=== PATIENT | male | born 1935 | race Caucasian/White ===

== ENCOUNTER 2019-12-05 10:45 | Inpatient (IN) ==
[2019-12-05] MEDS ORDERED: NovoLIN-R INSULIN PER UNIT CHARGE SC STA ×2 (11:20→11:38)
[2019-12-05] MEDS ORDERED: SODIUM CHLORIDE 0.9% 1000ML 1,000 ML IV SCH (11:30)
[2019-12-05 11:34] LABS: Basophils # (auto) 0.01 K/uL (0-0.2); Basophils % (auto) 0.1 %; Eosinophils # (auto) 0.07 K/uL (0-0.5); Hematocrit (blood only) 37.8 % (42-52); Hemoglobin 12.1 g/dL (14.0-18.0); Immature Granulocytes # (auto) 0.01 K/uL (0.00-0.02); Immature Granulocytes % (auto) 0.1 %; Lymphocytes % (auto) 15.8 %; Mean Corpuscular Hemoglobin 29.7 pg (25-34); Mean Corpuscular Volume 92.9 fL (80-100); Mean Platelet Volume 11.1 fL (7.4-10.4); Monocytes % (auto) 7.2 %; Neutrophils # (auto) 5.26 K/uL (1.4-6.5); Neutrophils % (auto) 75.8 %; Platelet Count 115 K/uL (130-400); RDW Coefficient of Variation 13.3 % (11.5-14.5); RDW Standard Deviation 45.4 fL (36.4-46.3); Red Blood Count 4.07 M/uL (4.7-6.1); White Blood Count 6.95 K/uL (4.8-10.8)
--- NOTE | 2019-12-05 11:36 | CT Scan Report ---
CT head/brain wo con CLINICAL HISTORY: 84 years-old Male with fall, AMS. Acute head injury status post fall with altered mental status TECHNIQUE: Multiple axial CT images of the head were obtained without contrast. A dose lowering tech nique was utilized adhering to the principles of ALARA. CT DOSE: 537.48 mGy.cm COMPARISON: Head CT 02/06/2007 FINDINGS: No acute intracranial hemorrhage, midline shift, intracranial mass, hydrocephalus, territorial ischem ia or abnormal extra-axial collection. Age-related involutional changes. Encephalomalacia of the bila teral inferior frontal lobes has progressed from comparison. Patchy white matter hypodensities sugges t chronic microvascular ischemic disease. Cerebral vascular calcifications are noted. Additionally, t here is encephalomalacia of the inferior temporal lobes which is also progressed from comparison. Add itionally, there is encephalomalacia of the right cerebellar hemisphere. Senescent calcifications of the lentiform nuclei. The calvarium is intact. Prior bilateral lens replacement. The paranasal sinuses, mastoid air cells, and middle ear cavities are clear. IMPRESSION: 1. No acute intracranial abnormality or calvarial fracture. 2. Age-related involutional changes with chronic microvascular ischemic disease. 3. Encephalomalacia of the bilateral frontal and inferior temporal lobes and lateral right cerebellar hemisphere. ACT 112: Negative or not required by law. The above report was generated using voice recognition software. It may contain grammatical, syntax o r spelling errors. Electronically signed by: Crescencio Ulloa M.D. 12/05/2019 11:34 AM
[2019-12-05 11:42] LABS: Albumin Level 3.5 gm/dl (3.4-5.0); BUN Creatinine Ratio 15.8 (10-20); Calcium 8.5 mg/dl (8.5-10.1); Creatinine Clr Calc Pharmacy 34.7 ml/min; Est GFR (African American) 36.1; Est GFR (Non-African American) 31.1; Potassium 4.3 mmol/L (3.5-5.1)
[2019-12-05 12:00] LABS: Bilirubin,Total 0.8 mg/dl (0.2-1); Globulin 3.4 gm/dl (2.5-4.0); Magnesium 2.2 mg/dl (1.8-2.4); Thyroid Stimulating Hormone 4.55 uIu/ml (0.300-4.500); Total Protein 6.9 gm/dl (6.4-8.2); Troponin I 0.663 ng/ml (0-0.045)
--- NOTE | 2019-12-05 12:10 | XRay Report ---
XR chest 1V portable HISTORY: 84 years-old Male SOB, syncope acute shortness of breath with syncope COMPARISON: Chest radiograph 02/06/2007 TECHNIQUE: Portable AP view of the chest FINDINGS: Cardiomegaly. Unchanged mild blunting of the costophrenic angles. Interstitial coarsening has progres sed from prior. No pneumothorax or lobar airspace consolidation. Subcentimeter sclerotic focus of the anterior right third rib is nonspecific. Degenerative changes of the shoulders and spine. IMPRESSION: 1. Cardiomegaly with pulmonary vascular congestion. 2. No airspace consolidation to suggest pneumonia. ACT 112: Negative or not required by law. The above report was generated using voice recognition software. It may contain grammatical, syntax o r spelling errors. Electronically signed by: Crescencio Ulloa M.D. 12/05/2019 12:08 PM
[2019-12-05 12:29] LABS: T4 Free Thyroxine 0.91 ng/dl (0.8-1.6)
[2019-12-05] MEDS ORDERED: ASPIRIN CHEW 324 MG PO STA (12:31)
--- NOTE | 2019-12-05 13:11 | History & Physical Report ---
Date of Service December 05, 2019 Assessment & Plan (1) Syncope: (2) Elevated troponin: (3) Aortic stenosis: -Admit to telemetry -Patient presenting from home after he was found unconscious outside on the ground by his neighbors while shoveling snow. Seems like patient had an additional syncopal episode a couple of weeks ago after being found on the floor by his . -History of severe aortic stenosis, suspect symptoms are secondary to this however will rule out seizure and stroke with EEG and MRI. Monitor on telemetry to rule out arrhythmia. -Carotid Dopplers -Resting echo -Elevated troponin likely secondary to demand ischemia from fall, EKG shows unchanged right bundle branch block; continue cycle cardiac enzymes -Cardiology consult, input appreciated (4) Type 2 diabetes mellitus: -Hgb A1c 7.7 09/2019 -Elevated glucose noted on ED labs, possibly secondary to stress response -Hold oral agents and utilize NovoLog per protocol while hospitalized (5) Hypertension: -BP elevated, possibly situational -Patient reports taking his home dose of lisinopril and atenolol this morning -Continue home medications, making adjustments as needed (6) Hyperlipidemia: -Continue statin (7) DVT prophylaxis: SQ heparin History of Present Illness Chief Complaint: syncope, fall Primary Care Provider: Chad Rowland DO 84 year old male who presents to the ED for evaluation of syncope and fall. Patient was out shoveling his driveway when his neighbors found him unconscious on the ground. Patient reports the last thing he remembers is walking up the driveway. He does not recall feeling lightheaded or dizzy prior to falling. reports that she found the patient on the floor of their home a couple of weeks ago. Patient again does not remember falling. No loss of bowel or bladder function, there does not seem to be a postictal phase. He reports he has been feeling short of breath over the past couple of weeks. Episodes have been intermittent and occur at rest at times. Denies lower extremity edema. No chest pain. Denies abdominal pain, nausea, vomiting, diarrhea. No other recent illnesses, fevers, chills. Denies any urinary symptoms. In the ED, labs show elevated troponin 0.663, EKG with unchanged right bundle branch block. Glucose 295. Head CT negative for acute findings. Hemodynamically stable. Patient was given full dose aspirin, IVF, SC insulin. Allergies Allergy/AdvReac Type Severity Reaction Status Date / Time No Known Allergies Allergy Unknown Verified 12/05/19 11:20 Home Medications Home Medications Medication Instructions Recorded Confirmed Type atenolol 25 mg PO QDL 03/03/19 12/05/19 History atorvastatin 10 mg PO PM 03/03/19 12/05/19 History glimepiride 1 mg PO BID 03/03/19 12/05/19 History lisinopril 10 mg PO QAM 03/03/19 12/05/19 History Past Med/Surg History Medical History Aortic stenosis Hyperlipidemia Hypertension Type 2 diabetes mellitus Surgical History History of carotid endarterectomy right History of cataract surgery LEFT. . 2mg versed no issues. History of colonoscopy History of total left knee replacement Family History Father Heart disorder Social History Preferred Language: Latvian Communication Ability: Effective Manhole Stripper Required: No Beliefs That Will Affect Care: None Current Living Situation: Spouse Other Information That Helps Us Care for You: Yes Feels Safe at Home: Yes Safety Concerns: Feels Safe At This Time Smoking Status: Former smoker Tobacco Type: cigarettes ; Do You Dip or Chew Tobacco: No ; Second Hand Exposure: No ; Tobacco Cessation Education Requested by Patient: No Hx Alcohol Use: No Hx Substance Use: No Review of Systems Review of Systems: ROS per HPI, all other systems reviewed and negative Physical Exam Physical Exam: Please refer to Dr. Alejandro's addendum for physical exam. Results & Data Vital Signs (Past 12 Hours) Vital Signs Temp Pulse Pulse Resp BP BP Pulse Ox 12/05/19 11:54 70 20 193/77 H 94 12/05/19 11:24 94 12/05/19 10:54 36.5 C 67 20 201/73 H 94 Laboratory Results Short CBC 12/05/19 Range/Units 11:00 WBC 6.95 (4.8-10.8) K/uL Hgb 12.1 L (14.0-18.0) g/dL Hct 37.8 L (42-52) % Plt Count 115 L (130-400) K/uL BMP 12/05/19 11:00 Sodium 139 Potassium 4.3 Chloride 108 H Carbon Dioxide 26 BUN 31 H Creatinine 1.95 H Glucose 295 H Calcium 8.5 Cardiac Enzymes 12/05/19 Range/Units 11:00 Troponin I 0.663 H* (0-0.045) ng/ml Liver Function 12/05/19 Range/Units 11:00 Total Bilirubin 0.8 (0.2-1) mg/dl AST 22 (15-37) U/L ALT 23 (12-78) U/L Alkaline Phosphatase 85 (45-117) U/L Albumin 3.5 (3.4-5.0) gm/dl Diagnostic Findings CXR IMPRESSION: 1. Cardiomegaly with pulmonary vascular congestion. 2. No airspace consolidation to suggest pneumonia. HEAD CT IMPRESSION: 1. No acute intracranial abnormality or calvarial fracture. 2. Age-related involutional changes with chronic microvascular ischemic disease. 3. Encephalomalacia of the bilateral frontal and inferior temporal lobes and lateral right cerebellar hemisphere. Code Status & VTE Plan Code Status Patient is a full code as Dr. Alejandro's discussion with him. VTE Prophylaxis Plan VTE Prophylaxis will be ordered: Yes Supervising Physician Co-Signing Physician Notes Attending Addendum: care coordinated with ZORAIDA Anne please refer to her notes for full details, I agree with her notes patient seen and examined, records reviewed by myself as well on exam, patient seen resting in bed, comfortable, not in distress denies active symptoms- no chest pain, palpitations, dyspnea, dizziness, focal weakness or numbness no other symptoms VS noted and reviewed oriented x 3, not in distress, speaks in sentences with no effort nor accessory muscle use normal rate, regular rhythm, (+) gr 4 holosystolic murmur clear breath sounds bilaterally non distended, soft, nontender no bipedal edema, erythema, warmth no neuro deficits WBC 6.95 Hg 12.1 Crea 1.95 ASSESSMENT AND PLAN SYNCOPAL EPISODES, LIKELY SECONDARY TO SYMPTOMATIC SEVERE AORTIC STENOSIS R/O ARRHYTHMIA update echo, continue usual Atenolol and Lisinopril euvolemic today, monitor closely will consult Cardiology SVC CT head negative, will order Brain MRI, Carotid Doppler and EEG HYPERTENSION likely from Stress systolic BP up to 180s-200s patient reports adherence to medication regimen ordered 1 dose of Amlodipine 2.5mg monitor closely other diagnoses and plan of care as per ZORAIDA Anne's notes Franco Alejandro MD
--- NOTE | 2019-12-05 13:55 | Emergency Department Note ---
Entered by Divina Anderson acting as a scribe for History of Present Illness General Chief complaint: Fall Stated complaint: fall/confused, eval Source: patient and EMS History of Present Illness Onset (ago): hour(s) (this morning) Location: head (general) Pain Consistency: + other (episode ) Quality: + other (syncope) Associated symptoms: + shortness of breath and + other (loss of consciousness) The patient is a 84 year old male who presents to the Emergency Room with complaints of a syncopal episode that occurred this morning. EMS reports the patient was trying to shovel snow and was found unconscious in his driveway by a neighbor. EMS reports the patient was awake and confused when EMS arrived. They note the patient fell yesterday and acted funny for 30 minutes following the fall. The patient states he does not remember falling. He notes he lives at home with his . The patient denies any pain currently. He reports feeling short of breath with exertion over the past few days. Home Medications Home Medications Medication Instructions Recorded Confirmed Type atenolol 25 mg PO QDL 03/03/19 12/05/19 History atorvastatin 10 mg PO PM 03/03/19 12/05/19 History glimepiride 1 mg PO BID 03/03/19 12/05/19 History lisinopril 10 mg PO QAM 03/03/19 12/05/19 History Allergies Allergy/AdvReac Type Severity Reaction Status Date / Time No Known Allergies Allergy Unknown Verified 12/05/19 11:20 Past Med/Surg History Medical History Aortic stenosis Hyperlipidemia Hypertension Type 2 diabetes mellitus Surgical History History of carotid endarterectomy right History of cataract surgery LEFT. . 2mg versed no issues. History of colonoscopy History of total left knee replacement Family History Father Heart disorder Social History Preferred Language: Gabonese Communication Ability: Effective Concrete Stone Finisher Required: No Beliefs That Will Affect Care: None Current Living Situation: Spouse Other Information That Helps Us Care for You: Yes Feels Safe at Home: Yes Safety Concerns: Feels Safe At This Time Smoking Status: Former smoker Tobacco Type: cigarettes ; Do You Dip or Chew Tobacco: No ; Second Hand Exposure: No ; Tobacco Cessation Education Requested by Patient: No Hx Alcohol Use: No Hx Substance Use: No Review of Systems See HPI for pertinent positives & negatives. and A total of 10 systems reviewed and were otherwise negative Physical Exam Vital Signs Vital Signs - 24 hr 12/05/19 10:54 12/05/19 11:24 12/05/19 11:54 Temperature 36.5 C Temperature Source Oral Pulse Rate 67 Pulse Rate [Apical] 70 Pulse Rhythm [Apical] Regular Pulse Strength [Apical] Normal Respiratory Rate 20 20 Respiratory Effort / Characteristics Non-Labored Spontaneous Respiratory Depth Normal Respiratory Pattern Regular Blood Pressure 201/73 H Blood Pressure [Left Arm] 193/77 H Blood Pressure Mean 115 Blood Pressure Mean [Left Arm] 115 Blood Pressure Position [Left Arm] Lying Pulse Oximetry 94 94 94 Oxygen Delivery Method Room Air Room Air Room Air Sepsis Recent Fever Within 48 Hours No Sepsis New/Unexplained Change in Mental Status No Sepsis Action Taken by Nursing No Action Required Vital signs reviewed. General: Well-appearing older male, in no significant distress. HEENT: No scleral icterus, PERRLA, neck supple. Atraumatic. Nontender over cervical spine. Cardiovascular: Regular rate and rhythm, high pitched systolic ejection murmur. Pulmonary: Clear to auscultation bilaterally, normal work of breathing. Abdomen: Soft, nontender, nondistended, positive bowel sounds. Musculoskeletal: Atraumatic, no peripheral edema. FROM of bilateral hips and knees without discomfort. Neurologic: Patient awake alert and oriented x 3 but is unable to name the president, full strength in all 4 extremities. Cranial nerves 2 through 12 grossly intact. Skin: Warm, dry, no rash Course Course 1115: Past medical records reviewed. The patient was evaluated in room C09. A complete history and physical exam was performed. 1233: Upon reevaluation, the patient was resting comfortably. I discussed findings and results with the patient. He verbalized agreement of the treatment plan. Discussed the patient's case [facility] the patient. The patient will be evaluated for further management. Administered Medications Discontinued Medications Amlodipine Besylate (Norvasc) 2.5 mg PO NOW ONE Stop: 12/05/19 15:16 Last Admin: 12/05/19 15:15 Dose: 2.5 mg Documented by: [id number] Aspirin (Aspirin) 324 mg PO NOW STA Stop: 12/05/19 12:32 Last Admin: 12/05/19 12:41 Dose: 324 mg Documented by: [id number] Sodium Chloride (Nss 1000ml) 1,000 mls @ 100 mls/hr IV .Q10H NIDIA Stop: 01/04/20 11:29 Last Infusion: 12/05/19 14:32 Dose: 0 mls/hr Documented by: [id number] Admin: 12/05/19 11:36 Dose: 100 mls/hr Documented by: [id number] Insulin Human Regular (Novolin R U-100 Per Unit) 6 units SC NOW STA Stop: 12/05/19 11:21 Last Admin: 12/05/19 11:48 Dose: Not Given Documented by: [id number] Insulin Human Regular (Novolin R U-100 Per Unit) 4 units SC NOW STA Stop: 12/05/19 11:39 Last Admin: 12/05/19 11:44 Dose: 4 units Documented by: [id number] Cosigned by: [id number] Medical Decision Making Differential Diagnosis Differential diagnosis:Etiologies such as intracranial hemorrhage, vasovagal event, infection, hypoglycemia, electrolyte abnormalities, cardiac sources, intracerebral event, toxicologic, neurologic, as well as others were entertained. Medical Records Attestation: I reviewed the patient's medical records. Home Medications Current Medication List: was personally reviewed by me Laboratory Data Attestation: I reviewed the patient's lab results. Result diagrams: 12/05/19 11:00 12/05/19 11:00 Lab Results 12/05/19 12/05/19 12/05/19 Range/Units 11:00 11:00 11:00 WBC 6.95 (4.8-10.8) K/uL RBC 4.07 L (4.7-6.1) M/uL Hgb 12.1 L (14.0-18.0) g/dL Hct 37.8 L (42-52) % MCV 92.9 (80-100) fL MCH 29.7 (25-34) pg MCHC 32.0 (32-36) g/dL RDW Std Deviation 45.4 (36.4-46.3) fL RDW Coeff of Chilo 13.3 (11.5-14.5) % Plt Count 115 L (130-400) K/uL MPV 11.1 H (7.4-10.4) fL Immature Gran % (Auto) 0.1 % Neut % (Auto) 75.8 % Lymph % (Auto) 15.8 % Smyth % (Auto) 7.2 % Eos % (Auto) 1.0 % Baso % (Auto) 0.1 % Immature Gran # (Auto) 0.01 (0.00-0.02) K/uL Neut # (Auto) 5.26 (1.4-6.5) K/uL Lymph # (Auto) 1.10 L (1.2-3.4) K/uL Smyth # (Auto) 0.50 (0.11-0.59) K/uL Eos # (Auto) 0.07 (0-0.5) K/uL Baso # (Auto) 0.01 (0-0.2) K/uL Sodium 139 (136-145) mmol/L Potassium 4.3 (3.5-5.1) mmol/L Chloride 108 H (98-107) mmol/L Carbon Dioxide 26 (21-32) mmol/L Anion Gap 5.0 (3-11) BUN 31 H (7-18) mg/dl Creatinine 1.95 H (0.6-1.4) mg/dl Est Cr Clr Drug Dosing 34.7 ml/min Est GFR ( Amer) 36.1 Est GFR (Non-Af Amer) 31.1 BUN/Creatinine Ratio 15.8 (10-20) Glucose 295 H (70-99) mg/dl POC Glucose (70-99) mg/dl Calcium 8.5 (8.5-10.1) mg/dl Magnesium 2.2 (1.8-2.4) mg/dl Total Bilirubin 0.8 (0.2-1) mg/dl AST 22 (15-37) U/L ALT 23 (12-78) U/L Alkaline Phosphatase 85 (45-117) U/L Total Creatine Kinase 196 (39-308) U/L Troponin I 0.663 H* (0-0.045) ng/ml Total Protein 6.9 (6.4-8.2) gm/dl Albumin 3.5 (3.4-5.0) gm/dl Globulin 3.4 (2.5-4.0) gm/dl Albumin/Globulin Ratio 1.0 (0.9-2) TSH 4.550 H (0.300-4.500) uIu/ml Free T4 0.91 (0.8-1.6) ng/dl 12/05/19 Range/Units 11:33 WBC (4.8-10.8) K/uL RBC (4.7-6.1) M/uL Hgb (14.0-18.0) g/dL Hct (42-52) % MCV (80-100) fL MCH (25-34) pg MCHC (32-36) g/dL RDW Std Deviation (36.4-46.3) fL RDW Coeff of Chilo (11.5-14.5) % Plt Count (130-400) K/uL MPV (7.4-10.4) fL Immature Gran % (Auto) % Neut % (Auto) % Lymph % (Auto) % Smyth % (Auto) % Eos % (Auto) % Baso % (Auto) % Immature Gran # (Auto) (0.00-0.02) K/uL Neut # (Auto) (1.4-6.5) K/uL Lymph # (Auto) (1.2-3.4) K/uL Smyth # (Auto) (0.11-0.59) K/uL Eos # (Auto) (0-0.5) K/uL Baso # (Auto) (0-0.2) K/uL Sodium (136-145) mmol/L Potassium (3.5-5.1) mmol/L Chloride (98-107) mmol/L Carbon Dioxide (21-32) mmol/L Anion Gap (3-11) BUN (7-18) mg/dl Creatinine (0.6-1.4) mg/dl Est Cr Clr Drug Dosing ml/min Est GFR ( Amer) Est GFR (Non-Af Amer) BUN/Creatinine Ratio (10-20) Glucose (70-99) mg/dl POC Glucose 275 H (70-99) mg/dl Calcium (8.5-10.1) mg/dl Magnesium (1.8-2.4) mg/dl Total Bilirubin (0.2-1) mg/dl AST (15-37) U/L ALT (12-78) U/L Alkaline Phosphatase (45-117) U/L Total Creatine Kinase (39-308) U/L Troponin I (0-0.045) ng/ml Total Protein (6.4-8.2) gm/dl Albumin (3.4-5.0) gm/dl Globulin (2.5-4.0) gm/dl Albumin/Globulin Ratio (0.9-2) TSH (0.300-4.500) uIu/ml Free T4 (0.8-1.6) ng/dl Imaging Data Radiologist's Impression: Radiology results as stated below per my review and the radiologist's interpretation: CT head/brain wo con CLINICAL HISTORY: 84 years-old Male with fall, AMS. Acute head injury status post fall with altered mental status TECHNIQUE: Multiple axial CT images of the head were obtained without contrast. A dose lowering technique was utilized adhering to the principles of ALARA. CT DOSE: 537.48 mGy.cm COMPARISON: Head CT 02/06/2007 FINDINGS: No acute intracranial hemorrhage, midline shift, intracranial mass, hydrocephalus, territorial ischemia or abnormal extra-axial collection. Age- related involutional changes. Encephalomalacia of the bilateral inferior frontal lobes has progressed from comparison. Patchy white matter hypodensities suggest chronic microvascular ischemic disease. Cerebral vascular calcifications are noted. Additionally, there is encephalomalacia of the inferior temporal lobes which is also progressed from comparison. Additionally, there is encephalomalacia of the right cerebellar hemisphere. Senescent calcifications of the lentiform nuclei. The calvarium is intact. Prior bilateral lens replacement. The paranasal sinuses, mastoid air cells, and middle ear cavities are clear. IMPRESSION: 1. No acute intracranial abnormality or calvarial fracture. 2. Age-related involutional changes with chronic microvascular ischemic disease. 3. Encephalomalacia of the bilateral frontal and inferior temporal lobes and lateral right cerebellar hemisphere. ACT 112: Negative or not required by law. The above report was generated using voice recognition software. It may contain grammatical, syntax or spelling errors. Electronically signed by: Crescencio Ulloa M.D. 12/05/2019 11:34 AM XR chest 1V portable HISTORY: 84 years-old Male SOB, syncope acute shortness of breath with syncope COMPARISON: Chest radiograph 02/06/2007 TECHNIQUE: Portable AP view of the chest FINDINGS: Cardiomegaly. Unchanged mild blunting of the costophrenic angles. Interstitial coarsening has progressed from prior. No pneumothorax or lobar airspace consolidation. Subcentimeter sclerotic focus of the anterior right third rib is nonspecific. Degenerative changes of the shoulders and spine. IMPRESSION: 1. Cardiomegaly with pulmonary vascular congestion. 2. No airspace consolidation to suggest pneumonia. ACT 112: Negative or not required by law. The above report was generated using voice recognition software. It may contain grammatical, syntax or spelling errors. Electronically signed by: Crescencio Ulloa M.D. 12/05/2019 12:08 PM ECG Data Attestation: I personally reviewed and interpreted this ECG as follows: Indication: + syncope Rate (beats per minute): 67 Rhythm: + normal sinus ECG Intervals/blocks: + Right Bundle branch block and + Normal QT-c (469) ECG ST segments: + Normal ST segments ECG Findings: no PACs and no PVCs Additional Comments: An order was placed for cardiac monitoring and the patient is found to be in a sinus rhythm at 67 bpm. Blood Pressure Blood Pressure Findings: Elevated blood pressure Blood Pressure Disposition: further management by hospitalist MDM Narrative This patient was evaluated and appeared to be in no significant distress. IV access was obtained and laboratory work was drawn. The patient was placed on the residential monitor and found to be in a sinus rhythm with a right bundle branch block at [address] imaging of the head was performed and reveals no evidence of acute intracranial pathology. Chest x-ray was performed and reveals cardiomegaly with pulmonary vascular congestion however there is no evidence of pneumonia. Patient's laboratory work reveals a slightly elevated troponin at 0.663. I am concerned with the possibility of cardiac arrhythmia with the falls/syncopal episodes over the last 2 days. Patient was informed of the findings and feels well at this time. Case was discussed with the hospitalist service for further evaluation and management. Patient and expressed their understanding and agree. Impression & Plan Elevated troponin, Syncope Discharge Plan Visit Data *Final* Discharge Date/Time: 12/05/19 13:42 Chief Complaint: Fall Stated Complaint: fall/confused, eval ED Provider: Nadira Alexandra Discharge Problem: Elevated troponin, Syncope Patient Disposition: Being Evaluated by Hospitalist Discharge Instructions Interventions: ED Discharge Assessment Last Done: 12/05/19 13:42 Discharge Problem: Syncope Qualifiers: Syncope type: unspecified Qualified Code(s): R55 - Syncope and collapse The scribe's documentation has been prepared under my direction and personally reviewed by me in its entirety. I confirm that the note above accurately reflects all work, treatment, procedures, and medical decision making performed by me.
[2019-12-05] MEDS ORDERED: CARBOHYDRATES FOR HYPOGLYCEMIA PO PRN (14:10)
[2019-12-05] MEDS ORDERED: ACETAMINOPHEN 325 MG TAB PO PRN (14:10)
[2019-12-05] MEDS ORDERED: DEXTROSE 50% 50 ML SYRINGE IV PRN (14:10)
[2019-12-05] MEDS ORDERED: GLUCOSE 10 TABS/TUBE PO PRN (14:10)
[2019-12-05] MEDS ORDERED: NITROGLYCERIN SL 0.4 MG/TAB TAB SL PRN (14:10)
[2019-12-05] MEDS ORDERED: GLUCAGON FOR INJ 1 MG VIAL SQ PRN (14:10)
[2019-12-05] MEDS ORDERED: GLUCOSE 40% GEL 15 GM TUBE PO PRN (14:10)
[2019-12-05] MEDS ORDERED: AMLODIPINE BESYLATE 5 MG TAB PO ONE ×2 (15:15→17:01)
--- NOTE | 2019-12-05 16:29 | Magnetic Resonance Report ---
MR brain wo con HISTORY: 84 years-old Male syncope acute syncope with strokelike symptoms COMPARISON: CT head of same day, cervical spine CT 01/18/2007 TECHNIQUE: Multiplanar multisequence MRI of the brain was obtained without the use of IV contrast. FINDINGS: Electric Motor Winder localizer images demonstrate no gross extracranial abnormality. There is no restricted diffusio n to suggest acute or subacute infarction. Midline structures including the corpus callosum, brainste m, and optic chiasm appear unremarkable on the sagittal T1 series. 2 mm pineal gland cyst. There is d ecreased T1 marrow signal of the C3 and C4 vertebral bodies with severe disc space narrowing. No sign ificant T2 signal abnormality identified on the coronal T2 FLAIR series. No acute intracranial hemorrhage, midline shift, abnormal extra-axial collection, hydrocephalus or in tracranial mass. Age-related involutional changes with mild ex vacuo ventriculomegaly. Encephalomalac ia and gliosis of the bilateral inferior frontal and temporal lobes. Moderate T2/FLAIR hyperintense f oci about the white matter suggest chronic microvascular ischemic disease. Major flow voids appear pa tent. Trace mastoid effusions. Mild mucosal thickening of the nasal turbinates and ethmoid air cells. Rightward bowing and spurring of the nasal septum. Prior bilateral lens replacement. The skull, soft tissues and orbits are unremarkable. IMPRESSION: 1. Age-related involutional changes and chronic microvascular ischemic disease without acute intracra nial abnormality. 2. 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 ACT 112: Negative or not required by law. The above report was generated using voice recognition software. It may contain grammatical, syntax o r spelling errors. Electronically signed by: Crescencio Ulloa M.D. 12/05/2019 4:28 PM
--- NOTE | 2019-12-05 17:04 | Ultrasound Report ---
US carotid doppler BI CLINICAL HISTORY: 84 years-old Male with syncope. Acute syncope COMPARISON: None TECHNIQUE: Multiple real time sonographic images of the carotid bifurcations were obtained assessing roldan scale, color Doppler and spectral wave form appearance FINDINGS: RIGHT CAROTID: The peak systolic velocity measured within the right ICA is79 cm/sec. The end diasto lic velocity measured 11 cm/sec. The ICA to CCA ratio measured 1.4 which correlates with a stenosis of 0-50%. Extensive mixed plaque of the distal common carotid artery, carotid bulb and proximal right ICA. LEFT CAROTID: The peak systolic velocity measured within the left ICA is85 cm/sec. The end diastoli c velocity measured 14 cm/sec. The ICA to CCA ratio measured 1.1 which correlates with a stenosis of 0-50%. Extensive mixed plaque of the distal common carotid artery, carotid bulb and proximal left ICA . There is normal antegrade vertebral flow bilaterally. Blood pressure on the right measures 212/72 and on the left measures 195/82. IMPRESSION: 1. Extensive mixed plaque of the bilateral carotid arteries without hemodynamically significant sten osis. 2. Normal antegrade vertebral flow bilaterally. ACT 112: Negative or not required by law. The above report was generated using voice recognition software. It may contain grammatical, syntax o r spelling errors. Electronically signed by: Crescencio Ulloa M.D. 12/05/2019 5:03 PM
[2019-12-05] MEDS: HEPARIN SOD 5,000 UNIT/0.5 ML VIAL SQ SCH ×2 (17:27→21:53)
[2019-12-05] MEDS: INSULIN ASPART 100 UNITS/ML 3 ML PEN SC SCH ×2 (17:28→21:53)
[2019-12-05] MEDS ORDERED: ATORVASTATIN 10 MG TAB PO SCH (21:00)
[2019-12-05 23:42] LABS: Appearance Urine Turbid (Clear); Bacteria Urine Automated 4+ (Negative); Bilirubin Urine Negative (Negative); Blood Urine 2+ (Negative); Cast Urine Automated 0 /lpf (0-5); Color Urine Yellow; Epithelial Cell Urine Auto 0-5 /lpf (0-5); Glucose Urine UA Negative (Negative); Ketones Urine Negative (Negative); Leukocyte Esterase Urine 2+ (Negative); Nitrite Urine Negative (Negative); Specific Gravity Urine 1.017 (1.000-1.030); Urobilinogen Urine Negative (Negative); WBC Urine Automated >30 /hpf (0-5); pH Urine 8.5 (4.5-7.5)
[2019-12-05 23:56] LABS: Protein Urine 2+ (Negative)
[2019-12-06 00:03] LABS: Sulfosalicylic Acid Urine Positive (Negative)
[2019-12-06] MEDS ORDERED: ATENOLOL 25 MG TABLET PO SCH ×2 (06:30→11:30)
[2019-12-06] MEDS: HEPARIN SOD 5,000 UNIT/0.5 ML VIAL SQ SCH (06:32)
[2019-12-06 06:43] LABS: Hematocrit (blood only) 33.7 % (42-52); Hemoglobin 10.9 g/dL (14.0-18.0); Mean Corpuscular Hemoglobin 29.5 pg (25-34); Mean Corpuscular Hgb Conc 32.3 g/dL (32-36); Mean Corpuscular Volume 91.3 fL (80-100); Mean Platelet Volume 10.8 fL (7.4-10.4); Platelet Count 120 K/uL (130-400); RDW Coefficient of Variation 13.3 % (11.5-14.5); Red Blood Count 3.69 M/uL (4.7-6.1); White Blood Count 7.11 K/uL (4.8-10.8)
[2019-12-06 07:15] LABS: BUN Creatinine Ratio 16.5 (10-20); Calcium 8.3 mg/dl (8.5-10.1); Creatinine Clr Calc Pharmacy 38.8 ml/min; Est GFR (African American) 45.5; Est GFR (Non-African American) 39.2; Potassium 3.8 mmol/L (3.5-5.1)
[2019-12-06 07:21] LABS: Troponin I 0.611 ng/ml (0-0.045)
[2019-12-06] MEDS: INSULIN ASPART 100 UNITS/ML 3 ML PEN SC SCH ×2 (07:43→11:58)
[2019-12-06] MEDS ORDERED: lisinopriL 10 MG TAB PO SCH (09:00)
[2019-12-06] MEDS ORDERED: cefTRIAXone SODIUM 2,000 MG in DEXTROSE 5% 50 ML IV SCH (09:00)
[2019-12-06] MEDS ORDERED: ASPIRIN 81 MG ECTAB PO SCH (09:00)
--- NOTE | 2019-12-06 11:25 | Cardiology Consultation ---
Date of Consultation December 06, 2019 Assessment & Plan (1) Syncope: Very suspicious for valvular induced syncope in the setting of severe calcific aortic stenosis. Symptoms may have been precipitated by underlying under medical issues but patient noting no complaints. Urinary tract infection not excluded. Mild hypothyroidism observed Patient currently without complaint this morning and evaluation only notable for flat but elevated troponin. No arrhythmias on telemetry, no evidence of stroke or significant carotid disease Discussed above findings in detail with patient. In the past he has been reluctant to consider any intervention for valvular disease due to multiple social issues. Valve mediated syncope however represents a significant prognostic concern which have just discussed. He once again consider further. Optimally would transfer to tertiary care facility for initiation of evaluation, cardiac cath consideration of valve replacement. Patient not willing to commit at this time but will discuss with Would continue on current medications as prescribed treat underlying infectious process and possible hypothyroidism (2) Aortic stenosis: As above (3) Elevated troponin: No acute acute changes or wall motion abnormalities no underlying ischemic heart disease not excluded. Stress testing not warranted (4) Hypertension: Persistently elevated since admission we will discontinue atenolol begin Toprol-XL 12.5 mg/day, will continue amlodipine at 2.5 mg/day and lisinopril 10 mg/day History of Present Illness Reason for Consultation: Syncope Requesting Physician: Dr. Lee Attending Physician: Chris Lee MD History of Present Illness Patient is an 84-year-old male history of known calcific aortic valve disease, hypertension, type 2 diabetes mellitus, hyperlipidemia on therapy. Patient presents this admission notes was shoveling snow at a light level in his driveway yesterday then collapsed he has no recollection of the event no preceding complaints. No past history of syncope. Denies chest pains tachypalpitations orthopnea or worsening peripheral edema. Appetite and weight have been generally stable. He attempts to remain active about his home light work mowing grass etc. Does care for aging as well. Denies any fevers chills unexplained infections. Notes no melena medication dysuria hematuria. Appetite and weight of generally been stable. No sleep disruption. Denies prior history of myocardial infarction or congestive heart failure. Allergies Allergy/AdvReac Type Severity Reaction Status Date / Time No Known Allergies Allergy Unknown Verified 12/05/19 11:20 Home Medications Home Medications Medication Instructions Recorded Confirmed Type atenolol 25 mg PO QDL 03/03/19 12/05/19 History atorvastatin 10 mg PO PM 03/03/19 12/05/19 History glimepiride 1 mg PO BID 03/03/19 12/05/19 History lisinopril 10 mg PO QAM 03/03/19 12/05/19 History Patient History Medical History Aortic stenosis Hyperlipidemia Hypertension Type 2 diabetes mellitus Surgical History History of carotid endarterectomy right History of cataract surgery LEFT. . 2mg versed no issues. History of colonoscopy History of total left knee replacement Family History Father Heart disorder Social History Preferred Language: Portuguese Communication Ability: Effective Executive Casino Host Required: No Beliefs That Will Affect Care: None Current Living Situation: Spouse Other Information That Helps Us Care for You: Yes Feels Safe at Home: Yes Safety Concerns: Feels Safe At This Time Smoking Status: Former smoker Tobacco Type: cigarettes ; Do You Dip or Chew Tobacco: No ; Second Hand Exposure: No ; Tobacco Cessation Education Requested by Patient: No Hx Alcohol Use: No Hx Substance Use: No Review of Systems Review of Systems: All systems reviewed & are unremarkable except as noted in HPI & below Physical Exam Constitutional: WD/WN, vitals as above Eyes: PERRL, conjunctivae normal, anicteric sclerae ENMT: external ear and nose normal, oropharynx normal Neck: trachea midline, no thyromegaly Respiratory: normal respiratory effort, lungs clear to auscultation Cardiovascular: Rate/Rhythm: regular rate and regular rhythm Heart Sounds: normal S1 and + murmur (Harsh grade 3/6 systolic murmur no diastolic murmur); + abnormal S2 (Nearly absent) and no gallop Palpation: normal PMI Vessels: radial pulses present; no JVD, no carotid bruit and + abnormal carotid upstroke (Delayed carotid upstroke) Extremities: no edema Gastrointestinal (Abdomen): normal bowel sounds, soft, nontender, no hepatospl enomegaly Musculoskeletal: no cyanosis or clubbing, extremities motor strength 5/5 Skin: no rashes, warm and dry Neurologic: PERRL, EOMI, accommodation nl, no face palsy, no dysarthria Psychiatric: A+Ox3, euthymic affect Results & Data Vital Signs (Past 12 Hours) Vital Signs Temp Pulse Pulse Resp BP BP Pulse Ox 12/06/19 11:10 37.3 C 53 L 18 163/71 H 98 12/06/19 07:50 64 12/06/19 07:19 36.6 C 70 18 165/58 H 95 12/06/19 02:28 36.6 C 75 19 160/64 H 94 12/06/19 00:00 59 L 12/05/19 23:30 36.8 C 65 19 159/65 H 96 Laboratory Results Laboratory Results - last 24 hr 12/05/19 12/05/19 12/05/19 11:00 11:00 11:00 WBC 6.95 RBC 4.07 L Hgb 12.1 L Hct 37.8 L MCV 92.9 MCH 29.7 MCHC 32.0 RDW Std Deviation 45.4 RDW Coeff of [place] 13.3 Plt Count 115 L MPV 11.1 H Immature Gran % (Auto) 0.1 Neut % (Auto) 75.8 Lymph % (Auto) 15.8 [place] % (Auto) 7.2 Eos % (Auto) 1.0 Baso % (Auto) 0.1 Immature Gran # (Auto) 0.01 Neut # (Auto) 5.26 Lymph # (Auto) 1.10 L [place] # (Auto) 0.50 Eos # (Auto) 0.07 Baso # (Auto) 0.01 Sodium 139 Potassium 4.3 Chloride 108 H Carbon Dioxide 26 Anion Gap 5.0 BUN 31 H Creatinine 1.95 H Est Cr Clr Drug Dosing 34.7 Est GFR ( Amer) 36.1 Est GFR (Non-Af Amer) 31.1 BUN/Creatinine Ratio 15.8 Glucose 295 H POC Glucose Calcium 8.5 Magnesium 2.2 Total Bilirubin 0.8 AST 22 ALT 23 Alkaline Phosphatase 85 Total Creatine Kinase 196 Troponin I 0.663 H* Total Protein 6.9 Albumin 3.5 Globulin 3.4 Albumin/Globulin Ratio 1.0 TSH 4.550 H Free T4 0.91 Urine Color Urine Appearance Urine pH Ur Specific [place] Urine Protein Urine Glucose (UA) Urine Ketones Urine Blood Urine Nitrite Urine Bilirubin Urine Urobilinogen Ur Leukocyte Esterase Urine WBC (Auto) Urine RBC (Auto) U Hyaline Cast (Auto) U Epithel Cells (Auto) Urine Bacteria (Auto) 12/05/19 12/05/19 12/05/19 11:33 13:29 14:36 WBC RBC Hgb Hct MCV MCH MCHC RDW Std Deviation RDW Coeff of [place] Plt Count MPV Immature Gran % (Auto) Neut % (Auto) Lymph % (Auto) [place] % (Auto) Eos % (Auto) Baso % (Auto) Immature Gran # (Auto) Neut # (Auto) Lymph # (Auto) [place] # (Auto) Eos # (Auto) Baso # (Auto) Sodium Potassium Chloride Carbon Dioxide Anion Gap BUN Creatinine Est Cr Clr Drug Dosing Est GFR ( Amer) Est GFR (Non-Af Amer) BUN/Creatinine Ratio Glucose POC Glucose 275 H 236 H 225 H Calcium Magnesium Total Bilirubin AST ALT Alkaline Phosphatase Total Creatine Kinase Troponin I Total Protein Albumin Globulin Albumin/Globulin Ratio TSH Free T4 Urine Color Urine Appearance Urine pH Ur Specific [place] Urine Protein Urine Glucose (UA) Urine Ketones Urine Blood Urine Nitrite Urine Bilirubin Urine Urobilinogen Ur Leukocyte Esterase Urine WBC (Auto) Urine RBC (Auto) U Hyaline Cast (Auto) U Epithel Cells (Auto) Urine Bacteria (Auto) 12/05/19 12/05/19 12/05/19 16:46 18:53 20:47 WBC RBC Hgb Hct MCV MCH MCHC RDW Std Deviation RDW Coeff of [place] Plt Count MPV Immature Gran % (Auto) Neut % (Auto) Lymph % (Auto) [place] % (Auto) Eos % (Auto) Baso % (Auto) Immature Gran # (Auto) Neut # (Auto) Lymph # (Auto) [place] # (Auto) Eos # (Auto) Baso # (Auto) Sodium Potassium Chloride Carbon Dioxide Anion Gap BUN Creatinine Est Cr Clr Drug Dosing Est GFR ( Amer) Est GFR (Non-Af Amer) BUN/Creatinine Ratio Glucose POC Glucose 175 H 97 Calcium Magnesium Total Bilirubin AST ALT Alkaline Phosphatase Total Creatine Kinase Troponin I 0.726 H* Total Protein Albumin Globulin Albumin/Globulin Ratio TSH Free T4 Urine Color Urine Appearance Urine pH Ur Specific [place] Urine Protein Urine Glucose (UA) Urine Ketones Urine Blood Urine Nitrite Urine Bilirubin Urine Urobilinogen Ur Leukocyte Esterase Urine WBC (Auto) Urine RBC (Auto) U Hyaline Cast (Auto) U Epithel Cells (Auto) Urine Bacteria (Auto) 12/05/19 12/06/19 12/06/19 23:24 00:37 05:54 WBC 7.11 RBC 3.69 L Hgb 10.9 L Hct 33.7 L MCV 91.3 MCH 29.5 MCHC 32.3 RDW Std Deviation 44.0 RDW Coeff of [place] 13.3 Plt Count 120 L MPV 10.8 H Immature Gran % (Auto) Neut % (Auto) Lymph % (Auto) [place] % (Auto) Eos % (Auto) Baso % (Auto) Immature Gran # (Auto) Neut # (Auto) Lymph # (Auto) [place] # (Auto) Eos # (Auto) Baso # (Auto) Sodium Potassium Chloride Carbon Dioxide Anion Gap BUN Creatinine Est Cr Clr Drug Dosing Est GFR ( Amer) Est GFR (Non-Af Amer) BUN/Creatinine Ratio Glucose POC Glucose Calcium Magnesium Total Bilirubin AST ALT Alkaline Phosphatase Total Creatine Kinase Troponin I 0.729 H* Total Protein Albumin Globulin Albumin/Globulin Ratio TSH Free T4 Urine Color Yellow Urine Appearance Turbid A Urine pH 8.5 H Ur Specific [place] 1.017 Urine Protein 2+ H Urine Glucose (UA) Negative Urine Ketones Negative Urine Blood 2+ H Urine Nitrite Negative Urine Bilirubin Negative Urine Urobilinogen Negative Ur Leukocyte Esterase 2+ H Urine WBC (Auto) >30 H Urine RBC (Auto) 10-30 H U Hyaline Cast (Auto) 0 U Epithel Cells (Auto) 0-5 Urine Bacteria (Auto) 4+ H 12/06/19 12/06/19 12/06/19 05:54 05:54 07:37 WBC RBC Hgb Hct MCV MCH MCHC RDW Std Deviation RDW Coeff of [place] Plt Count MPV Immature Gran % (Auto) Neut % (Auto) Lymph % (Auto) [place] % (Auto) Eos % (Auto) Baso % (Auto) Immature Gran # (Auto) Neut # (Auto) Lymph # (Auto) [place] # (Auto) Eos # (Auto) Baso # (Auto) Sodium 142 Potassium 3.8 Chloride 109 H Carbon Dioxide 27 Anion Gap 6.0 BUN 27 H Creatinine 1.61 H D Est Cr Clr Drug Dosing 38.8 Est GFR ( Amer) 45.5 Est GFR (Non-Af Amer) 39.2 BUN/Creatinine Ratio 16.5 Glucose 80 POC Glucose 103 H Calcium 8.3 L Magnesium Total Bilirubin AST ALT Alkaline Phosphatase Total Creatine Kinase Troponin I 0.611 H* Cancelled Total Protein Albumin Globulin Albumin/Globulin Ratio TSH Free T4 Urine Color Urine Appearance Urine pH Ur Specific [place] Urine Protein Urine Glucose (UA) Urine Ketones Urine Blood Urine Nitrite Urine Bilirubin Urine Urobilinogen Ur Leukocyte Esterase Urine WBC (Auto) Urine RBC (Auto) U Hyaline Cast (Auto) U Epithel Cells (Auto) Urine Bacteria (Auto) 12/06/19 11:07 WBC RBC Hgb Hct MCV MCH MCHC RDW Std Deviation RDW Coeff of [place] Plt Count MPV Immature Gran % (Auto) Neut % (Auto) Lymph % (Auto) [place] % (Auto) Eos % (Auto) Baso % (Auto) Immature Gran # (Auto) Neut # (Auto) Lymph # (Auto) [place] # (Auto) Eos # (Auto) Baso # (Auto) Sodium Potassium Chloride Carbon Dioxide Anion Gap BUN Creatinine Est Cr Clr Drug Dosing Est GFR ( Amer) Est GFR (Non-Af Amer) BUN/Creatinine Ratio Glucose POC Glucose 227 H Calcium Magnesium Total Bilirubin AST ALT Alkaline Phosphatase Total Creatine Kinase Troponin I Total Protein Albumin Globulin Albumin/Globulin Ratio TSH Free T4 Urine Color Urine Appearance Urine pH Ur Specific [place] Urine Protein Urine Glucose (UA) Urine Ketones Urine Blood Urine Nitrite Urine Bilirubin Urine Urobilinogen Ur Leukocyte Esterase Urine WBC (Auto) Urine RBC (Auto) U Hyaline Cast (Auto) U Epithel Cells (Auto) Urine Bacteria (Auto) Diagnostic Findings 06-DEC-2019 07:31:49 [facility] ROUTINE RETRIEVAL Normal sinus rhythm Right bundle branch block Abnormal ECG When compared with ECG of 05-DEC-2019 10:53, (unconfirmed) Nonspecific T wave abnormality now evident in Anterior leads Echocardiogram 12/06/2019: Moderate left hypertrophy with preserved LV systolic function heavily calcified aortic valve with severe aortic stenosis, mild to moderate aortic insufficiency (1) Syncope Syncope type: unspecified Qualified Code(s): R55 - Syncope and collapse
[2019-12-06] MEDS ORDERED: AMLODIPINE BESYLATE 5 MG TAB PO SCH (11:45)
--- NOTE | 2019-12-06 12:51 | Cardiology Progress Note ---
Date of Service December 06, 2019 Subjective Discussed clinical findings findings as noted before with patient, and family members. Patient is agreeable to further evaluation duration at tertiary care center. Contacting cardiology service [facility] Dr. Darci Garcia. Service and physician agreeable to excepting and transfer will make arrangements for transfer likely later today Results & Data Vital Signs (Past 12 Hours) Vital Signs Temp Pulse Pulse Resp BP BP Pulse Ox 12/06/19 11:10 37.3 C 53 L 18 163/71 H 98 12/06/19 07:50 64 12/06/19 07:19 36.6 C 70 18 165/58 H 95 12/06/19 02:28 36.6 C 75 19 160/64 H 94
--- NOTE | 2019-12-06 14:11 | Electrocardiogram Report ---
Test Reason : Blood Pressure : / mmHG Vent. Rate : 067 BPM Atrial Rate : 067 BPM P-R Int : 148 ms QRS Dur : 146 ms QT Int : 444 ms P-R-T Axes : 072 088 033 degrees QTc Int : 469 ms Normal sinus rhythm Right bundle branch block Abnormal ECG When compared with ECG of 06-FEB-2007 16:03, Right bundle branch block is now Present Confirmed by Marty Winchester ([id number]) on 12/06/2019 2:10:48 PM Referred By: REFERRED SELF Confirmed By:Marty Winchester
--- NOTE | 2019-12-06 14:27 | Electrocardiogram Report ---
Test Reason : Blood Pressure : / mmHG Vent. Rate : 062 BPM Atrial Rate : 062 BPM P-R Int : 140 ms QRS Dur : 140 ms QT Int : 444 ms P-R-T Axes : 076 096 041 degrees QTc Int : 450 ms Normal sinus rhythm Right bundle branch block Abnormal ECG When compared with ECG of 05-DEC-2019 10:53, (unconfirmed) Nonspecific T wave abnormality now evident in Anterior leads Confirmed by Marty Winchester ([id number]) on 12/06/2019 2:27:36 PM Referred By: REFERRED SELF Confirmed By:Marty Winchester
--- NOTE | 2019-12-06 14:39 | Hospitalist Progress Note ---
Date of Service December 06, 2019 Assessment & Plan (1) Syncope: (2) Elevated troponin: (3) Aortic stenosis: Recurrent syncopal episodes Likely valvular induced syncope --ECHO: The left ventricle is normal in size. There is moderate concentric LVH. No regional wall motion abnormality noted. Ejection fraction 55 to 60%. The left atrium is moderately dilated. Diastolic dysfunction, grade 2, consistent with elevated left atrial pressure. There is severe calcific aortic valve stenosis. Mild to moderate aortic regurgitation. There is mild mitral regurgitation. --Carotid Doppler:Extensive mixed plaque of the bilateral carotid arteries without hemodynamically significant stenosis. Normal antegrade vertebral flow bilaterally. --MRI Brain:Age-related involutional changes and chronic microvascular ischemic disease without acute intracranial abnormality. 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 Patient needs further evaluation at a tertiary care facility with cardiac catheterization and consideration of aortic valve replacement Appreciate cardiology input Patient is accepted by Dr. Ariza at [facility] for further evaluation and management Patient/family agreeable for the transfer (4) Type 2 diabetes mellitus: Hgb A1c 7.7 09/2019 Hold oral agents Continue Insulin therapy while hospitalized Monitor BGs Abnormal UA Patient denies any dysuria, increased frequency, hematuria Urine culture pending Started on Rocephin empirically Day #1 (5) Hypertension: BP elevated, possibly situational Lisinopril discontinued secondary to renal insufficiency Started on amlodipine 2.5 mg daily, metoprolol 12.5 mg daily CKD III Creatinine at baseline Monitor renal function Avoid nephrotoxic agents as able Carotid artery disease Started on aspirin 81 mg daily Continue statin (6) Hyperlipidemia: Continue statin (7) DVT prophylaxis: SQ heparin CODE STATUS Full code Disposition Transfer to [facility] Subjective Patient is seen and examined at bedside Patient states feeling better today Offers no complaints Denies any chest pain, shortness of breath, dizziness, nausea, abdominal pain, dysuria, increased urinary frequency Discussed with cardiology today Patient has severe aortic stenosis that needs evaluation at tertiary care facility for possible aortic valve replacement. Patient is accepted by Dr. Ariza, [facility] Review of Systems Review of Systems: All systems reviewed & are unremarkable except as noted in HPI & below Physical Exam Physical Exam: Physical Exam: Vitals signs as noted above General Appearance:Moderately built and nourished, no apparent distress, Elderly Head: normocephalic, Atraumatic Eyes: normal inspection, EOMI Neck: supple, Trachea midline Respiratory/Chest: Normal breath sounds, CTA, No accessory muscle use Cardiovascular: S1, S2, + Systolic Murmur Abdomen/GI:Soft, Non tender, Bowel sounds present Extremities/Musculoskelatal:normal inspection, no edema Neurologic/Psych:AAOX3, grossly no focal neurological deficits Skin: normal color, warm Results & Data Vital Signs (Past 12 Hours) Vital Signs Temp Pulse Pulse Resp BP BP Pulse Ox 12/06/19 11:10 37.3 C 53 L 18 163/71 H 98 12/06/19 07:50 64 12/06/19 07:19 36.6 C 70 18 165/58 H 95 12/06/19 02:28 36.6 C 75 19 160/64 H 94 Laboratory Results Short CBC 12/06/19 Range/Units 05:54 WBC 7.11 (4.8-10.8) K/uL Hgb 10.9 L (14.0-18.0) g/dL Hct 33.7 L (42-52) % Plt Count 120 L (130-400) K/uL BMP 12/06/19 05:54 Sodium 142 Potassium 3.8 Chloride 109 H Carbon Dioxide 27 BUN 27 H Creatinine 1.61 H D Glucose 80 Calcium 8.3 L Cardiac Enzymes 12/05/19 12/06/19 12/06/19 Range/Units 18:53 00:37 05:54 Troponin I 0.726 H* 0.729 H* 0.611 H* (0-0.045) ng/ml 12/06/19 Range/Units 05:54 Troponin I Cancelled (0-0.045) ng/ml Urine 12/05/19 Range/Units 23:24 Urine Color Yellow Urine Appearance Turbid A (Clear) Urine pH 8.5 H (4.5-7.5) Ur Specific [place] 1.017 (1.000-1.030) Urine Protein 2+ H (Negative) Urine Glucose (UA) Negative (Negative)
--- NOTE | 2019-12-06 14:48 | Discharge Summary ---
Date of Service December 06, 2019 Admission HPI Per Admitting Provider 84 year old male who presents to the ED for evaluation of syncope and fall. Patient was out shoveling his driveway when his neighbors found him unconscious on the ground. Patient reports the last thing he remembers is walking up the driveway. He does not recall feeling lightheaded or dizzy prior to falling. reports that she found the patient on the floor of their home a couple of weeks ago. Patient again does not remember falling. No loss of bowel or bladder function, there does not seem to be a postictal phase. He reports he has been feeling short of breath over the past couple of weeks. Episodes have been intermittent and occur at rest at times. Denies lower extremity edema. No chest pain. Denies abdominal pain, nausea, vomiting, diarrhea. No other recent illnesses, fevers, chills. Denies any urinary symptoms. In the ED, labs show elevated troponin 0.663, EKG with unchanged right bundle branch block. Glucose 295. Head CT negative for acute findings. Hemodynamically stable. Patient was given full dose aspirin, IVF, SC insulin. Admission Exam Per Admitting Provider VS noted and reviewed oriented x 3, not in distress, speaks in sentences with no effort nor accessory muscle use normal rate, regular rhythm, (+) gr 4 holosystolic murmur clear breath sounds bilaterally non distended, soft, nontender no bipedal edema, erythema, warmth no neuro deficits Principal Diagnosis Recurrent syncope Severe aortic stenosis Possible UTI Discharge Data Allergies Allergy/AdvReac Type Severity Reaction Status Date / Time No Known Allergies Allergy Unknown Verified 12/05/19 11:20 Consultations 12/05/19 12:47 ED Decision to Admit Stat 12/05/19 14:10 Consult Cardiology Routine Consult Case Management - Discharge Planning Routine 12/06/19 13:15 Burn CD for patient Routine Procedures Performed --ECHO: The left ventricle is normal in size. There is moderate concentric LVH. No regional wall motion abnormality noted. Ejection fraction 55 to 60%. The left atrium is moderately dilated. Diastolic dysfunction, grade 2, consistent with elevated left atrial pressure. There is severe calcific aortic valve stenosis. Mild to moderate aortic regurgitation. There is mild mitral regurgitation. --Carotid Doppler:Extensive mixed plaque of the bilateral carotid arteries without hemodynamically significant stenosis. Normal antegrade vertebral flow bilaterally. --MRI Brain:Age-related involutional changes and chronic microvascular ischemic disease without acute intracranial abnormality. 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 Ordered Studies 12/05/19 11:09 CT head/brain wo con Stat 12/05/19 14:10 MR brain wo con Routine 12/05/19 14:10 US carotid doppler BI Routine Hospital Course (1) Syncope: (2) Elevated troponin: (3) Aortic stenosis: Recurrent syncopal episodes Likely valvular induced syncope --ECHO: The left ventricle is normal in size. There is moderate concentric LVH. No regional wall motion abnormality noted. Ejection fraction 55 to 60%. The left atrium is moderately dilated. Diastolic dysfunction, grade 2, consistent with elevated left atrial pressure. There is severe calcific aortic valve stenosis. Mild to moderate aortic regurgitation. There is mild mitral regurgitation. --Carotid Doppler:Extensive mixed plaque of the bilateral carotid arteries without hemodynamically significant stenosis. Normal antegrade vertebral flow bilaterally. --MRI Brain:Age-related involutional changes and chronic microvascular ischemic disease without acute intracranial abnormality. 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 Patient needs further evaluation at a tertiary care facility with cardiac catheterization and consideration of aortic valve replacement Appreciate cardiology input Patient is accepted by Dr. Ariza at [facility] for further evaluation and management Patient/family agreeable for the transfer (4) Type 2 diabetes mellitus: Hgb A1c 7.7 09/2019 Hold oral agents Continue Insulin therapy while hospitalized Monitor BGs Abnormal UA Patient denies any dysuria, increased frequency, hematuria Urine culture pending Started on Rocephin empirically Day #1 (5) Hypertension: BP elevated, possibly situational Lisinopril discontinued secondary to renal insufficiency Started on amlodipine 2.5 mg daily, metoprolol 12.5 mg daily CKD III Creatinine at baseline Monitor renal function Avoid nephrotoxic agents as able Carotid artery disease S/P Right Carotid endarterectomy Started on aspirin 81 mg daily Continue statin Prior CVA As per MRI Started on Aspirin 81mg daily Continue Statin (6) Hyperlipidemia: Continue statin (7) DVT prophylaxis: SQ heparin CODE STATUS Full code Disposition Transfer to [facility] Total Time Total Time Spent Total Time Spent (In Minutes): 45 minutes Total Time Includes: Examination of the Patient, Discharge Planning, Medication Reconciliation, Communication With Other Providers and Other Discharge Plan Discharge Items Patient Disposition: Transfer Acute Care Hospital Reason For Visit: SYNCOPE Discharge Diagnosis: Recurrent syncope Severe aortic stenosis Possible UTI Activity: Per Instructions section Exercise/Sports: Wait until after follow-up appointment Driving/Machine Use: Wait until follow-up appointment Non-emergency contact: Primary Care Provider and Rigging Engineer Call non-emergency contact if: you have any medication questions, your symptoms worsen, your pain is not controlled, your pain is worsening, your pain is unusual for you, your pain is concerning for you and you have a fever Follow-up/Referrals: Chad Rowland, DO [Primary Care Provider] - Diet: Carb Consistent or DM2 and Heart Healthy Addtl Attending Provider Instructions: Follow-up with cardiology Dr. Ariza at [facility] for further evaluation and management Follow-up with your primary care physician Dr. Chad Rowland in 1 week upon discharge from hospital Pending Studies at Discharge: No Stand-Alone Forms: My [facility] Skilled Items Patient informed of condition?: Yes DNR: No Discharge Level of Care: Other Communicable Disease: No Discharge Prognosis: Stable Lines: None Urinary Catheter: No Medications and DC Order Prescriptions: New aspirin [Ecotrin Low Strength] 81 mg Tablet,Delayed Release (Dr/Ec) 81 mg PO QAM Qty: 0 RF: 0 amlodipine [Norvasc] 5 mg Tablet 2.5 mg PO QAM Qty: 0 RF: 0 metoprolol succinate 25 mg Tablet Extended Release 24 Hr 12.5 mg PO QAM Qty: 0 RF: 0 Continued atorvastatin 10 mg Tablet 10 mg PO PM RF: 0 glimepiride 1 mg Tablet 1 mg PO BID RF: 0 Discontinued atenolol 25 mg Tablet 25 mg PO QDL RF: 0 lisinopril 10 mg Tablet 10 mg PO QAM RF: 0 Discharge Orders: Discharge Order (Routine); Ordered 12/06/19 Ordered By: Chris Lee Admission Data Admit Date/Time: 12/05/19 13:00 Attending Provider: Chris Lee Admit Provider: Franco Alejandro Primary Care Provider: Chad Rowland Other Providers: Franco Alejandro ; Nelson Wick
[2019-12-07] MEDS ORDERED: METOPROLOL SUCC 25MG EXT REL TAB PO SCH (09:00)
== END 2019-12-06 15:45 | disposition short-term general hospital (02) | DRG 307 ==
LOC: ED 10:45 → 2S 13:00 → SUATTDRO 13:00 → 2S 13:42

== ENCOUNTER 2021-01-10 14:58 | Inpatient (IN) ==
[2021-01-10] MEDS ORDERED: ONDANSETRON INJ 2 MG/ML 2 ML VIAL IV STA (15:58)
--- NOTE | 2021-01-10 16:00 | Emergency Department Note ---
Impression & Plan Closed hip fracture, Fall, CKD (chronic kidney disease) stage 4, GFR 15-29 ml/min ED Provider Note NAME: ROMARIO BONILLA AGE: 85 SEX: M : 1935 ARRIVES VIA: Walk-In INFORMANT: Patient, ED PROVIDER(S): Fabrice Ferrara MD Chief Complaint: Fall, hip pain HPI: Patient does present with fall and hip pain. The patient states he was out walking the dog had a sudden turnaround fell onto his left side. The patient struck a hard surface. Patient denies any LOC or head strike. The patient does take aspirin and Plavix. Patient also states he has had some chronic breathing issues for some time. Patient denies any loss of taste or smell or productive cough. The patient denies any lower extremity swelling. The patient had taken some dpvt-brw-dusadlr fabrication prior to arrival but no improvement in sympto ms. The patient has had a prior knee replacement performed by [facility] in the past. The patient denies other extremity chest abdomen or back pain at this time. ROS: See HPI for pertinent positives and negatives. A total of 10 systems were reviewed and otherwise negative. Past medical history: See below Surgical history: See below Social history: See below Physical Exam: GENERAL: Well appearing, well nourished, NAD, non-toxic. EYE EXAM: Normal conjunctiva. PERRL, no anisocoria and EOM's grossly intact w/o pain. NECK: Supple, no nuchal rigidity, no adenopathy, non-tender. No signs of meningismus. LUNGS: Clear to auscultation. Normal chest wall mechanics. HEART: NSR, systolic ejection murmur noted. ABDOMEN: Abdomen soft, non-tender, normo-active bowel sounds, no masses, no rebound or guarding. BACK: No CVA TTP. SKIN: No rashes and no bruising. UPPER EXTREMITIES: Upper extremities are grossly normal. LOWER EXTREMITIES: Pain over the lateral aspect of the left hip, decreased range of motion secondary to pain, no obvious laceration or leg length discrepancy. Compartments are soft and neurovascularly intact distally. DP pulses present. NEURO EXAM: A&O x3, cranial nerves II-XII grossly intact, normal speech, moves all 4 extremities on command w/o issue. Differential diagnoses: Fracture, subluxation, dislocation, contusion, ligamentous injury, neurovascular, compartment syndrome, rhabdomyolysis, as well as other pathologies. Course: Patient was seen and evaluated the bedside. Full history physical exam was performed. EK Imaging Studies: Radiology results as stated below per my review in the radiologist's interpretation: Cardiac monitoring: An order was placed for continuous cardiac monitoring. The monitor shows a rate of 67 with sinus rhythm. MDM: Patient does present with concern for fall and hip pain. The patient did have blood work completed along with an x-ray. The patient's pain was medically treated. Patient with a white count of 8 hemoglobin 11 which is chronic. The patient does have chronic kidney disease with baseline creatinine anywhere from 1.6-1.9. Stages 2. Patient did have Covid that was negative. Chest x-ray with no acute abnormality. The patient does have a subcapital left hip fracture. I did speak with the on-call hospitalist Sara Salcedo PA-C and the patient was admitted under Dr. Todd with [facility]. I also did speak with Dr. Jessica of [facility]. The patient was admitted to the medicine service. I did receive a call about the patient having some shortness of breath. The patient shortness of breath is the same shortness of breath that he presented with and has been chronic in nature. The patient does have a known history aortic stenosis. The patient's lungs sound clear and is not stridulous. Patient satting at 99-100% on room air heart rate in the 80s. Patient apparently per the does have a history of anxiety. The patient was given a small amount of Ativan 0.25 mg IV. Upon reassessment the patient was feeling improved setting and 100%. Past Med/Surg History Medical History Aortic stenosis CAD (coronary artery disease) CKD (chronic kidney disease), stage III Hyperlipidemia Hypertension RBBB Type 2 diabetes mellitus Surgical History History of cardiac cath CAD by cardiac catheterization 11/2019. Distal LMCA has a 40% stenosis which is not significant by IVUS with a mLA of 13.8 mm^2. The mid LAD had a 30% stenosis. The LCx and RCA had mild luminal irregularities History of carotid endarterectomy right History of cataract surgery LEFT. . 2mg versed no issues. 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 Beliefs That Will Affect Care: None marital status: Current Living Situation: Spouse Other Information That Helps Us Care for You: No Feels Safe at Home: Yes Safety Concerns: Feels Safe At This Time Assistive Devices: Denture - Upper, Denture - Lower and Glasses Allergies Allergies Allergy/AdvReac Type Severity Reaction Status Date / Time No Known Allergies Allergy Unknown Verified 01/10/21 18:32 Home Meds Home Medications Medication Instructions Recorded Confirmed atorvastatin 10 mg PO PM 03/03/19 01/10/21 amlodipine [Norvasc] 5 mg PO QAM 01/10/21 01/10/21 clopidogrel 75 mg PO DAILY 01/10/21 01/10/21 glipizide 5 mg PO DAILYBB 01/10/21 01/10/21 lisinopril 10 mg PO DAILY 01/10/21 01/10/21 metoprolol succinate 12.5 mg PO BID 01/10/21 01/10/21 Previous Rx's Medication Instructions Recorded aspirin [Ecotrin Low Strength] 81 mg PO QAM #0 tab 12/06/19 Results & Data (ED) Vital Signs Vital Signs - 24 hr 01/10/21 15:00 01/10/21 16:09 01/10/21 16:27 Temperature 36.5 C Temperature Source Temporal Artery Scan Pulse Rate 88 66 71 Pulse Rate [Left Finger] Pulse Rate from SpO2 Sensor 66 67 Respiratory Rate 18 Respiratory Effort / Characteristics Respiratory Depth Respiratory Pattern Blood Pressure 139/63 139/63 Blood Pressure [Right Arm] Blood Pressure Mean 88 88 Blood Pressure Mean [Right Arm] Blood Pressure Position [Right Arm] Pulse Oximetry 97 99 97 Oxygen Delivery Method Sepsis Recent Fever Within 48 Hours No Sepsis New/Unexplained Change in Mental Status No Sepsis Action Taken by Nursing No Action Required 01/10/21 16:30 01/10/21 16:40 01/10/21 16:50 Temperature Temperature Source Pulse Rate 70 64 Pulse Rate [Left Finger] Pulse Rate from SpO2 Sensor 66 65 64 Respiratory Rate 19 Respiratory Effort / Characteristics Respiratory Depth Respiratory Pattern Blood Pressure Blood Pressure [Right Arm] Blood Pressure Mean Blood Pressure Mean [Right Arm] Blood Pressure Position [Right Arm] Pulse Oximetry 99 99 99 Oxygen Delivery Method Sepsis Recent Fever Within 48 Hours Sepsis New/Unexplained Change in Mental Status Sepsis Action Taken by Nursing 01/10/21 17:00 01/10/21 17:10 01/10/21 17:20 Temperature Temperature Source Pulse Rate 70 71 70 Pulse Rate [Left Finger] Pulse Rate from SpO2 Sensor 65 67 70 Respiratory Rate 16 17 16 Respiratory Effort / Characteristics Respiratory Depth Respiratory Pattern Blood Pressure Blood Pressure [Right Arm] Blood Pressure Mean Blood Pressure Mean [Right Arm] Blood Pressure Position [Right Arm] Pulse Oximetry 99 100 100 Oxygen Delivery Method Sepsis Recent Fever Within 48 Hours Sepsis New/Unexplained Change in Mental Status Sepsis Action Taken by Nursing 01/10/21 17:30 01/10/21 17:40 01/10/21 17:50 Temperature Temperature Source Pulse Rate 66 67 64 Pulse Rate [Left Finger] Pulse Rate from SpO2 Sensor 65 66 64 Respiratory Rate 21 15 20 Respiratory Effort / Characteristics Respiratory Depth Respiratory Pattern Blood Pressure 172/86 H Blood Pressure [Right Arm] Blood Pressure Mean 114 Blood Pressure Mean [Right Arm] Blood Pressure Position [Right Arm] Pulse Oximetry 99 98 98 Oxygen Delivery Method Sepsis Recent Fever Within 48 Hours Sepsis New/Unexplained Change in Mental Status Sepsis Action Taken by Nursing 01/10/21 18:01 01/10/21 18:29 01/10/21 18:33 Temperature 36.4 C L Temperature Source Oral Pulse Rate 77 Pulse Rate [Left Finger] 78 Pulse Rate from SpO2 Sensor 78 72 Respiratory Rate 22 Respiratory Effort / Characteristics Non-Labored Spontaneous Respiratory Depth Normal Respiratory Pattern Regular Blood Pressure 138/77 170/78 H Blood Pressure [Right Arm] 170/78 H Blood Pressure Mean 97 108 Blood Pressure Mean [Right Arm] 108 Blood Pressure Position [Right Arm] Lying Pulse Oximetry 98 99 100 Oxygen Delivery Method Room Air Sepsis Recent Fever Within 48 Hours Sepsis New/Unexplained Change in Mental Status Sepsis Action Taken by Group Home Medications Current Medication List: was personally reviewed by in Laboratory Data Attestation: I reviewed the patient's lab results. Result diagrams: 01/10/21 16:30 01/10/21 16:30 Lab Results 01/10/21 01/10/21 01/10/21 Range/Units 16:30 16:30 16:30 WBC 8.34 (4.8-10.8) K/uL RBC 3.66 L (4.7-6.1) M/uL Hgb 11.1 L (14.0-18.0) g/dL Hct 33.9 L (42-52) % MCV 92.6 (80-100) fL MCH 30.3 (25-34) pg MCHC 32.7 (32-36) g/dL RDW Std Deviation 45.1 (36.4-46.3) fL RDW Coeff of Chilo 13.3 (11.5-14.5) % Plt Count 119 L (130-400) K/uL MPV 9.9 (7.4-10.4) fL Immature Gran % (Auto) 0.2 % Neut % (Auto) 81.9 % Lymph % (Auto) 8.9 % [place] % (Auto) 7.8 % Eos % (Auto) 1.0 % Baso % (Auto) 0.2 % Neut # (Auto) 6.83 H (1.4-6.5) K/uL Lymph # (Auto) 0.74 L (1.2-3.4) K/uL [place] # (Auto) 0.65 H (0.11-0.59) K/uL Eos # (Auto) 0.08 (0-0.5) K/uL Baso # (Auto) 0.02 (0-0.2) K/uL Immature Gran # (Auto) 0.02 (0.00-0.02) K/uL PT 9.9 (9.0-12.0) Seconds INR 1.0 (0.9-1.1) APTT 21.9 (21.0-31.0) Seconds PTT Ratio 0.8 Sodium 142 (136-145) mmol/L Potassium 5.1 (3.5-5.1) mmol/L Chloride 109 H (98-107) mmol/L Carbon Dioxide 27 (21-32) mmol/L Anion Gap 6.0 (3-11) BUN 38 H (7-18) mg/dl Creatinine 2.06 H (0.6-1.4) mg/dl Est Cr Clr Drug Dosing 29.8 ml/min Est GFR ( Amer) 33.5 Est GFR (Non-Af Amer) 28.9 BUN/Creatinine Ratio 18.3 (10-20) Glucose 258 H (70-99) mg/dl Calcium 8.9 (8.5-10.1) mg/dl Total Bilirubin 0.4 (0.2-1) mg/dl AST 22 (15-37) U/L ALT 30 (12-78) U/L Alkaline Phosphatase 133 H (45-117) U/L Total Protein 7.0 (6.4-8.2) gm/dl Albumin 3.5 (3.4-5.0) gm/dl Globulin 3.5 (2.5-4.0) gm/dl Albumin/Globulin Ratio 1.0 (0.9-2) COVID-19 Eval Order SARS-CoV-2, RNA, NAAT (NEGATIVE) 01/10/21 01/10/21 Range/Units 17:50 17:50 WBC (4.8-10.8) K/uL RBC (4.7-6.1) M/uL Hgb (14.0-18.0) g/dL Hct (42-52) % MCV (80-100) fL MCH (25-34) pg MCHC (32-36) g/dL RDW Std Deviation (36.4-46.3) fL RDW Coeff of Chilo (11.5-14.5) % Plt Count (130-400) K/uL MPV (7.4-10.4) fL Immature Gran % (Auto) % Neut % (Auto) % Lymph % (Auto) % [place] % (Auto) % Eos % (Auto) % Baso % (Auto) % Neut # (Auto) (1.4-6.5) K/uL Lymph # (Auto) (1.2-3.4) K/uL [place] # (Auto) (0.11-0.59) K/uL Eos # (Auto) (0-0.5) K/uL Baso # (Auto) (0-0.2) K/uL Immature Gran # (Auto) (0.00-0.02) K/uL PT (9.0-12.0) Seconds INR (0.9-1.1) APTT (21.0-31.0) Seconds PTT Ratio Sodium (136-145) mmol/L Potassium (3.5-5.1) mmol/L Chloride (98-107) mmol/L Carbon Dioxide (21-32) mmol/L Anion Gap (3-11) BUN (7-18) mg/dl Creatinine (0.6-1.4) mg/dl Est Cr Clr Drug Dosing ml/min Est GFR ( Amer) Est GFR (Non-Af Amer) BUN/Creatinine Ratio (10-20) Glucose (70-99) mg/dl Calcium (8.5-10.1) mg/dl Total Bilirubin (0.2-1) mg/dl AST (15-37) U/L ALT (12-78) U/L Alkaline Phosphatase (45-117) U/L Total Protein (6.4-8.2) gm/dl Albumin (3.4-5.0) gm/dl Globulin (2.5-4.0) gm/dl Albumin/Globulin Ratio (0.9-2) COVID-19 Eval Order Covid19 [facility] SARS-CoV-2, RNA, NAAT NEGATIVE (NEGATIVE) Administered Medications Morphine Sulfate (Morphine Sulfate 2 Mg/Ml Carp) 2 mg IV Q1H PRN PRN Reason: Moderate Pain (Rating 3,4,5,6) Stop: 01/24/21 15:57 Last Admin: 01/10/21 18:14 Dose: 2 mg Documented by: [id number] Admin: 01/10/21 17:18 Dose: 2 mg Documented by: [id number] Morphine Sulfate (Morphine Sulfate 4 Mg/Ml 1 Ml Carp\Vial) 4 mg IV Q1H PRN PRN Reason: Severe Pain (Rating 7,8,9,10) Stop: 01/24/21 15:57 Last Admin: 01/10/21 16:38 Dose: 4 mg Documented by: [id number] Discontinued Medications Hydrocodone Bitart/Acetaminophen (Hydrocodone/Acetamophen 5/325mg Tab) 1 tab PO NOW STA Stop: 01/10/21 17:38 Last Admin: 01/10/21 17:58 Dose: 1 tab Documented by: [id number] Lorazepam (Ativan) 0.25 mg in 0.5 mls @ 0.5 mls/min IV NOW STA Stop: 01/10/21 18:29 Last Admin: 01/10/21 18:38 Dose: 0.5 mls/min Documented by: [id number] Ondansetron HCl (Ondansetron Inj 2 Mg/Ml 2 Ml Vial) 4 mg IV NOW STA Stop: 01/10/21 15:59 Last Admin: 01/10/21 16:38 Dose: 4 mg Documented by: [id number] Discharge Plan Visit Data Chief Complaint: Hip Pain Stated Complaint: FELL ON LT HIP ED Provider: Fabrice Ferrara Discharge Problem: Closed hip fracture, Fall, CKD (chronic kidney disease) stage 4, GFR 15-29 ml/min Forms Stand Alone Forms: [facility] Prescriptions Prescriptions: No Action atorvastatin 10 mg Tablet 10 mg PO PM RF: 0 aspirin [Ecotrin Low Strength] 81 mg Tablet,Delayed Release (Dr/Ec) 81 mg PO QAM Qty: 0 RF: 0 amlodipine [Norvasc] 5 mg tablet 5 mg PO QAM RF: 0 glipizide 5 mg Tablet Extended Release 24hr 5 mg PO DAILYBB RF: 0 clopidogrel 75 mg Tablet 75 mg PO DAILY RF: 0 lisinopril 10 mg Tablet 10 mg PO DAILY RF: 0 metoprolol succinate 25 mg tablet extended release 24 hr 12.5 mg PO BID RF: 0 Discharge Problem: Closed hip fracture Qualifiers: Encounter type: initial encounter Laterality: left Qualified Code(s): S72.002A - Fracture of unspecified part of neck of left femur, initial encounter for closed fracture Fall Qualifiers: Encounter type: initial encounter Qualified Code(s): W19.XXXA - Unspecified fall, initial encounter
[2021-01-10 16:35] LABS: Basophils # (auto) 0.02 K/uL (0-0.2); Basophils % (auto) 0.2 %; Eosinophils # (auto) 0.08 K/uL (0-0.5); Hematocrit (blood only) 33.9 % (42-52); Hemoglobin 11.1 g/dL (14.0-18.0); Immature Granulocytes # (auto) 0.02 K/uL (0.00-0.02); Immature Granulocytes % (auto) 0.2 %; Lymphocytes # (auto) 0.74 K/uL (1.2-3.4); Lymphocytes % (auto) 8.9 %; Mean Corpuscular Hemoglobin 30.3 pg (25-34); Mean Corpuscular Hgb Conc 32.7 g/dL (32-36); Mean Corpuscular Volume 92.6 fL (80-100); Mean Platelet Volume 9.9 fL (7.4-10.4); Monocytes # (auto) 0.65 K/uL (0.11-0.59); Monocytes % (auto) 7.8 %; Neutrophils # (auto) 6.83 K/uL (1.4-6.5); Neutrophils % (auto) 81.9 %; Platelet Count 119 K/uL (130-400); RDW Coefficient of Variation 13.3 % (11.5-14.5); RDW Standard Deviation 45.1 fL (36.4-46.3); Red Blood Count 3.66 M/uL (4.7-6.1); White Blood Count 8.34 K/uL (4.8-10.8)
[2021-01-10] MEDS: MoRPHine SULFATE 4 MG/ML 1 ML CARP\\VIAL IV PRN ×2 (16:38→19:10)
--- NOTE | 2021-01-10 16:41 | XRay Report ---
XR chest 1V portable CLINICAL HISTORY: Trauma COMPARISON STUDY: 12/05/2019 FINDINGS: The heart is normal in size. There is no failure. There is no focal pulmonary consolidation . There are no pleural effusions. There is a calcified right upper lung zone granuloma. There is fan r left basilar atelectasis/scarring. No pneumothorax is visualized.[ IMPRESSION: No active disease in the chest. ACT 112: Negative or not required by law. Electronically signed by: Piero Pascual M.D. 01/10/2021 4:40 PM
--- NOTE | 2021-01-10 16:42 | XRay Report ---
XR hip LT 2V w pelvis CLINICAL HISTORY: Left hip pain status post trauma COMPARISON: None. DISCUSSION: There is a subcapital left hip fracture. There is no dislocation. There is no SI joint di astases. There is no symphysis diastases. There is deformity of the left lateral iliac bone, likely r elated to prior trauma or an osteochondroma. IMPRESSION: 1. Subcapital left hip fracture ACT 112: Negative or not required by law. Electronically signed by: Piero Pascual M.D. 01/10/2021 4:41 PM
--- NOTE | 2021-01-10 16:57 | Electrocardiogram Report ---
Test Reason : Blood Pressure : / mmHG Vent. Rate : 066 BPM Atrial Rate : 066 BPM P-R Int : 144 ms QRS Dur : 134 ms QT Int : 420 ms P-R-T Axes : 070 077 041 degrees QTc Int : 440 ms Normal sinus rhythm Right bundle branch block Abnormal ECG When compared with ECG of 06-DEC-2019 07:31, Nonspecific T wave abnormality no longer evident in Anterior leads Confirmed by Anthony Camp ([id number]) on 01/10/2021 4:57:06 PM Referred By: Confirmed By:Blue Camp
[2021-01-10 17:02] LABS: Albumin Level 3.5 gm/dl (3.4-5.0); BUN Creatinine Ratio 18.3 (10-20); Bilirubin,Total 0.4 mg/dl (0.2-1); Calcium 8.9 mg/dl (8.5-10.1); Creatinine Clr Calc Pharmacy 29.8 ml/min; Est GFR (African American) 33.5; Est GFR (Non-African American) 28.9; Globulin 3.5 gm/dl (2.5-4.0); Potassium 5.1 mmol/L (3.5-5.1)
[2021-01-10 17:07] LABS: Partial Thromboplastin Ratio 0.8; Partial Thromboplastin Time 21.9 Seconds (21.0-31.0); Prothrombin Time 9.9 Seconds (9.0-12.0)
[2021-01-10] MEDS: MoRPHine SULFATE 2 MG/ML CARP IV PRN ×3 (17:18→19:30)
[2021-01-10] MEDS ORDERED: HYDROCODONE/ACETAMOPHEN 5/325MG TAB PO STA (17:37)
--- NOTE | 2021-01-10 18:05 | History & Physical Report ---
Date of Service January 10, 2021 Assessment & Plan (1) Subcapital fracture of left hip: (2) Fall: This is a 85-year-old male with significant past medical history of CAD, aortic stenosis status post TAVR 12/2019, T2DM, HTN, HLD, CKD stage III baseline creatinine 1.8, chronic RBBB, carotid artery stenosis status post right endarterectomy who presents to ED after sustaining mechanical fall with complaint of left hip pain. Xray: Acute, closed, nondisplaced, left subcapital hip fracture Admit to MedSurg Consult orthopedics N.p.o. after midnight Gentle IVF 80 cc/h x 1 L Obtain cardiac clearance prior to procedure Continue aspirin, hold Plavix until evaluated by cardiology (last dose today, 01/10) Bowel regimen ordered Oral Steptoe, IV morphine for as needed pain control Avoid NSAIDs in setting of CKD stage III (3) CAD (coronary artery disease): (4) Aortic stenosis: (5) History of transcatheter aortic valve replacement (TAVR): Patient underwent cardiac cath 11/2019 and eventual transcatheter aortic valve replacement 12/2019 Last echocardiogram 06/08/2020 revealed EF 55 to 59%, prosthetic valve in place, mild perivalvular prosthetic regurg On ASA, Plavix, statin, metoprolol and lisinopril Continue aspirin, hold Plavix for now -until evaluated by cardiology in morning Follows [facility] and [place]. [place] [facility] [place] cardiology, obtain echocardiogram for preoperative clearance Functionally patient is sedentary at baseline but does walk daily approximately 10 minutes with dog without getting chest pain or shortness of breath (6) Type 2 diabetes mellitus: Uncontrolled, last A1c 8.4 08/10/2020 Obtain A1c in a.m. Lantus/NovoLog per protocol Hold glipizide Consult glycemic pharmacist, appreciate their assistance (7) CKD (chronic kidney disease), stage III: Baseline creatinine 1.8 BUN/creatinine 38 and 2.06 today Gentle IV hydration x1 L Repeat BMP in a.m. (8) Hypertension: bp controlled continue metoprolol, amlodipine and lisinopril with appropriate parameters (9) Anemia: Normocytic normochromic Hemoglobin and hematocrit 11.1 and 33.9, which is at baseline Likely in setting of chronic disease and renal disease (10) DVT prophylaxis: SCD/TEDS for now recommend chemical prophylaxis as soon as able - per orthopedics Dispo: med/tele; case management consulted PCP: PK FULL CODE Pt was seen see and examined in collaboration with Dr. Todd, please see addendum History of Present Illness Chief Complaint: Mechanical fall prior to arrival with L hip pain. Primary Care Provider: Chad Rowland, This is a 85-year-old male with significant past medical history of CAD, aortic stenosis status post TAVR 12/2019, T2DM, HTN, HLD, CKD stage III baseline creatinine 1.8, chronic RBBB, carotid artery stenosis status post right endarterectomy who presents to ED after sustaining mechanical fall with complaint of left hip pain. Patient was out walking the dog when he got wrapped up in the chair and fell on his left hip. He had immediate left leg pain and was unable to get up. EMS was summoned. His is at bedside. Currently he is complaining of 10/10 left leg pain and feeling short of breath. He denies any fever, chills, sweats, lightheadedness, dizziness, syncope, chest pain, shortness of breath with exertion, cough, hemoptysis, URI symptoms, nausea, vomiting, abdominal pain, change in bowel or urinary habits. His last meal was approximately 12 PM. He did take his morning medications. His manages his medications. He ambulates without assist device at home, but states he could use a cane. He denies any other previous falls and denies any presyncopal symptoms, loss of consciousness or hitting his head. states he is mostly sedentary, but he does walk his dog. He states he typically walks his dog daily for 10 minutes. He does not get any chest pain or shortness of breath with this. He denies any history of reaction to anesthesia. In ED patient remained hemodynamically stable. Hip x-ray significant for left subcapital hip fracture. Chest x-ray negative for acute disease. CBC and CMP remarkable for H&H 11.1 and 33.9, BUN 38, creatinine 2.06, glucose 258. Allergies Allergy/AdvReac Type Severity Reaction Status Date / Time No Known Allergies Allergy Unknown Verified 01/10/21 18:32 Home Medications Medication Instructions Recorded Confirmed Type atorvastatin 10 mg PO PM 03/03/19 01/10/21 History aspirin [Ecotrin Low Strength] 81 mg PO QAM #0 tab 12/06/19 01/10/21 Rx amlodipine [Norvasc] 5 mg PO QAM 01/10/21 01/10/21 History clopidogrel 75 mg PO DAILY 01/10/21 01/10/21 History glipizide 5 mg PO DAILYBB 01/10/21 01/10/21 History lisinopril 10 mg PO DAILY 01/10/21 01/10/21 History metoprolol succinate 12.5 mg PO BID 01/10/21 01/10/21 History Past Med/Surg History Medical History Aortic stenosis CAD (coronary artery disease) CKD (chronic kidney disease), stage III Hyperlipidemia Hypertension RBBB Type 2 diabetes mellitus Surgical History (Updated 01/10/21 @ 20:46 by Gustavo Ford MD) History of cardiac cath CAD by cardiac catheterization 11/2019. Distal LMCA has a 40% stenosis which is not significant by IVUS with a mLA of 13.8 mm^2. The mid LAD had a 30% stenosis. The LCx and RCA had mild luminal irregularities History of carotid endarterectomy right History of cataract surgery LEFT. . 2mg versed no issues. 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) TAVR, # 29 mm Gutierres Jacquie, 12/2019 S/p TAVR (transcatheter aortic valve replacement), bioprosthetic Family History Father Heart disorder Social History Smoking Status: Former smoker Smoking End Date: 1992; Second Hand Exposure: No; Hx Alcohol Use: No Hx Substance Use: No Preferred Language: Peruvian Communication Ability: Effective Health And Social Care Teacher Required: No Beliefs That Will Affect Care: None marital status: Current Living Situation: Spouse Other Information That Helps Us Care for You: No Feels Safe at Home: Yes Safety Concerns: Feels Safe At This Time Assistive Devices: Denture - Upper, Denture - Lower and Glasses Review of Systems Review of Systems: All systems reviewed & are unremarkable except as noted in HPI & below Physical Exam Physical Exam: Constitutional: WD/WN, elderly, male, hard of hearing, vitals as above, NAD, sitting up in bed, pleasant, conversing easily Head: Normocephalic, Atraumatic Eyes: PERRL, conjunctivae normal, anicteric sclerae ENMT: external ear and nose normal, oropharynx normal Neck: trachea midline, no thyromegaly normal visual inspection Respiratory: normal respiratory effort, lungs clear to auscultation, no wheeze, rales, rhonchi. Normal insp/exp effort, no accessory muscle use , oxygen on and present on room air Cardiovascular: RRR, 2/6 LEXI noted on precordium, no edema Vessels: no JVD or carotid bruit Chest: normal inspection of chest Abdomen: normal bowel sounds, soft, nontender, no hepatosplenomegaly Musculoskeletal: no cyanosis or clubbing, extremities motor strength 5/5 upper extremity, lower ext not tested given fx, NVI distally, b/l pedal pulse +2 and equal Skin: no rashes, warm and dry normal turgor Neurologic: PERRL, EOMI, accommodation nl, no face palsy, no dysarthria CN's II-XI intact bilaterally and moves all extremities Psychiatric: A+Ox3, euthymic affect Lymphatic: no cervical or axillary lymphadenopathy : deferred Results & Data Results & Data ([facility]) Vital Signs (Past 12 Hours) Vital Signs Temp Pulse Resp BP Pulse Ox 01/10/21 17:40 67 15 98 01/10/21 17:30 66 21 99 01/10/21 17:20 70 16 100 01/10/21 17:10 71 17 100 01/10/21 17:00 70 16 99 01/10/21 16:50 64 19 99 01/10/21 16:40 70 99 01/10/21 16:30 99 01/10/21 16:27 71 97 01/10/21 16:09 66 139/63 99 01/10/21 15:00 36.5 C 88 18 139/63 97 Diagnostic Findings Hip/pelvis xray: IMPRESSION: 1. Subcapital left hip fracture CXR: IMPRESSION: No active disease in the chest. Medications Administered Morphine Sulfate (Morphine Sulfate 2 Mg/Ml Carp) 2 mg IV Q1H PRN PRN Reason: Moderate Pain (Rating 3,4,5,6) Stop: 01/24/21 15:57 Last Admin: 01/10/21 17:18 Dose: 2 mg Documented by: [id number] Morphine Sulfate (Morphine Sulfate 4 Mg/Ml 1 Ml Carp\\Vial) 4 mg IV Q1H PRN PRN Reason: Severe Pain (Rating 7,8,9,10) Stop: 01/24/21 15:57 Last Admin: 01/10/21 16:38 Dose: 4 mg Documented by: [id number] Discontinued Medications Hydrocodone Bitart/Acetaminophen (Hydrocodone/Acetamophen 5/325mg Tab) 1 tab PO NOW STA Stop: 01/10/21 17:38 Last Admin: 01/10/21 17:58 Dose: 1 tab Documented by: [id number] Ondansetron HCl (Ondansetron Inj 2 Mg/Ml 2 Ml Vial) 4 mg IV NOW STA Stop: 01/10/21 15:59 Last Admin: 01/10/21 16:38 Dose: 4 mg Documented by: [id number] ECG Rate (beats per minute): 66 Rhythm: normal sinus Findings: + RBBB COVID-19 Results Results COVID-19 Adm Lab Results: RBC 3.66 M/uL (4.7-6.1) L 01/10/21 WBC 8.34 K/uL (4.8-10.8) 01/10/21 Hgb 11.1 g/dL (14.0-18.0) L 01/10/21 Hct 33.9 % (42-52) L 01/10/21 Plt Count 119 K/uL (130-400) L 01/10/21 Neutrophils (%) (Auto) 81.9 % 01/10/21 Lymphocytes (%) (Auto) 8.9 % 01/10/21 Monocytes # (Auto) 0.65 K/uL (0.11-0.59) H 01/10/21 Eosinophils # (Auto) 0.08 K/uL (0-0.5) 01/10/21 Immature Granulocyte % (Auto) 0.2 % 01/10/21 Neutrophils # (Auto) 6.83 K/uL (1.4-6.5) H 01/10/21 Lymphocytes # (Auto) 0.74 K/uL (1.2-3.4) L 01/10/21 Monocytes # (Auto) 0.65 K/uL (0.11-0.59) H 01/10/21 Eosinophils # (Auto) 0.08 K/uL (0-0.5) 01/10/21 Basophils # (Auto) 0.02 K/uL (0-0.2) 01/10/21 Immature Granulocyte # (Auto) 0.02 K/uL (0.00-0.02) 01/10/21 Na 142 mmol/L (136-145) 01/10/21 K 5.1 mmol/L (3.5-5.1) 01/10/21 Cl 109 mmol/L (98-107) H 01/10/21 CO2 27 mmol/L (21-32) 01/10/21 Anion Gap 6.0 (3-11) 01/10/21 BUN 38 mg/dl (7-18) H 01/10/21 Creatinine 2.06 mg/dl (0.6-1.4) H 01/10/21 BUN/Creatinine Ratio 18.3 (10-20) 01/10/21 Glucose Level 258 mg/dl (70-99) H 01/10/21 Ca 8.9 mg/dl (8.5-10.1) 01/10/21 Total Bilirubin 0.4 mg/dl (0.2-1) 01/10/21 AST/SGOT 22 U/L (15-37) 01/10/21 ALT/SGPT 30 U/L (12-78) 01/10/21 Alkaline Phosphatase 133 U/L (45-117) H 01/10/21 Total Protein 7.0 gm/dl (6.4-8.2) 01/10/21 Albumin 3.5 gm/dl (3.4-5.0) 01/10/21 Globulin 3.5 gm/dl (2.5-4.0) 01/10/21 Albumin/Globulin Ratio 1.0 (0.9-2) 01/10/21 PTT 21.9 Seconds (21.0-31.0) 01/10/21 INR 1.0 (0.9-1.1) 01/10/21 SARS-CoV-2, RNA, NAAT NEGATIVE (NEGATIVE) 01/10/21 Chest X-Ray 01/10/21 Code Status & VTE Plan Code Status Full Code VTE Prophylaxis Plan VTE Prophylaxis will be ordered: Yes Supervising Physician Co-Signing Physician Notes I have seen and examined the patient and have discussed the case with the provider above. I agree with the assessment and plan as stated with the following exceptions. The patient is an 85-year-old man with a history of of moderate nonobstructive coronary disease status post transcatheter aortic valve replacement with a prosthetic valve in December 2019 who presents with a left hip fracture after mechanical fall. On preoperative evaluation and questioning the patient reports having significant shortness of breath at rest and with activity over the last few weeks. He states "it feels like someone is covering my mouth with their hand." He is vague with respect to what makes it better or worse, and states it is there all the time. He denies any chest pain or pressure. He underwent a cardiac catheterization in November 2019 as part of a preoperative work-up for his aortic valve replacement. This revealed 40% distal left main stenosis not significant by IVUS, 30% mid LAD stenosis and normal right heart pressures. He has asymptomatic bilateral carotid artery stenosis with a history of carotid endarterectomy and is on Plavix and ASA. He does report good functional status and reports walking his dog regularly every day. He does not stop/take breaks out of concern for shortness of breath. When asked how his life is limited because of his new breathing issues, he says it is not limiting. Physical exam reveals 3/6 LEXI across precordium with S1 and 2 heard. He appears euvolemic and lungs are clear. There is no peripheral edema present. No other bruises or wounds are noted. Would prefer the patient undergo a preoperative cardiac evaluation prior to any surgery to fix his hip to ensure he is optimized and risks are known. Plavix was held on admission with aspirin continued for now in light of possible upcoming procedure. DO Perez [facility] Hospitalist
[2021-01-10] MEDS ORDERED: LORazepam 0.25 MG/0.5 ML VIAL IV STA (18:28)
[2021-01-10] MEDS ORDERED: MoRPHine SULFATE 2 MG/ML CARP IV PRN (20:11)
[2021-01-10] MEDS ORDERED: SODIUM CHLORIDE 0.9% 1000ML 1,000 ML IV SCH (20:11)
[2021-01-10] MEDS ORDERED: ONDANSETRON INJ 2 MG/ML 2 ML VIAL IV PRN (20:11)
[2021-01-10] MEDS ORDERED: GLUCOSE 10 TABS/TUBE PO PRN (20:11)
[2021-01-10] MEDS ORDERED: GLUCOSE 40% GEL 15 GM TUBE PO PRN (20:11)
[2021-01-10] MEDS ORDERED: NALOXONE HCL 0.4 MG/1 ML VIAL/CARP IV PRN (20:11)
[2021-01-10] MEDS ORDERED: GLUCAGON FOR INJ 1 MG VIAL SQ PRN (20:11)
[2021-01-10] MEDS ORDERED: DEXTROSE 50% 50 ML SYRINGE IV PRN (20:11)
[2021-01-10] MEDS ORDERED: bisacodyL 10 MG SUPP PR PRN (20:11)
[2021-01-10] MEDS ORDERED: HYDROCODONE/ACETAMOPHEN 5/325MG TAB PO PRN ×2 (20:11)
[2021-01-10] MEDS ORDERED: CARBOHYDRATES FOR HYPOGLYCEMIA PO PRN (20:11)
[2021-01-10] MEDS ORDERED: MoRPHine SULFATE 4 MG/ML 1 ML CARP\\VIAL IV PRN (20:11)
[2021-01-10] MEDS ORDERED: MAGNESIUM HYDROXIDE SUSP 30 ML UDC PO PRN (20:11)
[2021-01-10] MEDS ORDERED: PHARMACY GLYCEMIC MGMT CONSULT PRN (20:21)
[2021-01-10] MEDS: METOPROLOL SUCC 25MG EXT REL TAB PO SCH (20:53)
--- NOTE | 2021-01-10 20:56 | Anesthesiology Consultation ---
Date of Service January 10, 2021 Assessment & Plan Chart Review Chart Review: Acceptable Risk for Surgery, Pending: Refer to Additional Notes / Consult section and Patient NOT seen in Pre Admission Testing Consults Requested cardiac patient took plavix dose today(01/10/2021) ASA ASA4 Proposed Anesthesia Anesthesia Type: General History Height/Weight Height: 6 ft Weight: 91 kg Allergies Allergy/AdvReac Type Severity Reaction Status Date / Time No Known Allergies Allergy Unknown Verified 01/10/21 18:32 Medications Home Medications Medication Instructions Recorded Confirmed Last Taken atorvastatin 10 mg PO PM 03/03/19 01/10/21 03/10/19 aspirin [Ecotrin Low Strength] 81 mg PO QAM #0 tab 12/06/19 01/10/21 Unknown amlodipine [Norvasc] 5 mg PO QAM 01/10/21 01/10/21 Unknown clopidogrel 75 mg PO DAILY 01/10/21 01/10/21 Unknown glipizide 5 mg PO DAILYBB 01/10/21 01/10/21 Unknown lisinopril 10 mg PO DAILY 01/10/21 01/10/21 Unknown metoprolol succinate 12.5 mg PO BID 01/10/21 01/10/21 Unknown Past Medical History Medical History Aortic stenosis CAD (coronary artery disease) CKD (chronic kidney disease), stage III Hyperlipidemia Hypertension RBBB Type 2 diabetes mellitus Exercise / Class Metabolic Activity III < 4 Walking/Shop/Light housework Past Family History Family History Father Heart disorder Past Surgical History Surgical History (Updated 01/10/21 @ 20:46 by Gustavo Ford MD) History of cardiac cath CAD by cardiac catheterization 11/2019. Distal LMCA has a 40% stenosis which is not significant by IVUS with a mLA of 13.8 mm^2. The mid LAD had a 30% s tenosis. The LCx and RCA had mild luminal irregularities History of carotid endarterectomy right History of cataract surgery LEFT. . 2mg versed no issues. 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) TAVR, # 29 mm Gutierres Jacquie, 12/2019 S/p TAVR (transcatheter aortic valve replacement), bioprosthetic Past Anesthesia History No Hx of Anesthesia Complications and No Family Hx of Anesthesia Complications History of PONV No Hx of PONV and No Hx of Motion Sickness Social History Smoking Status: Former smoker tobacco type: cigarettes Smoking End Date: 1992 Hx Alcohol Use: No Alcohol type: beer, wine and hard liquor alcohol intake frequency: holidays/special occasions only Hx Substance Use: No substance use type: does not use Physical Exam Vital Signs Last Vital Signs Temp 37.1 C 01/10/21 20:14 Pulse 79 01/10/21 20:14 Resp 20 01/10/21 20:14 BP 175/76 H 01/10/21 20:14 Pulse Ox 97 01/10/21 20:14 Testing Laboratory Results 01/10/21 16:30 01/10/21 16:30 PT 9.9 Seconds (9.0-12.0) 01/10/21 16:30 INR 1.0 (0.9-1.1) 01/10/21 16:30 APTT 21.9 Seconds (21.0-31.0) 01/10/21 16:30 Electrocardiogram Date: 01/10/21 Findings: + NSR @ (at 68;) and + RBBB Chest X-Ray Date: 01/10/21 Findings: + NAD Echocardiogram Date: 06/08/20 EF: 55% LV Function: normal RWMA: + none Valvular Disease: + pertinent finding (Bioprosthetic AV(TAVR) in place;mild perivalvular prosthetic regurgitation) Cardiac Catheterization Date: 12/06/19 Findings: + RCA (mild LI's), + LMA (distal 40%), + LCX (mild LI's) and + pertinent finding (LAD-mid 30%) Intervention: + none Other Testing 12/05/2019- carotid U/S-extreme mixed plaque of B/L carotid arteriesw/o sig. H/D stenoses
[2021-01-10] MEDS ORDERED: INSULIN GLARGINE SOLOSTAR 100 UNITS/ML 3 ML PEN SC ONE (21:00)
[2021-01-10] MEDS ORDERED: INSULIN ASPART 100 UNITS/ML 3 ML PEN SC SCH (21:00)
[2021-01-10] MEDS: ATORVASTATIN 10 MG TAB PO SCH (21:02)
[2021-01-10] MEDS: DOCUSATE SODIUM/SENNA 50/8.6MG TAB PO SCH (21:02)
--- NOTE | 2021-01-10 21:39 | Pharmacy Report ---
Pharmacy Glycemic Short Note 2 - Date of Service January 10, 2021 - Glycemic Short BSG Results (Last 24 hours): 01/10/21 01/10/21 16:30 20:37 Glucose 258 H POC Glucose 185 H OUTPATIENT ANTIDIABETIC REGIMEN: * Glipizide 5 mg PO AM * HbA1c pending ASSESSMENT: * 85 yo M admitted secondary to a left hip fracture s/p mechanical fall. Pharmacy is consulted for inpatient glycemic management. An updated HbA1c is pending for tomorrow morning to assess outpatient control of type 2 diabetes. * Random BSG in the ED was 258 mg/dL. It was 185 mg/dL this evening. * Spoke with RN and patient will be eating a dinner tray this evening prior to bed. He is to be NPO after midnight for possible orthopedic surgery. * Will utilize a goal range of 110 - 140 mg/dL. * Will give a small basal insulin dose this evening with patient eating and to help cover any steroids that may be received in the perioperative setting. Will start Novolog based on a weight and stress of two as well. PLAN FOR INPATIENT GLYCEMIC CONTROL: * Hold outpatient oral diabetes medications * Basal insulin * Lantus 10 units SQ x 1 * Bolus insulin * NovoLog per scale ACHS or Q6hrs while NPO * Goal Range: Low 110 mg/dL - High 140 mg/dL * Correction Factor: 25 mg/dL/unit * Nutritional / Prandial insulin per carb ratio of 1 unit per 8 grams CHO consumed PLAN FOR DISCHARGE: * To be determined
[2021-01-11 01:40] LABS: Appearance Urine Cloudy (Clear); Bacteria Urine Automated 4+ (Negative); Bilirubin Urine Negative (Negative); Blood Urine Trace (Negative); Cast Urine Automated 0 /lpf (0-5); Color Urine Yellow; Epithelial Cell Urine Auto 0-5 /lpf (0-5); Glucose Urine UA Negative (Negative); Ketones Urine Negative (Negative); Leukocyte Esterase Urine 2+ (Negative); Nitrite Urine Positive (Negative); RBC Urine Automated 0-4 /hpf (0-4); Specific Gravity Urine 1.019 (1.000-1.030); Urobilinogen Urine Negative (Negative); WBC Urine Automated >30 /hpf (0-5)
[2021-01-11 01:46] LABS: Protein Urine 2+ (Negative)
[2021-01-11] MEDS ORDERED: Nursing to Pharmacy Communication SCH ×2 (05:45→20:45)
[2021-01-11] MEDS ORDERED: ceFAZolin 2000MG 2,000 MG/15 ML SYR IV SCH (06:00)
[2021-01-11] MEDS: INSULIN ASPART 100 UNITS/ML 3 ML PEN SC SCH ×4 (06:17→21:29)
[2021-01-11 06:26] LABS: Basophils # (auto) 0.02 K/uL (0-0.2); Basophils % (auto) 0.3 %; Eosinophils # (auto) 0.16 K/uL (0-0.5); Eosinophils % (auto) 2.1 %; Hemoglobin 10.6 g/dL (14.0-18.0); Immature Granulocytes # (auto) 0.01 K/uL (0.00-0.02); Immature Granulocytes % (auto) 0.1 %; Lymphocytes % (auto) 15.6 %; Mean Corpuscular Hemoglobin 30.3 pg (25-34); Mean Corpuscular Hgb Conc 33.1 g/dL (32-36); Mean Corpuscular Volume 91.4 fL (80-100); Monocytes # (auto) 0.74 K/uL (0.11-0.59); Monocytes % (auto) 9.6 %; Neutrophils # (auto) 5.57 K/uL (1.4-6.5); Neutrophils % (auto) 72.3 %; Platelet Count 104 K/uL (130-400); RDW Coefficient of Variation 13.2 % (11.5-14.5); RDW Standard Deviation 43.9 fL (36.4-46.3)
[2021-01-11 06:50] LABS: Estimated Average Glucose 212 mg/dl
[2021-01-11 06:59] LABS: BUN Creatinine Ratio 18.9 (10-20); Calcium 8.2 mg/dl (8.5-10.1); Creatinine Clr Calc Pharmacy 34.7 ml/min; Est GFR (African American) 40.3; Est GFR (Non-African American) 34.7; Magnesium 2.2 mg/dl (1.8-2.4); Potassium 4.4 mmol/L (3.5-5.1)
--- NOTE | 2021-01-11 07:54 | Orthopedic Consultation ---
Date of Consultation January 11, 2021 Assessment & Plan (1) Subcapital fracture of left hip: I have spoken to Dr. Humphreys about this patient. He has reviewed the films and would like a CT scan to further assess the fracture. With the patient's current comorbidities, ORIF of the left hip fracture with 7.3 cannulated screws would be optimal for him with this fracture. However depending on CT scan results, he could possibly need a bipolar hemiarthroplasty. Patient having an echocardiogram shortly after my visit. Cardiology service consulted and awaiting input. Possible OR today if cleared by cardiology and medicine service. Anesthesia has been consulted and has interviewed the p atient. Appreciate input. Supervising Physician Co-Signing Physician Notes Patient seen and examined in preoperative holding, agree with above assessment and plan Left lower extremity is neurovascular sensory intact grossly, skin overlying left hip clean dry and intact, compartment soft nontender I have indicated the patient for open reduction internal fixation of left hip with cannulated screws versus left hip hemiarthroplasty. The risk, benefits, complications and alternatives to the procedure were explained to the patient in detail and they include however not limited to infections, blood clots, acute blood loss, injury to surrounding nerves, bone, vessels, soft tissue, arthrofibrosis, malunion, nonunion, chronic pain, failure of fixation, failure of the listhesis, leg length discrepancy, hip dislocation, need for additional surgery, loss of limb and loss of life. Alternatives include no surgery which w ould result in worsening clinical picture and symptoms. Patient wished to proceed with surgical intervention at this time and informed consent was obtained. History of Present Illness Reason for Consultation: Left subcapital hip fracture Attending Physician: Sandra Todd DO History of Present Illness 85-year-old male with significant past medical history of CAD, aortic stenosis status post TAVR 12/2019, T2DM, HTN, HLD, CKD stage III baseline creatinine 1.8, chronic RBBB, carotid artery stenosis status post right endarterectomy who presents to ED after sustaining mechanical fall with complaint of left hip pain. Patient states that he was tying his dog out to let her run on the lead. He turned around and lost his balance and fell to the ground. He had immediate pain in his left hip and groin. He was unable to ambulate. He states that he crawled back into the house to get help. He was brought to the emergency room where he was seen by the staff. X-rays were taken and was found to have a left subcapital hip fracture. [facility] admitted the patient and we have been asked to take care of his left hip fracture. The patient denies hitting his head. Denies loss of consciousness. He denies any shortness of breath, chest pain, lightheadedness prior to or after the fall. Currently he states he feels he is a little bit short of breath. Denies chest pain. States he has some slight discomfort in his left hip but otherwise is controlled. Allergies Allergy/AdvReac Type Severity Reaction Status Date / Time No Known Allergies Allergy Unknown Verified 01/10/21 18:32 Home Medications Medication Instructions Recorded Confirmed Type atorvastatin 10 mg PO PM 03/03/19 01/10/21 History aspirin [Ecotrin Low Strength] 81 mg PO QAM #0 tab 12/06/19 01/10/21 Rx amlodipine [Norvasc] 5 mg PO QAM 01/10/21 01/10/21 History clopidogrel 75 mg PO DAILY 01/10/21 01/10/21 History glipizide 5 mg PO DAILYBB 01/10/21 01/10/21 History lisinopril 10 mg PO DAILY 01/10/21 01/10/21 History metoprolol succinate 12.5 mg PO BID 01/10/21 01/10/21 History Patient History Medical History Aortic stenosis CAD (coronary artery disease) CKD (chronic kidney disease), stage III Hyperlipidemia Hypertension RBBB Type 2 diabetes mellitus Surgical History History of cardiac cath CAD by cardiac catheterization 11/2019. Distal LMCA has a 40% stenosis which is not significant by IVUS with a mLA of 13.8 mm^2. The mid LAD had a 30% stenosis. The LCx and RCA had mild luminal irregularities History of carotid endarterectomy right History of cataract surgery LEFT. . 2mg versed no issues. 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 Oriented x3, NAD, pleasant and cooperative. On examination of his left lower extremity, leg lengths appear equal. No range of motion of the left hip is done secondary to left hip fracture. He has some mild tenderness on the lateral aspect of the hip on palpation but no excessive ecchymosis or abrasions. His left knee has a well-healed scar from previous surgery and is nontender on palpation. Range of motion is deferred secondary to left hip fracture. He has good range of motion of his left ankle and toes. Right lower extremity is unaffected and is nontender at the hip, knee, and ankle. Range of motion is within normal limits. Upper extremities are not affected by the fall. He is nontender at the shoulders, elbows, and wrists. Range of motion is within normal limits. He denies pain on palpation of the his cervical neck and denies thoracic and lumbar pain. Distal pulses are equal bilaterally of the upper and lower extremities. There is no gross motor or sensory loss seen at this time. Results & Data ([facility]) Vital Signs (Past 12 Hours) Vital Signs Temp Pulse Resp BP Pulse Ox Pulse Ox 01/11/21 02:00 36.8 C 80 18 134/67 95 01/11/21 00:11 95 01/10/21 20:14 37.1 C 79 20 175/76 H 97 Diagnostic Findings Patient: ROMARIO BONILLAAdmit Date: 01/10/21#: [id number]: [id number] [facility] ID:[id number]: Date: 1935City Zip: [place], [place] [address]Otv: 85Location: EDSex: MRoom/Bed:Att Phy:Diagnosis: FELL ON LT HIPPri Phy: Chad Rowland, DOService Date: 01/10/21Fam Phy:Interpreting Phy: Piero Pascual MDAdmit Phy: Ordering Phy: Fabrice Ferrara MD cc: ~ XR hip LT 2V w pelvis CLINICAL HISTORY: Left hip pain status post trauma COMPARISON: None. DISCUSSION: There is a subcapital left hip fracture. There is no dislocation. There is no SI joint diastases. There is no symphysis diastases. There is deformity of the left lateral iliac bone, likely related to prior trauma or an osteochondroma. IMPRESSION: 1. Subcapital left hip fracture
[2021-01-11] MEDS ORDERED: lisinopril 10 MG TAB PO SCH (09:00)
[2021-01-11] MEDS ORDERED: amLODIPine BESYLATE 5 MG TAB PO SCH (09:00)
--- NOTE | 2021-01-11 09:20 | CT Scan Report ---
LEFT HIP CT CT DOSE: HISTORY: Left hip pain. fx left hip TECHNIQUE: Multiaxial CT images of the left were performed and reformatted in the sagittal and lindsay l plane without the use of contrast. A dose lowering technique was utilized adhering to the principl es of GEMINI. COMPARISON: Left hip radiograph 01/10/2021. FINDINGS: There is again noted a slightly impacted subcapital left femoral neck fracture. This demons trates mild posterior angulation. No dislocation. The visualized pelvic bones are intact. No signific ant hip effusion. IMPRESSION: Slightly impacted subcapital left femoral neck fracture. ACT 112: Negative or not required by law. Electronically signed by: Armond Mary M.D. 01/11/2021 9:19 AM
--- NOTE | 2021-01-11 09:34 | Cardiology Consultation ---
Date of Consultation January 11, 2021 Assessment & Plan (1) S/p TAVR (transcatheter aortic valve replacement), bioprosthetic: (2) Closed hip fracture: (3) CKD (chronic kidney disease) stage 4, GFR 15-29 ml/min: (4) CAD (coronary artery disease): The geriatric sensitive risk assessment places the patient at 0.5% risk for this surgery. No additional cardiac testing will change this risk assessment and the patient is currently optimally medically managed and should proceed to surgery. His Plavix can be held. It can be restarted at a future date after he has stabilized from surgery. We will follow along with you during his hospital stay. History of Present Illness Attending Physician: Lilo Hairston MD History of Present Illness This is an 85-year-old gentleman who is not a good historian. In November of last year he underwent a cardiac catheterization that showed nonobstructive coronary artery disease and severe aortic stenosis. He underwent a successful TAVR and has done well. He was last seen in our clinic in July at which time things were going well. Unfortunately, the patient fell on the ice and fractured his left hip. He will require surgery. He has no ongoing cardiac complaints. Allergies Allergy/AdvReac Type Severity Reaction Status Date / Time No Known Allergies Allergy Unknown Verified 01/10/21 18:32 Home Medications Medication Instructions Recorded Confirmed Type atorvastatin 10 mg PO PM 03/03/19 01/10/21 History aspirin [Ecotrin Low Strength] 81 mg PO QAM #0 tab 12/06/19 01/10/21 Rx amlodipine [Norvasc] 5 mg PO QAM 01/10/21 01/10/21 History clopidogrel 75 mg PO DAILY 01/10/21 01/10/21 History glipizide 5 mg PO DAILYBB 01/10/21 01/10/21 History lisinopril 10 mg PO DAILY 01/10/21 01/10/21 History metoprolol succinate 12.5 mg PO BID 01/10/21 01/10/21 History Patient History Medical History Aortic stenosis CAD (coronary artery disease) CKD (chronic kidney disease), stage III Hyperlipidemia Hypertension RBBB Type 2 diabetes mellitus Surgical History History of cardiac cath CAD by cardiac catheterization 11/2019. Distal LMCA has a 40% stenosis which is not significant by IVUS with a mLA of 13.8 mm^2. The mid LAD had a 30% stenosis. The LCx and RCA had mild luminal irregularities History of carotid endarterectomy right History of cataract surgery LEFT. . 2mg versed no issues. 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 Beliefs That Will Affect Care: None marital status: Current Living Situation: Spouse Other Information That Helps Us Care for You: No Feels Safe at Home: Yes Safety Concerns: Feels Safe At This Time Assistive Devices: Denture - Upper, Denture - Lower, Glasses and Walker Review of Systems Review of Systems: All systems reviewed & are unremarkable except as noted in HPI & below Nothing additional to add Physical Exam Physical Exam: General: no acute distress and stated age Head: normocephalic, no masses, lesions, tenderness or abnormalities Eyes: conjunctiva are pink and non-injected, sclera clear Neck: supple, no adenopathy, no bruits, normal jugular venous pulse, no hepatojugular reflux Chest: normal shape and normal respiratory effort Lungs: clear to auscultation and percussion Cardiac Exam: - regular rate & rhythm, no murmurs gallops or rubs - normal S1, normal S2 Pulses: 2(+) throughout Abdomen: abdomen soft, non-tender, no abnormal masses and no hepatosplenomegaly Musculoskeletal: no gait disturbance, no joint inflammation, no deforming arthritis Extremities: no edema and no cyanosis Neuro: grossly normal exam Results & Data ([facility]) Vital Signs (Past 12 Hours) Vital Signs Temp Pulse Resp BP Pulse Ox Pulse Ox 01/11/21 08:18 36.9 C 63 18 101/61 94 01/11/21 02:00 36.8 C 80 18 134/67 95 01/11/21 00:11 95 Laboratory Results Laboratory Results - last 24 hr 01/10/21 01/10/21 01/10/21 16:30 16:30 16:30 WBC 8.34 RBC 3.66 L Hgb 11.1 L Hct 33.9 L MCV 92.6 MCH 30.3 MCHC 32.7 RDW Std Deviation 45.1 RDW Coeff of [place] 13.3 Plt Count 119 L MPV 9.9 Immature Gran % (Auto) 0.2 Neut % (Auto) 81.9 Lymph % (Auto) 8.9 [place] % (Auto) 7.8 Eos % (Auto) 1.0 Baso % (Auto) 0.2 Neut # (Auto) 6.83 H Lymph # (Auto) 0.74 L [place] # (Auto) 0.65 H Eos # (Auto) 0.08 Baso # (Auto) 0.02 Immature Gran # (Auto) 0.02 PT 9.9 INR 1.0 APTT 21.9 PTT Ratio 0.8 Sodium 142 Potassium 5.1 Chloride 109 H Carbon Dioxide 27 Anion Gap 6.0 BUN 38 H Creatinine 2.06 H Est Cr Clr Drug Dosing 29.8 Est GFR ( Amer) 33.5 Est GFR (Non-Af Amer) 28.9 BUN/Creatinine Ratio 18.3 Glucose 258 H POC Glucose Estimat Average Glucose Hemoglobin A1c Calcium 8.9 Magnesium Total Bilirubin 0.4 AST 22 ALT 30 Alkaline Phosphatase 133 H Total Protein 7.0 Albumin 3.5 Globulin 3.5 Albumin/Globulin Ratio 1.0 25-OH Vitamin D Total Urine Color Urine Appearance Urine pH Ur Specific [place] Urine Protein Urine Glucose (UA) Urine Ketones Urine Blood Urine Nitrite Urine Bilirubin Urine Urobilinogen Ur Leukocyte Esterase Urine WBC (Auto) Urine RBC (Auto) U Hyaline Cast (Auto) U Epithel Cells (Auto) Urine Bacteria (Auto) Nasal Screen MRSA (PCR) COVID-19 Eval Order SARS-CoV-2, RNA, NAAT Blood Type Antibody Screen 01/10/21 01/10/21 01/10/21 17:50 17:50 20:16 WBC RBC Hgb Hct MCV MCH MCHC RDW Std Deviation RDW Coeff of [place] Plt Count MPV Immature Gran % (Auto) Neut % (Auto) Lymph % (Auto) [place] % (Auto) Eos % (Auto) Baso % (Auto) Neut # (Auto) Lymph # (Auto) [place] # (Auto) Eos # (Auto) Baso # (Auto) Immature Gran # (Auto) PT INR APTT PTT Ratio Sodium Potassium Chloride Carbon Dioxide Anion Gap BUN Creatinine Est Cr Clr Drug Dosing Est GFR ( Amer) Est GFR (Non-Af Amer) BUN/Creatinine Ratio Glucose POC Glucose Estimat Average Glucose Hemoglobin A1c Calcium Magnesium Total Bilirubin AST ALT Alkaline Phosphatase Total Protein Albumin Globulin Albumin/Globulin Ratio 25-OH Vitamin D Total Urine Color Urine Appearance Urine pH Ur Specific [place] Urine Protein Urine Glucose (UA) Urine Ketones Urine Blood Urine Nitrite Urine Bilirubin Urine Urobilinogen Ur Leukocyte Esterase Urine WBC (Auto) Urine RBC (Auto) U Hyaline Cast (Auto) U Epithel Cells (Auto) Urine Bacteria (Auto) Nasal Screen MRSA (PCR) COVID-19 Eval [facility] SARS-CoV-2, RNA, NAAT NEGATIVE Blood Type O Positive Antibody Screen NEGATIVE 01/10/21 01/10/21 01/11/21 20:37 21:21 00:04 WBC RBC Hgb Hct MCV MCH MCHC RDW Std Deviation RDW Coeff of [place] Plt Count MPV Immature Gran % (Auto) Neut % (Auto) Lymph % (Auto) [place] % (Auto) Eos % (Auto) Baso % (Auto) Neut # (Auto) Lymph # (Auto) [place] # (Auto) Eos # (Auto) Baso # (Auto) Immature Gran # (Auto) PT INR APTT PTT Ratio Sodium Potassium Chloride Carbon Dioxide Anion Gap BUN Creatinine Est Cr Clr Drug Dosing Est GFR ( Amer) Est GFR (Non-Af Amer) BUN/Creatinine Ratio Glucose POC Glucose 185 H 143 H Estimat Average Glucose Hemoglobin A1c Calcium Magnesium Total Bilirubin AST ALT Alkaline Phosphatase Total Protein Albumin Globulin Albumin/Globulin Ratio 25-OH Vitamin D Total Urine Color Urine Appearance Urine pH Ur Specific [place] Urine Protein Urine Glucose (UA) Urine Ketones Urine Blood Urine Nitrite Urine Bilirubin Urine Urobilinogen Ur Leukocyte Esterase Urine WBC (Auto) Urine RBC (Auto) U Hyaline Cast (Auto) U Epithel Cells (Auto) Urine Bacteria (Auto) Nasal Screen MRSA (PCR) Negative COVID-19 Eval Order SARS-CoV-2, RNA, NAAT Blood Type Antibody Screen 01/11/21 01/11/21 01/11/21 00:50 05:50 05:50 WBC 7.70 RBC 3.50 L Hgb 10.6 L Hct 32.0 L MCV 91.4 MCH 30.3 MCHC 33.1 RDW Std Deviation 43.9 RDW Coeff of [place] 13.2 Plt Count 104 L MPV 10.0 Immature Gran % (Auto) 0.1 Neut % (Auto) 72.3 Lymph % (Auto) 15.6 [place] % (Auto) 9.6 Eos % (Auto) 2.1 Baso % (Auto) 0.3 Neut # (Auto) 5.57 Lymph # (Auto) 1.20 [place] # (Auto) 0.74 H Eos # (Auto) 0.16 Baso # (Auto) 0.02 Immature Gran # (Auto) 0.01 PT INR APTT PTT Ratio Sodium 142 Potassium 4.4 Chloride 110 H Carbon Dioxide 27 Anion Gap 5.0 BUN 33 H Creatinine 1.77 H Est Cr Clr Drug Dosing 34.7 Est GFR ( Amer) 40.3 Est GFR (Non-Af Amer) 34.7 BUN/Creatinine Ratio 18.9 Glucose 133 H POC Glucose Estimat Average Glucose Hemoglobin A1c Calcium 8.2 L Magnesium 2.2 Total Bilirubin AST ALT Alkaline Phosphatase Total Protein Albumin Globulin Albumin/Globulin Ratio 25-OH Vitamin D Total Urine Color Yellow Urine Appearance Cloudy A Urine pH 8.0 H Ur Specific [place] 1.019 Urine Protein 2+ H Urine Glucose (UA) Negative Urine Ketones Negative Urine Blood Trace H Urine Nitrite Positive A Urine Bilirubin Negative Urine Urobilinogen Negative Ur Leukocyte Esterase 2+ H Urine WBC (Auto) >30 H Urine RBC (Auto) 0-4 U Hyaline Cast (Auto) 0 U Epithel Cells (Auto) 0-5 Urine Bacteria (Auto) 4+ H Nasal Screen MRSA (PCR) COVID-19 Eval Order SARS-CoV-2, RNA, NAAT Blood Type Antibody Screen 01/11/21 01/11/21 01/11/21 05:50 05:50 06:07 WBC RBC Hgb Hct MCV MCH MCHC RDW Std Deviation RDW Coeff of [place] Plt Count MPV Immature Gran % (Auto) Neut % (Auto) Lymph % (Auto) [place] % (Auto) Eos % (Auto) Baso % (Auto) Neut # (Auto) Lymph # (Auto) [place] # (Auto) Eos # (Auto) Baso # (Auto) Immature Gran # (Auto) PT INR APTT PTT Ratio Sodium Potassium Chloride Carbon Dioxide Anion Gap BUN Creatinine Est Cr Clr Drug Dosing Est GFR ( Amer) Est GFR (Non-Af Amer) BUN/Creatinine Ratio Glucose POC Glucose 139 H Estimat Average Glucose 212 Hemoglobin A1c 9.0 H Calcium Magnesium Total Bilirubin AST ALT Alkaline Phosphatase Total Protein Albumin Globulin Albumin/Globulin Ratio 25-OH Vitamin D Total 12.9 L Urine Color Urine Appearance Urine pH Ur Specific [place] Urine Protein Urine Glucose (UA) Urine Ketones Urine Blood Urine Nitrite Urine Bilirubin Urine Urobilinogen Ur Leukocyte Esterase Urine WBC (Auto) Urine RBC (Auto) U Hyaline Cast (Auto) U Epithel Cells (Auto) Urine Bacteria (Auto) Nasal Screen MRSA (PCR) COVID-19 Eval Order SARS-CoV-2, RNA, NAAT Blood Type Antibody Screen Diagnostic Findings EKG shows a sinus rhythm with an old right bundle branch block. Medications Administered Current Inpatient Medications Hydrocodone Bitart/Acetaminophen (Hydrocodone/Acetamophen 5/325mg Tab) 1 tab PO Q4H PRN PRN Reason: MODERATE Pain (4,5,6) & Pre PT Stop: 01/24/21 20:10 Last Admin: 01/10/21 21:39 Dose: 1 tab Documented by: Hydrocodone Bitart/Acetaminophen (Hydrocodone/Acetamophen 5/325mg Tab) 2 tab PO Q4H PRN PRN Reason: SEVERE Pain (7,8,9,10) Stop: 01/24/21 20:10 Amlodipine Besylate (Amlodipine Besylate 5 Mg Tab) 5 mg PO QAM NIDIA Stop: 02/10/21 08:59 Aspirin (Aspirin 81 Mg Ectab) 81 mg PO QAM NIDIA Stop: 02/10/21 08:59 Atorvastatin Calcium (Atorvastatin 10 Mg Tab) 10 mg PO PM NIDIA Stop: 02/09/21 20:59 Last Admin: 01/10/21 21:02 Dose: 10 mg Documented by: Bisacodyl (Bisacodyl 10 Mg Supp) 10 mg DE DAILY PRN PRN Reason: Constipation Stop: 02/09/21 20:10 Dextrose (Dextrose 50% 50 Ml Syringe) 25 - 50 ml IV UD PRN; Protocol PRN Reason: Hypoglycemia Protocol Stop: 02/09/21 20:10 Glucagon (Glucagon For Inj 1 Mg Vial) 1 mg SQ UD PRN; Protocol PRN Reason: Hypoglycemia Protocol Stop: 02/09/21 20:10 Glucose (Glucose 10 Tabs/Tube) 4 - 8 tabs PO UD PRN; Protocol PRN Reason: Hypoglycemia Protocol Stop: 02/09/21 20:10 Glucose (Glucose 40% Gel 15 Gm Tube) 15 - 30 gm PO UD PRN; Protocol PRN Reason: Hypoglycemia Protocol Stop: 02/09/21 20:10 Cefazolin Sodium (Ancef 2000mg) 2,000 mg in 15 mls @ 3.75 mls/min IV PREOP NIDIA; Protocol Stop: 01/12/21 05:59 Insulin Aspart (Insulin Aspart 100 Units/Ml 3 Ml Pen) 0 units SC Q6 NIDIA Stop: 02/10/21 05:59 Last Admin: 01/11/21 06:17 Dose: Not Given Documented by: Lisinopril (Lisinopril 10 Mg Tab) 10 mg PO DAILY NIDIA Stop: 02/10/21 08:59 Magnesium Hydroxide (Magnesium Hydroxide Susp 30 Ml Udc) 30 ml PO DAILY PRN PRN Reason: Constipation Stop: 02/09/21 20:10 Metoprolol Succinate (Metoprolol Succ 25mg Ext Rel Tab) 12.5 mg PO BID [facility] Stop: 02/09/21 20:59 Last Admin: 01/10/21 20:53 Dose: 12.5 mg Documented by: Miscellaneous (Carbohydrates For Hypoglycemia ) 15 - 30 gm PO UD PRN PRN Reason: Hypoglycemia Protocol Stop: 02/09/21 20:10 Miscellaneous Information (Pharmacy Glycemic Mgmt Consult) 1 ea N/A UD PRN; Protocol PRN Reason: Consult Stop: 02/09/21 20:20 Morphine Sulfate (Morphine Sulfate 2 Mg/Ml Carp) 2 mg IV Q3H PRN PRN Reason: Pain (1,2,3,4,5) & Pre PT Stop: 01/24/21 20:10 Morphine Sulfate (Morphine Sulfate 4 Mg/Ml 1 Ml Carp\Vial) 4 mg IV Q3H PRN PRN Reason: Pain (6,7,8,9,10) Stop: 01/24/21 20:10 Last Admin: 01/11/21 08:48 Dose: 4 mg Documented by: Naloxone HCl (Naloxone Hcl 0.4 Mg/1 Ml Vial/Carp) 0.1 mg IV UD PRN PRN Reason: Opiate Overdose Stop: 02/09/21 20:10 Ondansetron HCl (Ondansetron Inj 2 Mg/Ml 2 Ml Vial) 4 mg IV Q6H PRN PRN Reason: Nausea And Vomiting Stop: 02/09/21 20:10 Senna/Docusate Sodium (Docusate Sodium/Senna 50/8.6mg Tab) 2 tab PO HS NIDIA Stop: 02/09/21 20:59 Last Admin: 01/10/21 21:02 Dose: 2 tab Documented by: (1) Closed hip fracture Encounter type: initial encounter Laterality: left Qualified Code(s): S72.002A - Fracture of unspecified part of neck of left femur, initial encounter for closed fracture
[2021-01-11] MEDS: METOPROLOL SUCC 25MG EXT REL TAB PO SCH ×2 (11:09→21:33)
[2021-01-11] MEDS: ASPIRIN 81 MG ECTAB PO SCH (11:09)
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
[2021-01-11] MEDS ORDERED: OLANZapine 10 MG/2.1 ML SDV IM PRN ×2 (12:14→23:07)
--- NOTE | 2021-01-11 13:14 | Pharmacy Report ---
Pharmacy Glycemic Short Note 2 - Date of Service January 11, 2021 - Glycemic Short BSG Results (Last 24 hours): 01/10/21 01/10/21 01/11/21 16:30 20:37 00:04 Glucose 258 H POC Glucose 185 H 143 H 01/11/21 01/11/21 01/11/21 05:50 06:07 11:55 Glucose 133 H POC Glucose 139 H 131 H OUTPATIENT ANTIDIABETIC REGIMEN: * Glipizide 5 mg PO AM * HbA1c: 9% (01/11/21) ASSESSMENT: 01/11: * NPO today - BSGs well-controlled with no insulin today (139 and 131 mg/dL) * Patient likely to undergo surgical intervention today - will leave sign-out with second-shift pharmacist to follow perioperatively 01/10: * 85 yo M admitted secondary to a left hip fracture s/p mechanical fall. Pharmacy is consulted for inpatient glycemic management. An updated HbA1c is pending for tomorrow morning to assess outpatient control of type 2 diabetes. * Random BSG in the ED was 258 mg/dL. It was 185 mg/dL this evening. * Spoke with RN and patient will be eating a dinner tray this evening prior to bed. He is to be NPO after midnight for possible orthopedic surgery. * Will utilize a goal range of 110 - 140 mg/dL. * Will give a small basal insulin dose this evening with patient eating and to help cover any steroids that may be received in the perioperative setting. Will start Novolog based on a weight and stress of two as well. PLAN FOR INPATIENT GLYCEMIC CONTROL: * Hold outpatient oral diabetes medications * Basal insulin * Reassess postoperatively * Bolus insulin * NovoLog per scale ACHS or Q6hrs while NPO * Goal Range: Low 110 mg/dL - High 140 mg/dL * Correction Factor: 25 mg/dL/unit * Nutritional / Prandial insulin per carb ratio of 1 unit per 8 grams CHO consumed PLAN FOR DISCHARGE: * To be determined
[2021-01-11] MEDS ORDERED: LIDOCAINE HCL 2% 2 ML VIAL/AMP(20MG/ML) INFIL ONE (14:47)
[2021-01-11] MEDS ORDERED: ePHEDrine sulfate 50 MG/ML SYR ONE (14:47)
[2021-01-11] MEDS ORDERED: PHENYLEPHRINE 100MCG/ML 5ML SYR ONE (14:47)
[2021-01-11] MEDS ORDERED: fentaNYL citrate 100 MCG/2 ML VIAL ONE (14:47)
[2021-01-11] MEDS ORDERED: PROPOFOL IV EMULSION 10 MG/ML 20 ML VIAL IV ONE (14:47)
[2021-01-11] MEDS ORDERED: BUPIVACAINE/EPINEPHRINE 0.5% MPF 1:200,000 30 ML VIAL ONE (15:13)
--- NOTE | 2021-01-11 15:21 | History & Physical Bridge Note ---
Date of Service January 11, 2021 History & Physical Bridge Note I have examined the patient, reviewed the History & Physical and in the interval since the performance of the History & Physical I have noted the following changes of clinical significance: no changes noted
[2021-01-11] MEDS ORDERED: ePHEDrine sulfate 50 MG/ML AMP IV PRN (16:41)
[2021-01-11] MEDS ORDERED: ONDANSETRON INJ 2 MG/ML 2 ML VIAL IV PRN (16:41)
[2021-01-11] MEDS ORDERED: ATROPINE SULFATE 0.1 MG/ML 10ML SYR IV PRN (16:41)
[2021-01-11] MEDS ORDERED: ONDANSETRON INJ 2 MG/ML 2 ML VIAL ONE (16:51)
--- NOTE | 2021-01-11 17:22 | Fluoroscopy Report ---
FL hip LT 2-3V HISTORY: 85 years-old Male LEFT CANNULATED SCREWS 2 fracture of the left femoral neck COMPARISON: Pelvis and left hip radiographs 01/10/2021, CT left hip and 07/03/2021 TECHNIQUE: 4 spot fluoroscopic images of the left hip were obtained utilizing 114.2 seconds fluorosco py time FINDINGS: Acute subcapital fracture of the left femur with mild impaction is redemonstrated. Status post placem ent of 3 cannulated screws fixating the fracture which appear intact. Satisfactory alignment. IMPRESSION: Fluoroscopic assistance as above. ACT 112: Negative or not required by law. The above report was generated using voice recognition software. It may contain grammatical, syntax o r spelling errors. Electronically signed by: Crescencio Ulloa M.D. 01/11/2021 5:20 PM
--- NOTE | 2021-01-11 17:33 | Post Operative Brief Note ---
Immediate Post Op Note v1 Date of Surgery January 11, 2021 Pre & Post Diagnosis Operation Date: 01/11/21 08:40 Pre-Op Diagnosis: LEFT HIP SUBCAPITAL FRACTURE. Post-Op Diagnosis: LEFT HIP SUBCAPITAL FRACTURE. I identified the patient and participated in the time-out.: Yes Procedure Operation Date: 01/11/21 08:40 Actual Procedures p Left Open Reduction Internal Fixation Hip Cannulated Screw(Left) - Cory Humphreys DO Surgeon Cory Humphreys DO Cottrell Blower none Estimated Blood Loss 75 Findings Consistent with Post-Op Diagnosis Fluids See anesthesia record Specimens None Drains Díaz Catheter Anesthesia Type General Complications none Disposition Disposition: Recovery Room Overlapping Procedure I was present for: the critical portions of procedure. I was immediately available: during the entire case. Back up surgeon: was not required during procedure.
--- NOTE | 2021-01-11 17:34 | Operative Report ---
Post Operative Report Pre & Post Diagnosis Operation Date: 01/11/21 08:40 Pre-Op Diagnosis: LEFT HIP SUBCAPITAL FRACTURE. Post-Op Diagnosis: LEFT HIP SUBCAPITAL FRACTURE. I identified the patient and participated in the time-out.: Yes Procedure Operation Date: 01/11/21 08:40 Actual Procedures p Left Open Reduction Internal Fixation Hip Cannulated Screw(Left) - Cory Humphreys DO Surgeon Cory Humphreys DO Programming Specialist none Estimated Blood Loss 75 Findings Consistent with Post-Op Diagnosis Fluids See anesthesia record Specimens None Anesthesia Type General Complications none Disposition Disposition: Recovery Room Description of Procedure The patient was identified, brought to the operating room, and placed in supine position on the table. After induction of general anesthesia, the patient was positioned on a fracture table. Imaging was obtained utilizing C-arm fluoroscopy of the left hip to assess hip position and version. No reduction was needed. The left hip was then sterilely prepped and draped in the usual fashion for the surgery. A timeout was performed with site amber confirmation and preoperative antibiotics given. Once again under C-arm fluoroscopy a guide pin was inserted percutaneously and positioned in the inferior neck and femoral head while assessed in both the AP and lateral planes. When satisfactory position was confirmed a small direct lateral incision of the right hip around the guide pin was made. Dissection was carried down to the femur through the IT band and the vastus lateralis was elevated off the bone. Adequate hemostasis wa s achieved with electrocautery. Next under direct visualization with C-arm fluoroscopy we then used the pin guide to place two additional pins in the anterior superior and posterior superior positions. Position was confirmed both with C-arm fluroscopy in the AP and lateral postion. Each guide pin was measured for appropriate screw length and overdrilled using the cannulated drill bit while utilizing C-arm fluoroscopy to confirm no pin migration had occurred. Three 7.3 32 thread cannulated screws measure 105, 100 and 100 mm were then placed under C-arm fluoroscopy into the femoral head with excellent fixation. The guide pins were removed at this time and final images were obtained utilizing C-arm fluoroscopy. Once this was done and the fixation was solid, the wound was irrigated with copious amounts of sterile saline solution. The incision was injected with 30cc .5% Marcaine with epi. We then closed in layers using 1 Vicryl, 2-0 Vicryl, and junaid for the skin. Sterile xeroform, 4x4, tegaderm dressing was applied. The patient was extubated in the OR , tolerated the procedure well and was taken to the PACU in stable condition. I attest to the content of the Intraoperative Record and any orders documented therein. Any exceptions are noted below.
[2021-01-11] MEDS: fentaNYL citrate 100 MCG/2 ML VIAL IV PRN ×4 (17:43→17:58)
[2021-01-11] MEDS ORDERED: HYDROmorphone INJ 1 MG/ML SYRINGE ONE ×2 (17:56→18:14)
[2021-01-11] MEDS ORDERED: HYDROmorphone INJ 2 MG/ML SYR/VIAL IV PRN (17:59)
[2021-01-11] MEDS ORDERED: LORazepam 2 MG/4 ML VIAL ONE (18:07)
[2021-01-11] MEDS ORDERED: OXYMETAZOLINE 0.05% 30 ML BTL ONE (18:12)
--- NOTE | 2021-01-11 18:39 | Anesthesiology Progress Note ---
Date of Service January 11, 2021 Anesthesia Post Procedure Vital Signs Vital Signs: Temp Pulse Pulse Pulse Resp BP BP 01/11/21 18:30 36.9 C 92 H 13 137/68 01/11/21 18:20 36.9 C 99 H 10 L 151/60 H 01/11/21 18:10 108 H 20 147/116 H 01/11/21 18:00 126 H 20 147/116 H 01/11/21 17:50 119 H 20 142/64 H 01/11/21 17:40 37.0 C 88 20 142/64 H 01/11/21 15:26 36.7 C 77 20 150/61 H 01/11/21 09:39 37.1 C 73 20 173/66 H 01/11/21 08:18 36.9 C 63 18 101/61 01/11/21 02:00 36.8 C 80 18 134/67 01/11/21 00:11 01/10/21 20:14 37.1 C 79 20 175/76 H 01/10/21 19:37 75 22 178/71 H 01/10/21 19:00 167/69 H 01/10/21 18:50 01/10/21 18:40 Pulse Ox Pulse Ox 01/11/21 18:30 92 01/11/21 18:20 95 01/11/21 18:10 981 H 01/11/21 18:00 97 01/11/21 17:50 96 01/11/21 17:40 99 01/11/21 15:26 95 01/11/21 09:39 99 01/11/21 08:18 94 01/11/21 02:00 95 01/11/21 00:11 95 01/10/21 20:14 97 01/10/21 19:37 99 01/10/21 19:00 100 01/10/21 18:50 97 01/10/21 18:40 100 Pain Intensity Left Hip: Pain Intensity: 5 Transfer of Care Handoff Completed per policy Notes Mental Status: alert / awake / arousable and participated in evaluation Patient Amnestic to Procedure: Yes Nausea / Vomiting: adequately controlled Pain: adequately controlled Airway Patency, RR, SpO2: stable & adequate BP & HR: stable & adequate Hydration State: stable & adequate Anesthetic Complications: no major complications apparent
[2021-01-11] MEDS ORDERED: LORazepam 1 MG/2 ML VIAL IV PRN (18:45)
--- NOTE | 2021-01-11 18:58 | Orthopedic Progress Note ---
Date of Service January 11, 2021 Assessment & Plan (1) Subcapital fracture of left hip: s/p ORIF left hip, cannulated screws -ancef x 24 -DVT ppx: SCDs, TEDs, will restart Plavix -NWB LLE -PT/OT when medically stable -PO XR pending -am labs Admission and Anticipated Discharge Date Admission Date: January 10, 2021 Subjective Post Operative Progress Note Patient seen in PACU, confused and agitated. Review of Systems Review of Systems: All systems reviewed & are unremarkable except as noted in HPI & below Constitutional: as per Subjective / HPI Physical Exam Physical Exam: LLE PE limited secondary to patient confusion, + 2 DP pulse, does not follow commands, actively moving foot, toes, hip and knee. Dressing CDI, moderate swelling proximal thigh, compartments soft and compressible. Constitutional: WD/WN, vitals as above Results & Data ([facility]) Vital Signs (Past 12 Hours) Vital Signs Temp Pulse Pulse Pulse Resp BP Pulse Ox 01/11/21 18:30 36.9 C 92 H 13 137/68 92 01/11/21 18:20 36.9 C 99 H 10 L 151/60 H 95 01/11/21 18:10 108 H 20 147/116 H 981 H 01/11/21 18:00 126 H 20 147/116 H 97 01/11/21 17:50 119 H 20 142/64 H 96 01/11/21 17:40 37.0 C 88 20 142/64 H 99 01/11/21 15:26 36.7 C 77 20 150/61 H 95 01/11/21 09:39 37.1 C 73 20 173/66 H 99 01/11/21 08:18 36.9 C 63 18 101/61 94
[2021-01-11] MEDS ORDERED: NALOXONE HCL 0.4 MG/1 ML VIAL/CARP IV PRN (19:49)
--- NOTE | 2021-01-11 21:02 | XRay Report ---
XR hip LT min 2V HISTORY: 85 years-old Male Post-Operative implant position left hip total joint arthroplasty COMPARISON: Pelvis and left hip radiographs 01/10/2021 TECHNIQUE: 2 views of the left hip FINDINGS: 3 cannulated screws are noted within the left femoral neck fixating the acute subcapital fracture wit h unchanged alignment. Hardware appears intact. Lateral skin junaid are noted with expected postsurg ical soft tissue swelling and deep tissue air. IMPRESSION: Status post ORIF of the acute subcapital fracture of the left femur. ACT 112: Negative or not required by law. The above report was generated using voice recognition software. It may contain grammatical, syntax o r spelling errors. Electronically signed by: Crescencio Ulloa M.D. 01/11/2021 9:00 PM
[2021-01-11] MEDS ORDERED: INSULIN GLARGINE SOLOSTAR 100 UNITS/ML 3 ML PEN SC ONE (21:30)
[2021-01-11] MEDS: ATORVASTATIN 10 MG TAB PO SCH (21:33)
[2021-01-11] MEDS: DOCUSATE SODIUM/SENNA 50/8.6MG TAB PO SCH (21:33)
[2021-01-12] MEDS: ceFAZolin 2000MG 2,000 MG/15 ML SYR IV SCH ×4 (00:01→23:36)
[2021-01-12] MEDS ORDERED: SODIUM CHLORIDE 0.9% 500 ML IV ONE (03:15)
[2021-01-12 03:42] LABS: Hematocrit (blood only) 26.4 % (42-52); Hemoglobin 8.5 g/dL (14.0-18.0); Mean Corpuscular Hgb Conc 32.2 g/dL (32-36); Mean Corpuscular Volume 93.3 fL (80-100); RDW Coefficient of Variation 13.4 % (11.5-14.5); RDW Standard Deviation 45.9 fL (36.4-46.3); Red Blood Count 2.83 M/uL (4.7-6.1); White Blood Count 10.26 K/uL (4.8-10.8)
[2021-01-12] MEDS ORDERED: HYDROmorphone INJ 0.5 MG/0.5 ML SYR IV PRN (03:44)
[2021-01-12 03:59] LABS: BUN Creatinine Ratio 16.7 (10-20); Calcium 7.6 mg/dl (8.5-10.1); Creatinine Clr Calc Pharmacy 26.1 ml/min; Est GFR (African American) 28.6; Est GFR (Non-African American) 24.7; Magnesium 2.1 mg/dl (1.8-2.4)
[2021-01-12 04:05] LABS: Platelet Count 98 K/uL (130-400)
[2021-01-12 04:14] LABS: Basophils # (auto) 0.01 K/uL (0-0.2); Basophils % (auto) 0.1 %; Eosinophils # (auto) 0.02 K/uL (0-0.5); Eosinophils % (auto) 0.2 %; Immature Granulocytes # (auto) 0.03 K/uL (0.00-0.02); Immature Granulocytes % (auto) 0.3 %; Lymphocytes # (auto) 0.57 K/uL (1.2-3.4); Lymphocytes % (auto) 5.6 %; Mean Platelet Volume 9.7 fL (7.4-10.4); Monocytes # (auto) 0.89 K/uL (0.11-0.59); Monocytes % (auto) 8.7 %; Neutrophils # (auto) 8.74 K/uL (1.4-6.5); Neutrophils % (auto) 85.1 %; Platelet Estimate Decreased (Normal)
--- NOTE | 2021-01-12 04:26 | Communication Note ---
Date of Service: January 12, 2021 Made aware by RN of SBP 80s. Patient sleeping as per RN. serum crea 2.35 from 1.77 (01/11) AP Hypotension secondary to hypovolemia ARF secondary to above IVF Baseline UA Hold amlodipine, DARLIN inhibitor for now Will relay to AM provider.
[2021-01-12] MEDS ORDERED: SODIUM CHLORIDE 0.45 % 1,000 ML IV ONE ×2 (04:30→20:30)
[2021-01-12] MEDS: traMADol HCL 50 MG TABLET PO PRN ×4 (05:24→22:30)
[2021-01-12] MEDS: METOPROLOL SUCC 25MG EXT REL TAB PO SCH ×2 (07:38→20:39)
[2021-01-12] MEDS: CLOPIDOGREL BISULFATE 75 MG TAB PO SCH (07:39)
[2021-01-12] MEDS: ASPIRIN 81 MG ECTAB PO SCH (07:39)
[2021-01-12] MEDS ORDERED: INSULIN GLARGINE SOLOSTAR 100 UNITS/ML 3 ML PEN SC SCH (09:00)
[2021-01-12] MEDS: INSULIN ASPART 100 UNITS/ML 3 ML PEN SC SCH ×4 (09:12→20:37)
[2021-01-12 09:37] LABS: Appearance Urine Turbid (Clear); Bacteria Urine Automated Negative (Negative); Bilirubin Urine Negative (Negative); Blood Urine 3+ (Negative); Color Urine Dark Yellow; Glucose Urine UA Negative (Negative); Ketones Urine Trace (Negative); Leukocyte Esterase Urine 2+ (Negative); Nitrite Urine Negative (Negative); Protein Urine 2+ (Negative); Specific Gravity Urine 1.028 (1.000-1.030); Urobilinogen Urine Negative (Negative); WBC Urine Automated >30 /hpf (0-5)
--- NOTE | 2021-01-12 10:10 | Orthopedic Progress Note ---
Date of Service January 12, 2021 Assessment & Plan (1) Subcapital fracture of left hip: s/p ORIF left hip, cannulated screws POD#1 -ancef x 24 -DVT ppx: SCDs, TEDs, will restart Plavix -NWB LLE -PT/OT when medically stable -PO XR demonstrates well aligned orthopedic implants, anatomic alignment of fracture -am labs as above, hgb 8.5 Admission and Anticipated Discharge Date Admission Date: January 10, 2021 Subjective Post Operative Progress Note Patient seen laying in bed, confused, comfortable. 1 to 1. Review of Systems Review of Systems: All systems reviewed & are unremarkable except as noted in HPI & below Physical Exam Physical Exam: LLE NVSI +EHL/FHL/TA/GS SILT grossly, +2 DP pulse, compartments soft NT, dressing cdi. Constitutional: WD/WN, vitals as above Results & Data ([facility]) Vital Signs (Past 12 Hours) Vital Signs Temp Pulse Pulse Resp BP Pulse Ox 01/12/21 07:21 37 C 87 20 95/48 L 95 01/12/21 05:18 93 01/12/21 05:16 97 01/12/21 04:35 100/53 L 01/12/21 02:56 36.7 C 92 H 18 88/54 L 94 01/11/21 23:38 36.3 C L 95 H 16 106/63 96 01/11/21 23:10 97 01/11/21 23:09 98 01/11/21 22:30 92 H 18 127/67 99 Laboratory Results 01/12/21 01/12/21 01/12/21 Range/Units 09:25 08:21 03:29 WBC (4.8-10.8) K/uL RBC (4.7-6.1) M/uL Hgb (14.0-18.0) g/dL Hct (42-52) % MCV (80-100) fL MCH (25-34) pg MCHC (32-36) g/dL RDW Std Deviation (36.4-46.3) fL RDW Coeff of Chilo (11.5-14.5) % Plt Count (130-400) K/uL MPV (7.4-10.4) fL Immature Gran % (Auto) % Neut % (Auto) % Lymph % (Auto) % Campbell % (Auto) % Eos % (Auto) % Baso % (Auto) % Neut # (Auto) (1.4-6.5) K/uL Lymph # (Auto) (1.2-3.4) K/uL Campbell # (Auto) (0.11-0.59) K/uL Eos # (Auto) (0-0.5) K/uL Baso # (Auto) (0-0.2) K/uL Immature Gran # (Auto) (0.00-0.02) K/uL Platelet Estimate (Normal) Sodium (136-145) mmol/L Potassium (3.5-5.1) mmol/L Chloride (98-107) mmol/L Carbon Dioxide (21-32) mmol/L Anion Gap (3-11) BUN (7-18) mg/dl Creatinine (0.6-1.4) mg/dl Est Cr Clr Drug Dosing ml/min Est GFR ( Amer) Est GFR (Non-Af Amer) BUN/Creatinine Ratio (10-20) Glucose (70-99) mg/dl POC Glucose 234 H (70-99) mg/dl Lactate 1.9 (0.4-2.0) mmol/L Calcium (8.5-10.1) mg/dl Magnesium (1.8-2.4) mg/dl Urine Color Dark Yellow Urine Appearance Turbid A (Clear) Urine pH 5.0 (4.5-7.5) Ur Specific [place] 1.028 (1.000-1.030) Urine Protein 2+ H (Negative) Urine Glucose (UA) Negative (Negative) Urine Ketones Trace H (Negative) Urine Blood 3+ H (Negative) Urine Nitrite Negative (Negative) Urine Bilirubin Negative (Negative) Urine Urobilinogen Negative (Negative) Ur Leukocyte Esterase 2+ H (Negative) Urine WBC (Auto) >30 H (0-5) /hpf Urine RBC (Auto) 10-30 H (0-4) /hpf U Hyaline Cast (Auto) 1-5 (0-5) /lpf U Epithel Cells (Auto) 5-10 H (0-5) /lpf Urine Bacteria (Auto) Negative (Negative) Urine Yeast Not Reportable 01/12/21 01/12/21 01/12/21 Range/Units 03:29 03:29 02:51 WBC 10.26 (4.8-10.8) K/uL RBC 2.83 L (4.7-6.1) M/uL Hgb 8.5 L (14.0-18.0) g/dL Hct 26.4 L (42-52) % MCV 93.3 (80-100) fL MCH 30.0 (25-34) pg MCHC 32.2 (32-36) g/dL RDW Std Deviation 45.9 (36.4-46.3) fL RDW Coeff of Chilo 13.4 (11.5-14.5) % Plt Count 98 L (130-400) K/uL MPV 9.7 (7.4-10.4) fL Immature Gran % (Auto) 0.3 % Neut % (Auto) 85.1 % Lymph % (Auto) 5.6 % Campbell % (Auto) 8.7 % Eos % (Auto) 0.2 % Baso % (Auto) 0.1 % Neut # (Auto) 8.74 H (1.4-6.5) K/uL Lymph # (Auto) 0.57 L (1.2-3.4) K/uL Campbell # (Auto) 0.89 H (0.11-0.59) K/uL Eos # (Auto) 0.02 (0-0.5) K/uL Baso # (Auto) 0.01 (0-0.2) K/uL Immature Gran # (Auto) 0.03 H (0.00-0.02) K/uL Platelet Estimate Decreased L (Normal) Sodium 142 (136-145) mmol/L Potassium 5.0 (3.5-5.1) mmol/L Chloride 110 H (98-107) mmol/L Carbon Dioxide 26 (21-32) mmol/L Anion Gap 6.0 (3-11) BUN 39 H (7-18) mg/dl Creatinine 2.35 H D (0.6-1.4) mg/dl Est Cr Clr Drug Dosing 26.1 ml/min Est GFR ( Amer) 28.6 Est GFR (Non-Af Amer) 24.7 BUN/Creatinine Ratio 16.7 (10-20) Glucose 201 H (70-99) mg/dl POC Glucose 209 H (70-99) mg/dl Lactate (0.4-2.0) mmol/L Calcium 7.6 L (8.5-10.1) mg/dl Magnesium 2.1 (1.8-2.4) mg/dl Urine Color Urine Appearance (Clear) Urine pH (4.5-7.5) Ur Specific [place] (1.000-1.030) Urine Protein (Negative) Urine Glucose (UA) (Negative) Urine Ketones (Negative) Urine Blood (Negative) Urine Nitrite (Negative) Urine Bilirubin (Negative) Urine Urobilinogen (Negative) Ur Leukocyte Esterase (Negative) Urine WBC (Auto) (0-5) /hpf Urine RBC (Auto) (0-4) /hpf U Hyaline Cast (Auto) (0-5) /lpf U Epithel Cells (Auto) (0-5) /lpf Urine Bacteria (Auto) (Negative) Urine Yeast 01/11/21 01/11/21 01/11/21 Range/Units 21:24 19:03 11:55 WBC (4.8-10.8) K/uL RBC (4.7-6.1) M/uL Hgb (14.0-18.0) g/dL Hct (42-52) % MCV (80-100) fL MCH (25-34) pg MCHC (32-36) g/dL RDW Std Deviation (36.4-46.3) fL RDW Coeff of Chilo (11.5-14.5) % Plt Count (130-400) K/uL MPV (7.4-10.4) fL Immature Gran % (Auto) % Neut % (Auto) % Lymph % (Auto) % Campbell % (Auto) % Eos % (Auto) % Baso % (Auto) % Neut # (Auto) (1.4-6.5) K/uL Lymph # (Auto) (1.2-3.4) K/uL Campbell # (Auto) (0.11-0.59) K/uL Eos # (Auto) (0-0.5) K/uL Baso # (Auto) (0-0.2) K/uL Immature Gran # (Auto) (0.00-0.02) K/uL Platelet Estimate (Normal) Sodium (136-145) mmol/L Potassium (3.5-5.1) mmol/L Chloride (98-107) mmol/L Carbon Dioxide (21-32) mmol/L Anion Gap (3-11) BUN (7-18) mg/dl Creatinine (0.6-1.4) mg/dl Est Cr Clr Drug Dosing ml/min Est GFR ( Amer) Est GFR (Non-Af Amer) BUN/Creatinine Ratio (10-20) Glucose (70-99) mg/dl POC Glucose 197 H 171 H 131 H (70-99) mg/dl Lactate (0.4-2.0) mmol/L Calcium (8.5-10.1) mg/dl Magnesium (1.8-2.4) mg/dl Urine Color Urine Appearance (Clear) Urine pH (4.5-7.5) Ur Specific [place] (1.000-1.030) Urine Protein (Negative) Urine Glucose (UA) (Negative) Urine Ketones (Negative) Urine Blood (Negative) Urine Nitrite (Negative) Urine Bilirubin (Negative) Urine Urobilinogen (Negative) Ur Leukocyte Esterase (Negative) Urine WBC (Auto) (0-5) /hpf Urine RBC (Auto) (0-4) /hpf U Hyaline Cast (Auto) (0-5) /lpf U Epithel Cells (Auto) (0-5) /lpf Urine Bacteria (Auto) (Negative) Urine Yeast
--- NOTE | 2021-01-12 11:55 | Cardiology Progress Note ---
Date of Service January 12, 2021 Assessment & Plan (1) S/p TAVR (transcatheter aortic valve replacement), bioprosthetic: (2) Closed hip fracture: (3) CKD (chronic kidney disease) stage 4, GFR 15-29 ml/min: (4) CAD (coronary artery disease): The patient is clinically stable post surgery. I would continue his home cardiac medications when appropriate. The patient will obviously be rehabbing and at this point we can see him on an as-needed basis. Admission and Anticipated Discharge Date Admission Date: January 10, 2021 Subjective The patient is alert but with a flat affect. Similar to previous surgery. He may have early dementia. Review of Systems Review of Systems: All systems reviewed & are unremarkable except as noted in Subjective Physical Exam Physical Exam: General: no acute distress and stated age Head: normocephalic, no masses, lesions, tenderness or abnormalities Eyes: conjunctiva are pink and non-injected, sclera clear Neck: supple, no adenopathy, no bruits, normal jugular venous pulse, no hepatojugular reflux Chest: normal shape and normal respiratory effort Lungs: clear to auscultation and percussion Cardiac Exam: - regular rate & rhythm, no murmurs gallops or rubs - normal S1, normal S2 Pulses: 2(+) throughout Abdomen: abdomen soft, non-tender, no abnormal masses and no hepatosplenomegaly Musculoskeletal: no gait disturbance, no joint inflammation, no deforming arthritis Extremities: no edema and no cyanosis Neuro: grossly normal exam Results & Data ([facility]) Vital Signs (Past 12 Hours) Vital Signs Temp Pulse Pulse Resp BP Pulse Ox 01/12/21 11:14 36.9 C 97 H 16 103/54 L 93 01/12/21 07:21 37 C 87 20 95/48 L 95 01/12/21 05:18 93 01/12/21 05:16 97 01/12/21 04:35 100/53 L 01/12/21 02:56 36.7 C 92 H 18 88/54 L 94 Laboratory Results Laboratory Results - last 24 hr 01/11/21 01/11/21 01/11/21 11:55 19:03 21:24 WBC RBC Hgb Hct MCV MCH MCHC RDW Std Deviation RDW Coeff of [place] Plt Count MPV Immature Gran % (Auto) Neut % (Auto) Lymph % (Auto) Camp % (Auto) Eos % (Auto) Baso % (Auto) Neut # (Auto) Lymph # (Auto) Camp # (Auto) Eos # (Auto) Baso # (Auto) Immature Gran # (Auto) Platelet Estimate Sodium Potassium Chloride Carbon Dioxide Anion Gap BUN Creatinine Est Cr Clr Drug Dosing Est GFR ( Amer) Est GFR (Non-Af Amer) BUN/Creatinine Ratio Glucose POC Glucose 131 H 171 H 197 H Lactate Calcium Magnesium Urine Color Urine Appearance Urine pH Ur Specific [place] Urine Protein Urine Glucose (UA) Urine Ketones Urine Blood Urine Nitrite Urine Bilirubin Urine Urobilinogen Ur Leukocyte Esterase Urine WBC (Auto) Urine RBC (Auto) U Hyaline Cast (Auto) U Epithel Cells (Auto) Urine Bacteria (Auto) Urine Yeast 01/12/21 01/12/21 01/12/21 02:51 03:29 03:29 WBC 10.26 RBC 2.83 L Hgb 8.5 L Hct 26.4 L MCV 93.3 MCH 30.0 MCHC 32.2 RDW Std Deviation 45.9 RDW Coeff of [place] 13.4 Plt Count 98 L MPV 9.7 Immature Gran % (Auto) 0.3 Neut % (Auto) 85.1 Lymph % (Auto) 5.6 Camp % (Auto) 8.7 Eos % (Auto) 0.2 Baso % (Auto) 0.1 Neut # (Auto) 8.74 H Lymph # (Auto) 0.57 L Camp # (Auto) 0.89 H Eos # (Auto) 0.02 Baso # (Auto) 0.01 Immature Gran # (Auto) 0.03 H Platelet Estimate Decreased L Sodium 142 Potassium 5.0 Chloride 110 H Carbon Dioxide 26 Anion Gap 6.0 BUN 39 H Creatinine 2.35 H D Est Cr Clr Drug Dosing 26.1 Est GFR ( Amer) 28.6 Est GFR (Non-Af Amer) 24.7 BUN/Creatinine Ratio 16.7 Glucose 201 H POC Glucose 209 H Lactate Calcium 7.6 L Magnesium 2.1 Urine Color Urine Appearance Urine pH Ur Specific [place] Urine Protein Urine Glucose (UA) Urine Ketones Urine Blood Urine Nitrite Urine Bilirubin Urine Urobilinogen Ur Leukocyte Esterase Urine WBC (Auto) Urine RBC (Auto) U Hyaline Cast (Auto) U Epithel Cells (Auto) Urine Bacteria (Auto) Urine Yeast 01/12/21 01/12/21 01/12/21 03:29 08:21 09:25 WBC RBC Hgb Hct MCV MCH MCHC RDW Std Deviation RDW Coeff of [place] Plt Count MPV Immature Gran % (Auto) Neut % (Auto) Lymph % (Auto) Camp % (Auto) Eos % (Auto) Baso % (Auto) Neut # (Auto) Lymph # (Auto) Camp # (Auto) Eos # (Auto) Baso # (Auto) Immature Gran # (Auto) Platelet Estimate Sodium Potassium Chloride Carbon Dioxide Anion Gap BUN Creatinine Est Cr Clr Drug Dosing Est GFR ( Amer) Est GFR (Non-Af Amer) BUN/Creatinine Ratio Glucose POC Glucose 234 H Lactate 1.9 Calcium Magnesium Urine Color Dark Yellow Urine Appearance Turbid A Urine pH 5.0 Ur Specific [place] 1.028 Urine Protein 2+ H Urine Glucose (UA) Negative Urine Ketones Trace H Urine Blood 3+ H Urine Nitrite Negative Urine Bilirubin Negative Urine Urobilinogen Negative Ur Leukocyte Esterase 2+ H Urine WBC (Auto) >30 H Urine RBC (Auto) 10-30 H U Hyaline Cast (Auto) 1-5 U Epithel Cells (Auto) 5-10 H Urine Bacteria (Auto) Negative Urine Yeast Not Reportable Medications Administered Current Inpatient Medications Acetaminophen (Acetaminophen 325 Mg Tab) 650 mg PO Q6H PRN PRN Reason: Fever Stop: 02/11/21 03:49 Amlodipine Besylate (Amlodipine Besylate 5 Mg Tab) [facility] [place] [place]: 02/10/21 08:59 Last Admin: 01/11/21 19:59 Dose: Not Given Documented by: Aspirin (Aspirin 81 Mg Ectab) 81 mg PO QAM [facility] Stop: 02/10/21 08:59 Last Admin: 01/12/21 07:39 Dose: 81 mg Documented by: Atorvastatin Calcium (Atorvastatin 10 Mg Tab) 10 mg PO PM [facility] Stop: 02/09/21 20:59 Last Admin: 01/11/21 21:33 Dose: Not Given Documented by: Bisacodyl (Bisacodyl 10 Mg Supp) 10 mg NV DAILY PRN PRN Reason: Constipation Stop: 02/09/21 20:10 Clopidogrel Bisulfate (Clopidogrel Bisulfate 75 Mg Tab) 75 mg PO QAM [facility] Stop: 02/11/21 08:59 Last Admin: 01/12/21 07:39 Dose: 75 mg Documented by: Dextrose (Dextrose 50% 50 Ml Syringe) 25 - 50 ml IV UD PRN; Protocol PRN Reason: Hypoglycemia Protocol Stop: 02/09/21 20:10 Glucagon (Glucagon For Inj 1 Mg Vial) 1 mg SQ UD PRN; Protocol PRN Reason: Hypoglycemia Protocol Stop: 02/09/21 20:10 Glucose (Glucose 10 Tabs/Tube) 4 - 8 tabs PO UD PRN; Protocol PRN Reason: Hypoglycemia Protocol Stop: 02/09/21 20:10 Glucose (Glucose 40% Gel 15 Gm Tube) 15 - 30 gm PO UD PRN; Protocol PRN Reason: Hypoglycemia Protocol Stop: 02/09/21 20:10 Hydromorphone HCl (Hydromorphone Inj 0.5 Mg/0.5 Ml Syr) 0.25 mg IV Q3H PRN PRN Reason: Pain Stop: 01/26/21 03:43 Cefazolin Sodium (Ancef 2000mg) 2,000 mg in 15 mls @ 3.75 mls/min IV Q8H NIDIA Stop: 01/13/21 00:00 Last Admin: 01/12/21 07:42 Dose: 3.75 mls/min Documented by: Sodium Chloride (1/2 Nss) 1,000 mls @ 80 mls/hr IV .[id number] Stop: 01/12/21 16:59 Last Admin: 01/12/21 04:47 Dose: 80 mls/hr Documented by: Insulin Aspart (Insulin Aspart 100 Units/Ml 3 Ml Pen) 0 units SC ACHS NIDIA Stop: 02/10/21 20:59 Last Admin: 01/12/21 09:12 Dose: 10 units Documented by: Lisinopril (Lisinopril 10 Mg Tab) 10 mg PO DAILY NIDIA Stop: 02/10/21 08:59 Last Admin: 01/11/21 19:59 Dose: Not Given Documented by: Magnesium Hydroxide (Magnesium Hydroxide Susp 30 Ml Udc) 30 ml PO DAILY PRN PRN Reason: Constipation Stop: 02/09/21 20:10 Metoprolol Succinate (Metoprolol Succ 25mg Ext Rel Tab) 12.5 mg PO BID NIDIA Stop: 02/09/21 20:59 Last Admin: 01/12/21 07:38 Dose: Not Given Documented by: Miscellaneous (Carbohydrates For Hypoglycemia ) 15 - 30 gm PO UD PRN PRN Reason: Hypoglycemia Protocol Stop: 02/09/21 20:10 Miscellaneous Information (Pharmacy Glycemic Mgmt Consult) 1 ea N/A UD PRN; Protocol PRN Reason: Consult Stop: 02/09/21 20:20 Naloxone HCl (Naloxone Hcl 0.4 Mg/1 Ml Vial/Carp) 0.1 mg IV UD PRN PRN Reason: Opiate Overdose Stop: 02/09/21 20:10 Naloxone HCl (Naloxone Hcl 0.4 Mg/1 Ml Vial/Carp) 0.1 mg IV UD PRN PRN Reason: Opioid Overdose Stop: 02/10/21 19:48 Olanzapine (Olanzapine 10 Mg/2.1 Ml Sdv) 2.5 mg IM Q4H PRN PRN Reason: Anxiety/Agitation Stop: 02/10/21 23:06 Last Admin: 01/12/21 03:26 Dose: 2.5 mg Documented by: Ondansetron HCl (Ondansetron Inj 2 Mg/Ml 2 Ml Vial) 4 mg IV Q6H PRN PRN Reason: Nausea And Vomiting Stop: 02/09/21 20:10 Senna/Docusate Sodium (Docusate Sodium/Senna 50/8.6mg Tab) 2 tab PO HS NIDIA Stop: 02/09/21 20:59 Last Admin: 01/11/21 21:33 Dose: Not Given Documented by: Tramadol HCl (Tramadol Hcl 50 Mg Tablet) 25 - 50 mg PO Q4H PRN PRN Reason: Pain Stop: 02/11/21 03:17 Last Admin: 01/12/21 05:24 Dose: 50 mg Documented by: (1) Closed hip fracture Encounter type: initial encounter Laterality: left Qualified Code(s): S72.002A - Fracture of unspecified part of neck of left femur, initial encounter for closed fracture
--- NOTE | 2021-01-12 13:10 | Pharmacy Report ---
Pharmacy Glycemic Short Note 2 - Date of Service January 12, 2021 - Glycemic Short BSG Results (Last 24 hours): 01/11/21 01/11/21 01/12/21 19:03 21:24 02:51 Glucose POC Glucose 171 H 197 H 209 H 01/12/21 01/12/21 01/12/21 03:29 08:21 12:24 Glucose 201 H POC Glucose 234 H 274 H OUTPATIENT ANTIDIABETIC REGIMEN: * Glipizide 5 mg PO AM * HbA1c: 9% (01/11/21) ASSESSMENT: 01/12: * Pt received total of 13 units of insulin yesterday: 10 units basal + 3 units bolus. * Fasting BSG today was 234 mg/dl, elevated compared to yesterday. An additional dose of Lantus 5 units was given this AM. * Patient underwent L hip ORIF surgery yesterday. Diet was resumed last night but per nurse, patient had minimal food for lunch today. * HS Lantus dose ordered based on a BSG scale. * Novolog parameters were slightly tightened this AM. * Serum creat seems to be worse today, therefore will cautiously tighten parameters. 01/11: * NPO today - BSGs well-controlled with no insulin today (139 and 131 mg/dL) * Patient likely to undergo surgical intervention today - will leave sign-out with second-shift pharmacist to follow perioperatively 01/10: * 85 yo M admitted secondary to a left hip fracture s/p mechanical fall. Pharmacy is consulted for inpatient glycemic management. An updated HbA1c is pending for tomorrow morning to assess outpatient control of type 2 diabetes. * Random BSG in the ED was 258 mg/dL. It was 185 mg/dL this evening. * Spoke with RN and patient will be eating a dinner tray this evening prior to bed. He is to be NPO after midnight for possible orthopedic surgery. * Will utilize a goal range of 110 - 140 mg/dL. * Will give a small basal insulin dose this evening with patient eating and to help cover any steroids that may be received in the perioperative setting. Will start Novolog based on a weight and stress of two as well. PLAN FOR INPATIENT GLYCEMIC CONTROL: * Hold outpatient oral diabetes medications * Basal insulin * Lantus 5 units QAM * Lantus 0-16 units HS based on BSG scale (see EMR for details). * Bolus insulin: loosened * NovoLog per scale ACHS or Q6hrs while NPO * Goal Range: Low 110 mg/dL - High 140 mg/dL * Correction Factor: 20 mg/dL/unit * Nutritional / Prandial insulin per carb ratio of 1 unit per 7 grams CHO consumed PLAN FOR DISCHARGE: * HbA1c = 9.0% on 01/11/21 * Goal A1c = less than 8% based on age and co-morbidities. * Recommend increasing Glipizide to 5 mg BID before breakfast and dinner to start with and close follow up by outpatient provider.
--- NOTE | 2021-01-12 16:58 | Hospitalist Progress Note ---
Date of Service January 12, 2021 Assessment & Plan (1) Subcapital fracture of left hip: (2) Fall: 85-year-old male with significant past medical history of CAD, aortic stenosis status post TAVR 12/2019, T2DM, HTN, HLD, CKD stage III baseline creatinine 1.8, chronic RBBB, carotid artery stenosis status post right endarterectomy who presents to ED after sustaining mechanical fall with complaint of left hip pain. Possible age-related osteoporotic fracture of left hip in setting of ground level fall CT head showed impacted subcapital left femoral neck fracture. Xray showed subcapital left hip fracture Ortho on board Plan for ORIF of the left hip fracture with 7.3 cannulated screws would be optimal for him with this fracture. Cardiology on board for surgical clearance Pt said that he walks 10minutes daily with his dog Geriatric sensitive risk assessment places the patient at 0.5% risk for this surgery. No additional cardiac testing needed as per cardiology Ok to proceed with the surgery as per cardiology Ok to hold Plavix and can be resumed when bleeding stabilize from surgical standpoint Continue pain control Will keep NPO for now 01/12/21 s/p ORIF left hip, cannulated screws performed on 01/11 No post op complication Case discussed with ortho that recommended non weightbearing on L hip Continue PT/OT Fall precaution Will need placement to rehab (3) CAD (coronary artery disease): (4) Aortic stenosis: (5) History of transcatheter aortic valve replacement (TAVR): Patient underwent cardiac cath 11/2019 and eventual transcatheter aortic valve replacement 12/2019 Last echocardiogram 06/08/2020 revealed EF 55 to 59%, prosthetic valve in place, mild perivalvular prosthetic regurg Home meds ASA, Plavix, statin, metoprolol and lisinopril Plavix resumes denies any chest pain (6) Type 2 diabetes mellitus: Uncontrolled DM with mpst recent Hba1c 9 on 01/11/21 Continue to hold Po glipizide On Lantus/NovoLog per protocol Hold glipizide Pharmacy on board for glycemic management Continue monitor BS (7) CKD (chronic kidney disease), stage III: Creatinine on admission 2.06, baseline creatinine 1.8 Received gentle hydration, creatinine worsening to 2.3 Will continue gentle hydration Continue to hold Lisinopril Will monitor BMP in am (8) Hypertension: BP has been fluctuated Possible related to pain and agitation continue metoprolol, amlodipine with appropriate parameters Continue to hold lisinopril (9) Anemia: Normocytic normochromic Hemoglobin 8.5 today Monitor h/h and if h/h drops below 8, will transfuse Continue monitor CBC Agitation Possible related to delirium and pain Will consider low dose of Zyprexa prn Continue 1 to 1 sitter for now Stable (10) DVT prophylaxis: SCD/TEDS since pt anticipates surgical intervention Dispo: med/tele; case management consulted PCP: PK FULL [facility] Admission and Anticipated Discharge Date Admission Date: January 10, 2021 Subjective Pt was seen and examined Lying in bed with no distress with 1 to 1 sitter Pt said that he does not have any pain Denies any chest pain, palpitation, dizziness and SOB Physical Exam Physical Exam: General- No acute distress Head- atraumatic Eyes- PERRL, EOMI, ENT- oropharynx clear Neck- supple, no JVD Lungs- clear to auscultation Heart- regular rhythm; +murmur Abdomen- normal bowel sounds, soft, nontender Extremities- no calf tenderness Neuro- alert, oriented x 3; PERRL, EOMI; no facial palsy; no dysarthria Skin- warm & dry Results & Data Results & Data ([facility]) Vital Signs (Past 12 Hours) Vital Signs Temp Pulse Pulse Resp BP Pulse Ox 01/12/21 15:51 37.5 C 88 18 116/51 L 94 01/12/21 12:00 37.4 C 92 H 20 120/59 L 97 01/12/21 11:14 36.9 C 97 H 16 103/54 L 93 01/12/21 07:21 37 C 87 20 95/48 L 95 01/12/21 05:18 93 01/12/21 05:16 97
[2021-01-12] MEDS: INSULIN GLARGINE SOLOSTAR 100 UNITS/ML 3 ML PEN SC SCH (20:35)
[2021-01-12] MEDS: ATORVASTATIN 10 MG TAB PO SCH (20:37)
[2021-01-12] MEDS: DOCUSATE SODIUM/SENNA 50/8.6MG TAB PO SCH (20:41)
[2021-01-12] MEDS: ACETAMINOPHEN 325 MG TAB PO PRN (23:36)
[2021-01-13] MEDS: traMADol HCL 50 MG TABLET PO PRN ×2 (03:30→14:48)
[2021-01-13] MEDS: ACETAMINOPHEN 325 MG TAB PO PRN ×2 (06:12→20:24)
[2021-01-13 06:29] LABS: Hematocrit (blood only) 21.4 % (42-52); Mean Corpuscular Hemoglobin 30.3 pg (25-34); Mean Corpuscular Hgb Conc 32.7 g/dL (32-36); Mean Corpuscular Volume 92.6 fL (80-100); RDW Coefficient of Variation 13.4 % (11.5-14.5); RDW Standard Deviation 45.4 fL (36.4-46.3); Red Blood Count 2.31 M/uL (4.7-6.1); White Blood Count 7.87 K/uL (4.8-10.8)
[2021-01-13 06:50] LABS: Basophils # (auto) 0.01 K/uL (0-0.2); Basophils % (auto) 0.1 %; Eosinophils # (auto) 0.16 K/uL (0-0.5); Immature Granulocytes # (auto) 0.01 K/uL (0.00-0.02); Immature Granulocytes % (auto) 0.1 %; Lymphocytes # (auto) 1.19 K/uL (1.2-3.4); Lymphocytes % (auto) 15.1 %; Mean Platelet Volume 9.7 fL (7.4-10.4); Monocytes # (auto) 0.73 K/uL (0.11-0.59); Monocytes % (auto) 9.3 %; Neutrophils # (auto) 5.77 K/uL (1.4-6.5); Neutrophils % (auto) 73.4 %; Platelet Count 78 K/uL (130-400); Platelet Estimate Decreased (Normal)
[2021-01-13 06:56] LABS: BUN Creatinine Ratio 17.6 (10-20); Calcium 7.1 mg/dl (8.5-10.1); Creatinine Clr Calc Pharmacy 25.7 ml/min; Est GFR (Non-African American) 24.2; Potassium 4.2 mmol/L (3.5-5.1)
[2021-01-13] MEDS: METOPROLOL SUCC 25MG EXT REL TAB PO SCH ×2 (08:38→20:23)
[2021-01-13] MEDS: CLOPIDOGREL BISULFATE 75 MG TAB PO SCH (08:39)
[2021-01-13] MEDS: ASPIRIN 81 MG ECTAB PO SCH (08:39)
[2021-01-13] MEDS: INSULIN ASPART 100 UNITS/ML 3 ML PEN SC SCH ×4 (08:42→20:50)
[2021-01-13] MEDS ORDERED: SODIUM CHLORIDE 0.9% 250 ML IV PRN (09:53)
--- NOTE | 2021-01-13 11:44 | Orthopedic Progress Note ---
Date of Service January 13, 2021 Assessment & Plan (1) Subcapital fracture of left hip: s/p ORIF left hip, cannulated screws POD#2 -ancef x 24,then dc -DVT ppx: SCDs, TEDs, Plavix -NWB LLE -PT/OT when medically stable -am labs as above, hgb 7.0 -transfusion ordered by hospitalist service Admission and Anticipated Discharge Date Admission Date: January 10, 2021 Subjective Postop day 2 Patient awake and sitting up in bed. Pain is controlled at rest. States he has pain moving around in the bed or trying to get out of bed to the chair. Nursing staff states that they attempted to try and get him to the chair today but his blood pressure began to drop and they put him back in the bed. Hemoglobin was noted to be down to 7.0 patient states he otherwise feels a little better than yesterday. No complaints at this time. Physical Exam Physical Exam: Dressings are clean, dry, and intact. Thigh is soft and nontender. Calves are soft nontender. Neurovascular intact. Toes are mobile. Results & Data ([facility]) Vital Signs (Past 12 Hours) Vital Signs Temp Pulse Resp BP BP Pulse Ox Pulse Ox 01/13/21 11:00 37 C 67 16 121/49 L 93 01/13/21 09:35 111/51 L 01/13/21 09:29 87/35 L 01/13/21 06:50 37.1 C 67 16 111/49 L 93 01/13/21 04:00 96 01/13/21 00:33 37.7 C H 01/13/21 00:00 98 Laboratory Results Laboratory Results WBC 7.87 K/uL (4.8-10.8) 01/13/21 05:59 RBC 2.31 M/uL (4.7-6.1) L 01/13/21 05:59 Hgb 7.0 g/dL (14.0-18.0) L 01/13/21 05:59 Hct 21.4 % (42-52) L 01/13/21 05:59 MCV 92.6 fL (80-100) 01/13/21 05:59 MCH 30.3 pg (25-34) 01/13/21 05:59 MCHC 32.7 g/dL (32-36) 01/13/21 05:59 RDW Std Deviation 45.4 fL (36.4-46.3) 01/13/21 05:59 RDW Coeff of [place] 13.4 % (11.5-14.5) 01/13/21 05:59 Plt Count 78 K/uL (130-400) L 01/13/21 05:59 MPV 9.7 fL (7.4-10.4) 01/13/21 05:59 Immature Gran % (Auto) 0.1 % 01/13/21 05:59 Neut % (Auto) 73.4 % 01/13/21 05:59 Lymph % (Auto) 15.1 % 01/13/21 05:59 [place] % (Auto) 9.3 % 01/13/21 05:59 Eos % (Auto) 2.0 % 01/13/21 05:59 Baso % (Auto) 0.1 % 01/13/21 05:59 Neut # (Auto) 5.77 K/uL (1.4-6.5) 01/13/21 05:59 Lymph # (Auto) 1.19 K/uL (1.2-3.4) L 01/13/21 05:59 Taylor # (Auto) 0.73 K/uL (0.11-0.59) H 01/13/21 05:59 Eos # (Auto) 0.16 K/uL (0-0.5) 01/13/21 05:59 Baso # (Auto) 0.01 K/uL (0-0.2) 01/13/21 05:59 Immature Gran # (Auto) 0.01 K/uL (0.00-0.02) 01/13/21 05:59 Platelet Estimate Decreased (Normal) L 01/13/21 05:59 PT 9.9 Seconds (9.0-12.0) 01/10/21 16:30 INR 1.0 (0.9-1.1) 01/10/21 16:30 APTT 21.9 Seconds (21.0-31.0) 01/10/21 16:30 PTT Ratio 0.8 01/10/21 16:30 Sodium 139 mmol/L (136-145) 01/13/21 05:59 Potassium 4.2 mmol/L (3.5-5.1) D 01/13/21 05:59 Chloride 107 mmol/L (98-107) 01/13/21 05:59 Carbon Dioxide 26 mmol/L (21-32) 01/13/21 05:59 Anion Gap 6.0 (3-11) 01/13/21 05:59 BUN 42 mg/dl (7-18) H 01/13/21 05:59 Creatinine 2.39 mg/dl (0.6-1.4) H 01/13/21 05:59 Est Cr Clr Drug Dosing 25.7 ml/min 01/13/21 05:59 Est GFR ( Amer) 28.0 01/13/21 05:59 Est GFR (Non-Af Amer) 24.2 01/13/21 05:59 BUN/Creatinine Ratio 17.6 (10-20) 01/13/21 05:59 Glucose 116 mg/dl (70-99) H 01/13/21 05:59 POC Glucose 119 mg/dl (70-99) H 01/13/21 08:16 Estimat Average Glucose 212 mg/dl 01/11/21 05:50 Hemoglobin A1c 9.0 % (4.5-5.6) H 01/11/21 05:50 Lactate 1.9 mmol/L (0.4-2.0) 01/12/21 03:29 Calcium 7.1 mg/dl (8.5-10.1) L 01/13/21 05:59 Magnesium 2.1 mg/dl (1.8-2.4) 01/12/21 03:29 Total Bilirubin 0.4 mg/dl (0.2-1) 01/10/21 16:30 AST 22 U/L (15-37) 01/10/21 16:30 ALT 30 U/L (12-78) 01/10/21 16:30 Alkaline Phosphatase 133 U/L (45-117) H 01/10/21 16:30 Total Protein 7.0 gm/dl (6.4-8.2) 01/10/21 16:30 Albumin 3.5 gm/dl (3.4-5.0) 01/10/21 16:30 Globulin 3.5 gm/dl (2.5-4.0) 01/10/21 16:30 Albumin/Globulin Ratio 1.0 (0.9-2) 01/10/21 16:30 25-OH Vitamin D Total 12.9 ng/ml (30-100) L 01/11/21 05:50 Urine Color Dark Yellow 01/12/21 09:25 Urine Appearance Turbid (Clear) A 01/12/21 09:25 Urine pH 5.0 (4.5-7.5) 01/12/21 09:25 Ur Specific [place] 1.028 (1.000-1.030) 01/12/21 09:25 Urine Protein 2+ (Negative) H 01/12/21 09:25 Urine Glucose (UA) Negative (Negative) 01/12/21 09:25 Urine Ketones Trace (Negative) H 01/12/21 09:25 Urine Blood 3+ (Negative) H 01/12/21 09:25 Urine Nitrite Negative (Negative) 01/12/21 09:25 Urine Bilirubin Negative (Negative) 01/12/21 09:25 Urine Urobilinogen Negative (Negative) 01/12/21 09:25 Ur Leukocyte Esterase 2+ (Negative) H 01/12/21 09:25 Urine WBC (Auto) >30 /hpf (0-5) H 01/12/21 09:25 Urine RBC (Auto) 10-30 /hpf (0-4) H 01/12/21 09:25 U Hyaline Cast (Auto) 1-5 /lpf (0-5) 01/12/21 09:25 U Epithel Cells (Auto) 5-10 /lpf (0-5) H 01/12/21 09:25 Urine Bacteria (Auto) Negative (Negative) 01/12/21 09:25 Urine Yeast Not Reportable 01/12/21 09:25 Nasal Screen MRSA (PCR) Negative (Negative) 01/10/21 21:21 COVID-19 Eval Order Covid19 IDNow [facility] 01/10/21 17:50 SARS-CoV-2, RNA, NAAT NEGATIVE (NEGATIVE) 01/10/21 17:50 Blood Type O Positive 01/10/21 20:16 Antibody Screen NEGATIVE 01/10/21 20:16 Crossmatch See Detail 01/10/21 20:16
--- NOTE | 2021-01-13 14:04 | Pharmacy Report ---
Pharmacy Glycemic Short Note 2 - Date of Service January 13, 2021 - Glycemic Short BSG Results (Last 24 hours): 01/12/21 01/12/21 01/13/21 17:28 20:32 05:59 Glucose 116 H POC Glucose 151 H 158 H 01/13/21 08:16 Glucose POC Glucose 119 H OUTPATIENT ANTIDIABETIC REGIMEN: * Glipizide 5 mg PO AM * HbA1c: 9% (01/11/21) ASSESSMENT: 01/13: * Pt received total of 40 units of insulin yesterday: 15 units basal + 25 units bolus. * Fasting BSG improved to 119 today. AM Lantus was not ordered today but will continue with once daily Lantus at HS based on BSG scale. * Post-prandial BSGs yesterday and today close to goal. Continued current Novolog parameters. * Serum creat slightly worse today compared to yesterday. 01/12: * Pt received total of 13 units of insulin yesterday: 10 units basal + 3 units bolus. * Fasting BSG today was 234 mg/dl, elevated compared to yesterday. An additional dose of Lantus 5 units was given this AM. * Patient underwent L hip ORIF surgery yesterday. Diet was resumed last night but per nurse, patient had minimal food for lunch today. * HS Lantus dose ordered based on a BSG scale. * Novolog parameters were slightly tightened this AM. * Serum creat seems to be worse today, therefore will cautiously tighten parameters. 01/11: * NPO today - BSGs well-controlled with no insulin today (139 and 131 mg/dL) * Patient likely to undergo surgical intervention today - will leave sign-out with second-shift pharmacist to follow perioperatively 01/10: * 85 yo M admitted secondary to a left hip fracture s/p mechanical fall. Pharmacy is consulted for inpatient glycemic management. An updated HbA1c is pending for tomorrow morning to assess outpatient control of type 2 diabetes. * Random BSG in the ED was 258 mg/dL. It was 185 mg/dL this evening. * Spoke with RN and patient will be eating a dinner tray this evening prior to bed. He is to be NPO after midnight for possible orthopedic surgery. * Will utilize a goal range of 110 - 140 mg/dL. * Will give a small basal insulin dose this evening with patient eating and to help cover any steroids that may be received in the perioperative setting. Will start Novolog based on a weight and stress of two as well. PLAN FOR INPATIENT GLYCEMIC CONTROL: * Hold outpatient oral diabetes medications * Basal insulin * Lantus 0-16 units HS based on BSG scale (see EMR for details). * Bolus insulin: continued * NovoLog per scale ACHS or Q6hrs while NPO * Goal Range: Low 110 mg/dL - High 140 mg/dL * Correction Factor: 20 mg/dL/unit * Nutritional / Prandial insulin per carb ratio of 1 unit per 7 grams CHO consumed PLAN FOR DISCHARGE: * HbA1c = 9.0% on 01/11/21 * Goal A1c = less than 8% based on age and co-morbidities. * Recommend continue Glipizide 5 mg daily before breakfast. * Patient's renal impairment prevents the use of most first-line anti-diabetic oral agents with benefits in cardiac disease and CKD. * Recommend possibly adding Lantus 10 units at HS on discharge with close follow up with outpatient provider.
--- NOTE | 2021-01-13 15:20 | Hospitalist Progress Note ---
Date of Service January 13, 2021 Assessment & Plan (1) Subcapital fracture of left hip: (2) Fall: 85-year-old male with significant past medical history of CAD, aortic stenosis status post TAVR 12/2019, T2DM, HTN, HLD, CKD stage III baseline creatinine 1.8, chronic RBBB, carotid artery stenosis status post right endarterectomy who presents to ED after sustaining mechanical fall with complaint of left hip pain. Possible age-related osteoporotic fracture of left hip in setting of ground level fall CT head showed impacted subcapital left femoral neck fracture. Xray showed subcapital left hip fracture Ortho on board Plan for ORIF of the left hip fracture with 7.3 cannulated screws would be optimal for him with this fracture. Cardiology on board for surgical clearance Pt said that he walks 10minutes daily with his dog Geriatric sensitive risk assessment places the patient at 0.5% risk for this surgery. No additional cardiac testing needed as per cardiology Ok to proceed with the surgery as per cardiology Ok to hold Plavix and can be resumed when bleeding stabilize from surgical standpoint Continue pain control Will keep NPO for now 01/09/21 s/p ORIF left hip, cannulated screws performed on 01/11 No post op complication Case discussed with ortho that recommended non weightbearing on L hip Hgb dropped to 7 today Will do type and crossed an transfuse Continue monitor H/H Continue PT/OT Fall precaution Will need placement to rehab (3) CAD (coronary artery disease): (4) Aortic stenosis: (5) History of transcatheter aortic valve replacement (TAVR): Patient underwent cardiac cath 11/2019 and eventual transcatheter aortic valve replacement 12/2019 Last echocardiogram 06/08/2020 revealed EF 55 to 59%, prosthetic valve in place, mild perivalvular prosthetic regurg Home meds ASA, Plavix, statin, metoprolol and lisinopril Plavix resumed denies any chest pain (6) Type 2 diabetes mellitus: Uncontrolled DM with mpst recent Hba1c 9 on 01/11/21 Continue to hold Po glipizide On Lantus/NovoLog per protocol Hold glipizide Pharmacy on board for glycemic management Continue monitor BS (7) CKD (chronic kidney disease), stage III: ALLY on CKD 3 Creatinine on admission 2.06, baseline creatinine 1.8 Received gentle hydration, creatinine worsening to 2.3 Received gentle hydration and will transfuse PRBC Continue to hold Lisinopril Will monitor BMP in am (8) Hypertension: BP has been fluctuated Possible related to pain and agitation continue metoprolol, amlodipine with appropriate parameters Continue to hold lisinopril (9) Acute blood loss anemia (ABLA): (10) Anemia: Mostly related to postop Hemoglobin dropped to 7 Typed and crossed and tranfused 1 unit PRBC Monitor h/h and if h/h below 8, will transfuse another 1 unit Continue monitor CBC If continues to drop, will hold plavix Agitation Possible related to delirium and pain Will consider low dose of Zyprexa prn Continue 1 to 1 sitter for now Resolved (11) DVT prophylaxis: SCD/TEDS (Postop and low hemoglobin ) Dispo: med/tele; case management consulted PCP: PK FULL CODE Admission and Anticipated Discharge Date Admission Date: January 10, 2021 Subjective Pt was seen and examined for postop hip follow up Lying in bed with no distress with 1 to 1 sitter Pt said that pain is controlled Pt did not walk with him today because his BP dropped when he was sitting at the edge of the bed His Hgb dropped to 7. he agreed for the blood transfusion and consent already signed Spoke to over the phone and provided with updates Denies any chest pain, palpitation, dizziness and SOB. Physical Exam Physical Exam: General- No acute distress Head- atraumatic Eyes- PERRL, EOMI, ENT- oropharynx clear Neck- supple, no JVD Lungs- clear to auscultation Heart- regular rhythm; +murmur Abdomen- normal bowel sounds, soft, nontender Extremities- no calf tenderness Neuro- alert, oriented x 3; PERRL, EOMI; no facial palsy; no dysarthria Skin- warm & dry Results & Data Results & Data ([facility]) Vital Signs (Past 12 Hours) Vital Signs Temp Pulse Pulse Resp BP BP BP 01/13/21 13:43 36.9 C 86 18 150/66 H 01/13/21 13:21 36.8 C 80 16 137/61 01/13/21 11:00 37 C 67 16 121/49 L 01/13/21 09:35 111/51 L 01/13/21 09:29 87/35 L 01/13/21 06:50 37.1 C 67 16 111/49 L 01/13/21 04:00 Pulse Ox Pulse Ox 01/13/21 13:43 98 01/13/21 13:21 01/13/21 11:00 93 01/13/21 09:35 01/13/21 09:29 01/13/21 06:50 93 01/13/21 04:00 96
[2021-01-13] MEDS: ATORVASTATIN 10 MG TAB PO SCH (20:24)
[2021-01-13] MEDS: INSULIN GLARGINE SOLOSTAR 100 UNITS/ML 3 ML PEN SC SCH (20:51)
[2021-01-13 20:56] LABS: Hematocrit (blood only) 26.9 % (42-52); Hemoglobin 8.9 g/dL (14.0-18.0)
[2021-01-13] MEDS: DOCUSATE SODIUM/SENNA 50/8.6MG TAB PO SCH (21:21)
[2021-01-14 06:27] LABS: Hematocrit (blood only) 24.1 % (42-52); Mean Corpuscular Hemoglobin 30.5 pg (25-34); Mean Corpuscular Hgb Conc 33.2 g/dL (32-36); RDW Coefficient of Variation 13.4 % (11.5-14.5); RDW Standard Deviation 44.9 fL (36.4-46.3); Red Blood Count 2.62 M/uL (4.7-6.1); White Blood Count 6.56 K/uL (4.8-10.8)
[2021-01-14 06:32] LABS: Mean Platelet Volume 10.3 fL (7.4-10.4); Platelet Count 91 K/uL (130-400)
[2021-01-14 06:51] LABS: Basophils # (auto) 0.02 K/uL (0-0.2); Basophils % (auto) 0.3 %; Immature Granulocytes # (auto) 0.01 K/uL (0.00-0.02); Immature Granulocytes % (auto) 0.2 %; Lymphocytes # (auto) 0.77 K/uL (1.2-3.4); Lymphocytes % (auto) 11.7 %; Monocytes # (auto) 0.57 K/uL (0.11-0.59); Monocytes % (auto) 8.7 %; Neutrophils # (auto) 4.99 K/uL (1.4-6.5); Neutrophils % (auto) 76.1 %
[2021-01-14 06:59] LABS: BUN Creatinine Ratio 21.7 (10-20); Calcium 7.9 mg/dl (8.5-10.1); Creatinine Clr Calc Pharmacy 31.5 ml/min; Est GFR (African American) 35.8; Est GFR (Non-African American) 30.9; Potassium 4.5 mmol/L (3.5-5.1)
[2021-01-14] MEDS ORDERED: SODIUM CHLORIDE 0.9% 250 ML IV PRN ×2 (08:10→08:19)
[2021-01-14] MEDS: ASPIRIN 81 MG ECTAB PO SCH (08:11)
[2021-01-14] MEDS: METOPROLOL SUCC 25MG EXT REL TAB PO SCH ×2 (08:11→20:07)
[2021-01-14] MEDS: CLOPIDOGREL BISULFATE 75 MG TAB PO SCH (08:12)
[2021-01-14] MEDS: INSULIN ASPART 100 UNITS/ML 3 ML PEN SC SCH ×4 (09:00→21:11)
--- NOTE | 2021-01-14 09:15 | Orthopedic Progress Note ---
Date of Service January 14, 2021 Assessment & Plan (1) Subcapital fracture of left hip: s/p ORIF left hip, cannulated screws POD#3 -ancef x 24,then dc -DVT ppx: SCDs, TEDs, Plavix -NWB LLE -PT/OT when medically stable -am labs as above, hgb 8.0 -transfusion ordered by hospitalist service yesterday Ortho will sign off for now. please notify if needed Admission and Anticipated Discharge Date Admission Date: January 10, 2021 Subjective Patient resting comfortably in bed. Denies any complaints today. Physical Exam Physical Exam: Toes mobile, NVI. Calves soft, non tender. Dressing in place. Results & Data ([facility]) Vital Signs (Past 12 Hours) Vital Signs Temp Pulse Resp BP Pulse Ox 01/14/21 07:24 36.9 C 70 18 141/58 H 95 01/14/21 04:07 36.6 C 75 16 157/56 H 93 01/13/21 23:03 36.7 C
--- NOTE | 2021-01-14 11:25 | Pharmacy Report ---
Pharmacy Glycemic Short Note 2 - Date of Service January 14, 2021 - Glycemic Short BSG Results (Last 24 hours): OUTPATIENT ANTIDIABETIC REGIMEN: * Glipizide 5 mg PO AM * HbA1c: 9% (01/11/21) ASSESSMENT: 01/14: * Dante received a total of 36 units of insulin yesterday * 10 units basal + 26 units bolus * BSGs were acceptable at [phone] mg/dL * Fasting BSG was unchanged at 119 mg/dL today * Continue basal scale * Postprandials have been increasing throughout the day over the last 24 hours * Tighten carb ratio today 01/13: * Pt received total of 40 units of insulin yesterday: 15 units basal + 25 units bolus. * Fasting BSG improved to 119 today. AM Lantus was not ordered today but will continue with once daily Lantus at HS based on BSG scale. * Post-prandial BSGs yesterday and today close to goal. Continued current Novolog parameters. * Serum creat slightly worse today compared to yesterday. PLAN FOR INPATIENT GLYCEMIC CONTROL: * Hold outpatient oral diabetes medications * Basal insulin - no changed * Lantus 0-16 units HS based on BSG scale * 0 units for BSG < 120 mg/dL; 10 units for BSG 120-180 mg/dL; 16 units for BSG > 180 mg/dL * Bolus insulin - tighten CR * NovoLog per scale ACHS or Q6hrs while NPO * Goal Range: Low 110 mg/dL - High 140 mg/dL * Correction Factor: 20 mg/dL/unit * Nutritional / Prandial insulin per carb ratio of 1 unit per 6 grams CHO consumed PLAN FOR DISCHARGE: * HbA1c = 9.0% on 01/11/21 * Goal A1c = less than 8% based on age and co-morbidities. * Recommend titrating Glipizide ER up to 10 mg daily before breakfast. * Patient's renal impairment prevents the use of most first-line anti-diabetic oral agents with benefits in cardiac disease and CKD. * Recommend possibly adding Lantus 10 units at HS on discharge with close follow up with outpatient provider.
[2021-01-14] MEDS: traMADol HCL 50 MG TABLET PO PRN (16:07)
--- NOTE | 2021-01-14 16:42 | Hospitalist Progress Note ---
Date of Service January 14, 2021 Assessment & Plan (1) Subcapital fracture of left hip: (2) Fall: 85-year-old male with significant past medical history of CAD, aortic stenosis status post TAVR 12/2019, T2DM, HTN, HLD, CKD stage III baseline creatinine 1.8, chronic RBBB, carotid artery stenosis status post right endarterectomy who presents to ED after sustaining mechanical fall with complaint of left hip pain. Possible age-related osteoporotic fracture of left hip in setting of ground level fall CT head showed impacted subcapital left femoral neck fracture. Xray showed subcapital left hip fracture Ortho on board Plan for ORIF of the left hip fracture with 7.3 cannulated screws would be optimal for him with this fracture. Cardiology on board for surgical clearance Pt said that he walks 10minutes daily with his dog Geriatric sensitive risk assessment places the patient at 0.5% risk for this surgery. No additional cardiac testing needed as per cardiology Ok to proceed with the surgery as per cardiology Ok to hold Plavix and can be resumed when bleeding stabilize from surgical standpoint Continue pain control Will keep NPO for now 01/14/21 s/p ORIF left hip, cannulated screws performed on 01/11 No post op complication Case discussed with ortho that recommended non weightbearing on L hip S/P 1 unit PRBC on 01/13 with Hgb 8 today Will do type and crossed an transfuse an additional 1 unit today Continue monitor H/H Continue PT/OT Fall precaution Will need placement to rehab (3) CAD (coronary artery disease): (4) Aortic stenosis: (5) History of transcatheter aortic valve replacement (TAVR): Patient underwent cardiac cath 11/2019 and eventual transcatheter aortic valve replacement 12/2019 Last echocardiogram 06/08/2020 revealed EF 55 to 59%, prosthetic valve in place, mild perivalvular prosthetic regurg Home meds ASA, Plavix, statin, plavix, metoprolol and lisinopril denies any chest pain (6) Type 2 diabetes mellitus: Uncontrolled DM with mpst recent Hba1c 9 on 01/11/21 Continue to hold Po glipizide On Lantus/NovoLog per protocol Hold glipizide Pharmacy on board for glycemic management Continue monitor BS (7) CKD (chronic kidney disease), stage III: ALLY on CKD 3 Creatinine on admission 2.06, baseline creatinine 1.8 Received gentle hydration, and blood product with creatinine 1.9 today Continue to hold Lisinopril Will monitor BMP in am (8) Hypertension: BP has been fluctuated Possible related to pain and agitation continue metoprolol, amlodipine with appropriate parameters Continue to hold lisinopril (9) Acute blood loss anemia (ABLA): (10) Anemia: Mostly related to postop Hemoglobin improved to 8 after receiving 1 unit PRBC Typed and crossed and will tranfuse and additional 1 unit PRBC today Continue Monitor h/h and if h/h below 8 If hgb continues to drop, will hold plavix Agitation Possible related to delirium and pain Will consider low dose of Zyprexa prn Continue 1 to 1 sitter for now Resolved (11) DVT prophylaxis: SCD/TEDS (Postop and low hemoglobin ) Dispo: med/tele; case management consulted PCP: PK FULL CODE Admission and Anticipated Discharge Date Admission Date: January 10, 2021 Subjective Pt was seen and examined for postop hip follow up Lying in bed with no distress with 1 to 1 sitter watching TV Denies any new complaint Physical Exam Physical Exam: General- No acute distress Head- atraumatic Eyes- PERRL, EOMI, ENT- oropharynx clear Neck- supple, no JVD Lungs- clear to auscultation Heart- regular rhythm; +murmur Abdomen- normal bowel sounds, soft, nontender Extremities- no calf tenderness Neuro- alert, oriented x 3; PERRL, EOMI; no facial palsy; no dysarthria Skin- warm & dry Results & Data Results & Data ([facility]) Vital Signs (Past 12 Hours) Vital Signs Temp Pulse Pulse Resp BP BP BP 01/14/21 16:00 36.8 C 75 18 161/66 H 01/14/21 13:15 36.5 C 68 18 169/92 H 01/14/21 13:00 36.7 C 68 16 167/66 H 01/14/21 12:59 01/14/21 12:00 37.2 C 66 16 160/62 H 01/14/21 11:30 37.2 C 67 16 157/65 H 01/14/21 11:00 37.1 C 69 18 149/74 H 01/14/21 10:31 37.1 C 67 18 151/64 H 01/14/21 07:24 36.9 C 70 18 141/58 H Pulse Ox 01/14/21 16:00 96 01/14/21 13:15 95 01/14/21 13:00 96 01/14/21 12:59 95 01/14/21 12:00 94 01/14/21 11:30 97 01/14/21 11:00 01/14/21 10:31 01/14/21 07:24 95
[2021-01-14] MEDS ORDERED: oxyCODONE HCL IR 5 MG TAB (IMMEDIATE RELEASE) PO PRN (17:18)
[2021-01-14] MEDS: DOCUSATE SODIUM/SENNA 50/8.6MG TAB PO SCH (20:07)
[2021-01-14] MEDS: ATORVASTATIN 10 MG TAB PO SCH (20:07)
[2021-01-14] MEDS ORDERED: oxyCODONE HCL IR 5 MG TAB (IMMEDIATE RELEASE) PO STA (20:50)
[2021-01-14] MEDS: INSULIN GLARGINE SOLOSTAR 100 UNITS/ML 3 ML PEN SC SCH (21:09)
[2021-01-15] MEDS: oxyCODONE HCL IR 5 MG TAB (IMMEDIATE RELEASE) PO PRN ×3 (04:34→19:03)
[2021-01-15 05:56] LABS: Hematocrit (blood only) 26.9 % (42-52); Hemoglobin 8.8 g/dL (14.0-18.0); Mean Corpuscular Hemoglobin 29.7 pg (25-34); Mean Corpuscular Hgb Conc 32.7 g/dL (32-36); Mean Corpuscular Volume 90.9 fL (80-100); Mean Platelet Volume 9.9 fL (7.4-10.4); Platelet Count 131 K/uL (130-400); RDW Coefficient of Variation 13.4 % (11.5-14.5); RDW Standard Deviation 44.6 fL (36.4-46.3); Red Blood Count 2.96 M/uL (4.7-6.1); White Blood Count 5.57 K/uL (4.8-10.8)
[2021-01-15 06:31] LABS: BUN Creatinine Ratio 21.7 (10-20); Calcium 7.9 mg/dl (8.5-10.1); Creatinine Clr Calc Pharmacy 37.7 ml/min; Est GFR (African American) 44.5; Est GFR (Non-African American) 38.4; Potassium 4.3 mmol/L (3.5-5.1)
[2021-01-15] MEDS: METOPROLOL SUCC 25MG EXT REL TAB PO SCH ×2 (09:48→20:57)
[2021-01-15] MEDS: ASPIRIN 81 MG ECTAB PO SCH (09:48)
[2021-01-15] MEDS: CLOPIDOGREL BISULFATE 75 MG TAB PO SCH (09:48)
[2021-01-15] MEDS: INSULIN ASPART 100 UNITS/ML 3 ML PEN SC SCH ×4 (09:52→21:00)
[2021-01-15] MEDS: INSULIN GLARGINE SOLOSTAR 100 UNITS/ML 3 ML PEN SC SCH ×2 (09:53→21:04)
--- NOTE | 2021-01-15 11:44 | Hospitalist Progress Note ---
Date of Service January 15, 2021 Assessment & Plan (1) Subcapital fracture of left hip: (2) Fall: 85-year-old male with significant past medical history of CAD, aortic stenosis status post TAVR 12/2019, T2DM, HTN, HLD, CKD stage III baseline creatinine 1.8, chronic RBBB, carotid artery stenosis status post right endarterectomy who presents to ED after sustaining mechanical fall with complaint of left hip pain. Possible age-related osteoporotic fracture of left hip in setting of ground level fall CT head showed impacted subcapital left femoral neck fracture. Xray showed subcapital left hip fracture Ortho on board Plan for ORIF of the left hip fracture with 7.3 cannulated screws would be optimal for him with this fracture. Cardiology on board for surgical clearance Pt said that he walks 10minutes daily with his dog Geriatric sensitive risk assessment places the patient at 0.5% risk for this surgery. No additional cardiac testing needed as per cardiology Ok to proceed with the surgery as per cardiology Ok to hold Plavix and can be resumed when bleeding stabilize from surgical standpoint Continue pain control Will keep NPO for now 01/15/21 s/p ORIF left hip, cannulated screws performed on 01/11 No post op complication Case discussed with ortho that recommended non weightbearing on L hip S/P 2 unit PRBC during the hospital course Hgb 8.8 today Continue monitor H/H Continue PT/OT Fall precaution Waiting for placement to rehab (3) CAD (coronary artery disease): (4) Aortic stenosis: (5) History of transcatheter aortic valve replacement (TAVR): Patient underwent cardiac cath 11/2019 and eventual transcatheter aortic valve replacement 12/2019 Last echocardiogram 06/08/2020 revealed EF 55 to 59%, prosthetic valve in place, mild perivalvular prosthetic regurg Home meds ASA, Plavix, statin, plavix, metoprolol and lisinopril denies any chest pain (6) Type 2 diabetes mellitus: Uncontrolled DM with mpst recent Hba1c 9 on 01/11/21 Continue to hold Po glipizide On Lantus/NovoLog per protocol Hold glipizide Pharmacy on board for glycemic management Continue monitor BS (7) CKD (chronic kidney disease), stage III: ALLY on CKD 3 Creatinine on admission 2.06, baseline creatinine 1.8 Received gentle hydration, and blood product with creatinine 1.6 today Continue to hold Lisinopril Will monitor BMP in am (8) Hypertension: BP has been fluctuated Possible related to pain and agitation continue metoprolol, amlodipine with appropriate parameters Continue to hold lisinopril (9) Acute blood loss anemia (ABLA): (10) Anemia: Mostly related to postop S/P 2 unit PRBC during the hospital course Hgb 8.8 today Continue Monitor h/h and if h/h below 8 If hgb continues to drop, will hold plavix Agitation Possible related to delirium and pain Will consider low dose of Zyprexa prn Continue 1 to 1 sitter for now Resolved (11) DVT prophylaxis: SCD/TEDS (Postop and low hemoglobin ) Dispo: med/tele; case management consulted PCP: PK FULL CODE Admission and Anticipated Discharge Date Admission Date: January 10, 2021 Subjective Pt was seen and examined for postop hip follow up Lying in bed with no distress with 1 to 1 sitter watching TV Pt said that pain is control He had a BM yesterday Denies any ches pain, palpitation, dizziness and SOB Physical Exam Physical Exam: General- No acute distress Head- atraumatic Eyes- PERRL, EOMI, ENT- oropharynx clear Neck- supple, no JVD Lungs- clear to auscultation Heart- regular rhythm; +murmur Abdomen- normal bowel sounds, soft, nontender Extremities- no calf tenderness Neuro- alert, oriented x 3; PERRL, EOMI; no facial palsy; no dysarthria Skin- warm & dry Results & Data Results & Data ([facility]) Vital Signs (Past 12 Hours) Vital Signs Temp Pulse Resp BP Pulse Ox 01/15/21 07:25 36.7 C 62 16 149/60 H 96
--- NOTE | 2021-01-15 11:47 | Pharmacy Report ---
Pharmacy Glycemic Short Note 2 - Date of Service January 15, 2021 - Glycemic Short BSG Results (Last 24 hours): OUTPATIENT ANTIDIABETIC REGIMEN: * Glipizide 5 mg PO AM * HbA1c: 9% (01/11/21) ASSESSMENT: 01/15: * Mr. Infante received a total of 62 units of insulin yesterday * Significant increase from previous day - possibly better appetite played a role * 16 units basal + 46 units bolus * BSGs were uncontrolled: [phone] mg/dL * Fasting BSG today was 197 mg/dL * Trending upwards and uncontrolled * Will significantly increase basal insulin today to provide a more 50/50 basal/bolus regimen * Postprandial hyperglycemia was significant yesterday * Indicates carb ratio was insufficient despite being tightened at breakfast * Will further tighten CF/CR today 01/14: * Dante received a total of 36 units of insulin yesterday * 10 units basal + 26 units bolus * BSGs were acceptable at [phone] mg/dL * Fasting BSG was unchanged at 119 mg/dL today * Continue basal scale * Postprandials have been increasing throughout the day over the last 24 hours * Tighten carb ratio today 01/13: * Pt received total of 40 units of insulin yesterday: 15 units basal + 25 units bolus. * Fasting BSG improved to 119 today. AM Lantus was not ordered today but will continue with once daily Lantus at HS based on BSG scale. * Post-prandial BSGs yesterday and today close to goal. Continued current Novolog parameters. * Serum creat slightly worse today compared to yesterday. PLAN FOR INPATIENT GLYCEMIC CONTROL: * Hold outpatient oral diabetes medications * Basal insulin - increased * Lantus 10-20 units BID based on BSG scale * 10 units for BSG < 120 mg/dL; 15 units for BSG 120-180 mg/dL; 20 units for BSG > 180 mg/dL * Bolus insulin - tightened CF/CR * NovoLog per scale ACHS or Q6hrs while NPO * Goal Range: Low 110 mg/dL - High 140 mg/dL * Correction Factor: 12 mg/dL/unit * Nutritional / Prandial insulin per carb ratio of 1 unit per 4 grams CHO consumed PLAN FOR DISCHARGE: * HbA1c = 9.0% on 01/11/21 * Goal A1c = less than 8% based on age and co-morbidities. * Recommend titrating Glipizide ER up to 10 mg daily before breakfast. * Patient's renal impairment prevents the use of most first-line anti-diabetic oral agents with benefits in cardiac disease and CKD. * Recommend possibly adding Lantus 10 units at HS on discharge with close follow up with outpatient provider.
[2021-01-15] MEDS: traMADol HCL 50 MG TABLET PO PRN (12:59)
[2021-01-15] MEDS: DOCUSATE SODIUM/SENNA 50/8.6MG TAB PO SCH (20:58)
[2021-01-15] MEDS: ATORVASTATIN 10 MG TAB PO SCH (20:58)
[2021-01-16] MEDS: traMADol HCL 50 MG TABLET PO PRN ×2 (07:47→12:16)
[2021-01-16] MEDS: METOPROLOL SUCC 25MG EXT REL TAB PO SCH (08:28)
[2021-01-16] MEDS: CLOPIDOGREL BISULFATE 75 MG TAB PO SCH (08:28)
[2021-01-16] MEDS: ASPIRIN 81 MG ECTAB PO SCH (08:28)
[2021-01-16] MEDS: INSULIN ASPART 100 UNITS/ML 3 ML PEN SC SCH ×2 (08:52→12:47)
[2021-01-16] MEDS: INSULIN GLARGINE SOLOSTAR 100 UNITS/ML 3 ML PEN SC SCH (08:53)
--- NOTE | 2021-01-16 10:04 | Pharmacy Report ---
Pharmacy Glycemic Short Note 2 - Date of Service January 16, 2021 - Glycemic Short BSG Results (Last 24 hours): OUTPATIENT ANTIDIABETIC REGIMEN: * Glipizide 5 mg PO AM * HbA1c: 9% (01/11/21) ASSESSMENT: 01/16: * Mr. Infante received a total of 75 units of insulin yesterday * 30 units basal + 45 units bolus * BSGs were uncontrolled: [phone] mg/dL * Fasting BSG was greatly improved today at 120 mg/dL * Continue with current basal scale * Postprandial improvement seen yesterday * Persistent hyperglycemia at lunchtime which may require a tighter carb ratio with breakfast 01/15: * Mr. Infante received a total of 62 units of insulin yesterday * Significant increase from previous day - possibly better appetite played a role * 16 units basal + 46 units bolus * BSGs were uncontrolled: [phone] mg/dL * Fasting BSG today was 197 mg/dL * Trending upwards and uncontrolled * Will significantly increase basal insulin today to provide a more 50/50 basal/bolus regimen * Postprandial hyperglycemia was significant yesterday * Indicates carb ratio was insufficient despite being tightened at breakfast * Will further tighten CF/CR today PLAN FOR INPATIENT GLYCEMIC CONTROL: * Hold outpatient oral diabetes medications * Basal insulin - no change * Lantus 10-20 units BID based on BSG scale * 10 units for BSG < 120 mg/dL; 15 units for BSG 120-180 mg/dL; 20 units for BSG > 180 mg/dL * Bolus insulin - no change * NovoLog per scale ACHS or Q6hrs while NPO * Goal Range: Low 110 mg/dL - High 140 mg/dL * Correction Factor: 12 mg/dL/unit * Nutritional / Prandial insulin per carb ratio of 1 unit per 4 grams CHO consumed PLAN FOR DISCHARGE: * HbA1c = 9.0% on 01/11/21 * Goal A1c = less than 8% based on age and co-morbidities. * Recommend titrating Glipizide ER up to 10 mg daily before breakfast. * Can titrate upward by 5 mg/week until max dose of 20 mg/day is achieved. Monitor BSGs closely during titration period. * Patient's renal impairment prevents the use of most first-line anti-diabetic oral agents with benefits in cardiac disease and CKD. * Consider adding DPP-4 inhibitor or once daily basal insulin upon discharge. Okay to leave to outpatient provider.
[2021-01-16 10:35] LABS: BUN Creatinine Ratio 20.2 (10-20); Calcium 8.9 mg/dl (8.5-10.1); Creatinine Clr Calc Pharmacy 30.9 ml/min; Est GFR (Non-African American) 30.2; Potassium 4.4 mmol/L (3.5-5.1)
[2021-01-16 10:37] LABS: Hematocrit (blood only) 30.2 % (42-52); Hemoglobin 9.8 g/dL (14.0-18.0); Mean Corpuscular Hgb Conc 32.5 g/dL (32-36); Mean Corpuscular Volume 92.4 fL (80-100); Mean Platelet Volume 9.5 fL (7.4-10.4); Platelet Count 171 K/uL (130-400); RDW Coefficient of Variation 13.5 % (11.5-14.5); RDW Standard Deviation 44.9 fL (36.4-46.3); Red Blood Count 3.27 M/uL (4.7-6.1); White Blood Count 6.41 K/uL (4.8-10.8)
--- NOTE | 2021-01-16 13:54 | Hospitalist Progress Note ---
Date of Service January 16, 2021 Assessment & Plan (1) Subcapital fracture of left hip: (2) Fall: 85-year-old male with significant past medical history of CAD, aortic stenosis status post TAVR 12/2019, T2DM, HTN, HLD, CKD stage III baseline creatinine 1.8, chronic RBBB, carotid artery stenosis status post right endarterectomy who presents to ED after sustaining mechanical fall with complaint of left hip pain. Possible age-related osteoporotic fracture of left hip in setting of ground leve l fall CT head showed impacted subcapital left femoral neck fracture. Xray showed subcapital left hip fracture Ortho on board Plan for ORIF of the left hip fracture with 7.3 cannulated screws would be optimal for him with this fracture. Cardiology on board for surgical clearance Pt said that he walks 10minutes daily with his dog Geriatric sensitive risk assessment places the patient at 0.5% risk for this surgery. No additional cardiac testing needed as per cardiology Ok to proceed with the surgery as per cardiology Ok to hold Plavix and can be resumed when bleeding stabilize from surgical standpoint Continue pain control Will keep NPO for now 01/16/21 s/p ORIF left hip, cannulated screws performed on 01/11 No post op complication Case discussed with ortho that recommended non weightbearing on L hip S/P 2 unit PRBC during the hospital course Hgb 9.8 today Continue PT/OT Fall precaution Plan to go to rehab today (3) CAD (coronary artery disease): (4) Aortic stenosis: (5) History of transcatheter aortic valve replacement (TAVR): Patient underwent cardiac cath 11/2019 and eventual transcatheter aortic valve replacement 12/2019 Last echocardiogram 06/08/2020 revealed EF 55 to 59%, prosthetic valve in place, mild perivalvular prosthetic regurg Home meds ASA, Plavix, statin, plavix, metoprolol and lisinopril denies any chest pain (6) Type 2 diabetes mellitus: Uncontrolled DM with mpst recent Hba1c 9 on 01/11/21 Continue to hold Po glipizide On Lantus/NovoLog per protocol Glipizide on hold while inpatient, will resume on discharge Pharmacy on board for glycemic management Pharmacy recommended to increase Glipizide to 10 mg daily before breakfast. Can titrate upward by 5 mg/week until max dose of 20 mg/day is achieved. Monitor BSGs closely during titration period. Consider adding DPP-4 inhibitor, will defer to outpatient provider. Continue monitor BS closely (7) CKD (chronic kidney disease), stage III: ALLY on CKD 3 Creatinine on admission 2.06, baseline creatinine 1.8-1.9 Received gentle hydration, and blood product with creatinine 1.9 today Will resume Lisinopril on discharge Check BMP within 1 week (8) Hypertension: BP has been fluctuated Possible related to pain and agitation continue metoprolol, amlodipine with appropriate parameters Will resume lisinopril on discharge (9) Acute blood loss anemia (ABLA): (10) Anemia: Mostly related to postop S/P 2 unit PRBC during the hospital course Hgb 9.8 today Continue Monitor h/h and if h/h below 8 If hgb continues to drop, will hold plavix Check CBC in 1 week Agitation Possible related to delirium and pain Will consider low dose of Zyprexa prn Continue 1 to 1 sitter for now Resolved (11) DVT prophylaxis: SCD/TEDS (Postop and low hemoglobin ) Dispo: med/tele; case management consulted PCP: PK FULL CODE Disposition Discharge to [facility] today Admission and Anticipated Discharge Date Admission Date: January 10, 2021 Subjective Pt was seen and examined for postop hip follow up Sitting in chair with no distress with 1 to 1 sitter watching TV Pt said that pain is controlled He is getting a little frustrated because he has not left the hospital yet Denies any ches pain, palpitation, dizziness and SOB Physical Exam Physical Exam: General- No acute distress Head- atraumatic Eyes- PERRL, EOMI, ENT- oropharynx clear Neck- supple, no JVD Lungs- clear to auscultation Heart- regular rhythm; +murmur Abdomen- normal bowel sounds, soft, nontender Extremities- no calf tenderness, dressing in L hip, +tenderness in L hip Neuro- alert, oriented x 3; PERRL, EOMI; no facial palsy; no dysarthria Skin- warm & dry Results & Data Results & Data ([facility]) Vital Signs (Past 12 Hours) Vital Signs Temp Pulse Resp BP Pulse Ox 01/16/21 07:09 36.7 C 69 20 160/69 H 96
--- NOTE | 2021-01-20 13:59 | Discharge Summary ---
Date of Service January 16, 2021 Admission HPI Per Admitting Provider This is a 85-year-old male with significant past medical history of CAD, aortic stenosis status post TAVR 12/2019, T2DM, HTN, HLD, CKD stage III baseline creatinine 1.8, chronic RBBB, carotid artery stenosis status post right endarterectomy who presents to ED after sustaining mechanical fall with complaint of left hip pain. Patient was out walking the dog when he got wrapped up in the chair and fell on his left hip. He had immediate left leg pain and was unable to get up. EMS was summoned. His is at bedside. Currently he is complaining of 10/10 left leg pain and feeling short of breath. He denies any fever, chills, sweats, lightheadedness, dizziness, syncope, chest pain, shortness of breath with exertion, cough, hemoptysis, URI symptoms, nausea, vomiting, abdominal pain, change in bowel or urinary habits. His last meal was approximately 12 PM. He did take his morning medications. His manages his medications. He ambulates without assist device at home, but states he could use a cane. He denies any other previous falls and denies any presyncopal symptoms, loss of consciousness or hitting his head. states he is mostly sedentary, but he does walk his dog. He states he typically walks his dog daily for 10 minutes. He does not get any chest pain or shortness of breath with this. He denies any history of reaction to anesthesia. In ED patient remained hemodynamically stable. Hip x-ray significant for left subcapital hip fracture. Chest x-ray negative for acute disease. CBC and CMP remarkable for H&H 11.1 and 33.9, BUN 38, creatinine 2.06, glucose 258. Admission Exam Per Admitting Provider VS noted and reviewed oriented x 3, not in distress, speaks in sentences with no effort nor accessory muscle use normal rate, regular rhythm, (+) gr 4 holosystolic murmur clear breath sounds bilaterally non distended, soft, nontender no bipedal edema, erythema, warmth no neuro deficits Principal Diagnosis (1) Subcapital fracture of left hip: (2) Fall (3) CAD (coronary artery disease): (4) Aortic stenosis: (5) History of transcatheter aortic valve replacement (TAVR): (6) Type 2 diabetes mellitus: (7) CKD (chronic kidney disease), stage III: (8) Hypertension: (9) Acute blood loss anemia (ABLA): (10) Anemia: Discharge Exam General- No acute distress Head- atraumatic Eyes- PERRL, EOMI, ENT- oropharynx clear Neck- supple, no JVD Lungs- clear to auscultation Heart- regular rhythm; +murmur Abdomen- normal bowel sounds, soft, nontender Extremities- no calf tenderness, dressing in L hip, +tenderness in L hip Neuro- alert, oriented x 3; PERRL, EOMI; no facial palsy; no dysarthria Skin- warm & dry Discharge Data Allergies Allergy/AdvReac Type Severity Reaction Status Date / Time No Known Allergies Allergy Unknown Verified 01/10/21 18:32 Consultations 01/10/21 17:15 ED Decision to Admit Stat 01/10/21 17:22 Consult Orthopedic Surgery Routine 01/10/21 20:11 Consult Anesthesiology Routine Consult Cardiology Routine Consult Case Management - Discharge Planning Routine Consult Case Management - Discharge Planning Routine 01/11/21 19:49 Consult Case Management - Discharge Planning Routine Procedures Performed Operation Date: 01/11/21 08:40 Actual Procedures p Left Open Reduction Internal Fixation Hip Cannulated Screw(Left) - Cory Humphreys DO Ordered Studies 01/11/21 FL hip LT 2-3V Routine 01/11/21 08:55 CT hip LT wo con Routine 01/11/21 11:27 FL fluoroscopy <1hr Routine XR hip LT min 2V HISTORY: 85 years-old Male Post-Operative implant position left hip total joint arthroplasty COMPARISON: Pelvis and left hip radiographs 01/10/2021 TECHNIQUE: 2 views of the left hip FINDINGS: 3 cannulated screws are noted within the left femoral neck fixating the acute subcapital fracture with unchanged alignment. Hardware appears intact. Lateral skin junaid are noted with expected postsurgical soft tissue swelling and deep tissue air. IMPRESSION: Status post ORIF of the acute subcapital fracture of the left femur. ACT 112: Negative or not required by law. The above report was generated using voice recognition software. It may contain grammatical, syntax or spelling errors. Electronically signed by: Crescencio Ulloa M.D. 01/11/2021 9:00 PM Dictated: 01/11/212058Transcribed: 01/11/212058 LEFT HIP CT CT DOSE: HISTORY: Left hip pain. fx left hip TECHNIQUE: Multiaxial CT images of the left were performed and reformatted in the sagittal and coronal plane without the use of contrast. A dose lowering technique was utilized adhering to the principles of ALARA. COMPARISON: Left hip radiograph 01/10/2021. FINDINGS: There is again noted a slightly impacted subcapital left femoral neck fracture. This demonstrates mild posterior angulation. No dislocation. The visualized pelvic bones are intact. No significant hip effusion. IMPRESSION: Slightly impacted subcapital left femoral neck fracture. ACT 112: Negative or not required by law. Electronically signed by: Armond Mary M.D. 01/11/2021 9:19 AM Dictated: 01/11/21916Transcribed: 01/11/21916 FL hip LT 2-3V HISTORY: 85 years-old Male LEFT CANNULATED SCREWS 2 fracture of the left femoral neck COMPARISON: Pelvis and left hip radiographs 01/10/2021, CT left hip and 07/03/2021 TECHNIQUE: 4 spot fluoroscopic images of the left hip were obtained utilizing 114.2 seconds fluoroscopy time FINDINGS: Acute subcapital fracture of the left femur with mild impaction is redemonstrated. Status post placement of 3 cannulated screws fixating the fr acture which appear intact. Satisfactory alignment. IMPRESSION: Fluoroscopic assistance as above. ACT 112: Negative or not required by law. The above report was generated using voice recognition software. It may contain grammatical, syntax or spelling errors. Electronically signed by: Crescencio Ulloa M.D. 01/11/2021 5:20 PM Dictated: 01/11/211718Transcribed: 01/11/211718 XR hip LT 2V w pelvis CLINICAL HISTORY: Left hip pain status post trauma COMPARISON: None. DISCUSSION: There is a subcapital left hip fracture. There is no dislocation. There is no SI joint diastases. There is no symphysis diastases. There is deformity of the left lateral iliac bone, likely related to prior trauma or an osteochondroma. IMPRESSION: 1. Subcapital left hip fracture ACT 112: Negative or not required by law. Electronically signed by: Piero Pascual M.D. 01/10/2021 4:41 PM Dictated: 01/10/21 1640Transcribed: 01/10/21 1640 XR chest 1V portable CLINICAL HISTORY: Trauma COMPARISON STUDY: 12/05/2019 FINDINGS: The heart is normal in size. There is no failure. There is no focal pulmonary consolidation. There are no pleural effusions. There is a calcified right upper lung zone granuloma. There is minor left basilar atelectasis/scarring. No pneumothorax is visualized.[ IMPRESSION: No active disease in the chest. ACT 112: Negative or not required by law. Electronically signed by: Piero Pascual M.D. 01/10/2021 4:40 PM Dictated: 01/10/21 1639Transcribed: 01/10/21 1639 Diabetes Follow up Diabetes Follow-up Needed for HgbA1c >9% Hospital Course (1) Subcapital fracture of left hip: (2) Fall: 85-year-old male with significant past medical history of CAD, aortic stenosis status post TAVR 12/2019, T2DM, HTN, HLD, CKD stage III baseline creatinine 1.8, chronic RBBB, carotid artery stenosis status post right endarterectomy who presents to ED after sustaining mechanical fall with complaint of left hip pain. Possible age-related osteoporotic fracture of left hip in setting of ground level fall CT head showed impacted subcapital left femoral neck fracture. Xray showed subcapital left hip fracture Ortho on board Plan for ORIF of the left hip fracture with 7.3 cannulated screws would be optimal for him with this fracture. Cardiology on board for surgical clearance Pt said that he walks 10minutes daily with his dog Geriatric sensitive risk assessment places the patient at 0.5% risk for this surgery. No additional cardiac testing needed as per cardiology Ok to proceed with the surgery as per cardiology Ok to hold Plavix and can be resumed when bleeding stabilize from surgical standpoint Continue pain control Will keep NPO for now 01/16/21 s/p ORIF left hip, cannulated screws performed on 01/11 No post op complication Case discussed with ortho that recommended non weightbearing on L hip S/P 2 unit PRBC during the hospital course Hgb 9.8 today Continue PT/OT Fall precaution Plan to go to rehab today (3) CAD (coronary artery disease): (4) Aortic stenosis: (5) History of transcatheter aortic valve replacement (TAVR): Patient underwent cardiac cath 11/2019 and eventual transcatheter aortic valve replacement 12/2019 Last echocardiogram 06/08/2020 revealed EF 55 to 59%, prosthetic valve in place, mild perivalvular prosthetic regurg Home meds ASA, Plavix, statin, plavix, metoprolol and lisinopril denies any chest pain (6) Type 2 diabetes mellitus: Uncontrolled DM with mpst recent Hba1c 9 on 01/11/21 Continue to hold Po glipizide On Lantus/NovoLog per protocol Glipizide on hold while inpatient, will resume on discharge Pharmacy on board for glycemic management Pharmacy recommended to increase Glipizide to 10 mg daily before breakfast. Can titrate upward by 5 mg/week until max dose of 20 mg/day is achieved. Monitor BSGs closely during titration period. Consider adding DPP-4 inhibitor, will defer to outpatient provider. Continue monitor BS closely (7) CKD (chronic kidney disease), stage III: ALLY on CKD 3 Creatinine on admission 2.06, baseline creatinine 1.8-1.9 Received gentle hydration, and blood product with creatinine 1.9 today Will resume Lisinopril on discharge Check BMP within 1 week (8) Hypertension: BP has been fluctuated Possible related to pain and agitation continue metoprolol, amlodipine with appropriate parameters Will resume lisinopril on discharge (9) Acute blood loss anemia (ABLA): (10) Anemia: Mostly related to postop S/P 2 unit PRBC during the hospital course Hgb 9.8 today Continue Monitor h/h and if h/h below 8 If hgb continues to drop, will hold plavix Check CBC in 1 week Agitation Possible related to delirium and pain Will consider low dose of Zyprexa prn Continue 1 to 1 sitter for now Resolved (11) DVT prophylaxis: SCD/TEDS (Postop and low hemoglobin ) Dispo: med/tele; case management consulted PCP: PK FULL CODE Disposition Discharge to [facility] today Total Time Total Time Spent Total Time Spent (In Minutes): 35 minutes Total Time Includes: Examination of the Patient, Discharge Planning, Medication Reconciliation, Communication With Other Providers and Other Discharge Plan Discharge Items Patient Disposition: Transfer Assisted Fac Reason For Visit: L HIP SUBCAPITAL FX Discharge Diagnosis: (1) Subcapital fracture of left hip: (2) Fall (3) CAD (coronary artery disease): (4) Aortic stenosis: (5) History of transcatheter aortic valve replacement (TAVR): (6) Type 2 diabetes mellitus: (7) CKD (chronic kidney disease), stage III: (8) Hypertension: (9) Acute blood loss anemia (ABLA): (10) Anemia: Activity: Resume your previous activity Weightbearing: Left non-weightbearing Weightbearing Comment: With walker or crutches Non-emergency contact: Primary Care Provider and Surgeon Call non-emergency contact if: you have any medication questions Follow-up/Referrals: Cahd Rowland DO [Primary Care Provider] - Cory Humphreys DO [Physician] - (follow up in 10-14 days) Ruben-Marlene Hernandez CRNP [Nurse Practitioner] - (follow up in 6 weeks for osteoporosis check up) Diet: Carb Consistent or DM2 Addtl Attending Provider Instructions: Follow up with your primary care provider once discharge from [facility] Follow up with orthopedic in 1 week (Please call to schedule for the appointment) Continue physical and occupational therapy Continue NON WEIGHTBEARING on your operative lower extremity for at least 6 weeks. Fall precaution Follow up a healthy diabetes diet and limited concentrated sweet intake Glipizide increased to 10mg daily (Continue monitor your blood sugar closely) Check BMP within 1 week to monitor electrolytes and renal function Check CBC within 1 week to monitor your hemoglobin Do not drive or operate any machine while taking tramadol Please hold next dose of tramadol if you become drowsy and lethargy Addtl Manager Of Financial Planning Provider Instructions: [facility] DISCHARGE INSTRUCTIONS: HIP FRACTURE SELF CARE INSTRUCTIONS: A. You are to ambulate with a walker or crutches for approximately 6 weeks. B. You will be NON WEIGHTBEARING on your operative lower extremity for at least 6 weeks. C. Wear low heeled shoes with non-slip soles D. Be sure that your floors are free of things that could trip you throw rugs, electrical cords, and small objects. Avoid wet and waxed floors, especially with crutches/walker/cane. E. Try to walk several times a day with rest periods between. F. You may shower 48 hours after surgery and get the incision area wet, but DO NOT soak or submerge incision area in water. (No baths, swimming pools, hot tubs) G. You may have a large, band-aid like dressing over your incision (Aquacel). This will remain on your incision for 7 days, and then can be removed. You CAN shower with this on. If incision is leaking through the dressing, please call the office . H. Do NOT apply soap or any ointment/lotions directly over incision. I. You may use ice as needed to operative site. SPECIAL CARE INSTRUCTIONS: VERY IMPORTANT TO READ AND REVIEW A. You may be at risk for phlebitis or blood clots. a. Wear surgical stockings (LAUREN hose) for 2 weeks after surgery to improve circulation and reduce swelling. b. Continue taking your Plavix and aspirin.. This is your blood thinner. B. There are a few signs you need to watch for after you are home. Call [facility] at [phone] if you experience any of the following: a. If you have a temperature of 101 degrees or higher. b. Sudden increase in pain in your hip not relieved by rest or pain medication. c. Any fluid or drainage from the incision; redness of the incision. d. Shortness of breath or chest pain. C. Call your physician if: a. Temperature is greater than 101 degrees (F). b. Pain is not relieved by prescribed pain medications. c. Increase drainage or redness from incision. d. Unanswered questions or concerns. D. Pain Medication: a. You will be prescribed pain medication upon discharge that should last till your first post-operative appointment. b. If you experience nausea and/or skin rash, discontinue this medication and contact our office for an alternative medication. c. Caution- narcotic pain medication can cause constipation. FOLLOW UP VISIT: Please call [facility] at [phone] to schedule a follow up appointment 10-14 days from the date of your surgery date. Pending Studies at Discharge: No Stand-Alone Forms: My [facility] [employer] Skilled Items Patient informed of condition?: Yes DNR: No Discharge Level of Care: Skilled Communicable Disease: No Discharge Prognosis: Stable Lines: None Urinary Catheter: No Medications and DC Order Prescriptions: New glipizide 10 mg tablet extended release 24hr 10 mg PO DAILY Qty: 30 RF: 0 acetaminophen 325 mg Tablet 650 mg PO Q6H PRN (Reason: mild pain (scale score 1-4)) Qty: 30 RF: 0 tramadol 50 mg Tablet 50 mg PO Q8H PRN (Reason: moderate to severe pain) Qty: 10 RF: 0 sennosides-docusate sodium [Senokot-S] 8.6-50 mg Tablet 1 tab PO HS PRN (Reason: constipation) Qty: 30 RF: 0 Continued atorvastatin 10 mg Tablet 10 mg PO PM RF: 0 aspirin [Ecotrin Low Strength] 81 mg Tablet,Delayed Release (Dr/Ec) 81 mg PO QAM Qty: 0 RF: 0 amlodipine [Norvasc] 5 mg tablet 5 mg PO QAM RF: 0 clopidogrel 75 mg Tablet 75 mg PO DAILY RF: 0 lisinopril 10 mg Tablet 10 mg PO DAILY RF: 0 metoprolol succinate 25 mg tablet extended release 24 hr 12.5 mg PO BID RF: 0 Discontinued glipizide 5 mg Tablet Extended Release 24hr 5 mg PO DAILYBB RF: 0 Discharge Orders: Discharge Order (Routine); Ordered 01/16/21 Ordered By: Lilo Hairston Admission Data Admit Date/Time: 01/10/21 17:22 Attending Provider: Lilo Hairston Admit Provider: Sandra Todd Primary Care Provider: Chad Rowland Other Providers: Sandra Todd ; Chad Jessica ; Gustavo Ford ; Catalino Dietrich ; Neha Mason [facility] Other Interventions: Discharge Summary Assessment (RN) Last Done: 01/16/21 15:09
== END 2021-01-16 15:55 | DRG 481 ==
LOC: ED 14:58 → SUATTDRO 17:22 → 3N 17:22

== ENCOUNTER 2021-02-07 04:55 | Inpatient (IN) ==
--- NOTE | 2021-02-07 05:08 | Emergency Department Note ---
History of Present Illness General Chief complaint: Fall Stated complaint: FALL Time Seen by Provider: 02/07/21 04:56 Source: patient Mode of arrival: EMS Limitations: altered mental status History of Present Illness This patient is an 85-year-old male who presents to the emergency department via EMS after a fall. Patient is a resident at [facility]. He had an unwitnessed fall tonight and was found by staff in the bathroom and unable to get up. The patient fell in his living room and crawled to his bathroom. He is unsure how he fell. He feels like he has to urinate but is unable to. He reports pain in the head and pain in the left leg. Unknown loss of consciousness. Per EMS, patient has been intermittently confused but they are unsure if this is baseline for the patient. The patient believes that he fell due to tripping over his dog, but EMS reports the patient does not have a dog. Home Medications Medication Instructions Recorded Confirmed Type atorvastatin 10 mg PO PM 03/03/19 02/07/21 History amlodipine [Norvasc] 5 mg PO QAM 01/10/21 02/07/21 History clopidogrel 75 mg PO DAILY 01/10/21 02/07/21 History lisinopril 10 mg PO DAILY 01/10/21 02/07/21 History metoprolol succinate 12.5 mg PO AMHS 01/10/21 02/07/21 History tramadol 50 mg PO Q8H PRN #10 tab 01/16/21 02/07/21 Rx Vitamin D3 1 tab PO QAM 02/07/21 02/07/21 History acetaminophen 650 mg PO Q4 PRN 02/07/21 02/07/21 History albuterol sulfate [Ventolin HFA] 2 puff INHALATION Q4 PRN 02/07/21 02/07/21 History aspirin [Aspirin For Children] 81 mg PO BID 02/07/21 02/07/21 History calcium citrate 500 mg PO QAM 02/07/21 02/07/21 History docusate sodium [Colace] 100 mg PO .EVERY 24 HOURS IN A PRN 02/07/21 02/07/21 History ferrous sulfate 325 mg PO BID 02/07/21 02/07/21 History glipizide 10 mg PO QPM 02/07/21 02/07/21 History glipizide 20 mg PO QAM 02/07/21 02/07/21 History lorazepam 0.5 mg PO Q8 PRN 02/07/21 02/07/21 History mirtazapine 15 mg PO HS 02/07/21 02/07/21 History polyethylene glycol 3350 [Miralax] 17 g PO .EVERY 24 HOURS PRN 02/07/21 02/07/21 History sennosides [Senokot] 8.6 mg PO HS PRN MDD 1 in 24 hours 02/07/21 02/07/21 H istory sitagliptin [Januvia] 50 mg PO QAM 02/07/21 02/07/21 History Allergies Allergy/AdvReac Type Severity Reaction Status Date / Time No Known Allergies Allergy Unknown Verified 02/07/21 06:50 Past Med/Surg History Medical History CKD (chronic kidney disease) stage 4, GFR 15-29 ml/min Closed hip fracture Fall Hyperlipidemia RBBB Surgical History History of cardiac cath CAD by cardiac catheterization 11/2019. Distal LMCA has a 40% stenosis which is not significant by IVUS with a mLA of 13.8 mm^2. The mid LAD had a 30% stenosis. The LCx and RCA had mild luminal irregularities History of carotid endarterectomy right History of cataract surgery LEFT. . 2mg versed no issues. History of colonoscopy History of total left knee replacement Family History Father Heart disorder Social History Smoking Status: Never smoker Second Hand Exposure: No; Hx Alcohol Use: No Hx Substance Use: No Preferred Language: [place] Communication Ability: Effective Varnish Inspector Required: No Beliefs That Will Affect Care: None marital status: Current Living Situation: Spouse Feels Safe at Home: Yes Assistive Devices: Denture - Upper, Denture - Lower, Glasses and Walker Review of Systems A total of 10 systems reviewed and were otherwise negative Physical Exam Vital Signs Vital Signs - 24 hr 02/07/21 04:55 02/07/21 05:00 02/07/21 05:06 Temperature 37.0 C Temperature Source Oral Pulse Rate 83 81 Pulse Rate from SpO2 Sensor Pulse Rhythm Regular Pulse Strength Normal Respiratory Rate 16 12 16 Respiratory Effort / Characteristics Non-Labored Spontaneous Non-Labored Spontaneous Respiratory Depth Normal Normal Respiratory Pattern Regular Regular Blood Pressure 138/72 138/72 Blood Pressure Mean 94 94 Blood Pressure Position Sitting Pulse Oximetry 97 98 Oxygen Delivery Method Room Air Room Air Sepsis Recent Fever Within 48 Hours No Sepsis New/Unexplained Change in Mental Status No Sepsis Action Taken by Nursing No Action Required 02/07/21 06:28 Temperature Temperature Source Pulse Rate 85 Pulse Rate from SpO2 Sensor 86 Pulse Rhythm Pulse Strength Respiratory Rate 16 Respiratory Effort / Characteristics Respiratory Depth Respiratory Pattern Blood Pressure 128/50 L Blood Pressure Mean 76 Blood Pressure Position Pulse Oximetry 98 Oxygen Delivery Method Room Air Sepsis Recent Fever Within 48 Hours Sepsis New/Unexplained Change in Mental Status Sepsis Action Taken by Nursing VITALS: Vitals are noted on the nurse's note and reviewed by myself. GENERAL: This is an 85-year-old male, in no acute distress, sitting up in bed. SKIN: There are abrasions to the forehead and bridge of the nose. There are superficial skin tears to the right wrist and left hand. HEAD: Normocephalic atraumatic. EARS: External auditory canals clear, tympanic membranes pearly roldan without erythema or effusion bilaterally. No hemotympanum. EYES: Pupils equal round and reactive to light and accommodation. Extraocular movements intact. NOSE: No obvious deformity. Small abrasion to the bridge of the nose. MOUTH: Mucous membranes somewhat dry. NECK: Supple without nuchal rigidity. Cervical spine is nontender. HEART: Regular rate and rhythm without murmurs gallops or rubs. LUNGS: Clear to auscultation bilaterally without wheezes, rales or rhonchi. ABDOMEN: Positive bowel sounds x 4. Soft, nontender to palpation. RECTAL: (performed by Dr. Batista) Dark brown/black, heme positive stool. MUSCULOSKELETAL: There is apparent tenderness of the left hip. NEURO: Patient is alert, oriented to person and place. Patient states the year is 2030 but does know who the president is. Course Reevaluation(s) Reevaluation #1: I updated the patient's via telephone. Consultations Consultation #1: Dr. Bentley Whitlock [facility] hospitalist Administered Medications Discontinued Medications Pantoprazole Sodium 80 mg/ (Dextrose) 100 mls @ 400 mls/hr IV ONE STA Stop: 02/07/21 06:11 Last Infusion: 02/07/21 06:40 Dose: 0 mls/hr Documented by: [id number] Admin: 02/07/21 06:21 Dose: 400 mls/hr Documented by: [id number] Medical Decision Making Differential Diagnosis Infection, dehydration, metabolic abnormality, hypo/hyperglycemia, electrolyte disturbance, anemia, hypoxia, cardiac sources, intracerebral event, toxicologic, neurologic, as well as other pathologies. Medical Records Attestation: I reviewed the patient's medical records. Home Medications Current Medication List: was personally reviewed by me Laboratory Data Attestation: I reviewed the patient's lab results. Result diagrams: 02/07/21 04:35 02/07/21 04:35 Lab Results 02/07/21 02/07/21 02/07/21 Range/Units 04:35 04:35 05:52 WBC 8.70 (4.8-10.8) K/uL RBC 1.89 L (4.7-6.1) M/uL Hgb 5.7 L* (14.0-18.0) g/dL Hct 17.7 L* (42-52) % MCV 93.7 (80-100) fL MCH 30.2 (25-34) pg MCHC 32.2 (32-36) g/dL RDW Std Deviation 49.1 H (36.4-46.3) fL RDW Coeff of Chilo 15.2 H (11.5-14.5) % Plt Count 137 (130-400) K/uL MPV 10.5 H (7.4-10.4) fL Immature Gran % (Auto) 0.3 % Neut % (Auto) 81.8 % Lymph % (Auto) 10.7 % Horry % (Auto) 6.7 % Eos % (Auto) 0.3 % Baso % (Auto) 0.2 % Neut # (Auto) 7.11 H (1.4-6.5) K/uL Lymph # (Auto) 0.93 L (1.2-3.4) K/uL Horry # (Auto) 0.58 (0.11-0.59) K/uL Eos # (Auto) 0.03 (0-0.5) K/uL Baso # (Auto) 0.02 (0-0.2) K/uL Immature Gran # (Auto) 0.03 H (0.00-0.02) K/uL Polychromasia 1+ Sodium 143 (136-145) mmol/L Potassium 5.0 (3.5-5.1) mmol/L Chloride 112 H (98-107) mmol/L Carbon Dioxide 21 (21-32) mmol/L Anion Gap 10.0 (3-11) BUN 102 H (7-18) mg/dl Creatinine 2.51 H (0.6-1.4) mg/dl Est Cr Clr Drug Dosing Not Reportable Est GFR ( Amer) 26.4 Est GFR (Non-Af Amer) 22.8 BUN/Creatinine Ratio 40.7 H (10-20) Glucose 255 H (70-99) mg/dl Calcium 8.2 L (8.5-10.1) mg/dl Magnesium 2.4 (1.8-2.4) mg/dl Total Bilirubin 0.5 (0.2-1) mg/dl AST 37 (15-37) U/L ALT 28 (12-78) U/L Alkaline Phosphatase 117 (45-117) U/L Troponin I < 0.015 (0-0.045) ng/ml Total Protein 6.2 L (6.4-8.2) gm/dl Albumin 3.1 L (3.4-5.0) gm/dl Globulin 3.1 (2.5-4.0) gm/dl Albumin/Globulin Ratio 1.0 (0.9-2) COVID-19 Eval Order Crossmatch See Detail 02/07/21 Range/Units 06:48 WBC (4.8-10.8) K/uL RBC (4.7-6.1) M/uL Hgb (14.0-18.0) g/dL Hct (42-52) % MCV (80-100) fL MCH (25-34) pg MCHC (32-36) g/dL RDW Std Deviation (36.4-46.3) fL RDW Coeff of Chilo (11.5-14.5) % Plt Count (130-400) K/uL MPV (7.4-10.4) fL Immature Gran % (Auto) % Neut % (Auto) % Lymph % (Auto) % H[place] % (Auto) % Eos % (Auto) % Baso % (Auto) % Neut # (Auto) (1.4-6.5) K/uL Lymph # (Auto) (1.2-3.4) K/uL Horry # (Auto) (0.11-0.59) K/uL Eos # (Auto) (0-0.5) K/uL Baso # (Auto) (0-0.2) K/uL Immature Gran # (Auto) (0.00-0.02) K/uL Polychromasia Sodium (136-145) mmol/L Potassium (3.5-5.1) mmol/L Chloride (98-107) mmol/L Carbon Dioxide (21-32) mmol/L Anion Gap (3-11) BUN (7-18) mg/dl Creatinine (0.6-1.4) mg/dl Est Cr Clr Drug Dosing Est GFR ( Amer) Est GFR (Non-Af Amer) BUN/Creatinine Ratio (10-20) Glucose (70-99) mg/dl Calcium (8.5-10.1) mg/dl Magnesium (1.8-2.4) mg/dl Total Bilirubin (0.2-1) mg/dl AST (15-37) U/L ALT (12-78) U/L Alkaline Phosphatase (45-117) U/L Troponin I (0-0.045) ng/ml Total Protein (6.4-8.2) gm/dl Albumin (3.4-5.0) gm/dl Globulin (2.5-4.0) gm/dl Albumin/Globulin Ratio (0.9-2) COVID-19 Eval Order CovFluRsv at [facility] Crossmatch Imaging Data Attestation: I personally reviewed and interpreted this imaging study as follows: Radiologist's Impression: CT HEAD: Prior study from 12/05/19 No evidence of acute intracranial abnormality or skull fracture. Volume loss and small vessel disease. Areas of encephalomalacia bilaterally as on the prior. Right frontal scalp swelling CT C SPINE: Prior study from 01/18/2007. No evidence of acute fracture or malalignment. Degenerative changes, progressed since the prior study. Notably from C3-6. Small defects of the right temporal bone/mastoid. Likely old, as seen on the prior study. No fluid within the mastoid air cells. Radiologist: Hortensia Rhoades M.D. ECG Data Attestation: I personally reviewed and interpreted this ECG as follows: Indication: + weakness Rate (beats per minute): 83 Rhythm: + normal sinus ECG ST segments: + Nonspecific ST abnormalities ECG Findings: + Other (low voltage) Change: no significant change MDM Narrative Continuous cardiac catheterization technologist: Order was placed for continuous cardiac catheterization technologist. Patient was placed on the cardiac catheterization technologist. Patient was noted to be in normal sinus rhythm at an initial rate of 70 bpm. The patient is an 85-year-old male who presents today for evaluation of a fall. The reason for the fall was unknown. Labs revealed a significant anemia with hemoglobin of 5.7. Patient was noted to have anemia during his recent hospitalization which was felt to be due to blood loss intraoperatively and postoperatively. A rectal exam today reveals heme positive stool. Patient given Protonix and transfused [address] of the head shows no intracranial hemorrhage. Labs otherwise significant for a creatinine of 2.51 which is near baseline for the patient. Patient was in urinary retention on arrival, with 450 mL of urine in the bladder and Díaz catheter was placed. Urinalysis was pending at the time of admission. The case was discussed with the [facility] hospitalist, Dr. Hagan, who will evaluate the patient for further care Impression & Plan GI bleed, Symptomatic anemia, Fall, Weakness, Closed head injury Discharge Plan Visit Data Chief Complaint: Fall Stated Complaint: FALL ED Provider: Bran Batista ED Midlevel Provider: Eleanor Ruiz Discharge Problem: GI bleed, Symptomatic anemia, Fall, Weakness, Closed head injury Forms Stand Alone Forms: My [facility] Prescriptions Prescriptions: No Action atorvastatin 10 mg Tablet 10 mg PO PM RF: 0 amlodipine [Norvasc] 5 mg tablet 5 mg PO QAM RF: 0 clopidogrel 75 mg Tablet 75 mg PO DAILY RF: 0 lisinopril 10 mg Tablet 10 mg PO DAILY RF: 0 metoprolol succinate 25 mg tablet extended release 24 hr 12.5 mg PO AMHS RF: 0 tramadol 50 mg Tablet 50 mg PO Q8H PRN (Reason: moderate to severe pain) Qty: 10 RF: 0 glipizide 10 mg tablet 10 mg PO QPM RF: 0 glipizide 10 mg tablet 20 mg PO QAM RF: 0 Januvia 50 mg tablet 50 mg PO QAM RF: 0 aspirin [Aspirin For Children] 81 mg Tablet,Chewable 81 mg PO BID RF: 0 ferrous sulfate 325 mg (65 mg iron) Tablet 325 mg PO BID RF: 0 calcium citrate 250 mg calcium Tablet 500 mg PO QAM RF: 0 lorazepam 0.5 mg tablet 0.5 mg PO Q8 PRN (Reason: Anxiety) RF: 0 mirtazapine 15 mg tablet 15 mg PO HS RF: 0 acetaminophen 325 mg tablet 650 mg PO Q4 PRN (Reason: Fever Or Pain) RF: 0 sennosides [Senokot] 8.6 mg Tablet 8.6 mg PO HS MDD 1 in 24 hours PRN (Reason: Constipation) RF: 0 docusate sodium [Colace] 100 mg Capsule 100 mg PO .EVERY 24 HOURS IN A PRN (Reason: on day 2 no bm) RF: 0 polyethylene glycol 3350 [Miralax] 17 gram/dose Powder 17 g PO .EVERY 24 HOURS PRN (Reason: on day 2 of no bm) RF: 0 albuterol sulfate [Ventolin HFA] 90 mcg/actuation Hfa Aerosol Inhaler 2 puff INHALATION Q4 PRN (Reason: Shortness Of Breath) RF: 0 Vitamin D3 1 tab PO QAM RF: 0 Discharge Problem: GI bleed Qualifiers: GI bleed type/associated pathology: unspecified gastrointestinal hemorrhage type Qualified Code(s): K92.2 - Gastrointestinal hemorrhage, unspecified Fall Qualifiers: Encounter type: initial encounter Qualified Code(s): W19.XXXA - Unspecified fall, initial encounter Closed head injury Qualifiers: Encounter type: initial encounter Qualified Code(s): S09.90XA - Unspecified injury of head, initial encounter
[2021-02-07 05:34] LABS: Alanine Aminotransferase 28 U/L (12-78); Albumin Level 3.1 gm/dl (3.4-5.0); Aspartate Aminotransferase 37 U/L (15-37); BUN Creatinine Ratio 40.7 (10-20); Blood Urea Nitrogen 102 mg/dl (7-18); Calcium 8.2 mg/dl (8.5-10.1); Carbon Dioxide 21 mmol/L (21-32); Chloride 112 mmol/L (98-107); Est GFR (African American) 26.4; Est GFR (Non-African American) 22.8; Glucose 255 mg/dl (70-99); Magnesium 2.4 mg/dl (1.8-2.4); Sodium 143 mmol/L (136-145)
[2021-02-07 05:39] LABS: Alkaline Phosphatase 117 U/L (45-117); Bilirubin,Total 0.5 mg/dl (0.2-1); Globulin 3.1 gm/dl (2.5-4.0); Total Protein 6.2 gm/dl (6.4-8.2); Troponin I < 0.015 ng/ml (0-0.045)
[2021-02-07 05:40] LABS: Hematocrit (blood only) 17.7 % (42-52); Hemoglobin 5.7 g/dL (14.0-18.0); Mean Corpuscular Hemoglobin 30.2 pg (25-34); Mean Corpuscular Hgb Conc 32.2 g/dL (32-36); Mean Corpuscular Volume 93.7 fL (80-100); Mean Platelet Volume 10.5 fL (7.4-10.4); Platelet Count 137 K/uL (130-400); RDW Coefficient of Variation 15.2 % (11.5-14.5); RDW Standard Deviation 49.1 fL (36.4-46.3); Red Blood Count 1.89 M/uL (4.7-6.1)
[2021-02-07] MEDS ORDERED: SODIUM CHLORIDE 0.9% 250 ML IV PRN ×3 (05:45→16:00)
[2021-02-07 05:48] LABS: Basophils # (auto) 0.02 K/uL (0-0.2); Basophils % (auto) 0.2 %; Eosinophils # (auto) 0.03 K/uL (0-0.5); Eosinophils % (auto) 0.3 %; Immature Granulocytes # (auto) 0.03 K/uL (0.00-0.02); Immature Granulocytes % (auto) 0.3 %; Lymphocytes # (auto) 0.93 K/uL (1.2-3.4); Lymphocytes % (auto) 10.7 %; Monocytes # (auto) 0.58 K/uL (0.11-0.59); Monocytes % (auto) 6.7 %; Neutrophils # (auto) 7.11 K/uL (1.4-6.5); Neutrophils % (auto) 81.8 %; Polychromasia 1+
[2021-02-07] MEDS ORDERED: PANTOprazole 80 MG in DEXTROSE 5% 100 ML IV STA (05:57)
--- NOTE | 2021-02-07 05:57 | Emergency Department Note ---
ED Visit Note Physician Evaluation Note: I have personally evaluated and examined this patient. I agree with assessment and plan of Eleanor Ruiz PA-C. 85 yr old male with [facility] been post hip replacement. On evaluation he is weak appearing but awake, alert and answering questions. Noted severe anemia which is new. Rectal exam by me with dark black stool and heme positive. He freely consents to blood transfusion and is able to repeat back to me that he will be receiving blood. This was witnessed by his nurse, Belia. He was able to sign form. Likely upper gi bleed and thus will start protonix. Bran Batista MD : GI bleed Qualifiers: GI bleed type/associated pathology: unspecified gastrointestinal hemorrhage type Qualified Code(s): K92.2 - Gastrointestinal hemorrhage, unspecified Fall Qualifiers: Encounter type: initial encounter Qualified Code(s): W19.XXXA - Unspecified fall, initial encounter Closed head injury Qualifiers: Encounter type: initial encounter Qualified Code(s): S09.90XA - Unspecified injury of head, initial encounter
--- NOTE | 2021-02-07 06:48 | CT Scan Report ---
CT head/brain wo con CLINICAL HISTORY: Head pain status post trauma COMPARISON STUDY: MRI the brain dated 12/05/2019, CT scan of the head dated 12/05/2019 TECHNIQUE: Axial CT of the brain is performed from the vertex to the skull base. IV contrast was not administered for this examination. A dose lowering technique was utilized adhering to the principles of ALARA. CT DOSE: 1088.49 mGy.cm FINDINGS: No intra or extra-axial mass lesions are visualized. There is no CT evidence of acute cortical infarc tion. There is no evidence of midline shift. There is no acute hemorrhage. No calvarial fractures ar e visualized. There are patchy white matter hypodensities likely on a small vessel basis. There is old right tempor al and bifrontal encephalomalacia. There is no evidence of pathologic ventricular dilatation. There is no evidence of acute sinusitis. There is right frontal scalp edema. IMPRESSION: 1. No acute intracranial findings 2. Right frontal scalp edema 3. 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 Electronically signed by: Piero Pascual M.D. 02/07/2021 6:46 AM
--- NOTE | 2021-02-07 06:53 | CT Scan Report ---
CT OF THE CERVICAL SPINE CLINICAL HISTORY: Neck pain status post trauma COMPARISON STUDY: January 2007 CT DOSE: TECHNIQUE: CT scan of the cervical spine was performed from the skull base to the thoracic inlet. Anais ges are reviewed in the axial, sagittal, and coronal planes. IV contrast was not administered for thi s examination. A dose lowering technique was utilized adhering to the principles of ALARA. FINDINGS: The visualized portions of the lung apices reveal no evidence of pneumothorax. The prevertebral soft tissues are normal. There is age-indeterminate fragmentation of a posterior ost eophyte at the C4-5 level. No vertebral body fractures or subluxations are visualized. There are multilevel degenerative changes IMPRESSION: 1. No acute vertebral body fractures or traumatic subluxations 2. Age-indeterminate fragmentation of a posterior osteophyte at the C4-5 level. ACT 112: Negative or not required by law. Electronically signed by: Piero Pascual M.D. 02/07/2021 6:52 AM
--- NOTE | 2021-02-07 07:06 | XRay Report ---
XR chest 1V portable CLINICAL HISTORY: Fall. COMPARISON STUDY: Chest radiograph January 10, 2021. FINDINGS: Prosthetic aortic valve is noted. There is mild cardiomegaly. No pneumothorax or pleural ef fusion is noted. Calcification projecting over the right hemithorax is unchanged. This is benign. No consolidation to suggest pneumonia. Pulmonary vascularity is normal. IMPRESSION: No acute cardiopulmonary findings. ACT 112: Negative or not required by law. Electronically signed by: Arjun Rivera M.D. 02/07/2021 7:05 AM
--- NOTE | 2021-02-07 07:08 | XRay Report ---
XR hip LT min 2V CLINICAL HISTORY: left hip pain, fall COMPARISON: Left hip radiographs January 11, 2021. FINDINGS: Postoperative appearance of the left hip following internal fixation of the subcapital fem oral neck fracture is unchanged since radiographs of January 11, 2021. The hardware is intact. Fract ure alignment appears similar. No additional fractures are identified. There is extensive vascular ca lcification. IMPRESSION: Stable postoperative findings following internal fixation of the subcapital left femoral neck fracture. No change in alignment. Hardware intact. ACT 112: Negative or not required by law. Electronically signed by: Arjun Rivera M.D. 02/07/2021 7:07 AM
[2021-02-07 07:48] LABS: Influenza A virus by PCR Negative (Neg); Influenza B virus by PCR Negative (Neg); RSV by PCR Negative (Neg); SARS CoV2 RNA(COVID-19) InHosp NEGATIVE (Negative)
[2021-02-07 07:58] LABS: Appearance Urine Clear (Clear); Bacteria Urine Automated Negative (Negative); Bilirubin Urine Negative (Negative); Blood Urine 2+ (Negative); Color Urine Yellow; Epithelial Cell Urine Auto 0-5 /lpf (0-5); Glucose Urine UA Negative (Negative); Ketones Urine Trace (Negative); Leukocyte Esterase Urine Negative (Negative); Nitrite Urine Negative (Negative); Protein Urine Negative (Negative); Specific Gravity Urine 1.019 (1.000-1.030); Urobilinogen Urine Negative (Negative)
[2021-02-07] MEDS: PANTOprazole 40 MG in DEXTROSE 5% 100 ML IV SCH ×4 (08:00→21:56)
[2021-02-07] MEDS ORDERED: INSULIN ASPART 100 UNITS/ML 3 ML PEN SC SCH ×2 (09:13→12:00)
[2021-02-07] MEDS ORDERED: ACETAMINOPHEN 325 MG TAB PO STA (09:13)
[2021-02-07] MEDS ORDERED: LORazepam 0.5 MG TAB PO PRN (09:13)
[2021-02-07] MEDS ORDERED: POLYETHYLENE (MIRALAX) 17 GM PACK PO PRN (09:13)
[2021-02-07] MEDS ORDERED: ACETAMINOPHEN 325 MG TAB PO PRN ×2 (09:13)
[2021-02-07] MEDS ORDERED: NITROGLYCERIN SL 0.4 MG/TAB TAB SL PRN (09:13)
[2021-02-07] MEDS ORDERED: SENNA 8.6 MG TAB PO PRN (09:13)
[2021-02-07] MEDS ORDERED: amLODIPine BESYLATE 5 MG TAB PO SCH (09:13)
[2021-02-07] MEDS ORDERED: ONDANSETRON INJ 2 MG/ML 2 ML VIAL IV PRN (09:13)
[2021-02-07] MEDS ORDERED: ALBUTEROL HFA 8 GM INHALER INH PRN (09:13)
[2021-02-07] MEDS ORDERED: DOCUSATE SODIUM 100 MG CAP PO PRN (09:13)
[2021-02-07] MEDS: METOPROLOL SUCC 25MG EXT REL TAB PO SCH ×2 (10:09→19:59)
[2021-02-07] MEDS: FERROUS SULFATE 325 MG TAB PO SCH ×2 (10:09→20:00)
--- NOTE | 2021-02-07 10:29 | Gastrointestinal Consultation ---
Date of Consultation February 07, 2021 Assessment & Plan (1) Anemia: This is an 85-year-old male, with multiple comorbidities, recently underwent left hip ORIF 01/11/2021, with postop anemia, now admitted after presenting with a fall this morning, and noted to have acute on chronic anemia with concurrent rise in BUN, along with black heme positive stool in the ER, concerning for possible UGIB. Plavix is being held. Currently is HD stable without active GI output; abd is soft, currently getting pRBC transfusion 1 of 2. Diff dx to consider would be possible PUD/gastritis/esophagitis, duodenitis, AVM vs other. - Continue pRBC transfusion, trend H&H - Continue PPI gtt - Monitor and document GI output - Supportive care, IVF - Can have clears today - Will make NPO after midnight - Will plan for EGD tomorrow to evaluate for source of possible GIB Thank you for allowing us to participate in the care of this patient. Please call with any acute changes, questions or concerns. Please see addendum below with additional recommendation from my supervising physician. (2) Heme positive stool: History of Present Illness Reason for Consultation: anemia. hemepositive black stool Requesting Physician: Dr. 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 He is staying at [facility] and staff found him in his bathroom early this AM. On arrival to the ER he had an abrasion to his forehead; CT head and CXR neg for acute findings. Labs were reviewed and notable for drop in HGB to 5.7, HCT 17%, with BUN rise of 102 (previous was 40), creatinine 2.5 (baseline 1.8), and GI consulted for anemia. He's COVID neg. Rectal exam in the ER notable for black heme + stool. Vitals stable with systolics in the low 110's-130, no tachy cardia, satting 97% on room air. He was ordered PPI gtt and 2 units pRBC. Pt interviewed after being brought up to the floor. He is a somewhat limited historian and states he feels fatigued; is able to say that he noticed his stools went from brown ->black over the last few days, having 1-2 solid BMs daily; is taking oral iron from recent anemia. Other than that denies GI symptoms including abd pain, n/v, hematemesis, hematochezia, bloating, heartburn, dysphagia; change in appetite. Denies h/o GIB; upper abd surgery. Currently denies CP, SOB, syncope. He's a former smoker quitting years ago. Denies NSAID, ETOH use. EGD: Doesn't think he ever had; none in [facility] or [facility] chart Colonoscopy 2004: One 3 mm, non-bleeding polyp in the sigmoid colon. Resected and retrieved. - Two benign appearing 5 to 6 mm polyps in the rectum. Resected and retrieved. - Two benign appearing 3 mm polyps in the rectum. Resected and retrieved. - Diverticulosis. Allergies Allergy/AdvReac Type Severity Reaction Status Date / Time No Known Allergies Allergy Unknown Verified 02/07/21 06:50 Home Medications Medication Instructions Recorded Confirmed Type atorvastatin 10 mg PO PM 03/03/19 02/07/21 History amlodipine [Norvasc] 5 mg PO QAM 01/10/21 02/07/21 History clopidogrel 75 mg PO DAILY 01/10/21 02/07/21 History lisinopril 10 mg PO DAILY 01/10/21 02/07/21 History metoprolol succinate 12.5 mg PO AMHS 01/10/21 02/07/21 History tramadol 50 mg PO Q8H PRN #10 tab 01/16/21 02/07/21 Rx Vitamin D3 1 tab PO QAM 02/07/21 02/07/21 History acetaminophen 650 mg PO Q4 PRN 02/07/21 02/07/21 History albuterol sulfate [Ventolin HFA] 2 puff INHALATION Q4 PRN 02/07/21 02/07/21 History aspirin [Aspirin For Children] 81 mg PO BID 02/07/21 02/07/21 History calcium citrate 500 mg PO QAM 02/07/21 02/07/21 History docusate sodium [Colace] 100 mg PO .EVERY 24 HOURS IN A PRN 02/07/21 02/07/21 History ferrous sulfate 325 mg PO BID 02/07/21 02/07/21 History glipizide 10 mg PO QPM 02/07/21 02/07/21 History glipizide 20 mg PO QAM 02/07/21 02/07/21 History lorazepam 0.5 mg PO Q8 PRN 02/07/21 02/07/21 History mirtazapine 15 mg PO HS 02/07/21 02/07/21 History polyethylene glycol 3350 [Miralax] 17 g PO .EVERY 24 HOURS PRN 02/07/21 02/07/21 History sennosides [Senokot] 8.6 mg PO HS PRN MDD 1 in 24 hours 02/07/21 02/07/21 History sitagliptin [Januvia] 50 mg PO QAM 02/07/21 02/07/21 History Patient History Medical History CKD (chronic kidney disease) stage 4, GFR 15-29 ml/min Closed hip fracture Fall Hyperlipidemia RBBB Surgical History History of cardiac cath CAD by cardiac catheterization 11/2019. Distal LMCA has a 40% stenosis which is not significant by IVUS with a mLA of 13.8 mm^2. The mid LAD had a 30% stenosis. The LCx and RCA had mild luminal irregularities History of carotid endarterectomy right History of cataract surgery LEFT. . 2mg versed no issues. History of colonoscopy History of total left knee replacement Family History Father Heart disorder Social History Smoking Status: Former smoker Second Hand Exposure: No; Do You Dip or Chew Tobacco: No; Tobacco Cessation Education Requested by Patient: No Hx Alcohol Use: No Hx Substance Use: No Preferred Language: Norwegian Communication Ability: Effective Manager Mall Required: No Beliefs That Will Affect Care: None marital status: Current Living Situation: Spouse Current Living Situation Comment: came from [facility] after recent discharge after hip surgery Feels Safe at Home: Yes Safety Concerns: Feels Safe At This Time Assistive Devices: Denture - Upper, Denture - Lower, Glasses and Walker Review of Systems Constitutional: as per Subjective / HPI; no fever and no chills Respiratory: no cough and no dyspnea Cardiovascular: no chest pain and no edema Gastrointestinal: as per Subjective / HPI Physical Exam Constitutional: well developed; no acute distress Eyes: sclerae not anicteric Respiratory: normal respiratory effort, lungs clear to auscultation Cardiovascular: Rate/Rhythm: regular rate and regular rhythm + soft systolic murmur Gastrointestinal (Abdomen): Inspection/Auscultation: abdomen normal to i nspection; abdomen not distended Percussion/Palpation: abdomen soft; abdomen nontender and no guarding On gross rectal exam no evidence of melena, hematochezia Skin: no rashes, warm and dry Psychiatric: Alert, speech is fluent; knows he is in a hospital; not oriented to date; limited memory of recent events Results & Data ([facility]) Vital Signs (Past 12 Hours) Vital Signs Temp Pulse Pulse Resp BP BP Pulse Ox 02/07/21 10:16 36.6 C 70 18 130/60 100 02/07/21 10:06 75 18 98 02/07/21 10:00 36.6 C 75 18 132/54 L 98 02/07/21 09:30 36.6 C 79 18 110/58 L 99 02/07/21 09:16 81 02/07/21 09:00 36.6 C 82 82 18 104/53 L 104/53 L 98 02/07/21 08:35 71 20 128/48 L 100 02/07/21 08:15 36.7 C 80 20 109/54 L 99 02/07/21 08:00 76 103/50 L 02/07/21 07:30 75 123/57 L 100 02/07/21 07:09 79 117/53 L 100 02/07/21 07:03 79 120/42 L 100 02/07/21 06:28 85 16 128/50 L 98 02/07/21 05:06 16 02/07/21 05:00 81 12 138/72 98 02/07/21 04:55 37.0 C 83 16 138/72 97 Laboratory Results 03/23/21 03/23/21 03/23/21 Range/Units 11:00 09:36 07:20 WBC (4.8-10.8) K/uL RBC (4.7-6.1) M/uL Hgb (14.0-18.0) g/dL Hct (42-52) % MCV (80-100) fL MCH (25-34) pg MCHC (32-36) g/dL RDW Std Deviation (36.4-46.3) fL RDW Coeff of Chilo (11.5-14.5) % Plt Count (130-400) K/uL MPV (7.4-10.4) fL Immature Gran % (Auto) % Neut % (Auto) % Lymph % (Auto) % [place] % (Auto) % Eos % (Auto) % Baso % (Auto) % Neut # (Auto) (1.4-6.5) K/uL Lymph # (Auto) (1.2-3.4) K/uL [place] # (Auto) (0.11-0.59) K/uL Eos # (Auto) (0-0.5) K/uL Baso # (Auto) (0-0.2) K/uL Immature Gran # (Auto) (0.00-0.02) K/uL Polychromasia Sodium (136-145) mmol/L Potassium (3.5-5.1) mmol/L Chloride (98-107) mmol/L Carbon Dioxide (21-32) mmol/L Anion Gap (3-11) BUN (7-18) mg/dl Creatinine (0.6-1.4) mg/dl Est Cr Clr Drug Dosing Est GFR ( Amer) Est GFR (Non-Af Amer) BUN/Creatinine Ratio (10-20) Glucose (70-99) mg/dl POC Glucose 242 H (70-99) mg/dl Calcium (8.5-10.1) mg/dl Magnesium (1.8-2.4) mg/dl Total Bilirubin (0.2-1) mg/dl AST (15-37) U/L ALT (12-78) U/L Alkaline Phosphatase (45-117) U/L Troponin I (0-0.045) ng/ml Total Protein (6.4-8.2) gm/dl Albumin (3.4-5.0) gm/dl Globulin (2.5-4.0) gm/dl Albumin/Globulin Ratio (0.9-2) Urine Color Yellow Urine Appearance Clear (Clear) Urine pH 5.0 (4.5-7.5) Ur Specific [place] 1.019 (1.000-1.030) Urine Protein Negative (Negative) Urine Glucose (UA) Negative (Negative) Urine Ketones Trace H (Negative) Urine Blood 2+ H (Negative) Urine Nitrite Negative (Negative) Urine Bilirubin Negative (Negative) Urine Urobilinogen Negative (Negative) Ur Leukocyte Esterase Negative (Negative) Urine WBC (Auto) 1-5 (0-5) /hpf Urine RBC (Auto) 5-10 H (0-4) /hpf U Hyaline Cast (Auto) 1-5 (0-5) /lpf U Epithel Cells (Auto) 0-5 (0-5) /lpf Urine Bacteria (Auto) Negative (Negative) Nasal Screen MRSA (PCR) Pending COVID-19 Eval Order SARS-CoV-2 (PCR) (Negative) Influenza Type A (PCR) (Neg) Influenza Type B (PCR) (Neg) RSV (RT-PCR) (Neg) Blood Type Antibody Screen Crossmatch 02/07/21 02/07/21 02/07/21 Range/Units 06:48 06:48 05:52 WBC (4.8-10.8) K/uL RBC (4.7-6.1) M/uL Hgb (14.0-18.0) g/dL Hct (42-52) % MCV (80-100) fL MCH (25-34) pg MCHC (32-36) g/dL RDW Std Deviation (36.4-46.3) fL RDW Coeff of Chilo (11.5-14.5) % Plt Count (130-400) K/uL MPV (7.4-10.4) fL Immature Gran % (Auto) % Neut % (Auto) % Lymph % (Auto) % [place] % (Auto) % Eos % (Auto) % Baso % (Auto) % Neut # (Auto) (1.4-6.5) K/uL Lymph # (Auto) (1.2-3.4) K/uL [place] # (Auto) (0.11-0.59) K/uL Eos # (Auto) (0-0.5) K/uL Baso # (Auto) (0-0.2) K/uL Immature Gran # (Auto) (0.00-0.02) K/uL Polychromasia Sodium (136-145) mmol/L Potassium (3.5-5.1) mmol/L Chloride (98-107) mmol/L Carbon Dioxide (21-32) mmol/L Anion Gap (3-11) BUN (7-18) mg/dl Creatinine (0.6-1.4) mg/dl Est Cr Clr Drug Dosing Est GFR ( Amer) Est GFR (Non-Af Amer) BUN/Creatinine Ratio (10-20) Glucose (70-99) mg/dl POC Glucose (70-99) mg/dl Calcium (8.5-10.1) mg/dl Magnesium (1.8-2.4) mg/dl Total Bilirubin (0.2-1) mg/dl AST (15-37) U/L ALT (12-78) U/L Alkaline Phosphatase (45-117) U/L Troponin I (0-0.045) ng/ml Total Protein (6.4-8.2) gm/dl Albumin (3.4-5.0) gm/dl Globulin (2.5-4.0) gm/dl Albumin/Globulin Ratio (0.9-2) Urine Color Urine Appearance (Clear) Urine pH (4.5-7.5) Ur Specific [place] (1.000-1.030) Urine Protein (Negative) Urine Glucose (UA) (Negative) Urine Ketones (Negative) Urine Blood (Negative) Urine Nitrite (Negative) Urine Bilirubin (Negative) Urine Urobilinogen (Negative) Ur Leukocyte Esterase (Negative) Urine WBC (Auto) (0-5) /hpf Urine RBC (Auto) (0-4) /hpf U Hyaline Cast (Auto) (0-5) /lpf U Epithel Cells (Auto) (0-5) /lpf Urine Bacteria (Auto) (Negative) Nasal Screen MRSA (PCR) COVID-19 Eval Order CovFluRsv at [facility] SARS-CoV-2 (PCR) NEGATIVE (Negative) Influenza Type A (PCR) Negative (Neg) Influenza Type B (PCR) Negative (Neg) RSV (RT-PCR) Negative (Neg) Blood Type O Positive Antibody Screen NEGATIVE Crossmatch See Detail 02/07/21 02/07/21 Range/Units 04:35 04:35 WBC 8.70 (4.8-10.8) K/uL RBC 1.89 L (4.7-6.1) M/uL Hgb 5.7 L* (14.0-18.0) g/dL Hct 17.7 L* (42-52) % MCV 93.7 (80-100) fL MCH 30.2 (25-34) pg MCHC 32.2 (32-36) g/dL RDW Std Deviation 49.1 H (36.4-46.3) fL RDW Coeff of Chilo 15.2 H (11.5-14.5) % Plt Count 137 (130-400) K/uL MPV 10.5 H (7.4-10.4) fL Immature Gran % (Auto) 0.3 % Neut % (Auto) 81.8 % Lymph % (Auto) 10.7 % [place] % (Auto) 6.7 % Eos % (Auto) 0.3 % Baso % (Auto) 0.2 % Neut # (Auto) 7.11 H (1.4-6.5) K/uL Lymph # (Auto) 0.93 L (1.2-3.4) K/uL [place] # (Auto) 0.58 (0.11-0.59) K/uL Eos # (Auto) 0.03 (0-0.5) K/uL Baso # (Auto) 0.02 (0-0.2) K/uL Immature Gran # (Auto) 0.03 H (0.00-0.02) K/uL Polychromasia 1+ Sodium 143 (136-145) mmol/L Potassium 5.0 (3.5-5.1) mmol/L Chloride 112 H (98-107) mmol/L Carbon Dioxide 21 (21-32) mmol/L Anion Gap 10.0 (3-11) BUN 102 H (7-18) mg/dl Creatinine 2.51 H (0.6-1.4) mg/dl Est Cr Clr Drug Dosing Not Reportable Est GFR ( Amer) 26.4 Est GFR (Non-Af Amer) 22.8 BUN/Creatinine Ratio 40.7 H (10-20) Glucose 255 H (70-99) mg/dl POC Glucose (70-99) mg/dl Calcium 8.2 L (8.5-10.1) mg/dl Magnesium 2.4 (1.8-2.4) mg/dl Total Bilirubin 0.5 (0.2-1) mg/dl AST 37 (15-37) U/L ALT 28 (12-78) U/L Alkaline Phosphatase 117 (45-117) U/L Troponin I < 0.015 (0-0.045) ng/ml Total Protein 6.2 L (6.4-8.2) gm/dl Albumin 3.1 L (3.4-5.0) gm/dl Globulin 3.1 (2.5-4.0) gm/dl Albumin/Globulin Ratio 1.0 (0.9-2) Urine Color Urine Appearance (Clear) Urine pH (4.5-7.5) Ur Specific [place] (1.000-1.030) Urine Protein (Negative) Urine Glucose (UA) (Negative) Urine Ketones (Negative) Urine Blood (Negative) Urine Nitrite (Negative) Urine Bilirubin (Negative) Urine Urobilinogen (Negative) Ur Leukocyte Esterase (Negative) Urine WBC (Auto) (0-5) /hpf Urine RBC (Auto) (0-4) /hpf U Hyaline Cast (Auto) (0-5) /lpf U Epithel Cells (Auto) (0-5) /lpf Urine Bacteria (Auto) (Negative) Nasal Screen MRSA (PCR) COVID-19 Eval Order SARS-CoV-2 (PCR) (Negative) Influenza Type A (PCR) (Neg) Influenza Type B (PCR) (Neg) RSV (RT-PCR) (Neg) Blood Type Antibody Screen Crossmatch Diagnostic Findings CXR: IMPRESSION: No acute cardiopulmonary findings. Head CT: 1. No acute intracranial findings 2. Right frontal scalp edema 3. 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
--- NOTE | 2021-02-07 10:31 | History and Physical Report ---
DATE OF ADMISSION: 02/07/2021 CHIEF COMPLAINT: Fall and anemia. HISTORY OF PRESENT ILLNESS: This is an 85-year-old male with past medical history significant for type 2 diabetes, hyperlipidemia, chronic kidney disease stage III, carotid stenosis, hypertension, left bundle branch block, severe aortic stenosis, status post TAVR, chronic kidney disease stage III, history of thrombocytopenia, history of carotid endarterectomy, anxiety. The patient was recently in the hospital with a fall and had a left hip fracture, status post surgery. Postoperatively, he required 2 units of PRBCs and he was discharged to [facility] and he was brought in today because he was found on the floor. In the ER, the patient is alert and awake, could tell his name, could tell his date of , does not know where he is and he is somewhat confused and has some bruises on his forehead. Denies any chest pain. Denies any abdominal pain. Denies any nausea but is somewhat hard to hear and has confusion, I could not get much history from the patient. Tried to call [facility], could not be able to reach the appropriate nurse. As per the , she was told that he fell on the floor while going to the bathroom. was upset that he laid on the floor. Before that, thinks when he was at home, he was walking and climbing steps okay, but sometimes he gets confused, maybe has some mild dementia as per the . As per the ER note, when he fell today, there was no loss of consciousness. He is intermittently confused. He was unable to get up from the fall. His hemoglobin was 5.7 in the ER and black stools that is positive for Hemoccult on rectal exam. ER ordered 2 units of PRBCs and Protonix drip. Hemodynamics are stable. ALLERGIES: No known drug allergies. PAST MEDICAL HISTORY: As mentioned above. PAST SURGICAL HISTORY: Left total knee arthroplasty, coronary angiography, TAVR, right carotid endarterectomy. MEDICATIONS: The patient is on Tylenol 650 mg p.o. q.4 hours p.r.n., Ventolin 2 puffs inhalation q.4 hours p.r.n., Norvasc 5 mg p.o. a.m., aspirin 81 mg p.o. b.i.d., atorvastatin 10 mg p.o. p.m., calcium citrate 500 mg p.o. a.m., Plavix 75 mg p.o. daily, Colace 100 mg every 24 hours p.r.n., ferrous sulfate 325 mg p.o. b.i.d., glipizide 10 mg in p.m. and 20 mg in the a.m., lisinopril 10 mg p.o. daily, Ativan 0.5 mg p.o. q.8 hours p.r.n., metoprolol succinate 12.5 mg b.i.d., Remeron 15 mg at bedtime, MiraLax 17 grams p.o. daily p.r.n., Senokot p.o. p.r.n., Januvia 50 mg p.o. a.m., tramadol 50 mg p.o. q.8 hours p.r.n., vitamin D 1 tablet p.o. a.m. FAMILY HISTORY: Significant for father has heart disorder. SOCIAL HISTORY: Currently coming from [facility]. He is . Quit smoking in 1992, smoked 1 pack a day for 20 years. No alcohol use, no drug use. REVIEW OF SYMPTOMS: Could not get complete review of systems from the patient as the patient is confused. PHYSICAL EXAMINATION: VITAL SIGNS: Temperature 37, pulse 85, respiratory rate 16, blood pressure 128/50, oxygen 98% on room air. HEENT: Pupils equal, round, reactive to light. Some bruises seen on the forehead. Oral mucosa dry. NECK: No JVD, no neck masses seen. CARDIOVASCULAR: S1, S2 heard, no murmur, no gallop. RESPIRATORY SYSTEM: Normal AP diameter. No accessory muscle use. No wheezing, no crackles. ABDOMEN: Soft, bowel sounds present, nontender. No distention. CENTRAL NERVOUS SYSTEM: Alert, awake, and oriented to name. No facial droop. Speech is clear. Moving extremities. EXTREMITIES: No edema, no erythema. LABORATORY DATA: WBC 8.7, hemoglobin 5.7, hematocrit 17.7, platelets 137. Sodium 143, potassium 5, chloride 112, CO2 of 21, BUN 102, creatinine 2.5, serum glucose 255, calcium 8.2, magnesium 2.4, total bilirubin 0.5, AST 37, ALT 28, alkaline phosphatase 117. Troponin I less than 0.015. SARS-CoV-2 pending. IMAGING: CT of the head: No acute intracranial findings. Right frontal scalp edema. 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 Chest x-ray: No acute cardiopulmonary findings. Hip x-ray: Stable postoperative findings following the internal fixation of subcapital left femoral neck fracture. No change in alignment. Cervical spine CT: No acute findings. Age-indeterminate fragmentation of the posterior osteophyte at the C4-C5 level. EKG: Normal sinus rhythm at a rate of 83, right bundle branch block. ASSESSMENT AND PLAN: This is an 85-year-old male who presents with a fall and found to have a hemoglobin of 5.7 and Hemoccult positive. 1. Gastrointestinal bleeding: Most likely upper gastrointestinal bleed because his stool was somewhat black in color on rectal exam in er and Hemoccult was positive. Hemoglobin 5.7. Holding his home aspirin, Plavix. Protonix drip, 2 units of packed red blood cells, hemoglobin and hematocrit q.6 hours. Gastrointestinal consult. Keep n.p.o., IV fluids. Closely monitor in the med-telemetry as there are no telemetry beds. If there is any change in his condition, we will transfer to the intensive care unit. 2. Acute kidney injury on chronic kidney disease stage III: Baseline creatinine around 1.8 to 1.9. Today creatinine of 2.5. Holding lisinopril. Avoid nephrotoxic agents. Getting fluids and packed red blood cells. We will follow the repeat laboratories. 3. History of diabetes: Hold his glipizide, Januvia and place on insulin sliding scale. Currently n.p.o. Follow the blood sugars. 4. Hypertension: Continue his Toprol-XL, amlodipine. Holding his lisinopril, monitor the blood pressure. 5. History of hyperlipidemia: Continue statin. 6. Confusion, has history of delirium in the past: We will monitor. 7. History of aortic stenosis, status post transcatheter aortic valve replacement, 8. history of coronary artery disease: Holding aspirin and Plavix. Continue statin, metoprolol. We will monitor. Follow the repeat troponins. 9. Deep venous thrombosis prophylaxis: Sequential compression devices for now. 10. History of recent subcapital fracture, left hip, status post repair: Physical therapy and occupational therapy when stable. DISPOSITION: Admit to med-tele. If change in condition, transfer to ICU. Level 1 full code as per my discussion with the . Social service to help with discharge planning. RADHA
[2021-02-07] MEDS ORDERED: GLUCOSE 40% GEL 15 GM TUBE PO PRN (10:45)
[2021-02-07] MEDS ORDERED: GLUCAGON FOR INJ 1 MG VIAL IM PRN (10:45)
[2021-02-07] MEDS ORDERED: GLUCOSE 10 TABS/TUBE PO PRN (10:45)
[2021-02-07] MEDS ORDERED: DEXTROSE 50% 50 ML SYRINGE IV PRN (10:45)
[2021-02-07] MEDS ORDERED: CARBOHYDRATES FOR HYPOGLYCEMIA PO PRN (10:45)
[2021-02-07] MEDS: INSULIN ASPART 100 UNITS/ML 3 ML PEN SC SCH ×3 (12:23→20:51)
[2021-02-07] MEDS: traMADol HCL 50 MG TABLET PO PRN (13:03)
--- NOTE | 2021-02-07 14:35 | Electrocardiogram Report ---
Test Reason : Blood Pressure : / mmHG Vent. Rate : 083 BPM Atrial Rate : 083 BPM P-R Int : 138 ms QRS Dur : 070 ms QT Int : 406 ms P-R-T Axes : 082 055 033 degrees QTc Int : 477 ms Normal sinus rhythm Low voltage QRS Right bundle branch block Abnormal ECG Confirmed by Anthony Camp ([id number]) on 02/07/2021 2:34:34 PM Referred By: REFERRED SELF Confirmed By:Blue Camp
[2021-02-07 15:32] LABS: Hematocrit (blood only) 21.7 % (42-52); Hemoglobin 7.1 g/dL (14.0-18.0)
--- NOTE | 2021-02-07 16:07 | Communication Note ---
Date of Service: February 07, 2021 acute blood loss anemia /possible GI bleed pt admitted today with severe symptomatic anemia /heme positive stool Hb 5.7 on admission s/p 2 units of PRBC transfusion repeat H&H 7.1 pt remains borderline hypotensive ordered for 1 more unit of PRBC transfusion GI following on Protonix gtt plan for EGD in am Acute renal failure with CKD stage 3 : possible due to vol loss /acute blood loss anemia with GI bleed cr worsened > 2 cont IV fluid , PRBC transfusion for correct anemia repeat BMP in am Norvasc ordered to keep on hold to prevent hypotensive episode cont to monitor if Cr cont to worsened after adequate vol resuscitation consider Nephrology eval avoid NSAID's Mary Hagan MD
[2021-02-07] MEDS: SODIUM CHLORIDE 0.9% 1000ML 1,000 ML IV SCH ×2 (16:59→19:54)
[2021-02-07] MEDS: ATORVASTATIN 10 MG TAB PO SCH (20:00)
[2021-02-07] MEDS: MIRTAZAPINE TAB 15 MG TAB PO SCH (20:00)
[2021-02-07 21:22] LABS: Hematocrit (blood only) 25.6 % (42-52); Hemoglobin 8.4 g/dL (14.0-18.0)
[2021-02-08] MEDS: PANTOprazole 40 MG in DEXTROSE 5% 100 ML IV SCH ×3 (03:21→15:27)
[2021-02-08] MEDS: SODIUM CHLORIDE 0.9% 1000ML 1,000 ML IV SCH ×2 (05:34→23:22)
[2021-02-08] MEDS: traMADol HCL 50 MG TABLET PO PRN (05:35)
[2021-02-08 05:59] LABS: Basophils # (auto) 0.02 K/uL (0-0.2); Basophils % (auto) 0.3 %; Eosinophils # (auto) 0.23 K/uL (0-0.5); Eosinophils % (auto) 3.7 %; Hematocrit (blood only) 25.9 % (42-52); Hemoglobin 8.4 g/dL (14.0-18.0); Immature Granulocytes # (auto) 0.06 K/uL (0.00-0.02); Lymphocytes # (auto) 1.39 K/uL (1.2-3.4); Lymphocytes % (auto) 22.6 %; Mean Corpuscular Hemoglobin 28.8 pg (25-34); Mean Corpuscular Hgb Conc 32.4 g/dL (32-36); Mean Corpuscular Volume 88.7 fL (80-100); Mean Platelet Volume 10.1 fL (7.4-10.4); Monocytes # (auto) 0.66 K/uL (0.11-0.59); Monocytes % (auto) 10.7 %; Neutrophils # (auto) 3.79 K/uL (1.4-6.5); Neutrophils % (auto) 61.7 %; Platelet Count 108 K/uL (130-400); RDW Coefficient of Variation 16.8 % (11.5-14.5); Red Blood Count 2.92 M/uL (4.7-6.1); White Blood Count 6.15 K/uL (4.8-10.8)
[2021-02-08 06:21] LABS: BUN Creatinine Ratio 32.6 (10-20); Creatinine Clr Calc Pharmacy 29.7 ml/min; Est GFR (African American) 33.3; Est GFR (Non-African American) 28.8; Magnesium 2.2 mg/dl (1.8-2.4); Potassium 3.8 mmol/L (3.5-5.1)
[2021-02-08 06:31] LABS: Estimated Average Glucose 143 mg/dl; Hemoglobin A1C 6.6 % (4.5-5.6)
[2021-02-08] MEDS: FERROUS SULFATE 325 MG TAB PO SCH ×2 (09:00→20:34)
[2021-02-08] MEDS: INSULIN ASPART 100 UNITS/ML 3 ML PEN SC SCH ×4 (09:00→20:42)
[2021-02-08] MEDS: METOPROLOL SUCC 25MG EXT REL TAB PO SCH ×2 (09:03→20:40)
--- NOTE | 2021-02-08 09:43 | Gastroenterology Progress Note ---
Date of Service February 08, 2021 Assessment & Plan (1) Anemia: This is an 85-year-old male, with multiple comorbidities, recently underwent left hip ORIF 01/11/2021, and had postop anemia s/p 2 units pRBC earlier this month. He was admitted after presenting with a fall, and GI consulted for acute on chronic anemia with concurrent rise in BUN, along with black heme positive stool concerning for possible UGIB. He received 2 units pRBC yesterday, HGB improved appropriately 5.7->8.4 today and BUN has trended down. Currently vitals are stable, he's had no GI output overnight and abd is soft. Diff dx to consider would be possible PUD/gastritis/esophagitis, duodenitis, AVM vs other. - Please keep NPO - Plan is for EGD today to evaluate for potential source of GIB - Continue to trend H&H, transfuse PRN - Continue PPI gtt - Monitor and document GI output - Continue supportive care, IVF Admission and Anticipated Discharge Date Admission Date: February 07, 2021 Supervising Physician Co-Signing Physician Notes Attending attestation I have seen, examined this patient, and agree with the findings and above by our mid-level provider Ms. Tamiko Do, PCecyA., with the following additions: - Patient was planned for EGD today for anemia and questionable black stools and was brought to Endo. Patient stable with stable Hb without evidence of any bowel output since admission. Dr. Gage and myself called , who was not available. I called Mya, daughter, who informed us that is POA, I called and had a long conversation with her about his clinical condition, risks, benefits, and alternatives to EGD. Daughter, does not wish to undergo further procedures in current state given stability and lack of evidence of bleeding, therefore procedure was cancelled. -Continue IV PPI, BID is ok -Ordered liquid diet -Call with questions Subjective Pt seen and examined, chart reviewed. He's had no GIB overnight and feels well today other than having some ongoing hip pain related to his recent ORIF. Denies abd pain, n/v, hematemesis, melena, hematochezia. HGB stable today at 8.4, BUN improved to 68. Review of Systems Constitutional: no fever Respiratory: no cough and no dyspnea Cardiovascular: no chest pain and no syncope Gastrointestinal: as per Subjective / HPI Physical Exam Constitutional: well developed; no acute distress + abrasion to right forehead, bridge of nose Eyes: sclerae not anicteric Respiratory: normal respiratory effort, lungs clear to auscultation Cardiovascular: Rate/Rhythm: regular rate and regular rhythm + soft systolic murmur Gastrointestinal (Abdomen): Inspection/Auscultation: abdomen normal to inspection and normal bowel sounds; abdomen not distended Percussion/Palpation: abdomen soft; abdomen nontender and no guarding Skin: no rashes, warm and dry Psychiatric: awake and alert Results & Data ([facility]) Vital Signs (Past 12 Hours) Vital Signs Temp Pulse Pulse Resp BP Pulse Ox 02/08/21 07:35 62 02/08/21 06:48 36.6 C 65 20 130/48 L 98 02/08/21 03:28 67 02/08/21 03:21 36.3 C L 69 17 144/65 H 97 02/07/21 23:00 36.3 C L 74 18 118/48 L 94 Laboratory Results 02/08/21 02/08/21 02/08/21 Range/Units 07:41 05:28 05:28 WBC (4.8-10.8) K/uL RBC (4.7-6.1) M/uL Hgb (14.0-18.0) g/dL Hct (42-52) % MCV (80-100) fL MCH (25-34) pg MCHC (32-36) g/dL RDW Std Deviation (36.4-46.3) fL RDW Coeff of Chilo (11.5-14.5) % Plt Count (130-400) K/uL MPV (7.4-10.4) fL Immature Gran % (Auto) % Neut % (Auto) % Lymph % (Auto) % [place] % (Auto) % Eos % (Auto) % Baso % (Auto) % Neut # (Auto) (1.4-6.5) K/uL Lymph # (Auto) (1.2-3.4) K/uL [place] # (Auto) (0.11-0.59) K/uL Eos # (Auto) (0-0.5) K/uL Baso # (Auto) (0-0.2) K/uL Immature Gran # (Auto) (0.00-0.02) K/uL Polychromasia Sodium 144 (136-145) mmol/L Potassium 3.8 D (3.5-5.1) mmol/L Chloride 115 H (98-107) mmol/L Carbon Dioxide 25 (21-32) mmol/L Anion Gap 4.0 (3-11) BUN 68 H (7-18) mg/dl Creatinine 2.07 H D (0.6-1.4) mg/dl Est Cr Clr Drug Dosing 29.7 ml/min Est GFR ( Amer) 33.3 Est GFR (Non-Af Amer) 28.8 BUN/Creatinine Ratio 32.6 H (10-20) Glucose 69 L (70-99) mg/dl POC Glucose 86 (70-99) mg/dl Estimat Average Glucose 143 mg/dl Hemoglobin A1c 6.6 H (4.5-5.6) % Calcium 8.0 L (8.5-10.1) mg/dl Magnesium 2.2 (1.8-2.4) mg/dl Nasal Screen MRSA (PCR) (Negative) Blood Type Antibody Screen Crossmatch 02/08/21 02/07/21 02/07/21 Range/Units 05:28 21:15 20:45 WBC 6.15 (4.8-10.8) K/uL RBC 2.92 L (4.7-6.1) M/uL Hgb 8.4 L 8.4 L (14.0-18.0) g/dL Hct 25.9 L 25.6 L (42-52) % MCV 88.7 D (80-100) fL MCH 28.8 (25-34) pg MCHC 32.4 (32-36) g/dL RDW Std Deviation 52.0 H (36.4-46.3) fL RDW Coeff of Chilo 16.8 H (11.5-14.5) % Plt Count 108 L (130-400) K/uL MPV 10.1 (7.4-10.4) fL Immature Gran % (Auto) 1.0 % Neut % (Auto) 61.7 % Lymph % (Auto) 22.6 % [place] % (Auto) 10.7 % Eos % (Auto) 3.7 % Baso % (Auto) 0.3 % Neut # (Auto) 3.79 (1.4-6.5) K/uL Lymph # (Auto) 1.39 (1.2-3.4) K/uL [place] # (Auto) 0.66 H (0.11-0.59) K/uL Eos # (Auto) 0.23 (0-0.5) K/uL Baso # (Auto) 0.02 (0-0.2) K/uL Immature Gran # (Auto) 0.06 H (0.00-0.02) K/uL Polychromasia Sodium (136-145) mmol/L Potassium (3.5-5.1) mmol/L Chloride (98-107) mmol/L Carbon Dioxide (21-32) mmol/L Anion Gap (3-11) BUN (7-18) mg/dl Creatinine (0.6-1.4) mg/dl Est Cr Clr Drug Dosing ml/min Est GFR ( Amer) Est GFR (Non-Af Amer) BUN/Creatinine Ratio (10-20) Glucose (70-99) mg/dl POC Glucose 105 H (70-99) mg/dl Estimat Average Glucose mg/dl Hemoglobin A1c (4.5-5.6) % Calcium (8.5-10.1) mg/dl Magnesium (1.8-2.4) mg/dl Nasal Screen MRSA (PCR) (Negative) Blood Type Antibody Screen Crossmatch 02/07/21 02/07/21 02/07/21 Range/Units 17:08 15:19 11:45 WBC (4.8-10.8) K/uL RBC (4.7-6.1) M/uL Hgb 7.1 L (14.0-18.0) g/dL Hct 21.7 L (42-52) % MCV (80-100) fL MCH (25-34) pg MCHC (32-36) g/dL RDW Std Deviation (36.4-46.3) fL RDW Coeff of Chilo (11.5-14.5) % Plt Count (130-400) K/uL MPV (7.4-10.4) fL Immature Gran % (Auto) % Neut % (Auto) % Lymph % (Auto) % [place] % (Auto) % Eos % (Auto) % Baso % (Auto) % Neut # (Auto) (1.4-6.5) K/uL Lymph # (Auto) (1.2-3.4) K/uL [place] # (Auto) (0.11-0.59) K/uL Eos # (Auto) (0-0.5) K/uL Baso # (Auto) (0-0.2) K/uL Immature Gran # (Auto) (0.00-0.02) K/uL Polychromasia Sodium (136-145) mmol/L Potassium (3.5-5.1) mmol/L Chloride (98-107) mmol/L Carbon Dioxide (21-32) mmol/L Anion Gap (3-11) BUN (7-18) mg/dl Creatinine (0.6-1.4) mg/dl Est Cr Clr Drug Dosing ml/min Est GFR ( Amer) Est GFR (Non-Af Amer) BUN/Creatinine Ratio (10-20) Glucose (70-99) mg/dl POC Glucose 101 H 163 H (70-99) mg/dl Estimat Average Glucose mg/dl Hemoglobin A1c (4.5-5.6) % Calcium (8.5-10.1) mg/dl Magnesium (1.8-2.4) mg/dl Nasal Screen MRSA (PCR) (Negative) Blood Type Antibody Screen Crossmatch 02/07/21 02/07/21 02/07/21 Range/Units 11:00 05:52 04:35 WBC 8.70 (4.8-10.8) K/uL RBC 1.89 L (4.7-6.1) M/uL Hgb 5.7 L* (14.0-18.0) g/dL Hct 17.7 L* (42-52) % MCV 93.7 (80-100) fL MCH 30.2 (25-34) pg MCHC 32.2 (32-36) g/dL RDW Std Deviation 49.1 H (36.4-46.3) fL RDW Coeff of Chilo 15.2 H (11.5-14.5) % Plt Count 137 (130-400) K/uL MPV 10.5 H (7.4-10.4) fL Immature Gran % (Auto) 0.3 % Neut % (Auto) 81.8 % Lymph % (Auto) 10.7 % [place] % (Auto) 6.7 % Eos % (Auto) 0.3 % Baso % (Auto) 0.2 % Neut # (Auto) 7.11 H (1.4-6.5) K/uL Lymph # (Auto) 0.93 L (1.2-3.4) K/uL [place] # (Auto) 0.58 (0.11-0.59) K/uL Eos # (Auto) 0.03 (0-0.5) K/uL Baso # (Auto) 0.02 (0-0.2) K/uL Immature Gran # (Auto) 0.03 H (0.00-0.02) K/uL Polychromasia 1+ Sodium (136-145) mmol/L Potassium (3.5-5.1) mmol/L Chloride (98-107) mmol/L Carbon Dioxide (21-32) mmol/L Anion Gap (3-11) BUN (7-18) mg/dl Creatinine (0.6-1.4) mg/dl Est Cr Clr Drug Dosing ml/min Est GFR ( Amer) Est GFR (Non-Af Amer) BUN/Creatinine Ratio (10-20) Glucose (70-99) mg/dl POC Glucose (70-99) mg/dl Estimat Average Glucose mg/dl Hemoglobin A1c (4.5-5.6) % Calcium (8.5-10.1) mg/dl Magnesium (1.8-2.4) mg/dl Nasal Screen MRSA (PCR) Negative (Negative) Blood Type O Positive Antibody Screen NEGATIVE Crossmatch See Detail (1) Anemia Anemia type: unspecified type Qualified Code(s): D64.9 - Anemia, unspecified
[2021-02-08] MEDS ORDERED: LIDOCAINE HCL 2% 2 ML VIAL/AMP(20MG/ML) INFIL ONE (10:48)
[2021-02-08] MEDS ORDERED: PROPOFOL IV EMULSION 10 MG/ML 20 ML VIAL IV ONE (10:48)
--- NOTE | 2021-02-08 14:56 | Hospitalist Progress Note ---
Date of Service February 08, 2021 Assessment & Plan (1) Fall: (2) GI bleed: (3) Symptomatic anemia: ASSESSMENT AND PLAN: This is an 85-year-old male who presents with a fall and found to have a hemoglobin of 5.7 and Hemoccult positive. 1. Gastrointestinal bleeding: Most likely upper gastrointestinal bleed because his stool was somewhat black in color on rectal exam in er and Hemoccult was positive. Hemoglobin 5.7. -- CT head: 1. No acute intracranial findings 2. Right frontal scalp edema 3. 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 Acute kidney injury on chronic kidney disease stage III: Baseline creatinine around 1.8 to 1.9. admission, creatinine of 2.5. H -- crea improved to 2.0 with IV fluids monitor closely -- Lisinopril on hold 3. History of diabetes: Hold his glipizide, Januvia and place on insulin sliding scale. -- ISS 4. Hypertension: Continue his Toprol-XL, amlodipine. Holding his lisinopril for increased crea 5. History of hyperlipidemia: Continue statin. 6. Confusion, has history of delirium in the past: -- answers most questions appropriately with intermittent confusion 7. History of aortic stenosis, status post transcatheter aortic valve replacement 8. history of coronary artery disease: -- Holding aspirin and Plavix--> resume tomorrow if no signs of GI bleed, Hg stable -- Continue statin, metoprolol 9. Deep venous thrombosis prophylaxis: Sequential compression devices for now. 10. History of recent subcapital fracture, left hip, status post repair: Physical therapy and occupational therapy when stable. DISPOSITION: pending, anticipate return to Rehab/SNF when medically stable Admission and Anticipated Discharge Date Admission Date: February 07, 2021 Subjective ff up for anemia, GI bleed seen resting in bed ,comfortable sleeping but easily awakened states he feels fine overall mostly oriented, answers all questions appropriately sometimes gets confused denies abdominal pain ,nausea/vomiting, chills no chest pain, dyspnea, palpitations, dizziness minimal L hip and leg pain no other symptoms Review of Systems Review of Systems: All systems reviewed & are unremarkable except as noted in Subjective Physical Exam Physical Exam: General- oriented x 2, not in distress, speaks in sentences with no effort or accessory muscle use Eyes- anicteric Neck- no JVD Lungs- clear breath sounds bilaterally, no rales/wheezes Heart- normal rate, regular rhythm; no murmurs Abdomen- normal bowel sounds, nondistended, soft, nontender Extremities- no pretibial edema, no calf tenderness left hip surgical site- healing well Neuro- alert, oriented x 2; occasionally gets confuse, no gross focal neurologic deficits Skin- warm & dry Results & Data Results & Data ([place]) Vital Signs (Past 12 Hours) Vital Signs Temp Pulse Pulse Resp BP Pulse Ox 02/08/21 11:25 37.0 C 59 L 16 119/51 L 96 02/08/21 10:39 36.3 C L 67 16 114/50 L 95 02/08/21 07:35 62 02/08/21 06:48 36.6 C 65 20 130/48 L 98 02/08/21 03:28 67 02/08/21 03:21 36.3 C L 69 17 144/65 H 97 all noted and reviewed including below Laboratory Results Laboratory Results - last 24 hr 02/07/21 02/07/21 02/07/21 05:52 15:19 17:08 WBC RBC Hgb 7.1 L Hct 21.7 L MCV MCH MCHC RDW Std Deviation RDW Coeff of Chilo Plt Count MPV Immature Gran % (Auto) Neut % (Auto) Lymph % (Auto) [place] % (Auto) Eos % (Auto) Baso % (Auto) Neut # (Auto) Lymph # (Auto) [place] # (Auto) Eos # (Auto) Baso # (Auto) Immature Gran # (Auto) Sodium Potassium Chloride Carbon Dioxide Anion Gap BUN Creatinine Est Cr Clr Drug Dosing Est GFR ( Amer) Est GFR (Non-Af Amer) BUN/Creatinine Ratio Glucose POC Glucose 101 H Estimat Average Glucose Hemoglobin A1c Calcium Magnesium Blood Type O Positive Antibody Screen NEGATIVE Crossmatch See Detail 02/07/21 02/07/21 02/08/21 20:45 21:15 05:28 WBC 6.15 RBC 2.92 L Hgb 8.4 L 8.4 L Hct 25.6 L 25.9 L MCV 88.7 D MCH 28.8 MCHC 32.4 RDW Std Deviation 52.0 H RDW Coeff of Chilo 16.8 H Plt Count 108 L MPV 10.1 Immature Gran % (Auto) 1.0 Neut % (Auto) 61.7 Lymph % (Auto) 22.6 [place] % (Auto) 10.7 Eos % (Auto) 3.7 Baso % (Auto) 0.3 Neut # (Auto) 3.79 Lymph # (Auto) 1.39 [place] # (Auto) 0.66 H Eos # (Auto) 0.23 Baso # (Auto) 0.02 Immature Gran # (Auto) 0.06 H Sodium Potassium Chloride Carbon Dioxide Anion Gap BUN Creatinine Est Cr Clr Drug Dosing Est GFR ( Amer) Est GFR (Non-Af Amer) BUN/Creatinine Ratio Glucose POC Glucose 105 H Estimat Average Glucose Hemoglobin A1c Calcium Magnesium Blood Type Antibody Screen Crossmatch 02/08/21 02/08/21 02/08/21 05:28 05:28 07:41 WBC RBC Hgb Hct MCV MCH MCHC RDW Std Deviation RDW Coeff of Chilo Plt Count MPV Immature Gran % (Auto) Neut % (Auto) Lymph % (Auto) [place] % (Auto) Eos % (Auto) Baso % (Auto) Neut # (Auto) Lymph # (Auto) [place] # (Auto) Eos # (Auto) Baso # (Auto) Immature Gran # (Auto) Sodium 144 Potassium 3.8 D Chloride 115 H Carbon Dioxide 25 Anion Gap 4.0 BUN 68 H Creatinine 2.07 H D Est Cr Clr Drug Dosing 29.7 Est GFR ( Amer) 33.3 Est GFR (Non-Af Amer) 28.8 BUN/Creatinine Ratio 32.6 H Glucose 69 L POC Glucose 86 Estimat Average Glucose 143 Hemoglobin A1c 6.6 H Calcium 8.0 L Magnesium 2.2 Blood Type Antibody Screen Crossmatch 02/08/21 11:53 WBC RBC Hgb Hct MCV MCH MCHC RDW Std Deviation RDW Coeff of Chilo Plt Count MPV Immature Gran % (Auto) Neut % (Auto) Lymph % (Auto) [place] % (Auto) Eos % (Auto) Baso % (Auto) Neut # (Auto) Lymph # (Auto) [place] # (Auto) Eos # (Auto) Baso # (Auto) Immature Gran # (Auto) Sodium Potassium Chloride Carbon Dioxide Anion Gap BUN Creatinine Est Cr Clr Drug Dosing Est GFR ( Amer) Est GFR (Non-Af Amer) BUN/Creatinine Ratio Glucose POC Glucose 90 Estimat Average Glucose Hemoglobin A1c Calcium Magnesium Blood Type Antibody Screen Crossmatch (1) Fall Encounter type: initial encounter Qualified Code(s): W19.XXXA - Unspecified fall, initial encounter (2) GI bleed GI bleed type/associated pathology: unspecified gastrointestinal hemorrhage type Qualified Code(s): K92.2 - Gastrointestinal hemorrhage, unspecified
[2021-02-08] MEDS: PANTOprazole 40 MG in SYRINGE 0 ML IV SCH (20:33)
[2021-02-08] MEDS: MIRTAZAPINE TAB 15 MG TAB PO SCH (20:35)
[2021-02-08] MEDS: ATORVASTATIN 10 MG TAB PO SCH (20:35)
[2021-02-09] MEDS ORDERED: Nursing to Pharmacy Communication SCH (05:30)
[2021-02-09] MEDS: INSULIN ASPART 100 UNITS/ML 3 ML PEN SC SCH ×4 (08:22→20:55)
[2021-02-09] MEDS: FERROUS SULFATE 325 MG TAB PO SCH ×2 (08:23→20:56)
[2021-02-09] MEDS: METOPROLOL SUCC 25MG EXT REL TAB PO SCH ×2 (08:23→20:55)
[2021-02-09] MEDS: PANTOprazole 40 MG in SYRINGE 0 ML IV SCH ×2 (08:24→20:55)
--- NOTE | 2021-02-09 12:08 | Gastroenterology Progress Note ---
Date of Service February 09, 2021 Assessment & Plan (1) Anemia: This is an 85-year-old male, with multiple comorbidities, recently underwent left hip ORIF 01/11/2021, and had postop anemia s/p 2 units pRBC earlier this month, now admitted after presenting with a fall, and GI consulted for acute on chronic anemia with concurrent rise in BUN, along with black heme positive stool concerning for possible UGIB. After receiving 2 units pRBC HGB improved to 8.4 and BUN trended down. He's had no further GI output, including no melena. He does have some ongoing confusion but is awake, alert, currently vitals are stable, abd is soft. Yesterday EGD was deferred at the request of his POA as he has remained stable with no ongoing bleeding. - Would be reasonable to continue PPI, can switch to oral upon discharge - Would monitor H&H and GI output - Continue supportive care with regard to his hip pain and co-morbidities - GI will sign off, please call with questions, including recurrent GIB or drop in H&H Admission and Anticipated Discharge Date Admission Date: February 07, 2021 Supervising Physician Co-Signing Physician Notes Attending attestation I have seen, examined this patient, and agree with the findings and above by our mid-level provider Lang Rubi., with the following additions: - No signs of bleeding - HD stable - Family desires not to have EGD - BID PPI x 1 month, then daily - Oral and or IV iron - will sign off, call with questions Subjective Pt seen and examined, chart reviewed. He's had no GIB overnight; has no GI symptoms today and tolerated his breakfast. Yesterday EGD was not done as after checking with his daughter (POA), it was felt that due to lack of ongoing GIB and stable H&H, watchful waiting would be best. Denies abd pain, n/v, hematemesis, melena, hematochezia. HGB not repeated today. VSS. He's uncomfortable with regard to some ongoing hip pain. Review of Systems Review of Systems: All systems reviewed & are unremarkable except as noted in HPI & below Physical Exam Constitutional: well developed; no acute distress Eyes: sclerae not anicteric Respiratory: normal respiratory effort, lungs clear to auscultation Cardiovascular: Rate/Rhythm: regular rate and regular rhythm Gastrointestinal (Abdomen): Inspection/Auscultation: abdomen normal to inspection and normal bowel sounds; abdomen not distended Percussion/Palpation: abdomen soft; abdomen nontender and no guarding Skin: no rashes, warm and dry Psychiatric: awake and alert, confused in regards to time, events Results & Data ([facility]) Vital Signs (Past 12 Hours) Vital Signs Temp Pulse Pulse Resp BP Pulse Ox 02/09/21 11:45 36.7 C 73 18 126/45 L 98 02/09/21 07:26 36.7 C 68 16 138/66 94 02/09/21 07:10 69 02/09/21 02:57 36.5 C 72 18 121/72 96 Laboratory Results 02/09/21 02/09/21 02/08/21 Range/Units 11:50 07:46 20:04 POC Glucose 174 H 111 H 256 H (70-99) mg/dl 02/08/21 Range/Units 16:51 POC Glucose 118 H (70-99) mg/dl (1) Anemia Anemia type: unspecified type Qualified Code(s): D64.9 - Anemia, unspecified
--- NOTE | 2021-02-09 12:23 | Hospitalist Progress Note ---
Date of Service February 09, 2021 Assessment & Plan (1) Fall: possibly 2/2 symptomatic anemia. Patient also reports issues with labile blood sugar. Doing well after 3 units pRBCs this admission. Denies lightheadedness. Physical ability is somewhat limited in post-operative state. Cont PT/OT with restrictions per Orthopedics and repeat H/H in am. Plan to dc back to rehab to complete his therapy program. (2) GI bleed: No longer appears to have active GI bleeding. EGD yesterday was deferred to be more conservative. Patient appears stable and had a normal BM today. He is tolerating PO. Trend H/H in am. Cont PPI therapy at this time. Plan for dc back to rehab once H/H stable and patient is asymptomatic. (3) Acute on chronic renal failure: Acute kidney injury on chronic kidney disease stage III: Baseline creatinine around 1.8 to 1.9. admission, creatinine of 2.5. Cont holding lisinopril and repeat BMP in am. (4) DMII (diabetes mellitus, type 2): well controlled and at inpatient goal. Cont minimal insulin coverage at this time. (5) Post-operative state: s/p left ORIF by Dr. Humphreys on 01/11/21 for a left hip subcapital fracture. Patient has been at [facility] doing rehab. He is NWB to the left lower extremity for at least 6 weeks from surgery and needs to closely follow-up with Ortho as outpatient. PT/OT with modifications. (6) Acute blood loss anemia: 2/2 GI bleeding. Improved with blood transfusion. Repeat H/H in am. (7) CAD (coronary artery disease): Holding aspirin and Plavix at this time, cont Toprol XL and Liptor. (8) DVT prophylaxis: Chemoprophylaxis contraindicated in setting of acute blood loss anemia. Cont SCDS Full Code Dispo-to JV when H/H stable and patient is asymptomatic. Sandra Todd DO [facility] Hospitalist Admission and Anticipated Discharge Date Admission Date: February 07, 2021 Subjective 85 yo M presented to ER from [facility] after being found on the floor with confusion. Workup revealed Hb 5.7 with melenotic stool. EGD was planned for yesterday but deferred. Continues to do well today per nursing staff. Advancing diet and had normal, nonbloody BM today. GI following. Mr Naresh is feeling well this evening but doesn't remember the fall at [facility] or the details surrounding it. He appears slightly confused on the sequence of events but is oriented to person place and time and knows he came from and why he was originally there. Some expected intermittent pain in his postoperative site but otherwise doing well overall. Review of Systems Review of Systems: All systems reviewed & are unremarkable except as noted in Subjective Physical Exam Physical Exam: CONSTITUTIONAL: WNWD, vitals as above, generally well- appearing EYES: pupils are round and equal bilaterally, normal conjunctivae, periorbital ecchymosis on the right eye present. ENT: some trauma to the right forehead over the brow RESPIRATORY: clear to auscultation bilaterally, no crackles, rales or wheezes, normal respiratory effort CARDIOVASCULAR: regular rate and rhythm, S1 and 2 heard without murmurs, gallops or rubs, no JVD, no peripheral edema GASTROINTESTINAL: soft, nontender, nondistended. : Díaz in place, draining yellow urine. MUSCULOSKELETAL: generalized weakness, left hip post operative state SKIN: warm and dry, left hip incision closed without sutures in place and healing well. No erythema or drainage. NEUROLOGIC: CN 2-12 grossly intact, normal cognition, normal speech, no gross focal deficits. PSYCHIATRIC: alert cooperative and oriented to person, place and time. Results & Data Results & Data ([facility]) Vital Signs (Past 12 Hours) Vital Signs Temp Pulse Pulse Resp BP Pulse Ox 02/09/21 11:45 36.7 C 73 18 126/45 L 98 02/09/21 07:26 36.7 C 68 16 138/66 94 02/09/21 07:10 69 02/09/21 02:57 36.5 C 72 18 121/72 96 Medications Administered Current Inpatient Medications Acetaminophen (Acetaminophen 325 Mg Tab) 650 mg PO Q4H PRN PRN Reason: Pain or Fever Stop: 03/09/21 09:12 Albuterol (Albuterol Hfa 8 Gm Inhaler) 2 puffs INH Q4 PRN PRN Reason: Shortness Of Breath Stop: 03/09/21 09:12 Amlodipine Besylate (Amlodipine Besylate 5 Mg Tab) 5 mg PO QAM [facility] Stop: 03/09/21 09:12 Last Admin: 02/07/21 10:09 Dose: 5 mg Documented by: Atorvastatin Calcium (Atorvastatin 10 Mg Tab) 10 mg PO PM NIDIA Stop: 03/09/21 20:59 Last Admin: 02/08/21 20:35 Dose: 10 mg Documented by: Dextrose (Dextrose 50% 50 Ml Syringe) 25 - 50 ml IV UD PRN; Protocol PRN Reason: Hypoglycemia Protocol Stop: 03/09/21 10:44 Docusate Sodium (Docusate Sodium 100 Mg Cap) 100 mg PO DAILY PRN PRN Reason: on day 2 no bm Stop: 03/09/21 09:12 Ferrous Sulfate (Ferrous Sulfate 325 Mg Tab) 325 mg PO BID NIDIA Stop: 03/09/21 09:59 Last Admin: 02/09/21 08:23 Dose: 325 mg Documented by: Glucagon (Glucagon For Inj 1 Mg Vial) 1 mg IM UD PRN; Protocol PRN Reason: Hypoglycemia Protocol Stop: 03/09/21 10:44 Glucose (Glucose 40% Gel 15 Gm Tube) 15 - 30 gm PO UD PRN; Protocol PRN Reason: Hypoglycemia Protocol Stop: 03/09/21 10:44 Glucose (Glucose 10 Tabs/Tube) 4 - 8 tabs PO UD PRN; Protocol PRN Reason: Hypoglycemia Protocol Stop: 03/09/21 10:44 Pantoprazole Sodium 40 mg/ (Syringe) 10 mls @ 5 mls/min IV BID NIDIA Stop: 03/10/21 20:59 Last Admin: 02/09/21 08:24 Dose: 5 mls/min Documented by: Insulin Aspart (Insulin Aspart 100 Units/Ml 3 Ml Pen) 0 units SC ACHS NIDIA Stop: 03/09/21 11:29 Last Admin: 02/09/21 08:22 Dose: 2 units Documented by: Lorazepam (Lorazepam 0.5 Mg Tab) 0.5 mg PO Q8 PRN PRN Reason: Anxiety Stop: 03/09/21 09:12 Metoprolol Succinate (Metoprolol Succ 25mg Ext Rel Tab) 12.5 mg PO AMHS NIDIA Stop: 03/09/21 09:12 Last Admin: 02/09/21 08:23 Dose: 12.5 mg Documented by: Mirtazapine (Mirtazapine Tab 15 Mg Tab) 15 mg PO HS NIDIA Stop: 03/09/21 20:59 Last Admin: 03/24/21 20:35 Dose: 15 mg Documented by: Miscellaneous (Carbohydrates For Hypoglycemia ) 15 - 30 gm PO UD PRN PRN Reason: Hypoglycemia Treatment Stop: 03/09/21 10:44 Nitroglycerin (Nitroglycerin Sl 0.4 Mg/Tab Tab) 0.4 mg SL UD PRN PRN Reason: Chest Pain Stop: 03/09/21 09:12 Ondansetron HCl (Ondansetron Inj 2 Mg/Ml 2 Ml Vial) 4 mg IV Q6H PRN PRN Reason: Nausea Stop: 03/09/21 09:12 Polyethylene Glycol (Polyethylene (Miralax) 17 Gm Pack) 17 gm PO DAILY PRN PRN Reason: Constipation Stop: 03/09/21 09:12 Sennosides (Senna 8.6 Mg Tab) 8.6 mg PO HS PRN PRN Reason: Constipation Stop: 03/09/21 09:12 Tramadol HCl (Tramadol Hcl 50 Mg Tablet) 50 mg PO Q8H PRN PRN Reason: moderate to severe pain Stop: 03/09/21 09:12 Last Admin: 02/08/21 05:35 Dose: 50 mg Documented by: (1) GI bleed GI bleed type/associated pathology: unspecified gastrointestinal hemorrhage type Qualified Code(s): K92.2 - Gastrointestinal hemorrhage, unspecified (2) Fall Encounter type: initial encounter Qualified Code(s): W19.XXXA - Unspecified fall, initial encounter
[2021-02-09] MEDS: ATORVASTATIN 10 MG TAB PO SCH (20:56)
[2021-02-09] MEDS: MIRTAZAPINE TAB 15 MG TAB PO SCH (20:56)
[2021-02-10 06:46] LABS: Hematocrit (blood only) 28.2 % (42-52); Hemoglobin 9.1 g/dL (14.0-18.0); Mean Corpuscular Hemoglobin 29.3 pg (25-34); Mean Corpuscular Hgb Conc 32.3 g/dL (32-36); Mean Corpuscular Volume 90.7 fL (80-100); Mean Platelet Volume 10.3 fL (7.4-10.4); Platelet Count 106 K/uL (130-400); RDW Coefficient of Variation 16.6 % (11.5-14.5); RDW Standard Deviation 50.5 fL (36.4-46.3); Red Blood Count 3.11 M/uL (4.7-6.1)
[2021-02-10 07:18] LABS: BUN Creatinine Ratio 18.5 (10-20); Creatinine Clr Calc Pharmacy 34.9 ml/min; Est GFR (African American) 40.5; Potassium 3.8 mmol/L (3.5-5.1)
[2021-02-10] MEDS: METOPROLOL SUCC 25MG EXT REL TAB PO SCH (08:28)
[2021-02-10] MEDS: FERROUS SULFATE 325 MG TAB PO SCH (08:28)
[2021-02-10] MEDS: INSULIN ASPART 100 UNITS/ML 3 ML PEN SC SCH ×2 (08:29→12:07)
[2021-02-10] MEDS ORDERED: PANTOprazole 40 MG TAB PO SCH (09:00)
--- NOTE | 2021-02-10 14:16 | Discharge Summary ---
Date of Service February 10, 2021 Admission HPI Per Admitting Provider This is an 85-year-old male with past medical history significant for type 2 diabetes, hyperlipidemia, chronic kidney disease stage III, carotid stenosis, hypertension, left bundle branch block, severe aortic stenosis, status post TAVR, chronic kidney disease stage III, history of thrombocytopenia, history of carotid endarterectomy, anxiety. The patient was recently in the hospital with a fall and had a left hip fracture, status post surgery. Postoperatively, he required 2 units of PRBCs and he was discharged to [facility] and he was brought in today because he was found on the floor. In the ER, the patient is alert and awake, could tell his name, could tell his date of , does not know where he is and he is somewhat confused and has some bruises on his forehead. Denies any chest pain. Denies any abdominal pain. Denies any nausea but is somewhat hard to hear and has confusion, I could not get much history from the patient. Tried to call [facility], could not be able to reach the appropriate nurse. As per the , she was told that he fell on the floor while going to the bathroom. was upset that he laid on the floor. Before that, thinks when he was at home, he was walking and climbing steps okay, but sometimes he gets confused, maybe has some mild dementia as per the . As per the ER note, when he fell today, there was no loss of consciousness. He is intermittently confused. He was unable to get up from the fall. His hemoglobin was 5.7 in the ER and black stools that is positive for Hemoccult on rectal exam. ER ordered 2 units of PRBCs and Protonix drip. Hemodynamics are stable. Admission Exam Per Admitting Provider VITAL SIGNS: Temperature 37, pulse 85, respiratory rate 16, blood pressure 128/50, oxygen 98% on room air. HEENT: Pupils equal, round, reactive to light. Some bruises seen on the forehead. Oral mucosa dry. NECK: No JVD, no neck masses seen. CARDIOVASCULAR: S1, S2 heard, no murmur, no gallop. RESPIRATORY SYSTEM: Normal AP diameter. No accessory muscle use. No wheezing, no crackles. ABDOMEN: Soft, bowel sounds present, nontender. No distention. CENTRAL NERVOUS SYSTEM: Alert, awake, and oriented to name. No facial droop. Speech is clear. Moving extremities. EXTREMITIES: No edema, no erythema. Principal Diagnosis Fall with right periorbital ecchymosis. Acute GI bleed Acute on chronic renal failure s/p L hip repair Dec 2020, NWB to LLE x 6 weeks post op. Discharge Exam CONSTITUTIONAL: WNWD, vitals as above, generally well-appearing EYES: pupils are round and equal bilaterally, normal conjunctivae, periorbital ecchymosis on the right eye present. ENT: some trauma to the right forehead over the brow RESPIRATORY: clear to auscultation bilaterally, no crackles, rales or wheezes, normal respiratory effort CARDIOVASCULAR: regular rate and rhythm, S1 and 2 heard without murmurs, gallops or rubs, no JVD, no peripheral edema GASTROINTESTINAL: soft, nontender, nondistended. : Díaz in place, draining yellow urine. MUSCULOSKELETAL: generalized weakness, left hip post operative state SKIN: warm and dry, left hip incision closed without sutures in place and healing well. No erythema or drainage. NEUROLOGIC: CN 2-12 grossly intact, normal cognition, normal speech, no gross focal deficits. PSYCHIATRIC: alert cooperative and oriented to person, place and time. Discharge Data Allergies Allergy/AdvReac Type Severity Reaction Status Date / Time No Known Allergies Allergy Unknown Verified 02/07/21 06:50 Consultations 02/07/21 06:30 ED Decision to Admit Stat 02/07/21 09:13 Consult Gastroenterology Routine Procedures Performed Operation Date: 02/08/21 16:30 <No data on this case meets the specified criteria> Ordered Studies 02/07/21 05:06 CT cervical spine wo con Urgent 02/07/21 05:07 CT head/brain wo con Urgent Hospital Course (1) Fall: (2) Acute blood loss anemia: (3) GI bleed: (4) Acute on chronic renal failure: (5) Post-operative state: (6) CAD (coronary artery disease): The patient is an 85-year-old man who recently had a hip fracture and underwent a left hip surgery. He was placed on twice daily aspirin in addition to his daily Plavix for DVT prophylaxis postoperatively. He subsequently presented back to the ER after a fall with significant anemia. There was a concern for upper gastrointestinal bleed with evidence of melena on arrival and a hemoglobin of 5.7. His aspirin and Plavix were held and he was placed on a Protonix drip. He underwent a transfusion of 3 units of packed red blood cells over the course of the hospitalization with stabilization of his H&H. GI was consulted and considered an EGD but ultimately deferred to more conservative therapy. His H&H remained stable and he subsequently had normal bowel movements. Began to feel improved. He also initially had acute kidney injury i n the setting of stage III chronic kidney disease with a baseline creatinine around 1.8 and creatinine of 2.5 on admission. This was normalized prior to discharge. His GI bleed was thought secondary to antiplatelet therapy. The case was peripherally discussed with cardiology and it was reasonable to discontinue his clopidogrel. He was placed back on once daily aspirin in addition to Protonix twice daily until further follow-up with either primary care or GI as outpatient. At time of discharge she was hemodynamically stable and afebrile and tolerating p.o. He was sent back to [facility] for continued rehabilitation in stable condition. Total Time Total Time Spent Total Time Spent (In Minutes): 60 Total Time Includes: Examination of the Patient, Discharge Planning, Medication Reconciliation and Communication With Other Providers Discharge Plan Discharge Items Patient Disposition: Transfer Alf Fac Reason For Visit: FALL Discharge Diagnosis: Fall with right periorbital ecchymosis. Acute GI bleed Acute on chronic renal failure s/p L hip repair Dec 2020, NWB to LLE x 6 weeks post op. Condition on Discharge: Good Activity: As commented below Activity Comment: NWB to LLE Non-emergency contact: Primary Care Provider, Surgeon and Front End [employer] Developer Call non-emergency contact if: you have any medication questions, your symptoms worsen, your pain is not controlled, your pain is worsening, your pain is unusual for you, your pain is concerning for you and you have a fever Follow-up/Referrals: Chad Rowland, [Primary Care Provider] - Diet: Carb Consistent or DM2 Diet Texture: Dental soft (bite-sized) Addtl Attending Provider Instructions: Please take all medications as instructed on discharge list below. To avoid further bleeding issues please continue on one baby aspirin daily and stop clopidogrel (Plavix). You have also been provided with a new acid reflux medication called Protonix which will help to protect the stomach lining moving forward. Please follow-up with Orthopedics for post op wound checks as instructed and continue to avoid bearing any weight on your left leg until 6 weeks post-op and clearance from orthopedics. It was a pleasure taking care of you! Please call if you have any questions or problems. You can reach a [facility] hospitalist on duty at [facility] 24 hours a day by calling [phone]. Take care of yourself. Sandra Todd, DO [facility] Hospitalist Pending Studies at Discharge: No Stand-Alone Forms: My [facility] Skilled Items Patient informed of condition?: Yes DNR: No Discharge Level of Care: Skilled Communicable Disease: No Discharge Prognosis: Stable Lines: None Urinary Catheter: No Medications and DC Order Prescriptions: New pantoprazole 40 mg Tablet,Delayed Release (Dr/Ec) 40 mg PO BID Qty: 60 RF: 1 aspirin 81 mg tablet,delayed release (DR/EC) 81 mg PO DAILY Qty: 30 RF: 1 Continued atorvastatin 10 mg Tablet 10 mg PO PM RF: 0 amlodipine [Norvasc] 5 mg tablet 5 mg PO QAM RF: 0 lisinopril 10 mg Tablet 10 mg PO DAILY RF: 0 metoprolol succinate 25 mg tablet extended release 24 hr 12.5 mg PO AMHS RF: 0 tramadol 50 mg Tablet 50 mg PO Q8H PRN (Reason: moderate to severe pain) Qty: 10 RF: 0 glipizide 10 mg tablet 10 mg PO QPM RF: 0 glipizide 10 mg tablet 20 mg PO QAM RF: 0 Januvia 50 mg tablet 50 mg PO QAM RF: 0 ferrous sulfate 325 mg (65 mg iron) Tablet 325 mg PO BID RF: 0 calcium citrate 250 mg calcium Tablet 500 mg PO QAM RF: 0 lorazepam 0.5 mg tablet 0.5 mg PO Q8 PRN (Reason: Anxiety) RF: 0 mirtazapine 15 mg tablet 15 mg PO HS RF: 0 acetaminophen 325 mg tablet 650 mg PO Q4 PRN (Reason: Fever Or Pain) RF: 0 sennosides [Senokot] 8.6 mg Tablet 8.6 mg PO HS MDD 1 in 24 hours PRN (Reason: Constipation) RF: 0 docusate sodium [Colace] 100 mg Capsule 100 mg PO .EVERY 24 HOURS IN A PRN (Reason: on day 2 no bm) RF: 0 polyethylene glycol 3350 [Miralax] 17 gram/dose Powder 17 g PO .EVERY 24 HOURS PRN (Reason: on day 2 of no bm) RF: 0 albuterol sulfate [Ventolin HFA] 90 mcg/actuation Hfa Aerosol Inhaler 2 puff INHALATION Q4 PRN (Reason: Shortness Of Breath) RF: 0 Vitamin D3 1 tab PO QAM RF: 0 Discontinued clopidogrel 75 mg Tablet 75 mg PO DAILY RF: 0 aspirin [Aspirin For Children] 81 mg Tablet,Chewable 81 mg PO BID RF: 0 Discharge Orders: Discharge Order (Routine); Ordered 02/10/21 Ordered By: Sandra Bedolla/Other Patient Handouts: High Blood Sugar (Hyperglycemia), Managing Type 2 Diabetes Admission Data Admit Date/Time: 02/07/21 07:00 Attending Provider: Sandra Todd Admit Provider: Clyde Hagan Primary Care Provider: Chad Rowland Other Providers: Neha Mason Lolita ; Clyde Hagan ; Lizette Martinez ; Tamiko Do ; Buster Segura ; Cari Pollard ; James Veliz ; Kait Kapoor ; Jaja Collazo ; Dante Mcconnell ; Jim Valle ; Maame Guerrero ; Alina Marinelli ; Erika Garcia ; Kirstin Sosa ; Alcon Lomas ; Mary Hagan Other Interventions: Discharge Summary Assessment (RN) Last Done: 02/10/21 14:12
== END 2021-02-10 15:44 | DRG 378 ==
LOC: ED 04:55 → 2N 07:00 → SUATTDRO 07:00 → 2N 08:32

== ENCOUNTER 2022-03-04 06:46 | Inpatient (IN) ==
[2022-03-04] MEDS ORDERED: fentaNYL citrate 100 MCG/2 ML VIAL IV STA ×3 (06:55→08:43)
--- NOTE | 2022-03-04 07:02 | Emergency Department Note ---
Impression & Plan Hematuria, Elevated troponin, Abdominal pain, lower ED Provider Note Provider: Mehdi Ocasio MD DATE OF SERVICE: 03/04/2022 CHIEF COMPLAINT: Bladder pain and bloody urine HISTORY OF PRESENT ILLNESS: Patient is a 86-year-old gentleman history of diabetes, CKD, aortic stenosis status post TAVR, thrombocytopenia, and CAD on aspirin presenting here today from his nursing facility with bladder discomfort and hematuria. Per facility notes and EMS report, evidently had significant hematuria develop overnight with pain. Given Tylenol this morning for improvement. No fever or other trauma is reported. Patient upon arrival is complaining of pain in the suprapubic region. He denies chest pain or nausea or shortness of breath. REVIEW OF SYSTEMS: A total of 10 review of systems was obtained and negative except as stated above in the HPI. PAST MEDICAL HISTORY: As noted above MEDICATIONS: Reviewed on medication list includes aspirin SOCIAL HISTORY: Resides in nursing facility PHYSICAL EXAM: GENERAL: alert and oriented to person on stretcher although complaining of lower abdominal/bladder pain. Patient hard of hearing Head: normocephalic and atraumatic EYES: No injection, discharge or icterus. NECK: Trachea midline. ENT: Mucous membranes pink and moist. LUNGS: Airway patent. No retractions. Breath sounds clear HEART: Regular rate and rhythm. No chest wall tenderness ABDOMEN: Soft without peritonitis but some mild suprapubic tenderness. Díaz catheter in place upon arrival. SKIN: Acyanotic, warm, dry, without rashes EXTREMITIES: Without swelling, tenderness or deformity NEUROLOGICAL: No focal deficits. No aphasia. No facial droop or slurred speech. EK bpm normal sinus rhythm with right bundle branch block. No acute ST segment elevation or depression noted with a QTC of 468. No PVC or PAC noted. CONTINUOUS CARDIAC MONITORING: was ordered and showed a heart rate of 80s-90s bpm in normal sinus rhythm Patient's laboratory studies and imaging reviewed. Differential includes Renal colic, UTI, appendicitis, diverticulitis, mesenteric ischemia, aortic pathology, infections, inflammatory bowel disease, PUD, biliary pathology, urinary retention, as well as other pathologies. IMPRESSION/MEDICAL DECISION MAKING: Reviewed medical record and the patient was seen here 2 mornings ago for urinary retention evidently noted some blood in the urine at that time and a Díaz catheter was placed. Reported history of renal cyst. Three-way Díaz catheter was placed and sent home and returns today with hematuria and lower pain. Urinalysis from the other day did not seem indicative of infection although repeat blood work including renal function and urinalysis were sent here today. Bladder scan was obtained (~270mL reported) and irrigation performed. Given his continued hematuria and significant discomfort did complete a Noncon CT scan of the abdomen pelvis to exclude stone or obvious mass. Patient with slight leukocytosis of 12.2 today compared to blood work from 2 days ago. Hemoglobin is dropped from 12.2 to 9.1. Platelet count 115 today from 136. CKD with a creatinine of 2 and BUN of 40 both very slightly increased and he has a history of chronic CKD. Urinary catheter was unable to be irrigated and was exchanged. Irrigation with approximately 500 cc of saline still returning bloody. CT scan per radiology's report prostamegaly probable bladder hematoma in the lumen with bladder calculi versus calcified bladder neoplasm. No signs of hydronephrosis or bowel obstruction. Patient's hs troponin does return somewhat elevated. Previous nonhigh-sensitivity troponin have been elevated in the past with the most recent is been undetectable. Patient not reporting significant chest discomfort this time and EKG without significant ischemic changes. Given the significant hematuria, drop in hemoglobin, troponin changes, and his discomfort which was treated with fentanyl here. Will start CBI and recommend further care here at the hospital. DIAGNOSIS: Hematuria, lower abdominal pain, elevated troponin DISPOSITION: Hospitalist will evaluate Patient was agreeable with this plan. Calls to and daughter at phone #s listed in EMR only went to voicemail. Past Med/Surg History Medical History CKD (chronic kidney disease) stage 4, GFR 15-29 ml/min Closed head injury Closed hip fracture Fall Fall GI bleed Hyperlipidemia RBBB Symptomatic anemia Surgical History History of cardiac cath CAD by cardiac catheterization 11/2019. Distal LMCA has a 40% stenosis which is not significant by IVUS with a mLA of 13.8 mm^2. The mid LAD had a 30% stenosis. The LCx and RCA had mild luminal irregularities History of carotid endarterectomy right History of cataract surgery LEFT. . 2mg versed no issues. 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 Beliefs That Will Affect Care: None marital status: Current Living Situation: Spouse Current Living Situation Comment: came from [facility] after recent discharge after hip surgery Feels Safe at Home: Yes Assistive Devices: Glasses Allergies Allergies Allergy/AdvReac Type Severity Reaction Status Date / Time No Known Allergies Allergy Unknown Verified 04/25/21 09:16 Home Meds Home Medications Medication Instructions Recorded Confirmed atorvastatin 10 mg tablet 10 mg PO PM 03/03/19 05/02/21 amlodipine 5 mg tablet (Norvasc) 5 mg PO QAM 01/10/21 05/02/21 Vitamin D3 1 tab PO QAM 02/07/21 05/02/21 acetaminophen 325 mg tablet 650 mg PO Q4 PRN 02/07/21 05/02/21 calcium citrate 500 mg PO QAM 02/07/21 05/02/21 docusate sodium 100 mg capsule 100 mg PO .EVERY 24 HOURS IN A PRN 02/07/21 05/02/21 (Colace) ferrous sulfate 325 mg (65 mg 325 mg PO BID 02/07/21 05/02/21 iron) tablet lorazepam 0.5 mg tablet 0.5 mg PO Q8 PRN 02/07/21 05/02/21 mirtazapine 15 mg tablet 15 mg PO HS 02/07/21 05/02/21 polyethylene glycol 3350 17 17 g PO .EVERY 24 HOURS PRN 02/07/21 05/02/21 gram/dose oral powder (Miralax) sitagliptin 50 mg tablet (Januvia) 50 mg PO QAM 02/07/21 05/02/21 insulin aspart U-100 100 unit/mL 1 sliding scale dose SUBCUT 03/28/21 05/02/21 subcutaneous cartridge (Novolog USEASDIRECTD PenFill U-100 Insulin aspart) insulin glargine 100 unit/mL 15 unit SUBCUT QAM 03/28/21 05/02/21 subcutaneous solution (Lantus U-100 Insulin) sitagliptin 50 mg tablet (Januvia) 50 mg PO DAILY 03/28/21 05/02/21 aspirin 81 mg tablet,delayed 81 mg PO BID tab 04/11/21 05/02/21 release metoprolol succinate 25 mg 25 mg PO BID 04/11/21 05/02/21 tablet,extended release 24 hr Previous Rx's Medication Instructions Recorded tramadol 50 mg tablet 50 mg PO Q8H PRN #10 tab 01/16/21 pantoprazole 40 mg tablet,delayed 40 mg PO BID #60 tab 02/10/21 release Results & Data (ED) Vital Signs Vital Signs - 24 hr 03/04/22 06:58 03/04/22 07:00 03/04/22 07:30 Temperature Temperature Source Pulse Rate 87 80 89 Pulse Rate from SpO2 Sensor 87 78 91 H Pulse Rhythm Pulse Strength Respiratory Rate 20 20 18 Respiratory Effort / Characteristics Respiratory Depth Respiratory Pattern Blood Pressure Blood Pressure Mean Blood Pressure Position Pulse Oximetry 97 100 98 Oxygen Delivery Method Sepsis Recent Fever Within 48 Hours Sepsis New/Unexplained Change in Mental Status Sepsis Action Taken by Nursing 03/04/22 08:01 03/04/22 08:02 03/04/22 08:30 Temperature 36.8 C Temperature Source Oral Pulse Rate 82 84 86 Pulse Rate from SpO2 Sensor Pulse Rhythm Regular Pulse Strength Normal Respiratory Rate 20 20 21 Respiratory Effort / Characteristics Non-Labored Spontaneous Respiratory Depth Normal Respiratory Pattern Regular Blood Pressure 187/77 H Blood Pressure Mean 113 Blood Pressure Position Sitting Pulse Oximetry 98 Oxygen Delivery Method Room Air Sepsis Recent Fever Within 48 Hours No Sepsis New/Unexplained Change in Mental Status N/A Sepsis Action Taken by Nursing No Action Required 03/04/22 09:00 03/04/22 09:23 03/04/22 09:30 Temperature Temperature Source Pulse Rate 76 73 76 Pulse Rate from SpO2 Sensor Pulse Rhythm Pulse Strength Respiratory Rate 22 20 23 Respiratory Effort / Characteristics Respiratory Depth Respiratory Pattern Blood Pressure 176/88 H Blood Pressure Mean 117 Blood Pressure Position Pulse Oximetry Oxygen Delivery Method Sepsis Recent Fever Within 48 Hours Sepsis New/Unexplained Change in Mental Status Sepsis Action Taken by Nursing 03/04/22 10:42 Temperature Temperature Source Pulse Rate 71 Pulse Rate from SpO2 Sensor Pulse Rhythm Pulse Strength Respiratory Rate 24 Respiratory Effort / Characteristics Respiratory Depth Respiratory Pattern Blood Pressure 168/73 H Blood Pressure Mean Blood Pressure Position Pulse Oximetry 99 Oxygen Delivery Method Room Air Sepsis Recent Fever Within 48 Hours Sepsis New/Unexplained Change in Mental Status Sepsis Action Taken by Nursing Laboratory Data Result diagrams: 03/04/22 06:58 03/04/22 06:58 Lab Results 03/04/22 03/04/22 03/04/22 Range/Units 06:58 06:58 06:58 WBC 12.25 H (4.8-10.8) K/uL RBC 2.98 L (4.7-6.1) M/uL Hgb 9.1 L (14.0-18.0) g/dL Hct 28.1 L (42-52) % MCV 94.3 (80-100) fL MCH 30.5 (25-34) pg MCHC 32.4 (32-36) g/dL RDW Std Deviation 46.1 (36.4-46.3) fL RDW Coeff of [place] 13.4 (11.5-14.5) % Plt Count 115 L (130-400) K/uL MPV 10.7 H (7.4-10.4) fL Immature Gran % (Auto) 0.2 % Neut % (Auto) 85.5 % Lymph % (Auto) 5.6 % [place] % (Auto) 7.7 % Eos % (Auto) 0.8 % Baso % (Auto) 0.2 % Neut # (Auto) 10.48 H (1.4-6.5) K/uL Lymph # (Auto) 0.68 L (1.2-3.4) K/uL [place] # (Auto) 0.94 H (0.11-0.59) K/uL Eos # (Auto) 0.10 (0-0.5) K/uL Baso # (Auto) 0.02 (0-0.2) K/uL Immature Gran # (Auto) 0.03 H (0.00-0.02) K/uL PT Cancelled INR Cancelled Sodium 142 (136-145) mmol/L Potassium 4.2 (3.5-5.1) mmol/L Chloride 107 (98-107) mmol/L Carbon Dioxide 28 (21-32) mmol/L Anion Gap 7 (3-11) BUN 40 H (6-23) mg/dl Creatinine 2.04 H (0.6-1.4) mg/dl Est Cr Clr Drug Dosing Not Reportable Est GFR ( Amer) 33.7 ml/min Est GFR (Non-Af Amer) 29.1 ml/min BUN/Creatinine Ratio 19.6 (10-20) Glucose 231 H (70-99(Fasting)) mg/dl Calcium 8.5 (8.5-10.1) mg/dl Troponin I High Sens 52.8 H* (0-20) pg/ml Urine Color Urine Appearance (Clear) Urine pH (4.5-7.5) Ur Specific [place] (1.000-1.030) Urine Protein (Negative) Urine Glucose (UA) (Negative) Urine Ketones (Negative) Urine Blood (Negative) Urine Nitrite (Negative) Urine Bilirubin (Negative) Urine Urobilinogen (Negative) Ur Leukocyte Esterase (Negative) Urine RBC (0-4) /hpf Urine WBC (0-5) /hpf Ur Epithelial Cells (0-5) /lpf Urine Bacteria (Negative) SARS-CoV-2, RNA, NAAT (NEGATIVE) 03/04/22 03/04/22 03/04/22 Range/Units 07:34 08:17 09:05 WBC (4.8-10.8) K/uL RBC (4.7-6.1) M/uL Hgb (14.0-18.0) g/dL Hct (42-52) % MCV (80-100) fL MCH (25-34) pg MCHC (32-36) g/dL RDW Std Deviation (36.4-46.3) fL RDW Coeff of [place] (11.5-14.5) % Plt Count (130-400) K/uL MPV (7.4-10.4) fL Immature Gran % (Auto) % Neut % (Auto) % Lymph % (Auto) % [place] % (Auto) % Eos % (Auto) % Baso % (Auto) % Neut # (Auto) (1.4-6.5) K/uL Lymph # (Auto) (1.2-3.4) K/uL [place] # (Auto) (0.11-0.59) K/uL Eos # (Auto) (0-0.5) K/uL Baso # (Auto) (0-0.2) K/uL Immature Gran # (Auto) (0.00-0.02) K/uL PT 11.4 INR 1.1 Sodium (136-145) mmol/L Potassium (3.5-5.1) mmol/L Chloride (98-107) mmol/L Carbon Dioxide (21-32) mmol/L Anion Gap (3-11) BUN (6-23) mg/dl Creatinine (0.6-1.4) mg/dl Est Cr Clr Drug Dosing Est GFR ( Amer) ml/min Est GFR (Non-Af Amer) ml/min BUN/Creatinine Ratio (10-20) Glucose (70-99(Fasting)) mg/dl Calcium (8.5-10.1) mg/dl Troponin I High Sens (0-20) pg/ml Urine Color Red Urine Appearance Turbid A (Clear) Urine pH (4.5-7.5) Ur Specific [place] 1.024 (1.000-1.030) Urine Protein (Negative) Urine Glucose (UA) (Negative) Urine Ketones (Negative) Urine Blood (Negative) Urine Nitrite (Negative) Urine Bilirubin (Negative) Urine Urobilinogen (Negative) Ur Leukocyte Esterase (Negative) Urine RBC >30 H (0-4) /hpf Urine WBC >30 H (0-5) /hpf Ur Epithelial Cells 5-10 H (0-5) /lpf Urine Bacteria Negative (Negative) SARS-CoV-2, RNA, NAAT NEGATIVE (NEGATIVE) Administered Medications Discontinued Medications Fentanyl Citrate (Fentanyl Citrate 100 Mcg/2 Ml Vial) 50 mcg IV NOW STA Stop: 03/04/22 06:56 Last Admin: 03/04/22 07:13 Dose: 50 mcg Documented by: [id number] Fentanyl Citrate (Fentanyl Citrate 100 Mcg/2 Ml Vial) 50 mcg IV NOW STA Stop: 03/04/22 07:48 Last Admin: 03/04/22 07:50 Dose: 50 mcg Documented by: [id number] Fentanyl Citrate (Fentanyl Citrate 100 Mcg/2 Ml Vial) 50 mcg IV NOW STA Stop: 03/04/22 08:44 Last Admin: 03/04/22 10:02 Dose: 50 mcg Documented by: [id number] Imaging Data Radiologist's Impression: Abdomen/Pelvis CT 03/04/22 07:[address] WITHOUT CONTRAST CT DOSE: 486.63 mGy.cm HISTORY: Acute hematuria with lower abdominal pain hematuria, lower abd pain TECHNIQUE: Multiaxial CT images of the abdomen and pelvis were performed without contrast. A dose lowering technique was utilized adhering to the principles of ALARA. COMPARISON STUDY: CT left hip 01/11/2021 FINDINGS: The heart is mildly enlarged with extensive coronary artery calcifications. Aortic valvular prosthesis. The lung bases are generally clear. There is no pneumatosis or pneumoperitoneum. The unenhanced spleen, mildly atrophic pancreas and gallbladder appear unremarkable. Mild thickening of the adrenal glands suggestive of hyperplasia. Unremarkable liver. There is nonspecific bilateral perinephric stranding. There are a few hypodense foci the bilateral kidneys which are incompletely characterized on this study however favor probable cysts. No renal or ureteral calculi or hydronephrosis. A Díaz catheter is noted within the urinary bladder. There is a large mixed attenuating mass within the urinary bladder lumen measuring 4.9 x 9.4 x 7.8 cm intermixed with gas. There are a few subcentimeter calcifications in the midline dependent urinary bladder. Prostamegaly. Small fat filled right inguinal hernia. Atherosclerosis of the abdominal aorta. Ectasia of the infrarenal abdominal aorta measures 2.9 x 2.9 cm. There is no lymphadenopathy. Moderate rectal fecal retention. Normal appendix. No bowel obstruction or bowel wall thickening. No ascites or mesenteric inflammation. Unremarkable soft tissues. Healed chronic bilateral rib fractures. Chronic subcapital fracture of the left femur with 3 fixation screws appearing intact. There is impaction of the fracture with only approximately 50% bony bridging. IMPRESSION: 1. Prostamegaly with mild urinary bladder distention and Díaz catheter in place. There is a 9.4 cm probable hematoma within the urinary bladder lumen. Additionally, there are a few subcentimeter calcifications along the dependent urinary bladder at the midline which may represent urinary bladder calculi or alternatively a partially calcified bladder neoplasm. Findings could be correlated with cystoscopy. 2. No renal or ureteral calculi or hydronephrosis. 3. Moderate rectal fecal retention. 4. No bowel obstruction or bowel wall thickening. 5. Fixated chronic subcapital left femoral fracture with incomplete bony healing. 6. 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 ACT 112: Negative or not required by law. The above report was generated using voice recognition software. It may contain grammatical, syntax or spelling errors. Electronically signed by: Raimundo Ulloa M.D. 03/04/2022 8:18 AM Discharge Plan Visit Data Chief Complaint: Hematuria Stated Complaint: HEMATURIA ED Provider: Mehdi Ocasio Discharge Problem: Hematuria, Elevated troponin, Abdominal pain, lower Patient Disposition: Being Evaluated by Hospitalist Discharge Instructions Interventions: ED Discharge Assessment Last Done: 03/04/22 10:42 Forms Stand Alone Forms: My [facility] Prescriptions Prescriptions: No Action Januvia 50 mg tablet 50 mg PO DAILY RF: 0 insulin aspart U-100 [Novolog PenFill U-100 Insulin] 100 unit/mL cartridge 1 sliding scale dose subcut USEASDIRECTD RF: 0 Lantus U-100 Insulin 100 unit/mL solution 15 unit subcut QAM RF: 0 aspirin 81 mg tablet,delayed release (DR/EC) 81 mg PO BID RF: 0 metoprolol succinate 25 mg tablet extended release 24 hr 25 mg PO BID RF: 0 atorvastatin 10 mg Tablet 10 mg PO PM RF: 0 amlodipine [Norvasc] 5 mg tablet 5 mg PO QAM RF: 0 tramadol 50 mg Tablet 50 mg PO Q8H PRN (Reason: moderate to severe pain) Qty: 10 RF: 0 Januvia 50 mg tablet 50 mg PO QAM RF: 0 ferrous sulfate 325 mg (65 mg iron) Tablet 325 mg PO BID RF: 0 calcium citrate 250 mg calcium Tablet 500 mg PO QAM RF: 0 lorazepam 0.5 mg tablet 0.5 mg PO Q8 PRN (Reason: Anxiety) RF: 0 mirtazapine 15 mg tablet 15 mg PO HS RF: 0 acetaminophen 325 mg tablet 650 mg PO Q4 PRN (Reason: Fever Or Pain) RF: 0 docusate sodium [Colace] 100 mg Capsule 100 mg PO .EVERY 24 HOURS IN A PRN (Reason: on day 2 no bm) RF: 0 polyethylene glycol 3350 [Miralax] 17 gram/dose Powder 17 g PO .EVERY 24 HOURS PRN (Reason: on day 2 of no bm) RF: 0 Vitamin D3 1 tab PO QAM RF: 0 pantoprazole 40 mg Tablet,Delayed Release (Dr/Ec) 40 mg PO BID Qty: 60 RF: 1 [facility] - Discharge Problem: Hematuria Qualifiers: Hematuria type: gross Qualified Code(s): R31.0 - Gross hematuria
[2022-03-04 07:36] LABS: Anion Gap 7 (3-11); BUN Creatinine Ratio 19.6 (10-20); Blood Urea Nitrogen 40 mg/dl (6-23); Calcium 8.5 mg/dl (8.5-10.1); Carbon Dioxide 28 mmol/L (21-32); Chloride 107 mmol/L (98-107); Est GFR (African American) 33.7 ml/min; Est GFR (Non-African American) 29.1 ml/min; Glucose 231 mg/dl (70-99(Fasting)); Potassium 4.2 mmol/L (3.5-5.1); Sodium 142 mmol/L (136-145)
[2022-03-04 07:37] LABS: Basophils # (auto) 0.02 K/uL (0-0.2); Basophils % (auto) 0.2 %; Eosinophils % (auto) 0.8 %; Hematocrit (blood only) 28.1 % (42-52); Hemoglobin 9.1 g/dL (14.0-18.0); Immature Granulocytes # (auto) 0.03 K/uL (0.00-0.02); Immature Granulocytes % (auto) 0.2 %; Lymphocytes # (auto) 0.68 K/uL (1.2-3.4); Lymphocytes % (auto) 5.6 %; Mean Corpuscular Hemoglobin 30.5 pg (25-34); Mean Corpuscular Hgb Conc 32.4 g/dL (32-36); Mean Corpuscular Volume 94.3 fL (80-100); Mean Platelet Volume 10.7 fL (7.4-10.4); Monocytes # (auto) 0.94 K/uL (0.11-0.59); Monocytes % (auto) 7.7 %; Neutrophils # (auto) 10.48 K/uL (1.4-6.5); Neutrophils % (auto) 85.5 %; Platelet Count 115 K/uL (130-400); RDW Coefficient of Variation 13.4 % (11.5-14.5); RDW Standard Deviation 46.1 fL (36.4-46.3); Red Blood Count 2.98 M/uL (4.7-6.1); White Blood Count 12.25 K/uL (4.8-10.8)
[2022-03-04 07:57] LABS: INR 1.1 (0.9-1.1); Prothrombin Time 11.4 Seconds (9.0-12.0)
[2022-03-04 08:01] LABS: Troponin I High Sensitivity 52.8 pg/ml (0-20)
--- NOTE | 2022-03-04 08:20 | CT Scan Report ---
ABDOMEN AND PELVIS CT WITHOUT CONTRAST CT DOSE: 486.63 mGy.cm HISTORY: Acute hematuria with lower abdominal pain hematuria, lower abd pain TECHNIQUE: Multiaxial CT images of the abdomen and pelvis were performed without contrast. A dose lo wering technique was utilized adhering to the principles of ALARA. COMPARISON STUDY: CT left hip 01/11/2021 FINDINGS: The heart is mildly enlarged with extensive coronary artery calcifications. Aortic valvular prosthesis. The lung bases are generally clear. There is no pneumatosis or pneumoperitoneum. The une nhanced spleen, mildly atrophic pancreas and gallbladder appear unremarkable. Mild thickening of the adrenal glands suggestive of hyperplasia. Unremarkable liver. There is nonspecific bilateral perinephric stranding. There are a few hypodense foci the bilateral ki dneys which are incompletely characterized on this study however favor probable cysts. No renal or ur eteral calculi or hydronephrosis. A Díaz catheter is noted within the urinary bladder. There is a la rge mixed attenuating mass within the urinary bladder lumen measuring 4.9 x 9.4 x 7.8 cm intermixed w ith gas. There are a few subcentimeter calcifications in the midline dependent urinary bladder. Prost amegaly. Small fat filled right inguinal hernia. Atherosclerosis of the abdominal aorta. Ectasia of t he infrarenal abdominal aorta measures 2.9 x 2.9 cm. There is no lymphadenopathy. Moderate rectal fecal retention. Normal appendix. No bowel obstruction or bowel wall thickening. No a scites or mesenteric inflammation. Unremarkable soft tissues. Healed chronic bilateral rib fractures. Chronic subcapital fracture of the left femur with 3 fixation screws appearing intact. There is impa ction of the fracture with only approximately 50% bony bridging. IMPRESSION: 1. Prostamegaly with mild urinary bladder distention and Díaz catheter in place. There is a 9.4 cm p robable hematoma within the urinary bladder lumen. Additionally, there are a few subcentimeter calcif ications along the dependent urinary bladder at the midline which may represent urinary bladder calcu li or alternatively a partially calcified bladder neoplasm. Findings could be correlated with cystosc opy. 2. No renal or ureteral calculi or hydronephrosis. 3. Moderate rectal fecal retention. 4. No bowel obstruction or bowel wall thickening. 5. Fixated chronic subcapital left femoral fracture with incomplete bony healing. 6. 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 ACT 112: Negative or not required by law. The above report was generated using voice recognition software. It may contain grammatical, syntax o r spelling errors. Electronically signed by: Raimundo Ulloa M.D. 03/04/2022 8:18 AM
[2022-03-04 09:40] LABS: Appearance Urine Turbid (Clear); Color Urine Red; Specific Gravity Urine 1.024 (1.000-1.030)
[2022-03-04 09:43] LABS: RBC Urine >30 /hpf (0-4)
[2022-03-04 09:44] LABS: Bacteria Urine Negative (Negative); WBC Urine >30 /hpf (0-5)
--- NOTE | 2022-03-04 11:04 | Urology Consultation ---
Date of Consultation March 04, 2022 Assessment & Plan (1) Acute urinary retention: Urinary retention currently managed with Díaz catheter. I recommend continuing CBI overnight and performing hand irrigation if catheter becomes clogged. He will likely require the catheter to stay in place for couple days to allow a period of bladder rest. (2) Hematuria: Underlying etiology of hematuria is uncertain for now. Most likely explanations would be prostatic bleeding in the setting of BPH or bacterial cystitis. Other possibilities include bladder cancer. He will require a full hematuria work-up, although it can be performed as an outpatient once he is through this acute episode. For now, his bladder is draining well and I am not getting any more clots when I try to irrigate him. I recommend continuing CBI as this can help stop any bleeding and will prevent further clot buildup. If urine remains clear tomorrow we will try to wean CBI. Please make him n.p.o. at midnight, in case he has further issues and requires cystoscopy/clot evacuation/fulguration. (3) Acute blood loss anemia: Drop in hemoglobin likely related to hematuria, given the large amount of clot within the bladder. Would recommend continued monitoring and transfuse if indicated. (4) Bladder spasms: Lower abdominal pain consistent with bladder spasms. Hopefully these will start to resolve when he is not requiring hand irrigation. And belladonna and opium suppositories if needed to help with bladder spasms. Continue CBI overnight Hand irrigate catheter if it becomes clogged NPO at midnight in case he requires clot evacuation under anesthesia Agree with urine culture, empiric antibiotics Belladonna & opium suppositories for bladder spasms History of Present Illness Reason for Consultation: Gross hematuria, clot retention of urine Attending Physician: Franco Alejandro MD History of Present Illness This is an 86-year-old male for whom urology is being consulted regarding gross hematuria. He initially presented to the emergency department on 03/02/2022 with urinary retention. At that time, he had noticed some blood in his urine. Hemoglobin on that visit was 12.2 and creatinine was 1.87. A Díaz catheter was placed and irrigated, and was subsequently draining well. He was discharged home with the plan for urology follow-up. He returned to the emergency department on 03/04/2022 with ongoing hematuria and new formation of clots in the urine which had obstructed his catheter. Staff in the ED attempted to flush the current catheter, but it was clogged. The catheter was exchanged for a 16 Upper Sorbian Díaz, which drained urine and was successfully irrigated. This was again exchanged for a 22 Upper Sorbian three-way hematuria catheter, and continuous bladder irrigation was started. Lab work was notable for a decrease in hemoglobin to 9.1, and increase in creatinine to 2.04. He also had a new leukocytosis (12.25). A urine culture was obtained. A CT scan was performed, which I independently reviewed. There are 2 kidneys with mild perinephric stranding bilaterally. There is no significant hydronephrosis on either side and no stones within either kidney. The bladder is somewhat distended and there is a 9 x 5 cm hyperdense collection within the bladder, likely a clot. There are small stones within the lumen of the bladder. Díaz catheter appears to be in good position. Mr. Infante reports that he had 1 previous episode of hematuria about a week prior to his first ED visit, but this resolved spontaneously. He has no history of kidney or bladder cancer. He has no history of surgery on the urinary tract. He is a former smoker, estimated at 5 pack years. 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 No significant known exposure to chemical dyes. Upon my initial evaluation, he was on slow CBI with red urine draining through the catheter. I performed hand irrigation with approximately 1.5 L of normal saline, returning about 300 mL of clot. During this, the patient was having what I suspect were bladder spasms. At the conclusion of this irrigation, I was not getting any more significant return of clots and the urine had cleared substantially. He was reinitiated on medium drip CBI with drainage of clear irrigant. Allergies Allergy/AdvReac Type Severity Reaction Status Date / Time No Known Allergies Allergy Unknown Verified 04/25/21 09:16 Home Medications Medication Instructions Recorded Confirmed Type atorvastatin 10 mg tablet 10 mg PO PM 03/03/19 05/02/21 History amlodipine 5 mg tablet (Norvasc) 5 mg PO QAM 01/10/21 05/02/21 History tramadol 50 mg tablet 50 mg PO Q8H PRN #10 tab 01/16/21 05/02/21 Rx Vitamin D3 1 tab PO QAM 02/07/21 05/02/21 History acetaminophen 325 mg tablet 650 mg PO Q4 PRN 02/07/21 05/02/21 History calcium citrate 500 mg PO QAM 02/07/21 05/02/21 History docusate sodium 100 mg capsule 100 mg PO .EVERY 24 HOURS IN A PRN 02/07/21 05/02/21 History (Colace) ferrous sulfate 325 mg (65 mg 325 mg PO BID 02/07/21 05/02/21 History iron) tablet lorazepam 0.5 mg tablet 0.5 mg PO Q8 PRN 02/07/21 05/02/21 History mirtazapine 15 mg tablet 15 mg PO HS 02/07/21 05/02/21 History polyethylene glycol 3350 17 17 g PO .EVERY 24 HOURS PRN 02/07/21 05/02/21 History gram/dose oral powder (Miralax) sitagliptin 50 mg tablet (Januvia) 50 mg PO QAM 02/07/21 05/02/21 History pantoprazole 40 mg tablet,delayed 40 mg PO BID #60 tab 02/10/21 05/02/21 Rx release insulin aspart U-100 100 unit/mL 1 sliding scale dose SUBCUT 03/28/21 05/02/21 History subcutaneous cartridge (Novolog USEASDIRECTD PenFill U-100 Insulin aspart) insulin glargine 100 unit/mL 15 unit SUBCUT QAM 03/28/21 05/02/21 History subcutaneous solution (Lantus U-100 Insulin) sitagliptin 50 mg tablet (Januvia) 50 mg PO DAILY 03/28/21 05/02/21 History aspirin 81 mg tablet,delayed 81 mg PO BID tab 04/11/21 05/02/21 History release metoprolol succinate 25 mg 25 mg PO BID 04/11/21 05/02/21 History tablet,extended release 24 hr Patient History Medical History CKD (chronic kidney disease) stage 4, GFR 15-29 ml/min Closed head injury Closed hip fracture Fall Fall GI bleed Hyperlipidemia RBBB Symptomatic anemia Surgical History History of cardiac cath CAD by cardiac catheterization 11/2019. Distal LMCA has a 40% stenosis which is not significant by IVUS with a mLA of 13.8 mm^2. The mid LAD had a 30% stenosis. The LCx and RCA had mild luminal irregularities History of carotid endarterectomy right History of cataract surgery LEFT. . 2mg versed no issues. History of colonoscopy History of total left knee replacement Family History Father Heart disorder Social History (Updated 03/04/22 @ 11:13 by Bran Mcintyre MD) Smoking Status: Former smoker Tobacco Type: Cigarettes packs per day: 1; Years Smoked: 5; Second Hand Exposure: No; Hx Alcohol Use: No Hx Substance Use: No Preferred Language: Italian Communication Ability: Impaired Tool Pusher Required: No Beliefs That Will Affect Care: None marital status: Current Living Situation: Spouse Current Living Situation Comment: came from [facility] after recent discharge after hip surgery Feels Safe at Home: Yes Assistive Devices: Glasses Review of Systems Review of Systems: 14 point review of systems negative except for otherwise indicated. Ear, Nose, Mouth, Throat: Reports dry mouth and thirst Physical Exam Constitutional: Well-developed, uncomfortable appearing during irrigation Eyes: Conjugate gaze Respiratory: normal respiratory effort; no respiratory distress, does not use accessory muscles and no cough Cardiovascular: well perfused Gastrointestinal (Abdomen): Inspection/Auscultation: abdomen normal to inspection; abdomen not distended Some guarding with attempted palpation of the bladder Musculoskeletal: Extremities: extremities normal to inspection Skin: normal turgor; no rashes and no lesions Neurologic: moves all extremities and awake Psychiatric: Orientation: alert and oriented x 3 Genitourinary: 22 Upper Sorbian three-way Díaz catheter in place draining clear, pink-tinged urine after hand irrigation. Results & Data ([facility]) Vital Signs (Past 12 Hours) Vital Signs Temp Pulse Resp BP Pulse Ox 03/04/22 10:42 71 24 168/73 H 99 03/04/22 09:30 76 23 03/04/22 09:23 73 20 176/88 H 03/04/22 09:00 76 22 03/04/22 08:30 86 21 03/04/22 08:02 36.8 C 84 20 187/77 H 98 03/04/22 08:01 82 20 03/04/22 07:30 89 18 98 03/04/22 07:00 80 20 100 03/04/22 06:58 87 20 97 PG Care Time/CCT Total # of Minutes Spent Total Time Spent with Patient: Total time spent is greater than 50% in coordination of care (as documented) at patient's floor/unit and/or counseling patient: Coding Level of Care Code 09110 Initial Inpt Care Lvl 2 Diagnoses Acute urinary retention R33.8 Hematuria R31.0 Hematuria type: gross Acute blood loss anemia D62 Bladder spasms N32.89 (1) Hematuria Hematuria type: gross Qualified Code(s): R31.0 - Gross hematuria
[2022-03-04] MEDS ORDERED: DOCUSATE SODIUM 100 MG CAP PO PRN (11:22)
[2022-03-04] MEDS ORDERED: POLYETHYLENE (MIRALAX) 17 GM PACK PO PRN (11:22)
[2022-03-04] MEDS: PATIENT S HEIGHT NEEDED SCH ×2 (12:01→14:50)
[2022-03-04] MEDS: SODIUM CHLORIDE 0.9% 1000ML 1,000 ML IV SCH (12:11)
[2022-03-04] MEDS: cefTRIAXone SODIUM 2,000 MG in DEXTROSE 5% 50 ML IV SCH (12:12)
[2022-03-04] MEDS: PANTOprazole 40 MG TAB PO SCH (12:12)
[2022-03-04] MEDS: amLODIPine BESYLATE 5 MG TAB PO SCH (12:12)
[2022-03-04] MEDS: METOPROLOL SUCC 25MG EXT REL TAB PO SCH ×2 (12:12→20:23)
[2022-03-04 12:29] LABS: Anion Gap 7 (3-11); BUN Creatinine Ratio 20.1 (10-20); Blood Urea Nitrogen 39 mg/dl (6-23); Calcium 8.2 mg/dl (8.5-10.1); Carbon Dioxide 28 mmol/L (21-32); Chloride 108 mmol/L (98-107); Est GFR (African American) 35.8 ml/min; Est GFR (Non-African American) 30.9 ml/min; Glucose 234 mg/dl (70-99(Fasting)); Potassium 3.8 mmol/L (3.5-5.1); Sodium 143 mmol/L (136-145)
--- NOTE | 2022-03-04 12:41 | Electrocardiogram Report ---
Test Reason : Blood Pressure : / mmHG Vent. Rate : 080 BPM Atrial Rate : 080 BPM P-R Int : 132 ms QRS Dur : 138 ms QT Int : 406 ms P-R-T Axes : 057 083 032 degrees QTc Int : 468 ms Poor data quality, interpretation may be adversely affected Normal sinus rhythm Right bundle branch block Abnormal ECG When compared with ECG of 07-FEB-2021 05:02, Right bundle branch block is now Present Confirmed by Anthony Camp ([id number]) on 03/04/2022 12:41:17 PM Referred By: REFERRED SELF Confirmed By:Blue Camp
[2022-03-04 12:55] LABS: Hemoglobin 8.7 g/dL (14.0-18.0)
--- NOTE | 2022-03-04 13:30 | History & Physical Report ---
Date of Service March 04, 2022 Assessment & Plan (1) Hematuria: Plan: 86/M wheelchair bound, CAD s/p TAVR, DM, HTN, Anemia, Thrombocytopenia, BPH, GERD, presenting with hematuria. HEMATURIA CT abd/pelvis: 1. Prostamegaly with mild urinary bladder distention and Barber catheter in place. There is a 9.4 cm probable hematoma within the urinary bladder lumen. Additionally, there are a few subcentimeter calcifications along the dependent urinary bladder at the midline which may represent urinary bladder calculi or alternatively a partially calcified bladder neoplasm. Findings could be correlated with cystoscopy. 2. No renal or ureteral calculi or hydronephrosis. 3. Moderate rectal fecal retention. 4. No bowel obstruction or bowel wall thickening. 5. Fixated chronic subcapital left femoral fracture with incomplete bony healing. 6. 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 hold ASA monitor Hg q6h Urine culture: pending Ceftriaxone IV discussed with Urology continue CBI ACUTE BLOOD LOSS ANEMIA secondary to Hematuria baseline 11, now 9 monitor Hg anemia panel CKD 3 baseline 1.7-1.8 crea 1.9 monitor CAD S/P TAVR trop 52 to 47 EKG no ischemia ASA on hold HTN continue Amlodipine, HTN DVT prophylaxis SCDs only in light of hematuria Disposition Lives at home with his Will order PT and OT evaluation plan of care discussed with patient in detail and at length all questions answered he is understanding, agreeable, comfortable with the plan of care Admission and Anticipated Discharge Date Admission Date: March 04, 2022 History of Present Illness Chief Complaint: hematuria Primary Care Provider: [facility] 86/M wheelchair bound, CAD s/p TAVR, DM, HTN, Anemia, Thrombocytopenia, BPH, GERD, presenting with hematuria. Patient was seen at the ER 03/02 for urinary retention and barber catheter was placed. Today, patient was brought in again for hematuria. Hg down from baseline of 11-9. CT abd: Prostamegaly with mild urinary bladder distention and Barber catheter in place. There is a 9.4 cm probable hematoma within the urinary bladder lumen. Additionally, there are a few subcentimeter calcifications along the dependent urinary bladder at the midline which may represent urinary bladder calculi or alternatively a partially calcified bladder neoplasm. Findings could be correlated with cystoscopy. Bladder irrigation performed at the ER. On exam, patient resting in bed, comfortable. no chest pain, dyspnea, palpitations, dizziness no abdominal pain, nausea/vomiting, fever/chills no other symptoms Allergies Allergy/AdvReac Type Severity Reaction Status Date / Time No Known Allergies Allergy Unknown Verified 04/25/21 09:16 Home Medications Medication Instructions Recorded Confirmed Type atorvastatin 10 mg tablet 10 mg PO PM 03/03/19 05/02/21 History amlodipine 5 mg tablet (Norvasc) 5 mg PO QAM 01/10/21 05/02/21 History tramadol 50 mg tablet 50 mg PO Q8H PRN #10 tab 01/16/21 05/02/21 Rx Vitamin D3 1 tab PO QAM 02/07/21 05/02/21 History acetaminophen 325 mg tablet 650 mg PO Q4 PRN 02/07/21 05/02/21 History calcium citrate 500 mg PO QAM 02/07/21 05/02/21 History docusate sodium 100 mg capsule 100 mg PO .EVERY 24 HOURS IN A PRN 02/07/21 05/02/21 History (Colace) ferrous sulfate 325 mg (65 mg 325 mg PO BID 02/07/21 05/02/21 History iron) tablet lorazepam 0.5 mg tablet 0.5 mg PO Q8 PRN 02/07/21 05/02/21 History mirtazapine 15 mg tablet 15 mg PO HS 02/07/21 05/02/21 History polyethylene glycol 3350 17 17 g PO .EVERY 24 HOURS PRN 02/07/21 05/02/21 History gram/dose oral powder (Miralax) sitagliptin 50 mg tablet (Januvia) 50 mg PO QAM 02/07/21 05/02/21 History pantoprazole 40 mg tablet,delayed 40 mg PO BID #60 tab 02/10/21 05/02/21 Rx release insulin glargine 100 unit/mL 20 unit SUBCUT QAM 03/28/21 05/02/21 History subcutaneous solution (Lantus U-100 Insulin) aspirin 81 mg tablet,delayed 81 mg PO BID tab 04/11/21 05/02/21 History release metoprolol succinate 25 mg 25 mg PO BID 04/11/21 05/02/21 History tablet,extended release 24 hr insulin NPH-regular 70-30 U-100 SUBCUT TIDM 04/17/22 History insulin 100 unit/mL subcutaneous pen (Novolin 70-30 FlexPen U-100 Insulin) Past Med/Surg History Medical History CKD (chronic kidney disease) stage 4, GFR 15-29 ml/min Closed head injury Closed hip fracture Fall Fall GI bleed Hyperlipidemia RBBB Symptomatic anemia Surgical History History of cardiac cath CAD by cardiac catheterization 11/2019. Distal LMCA has a 40% stenosis which is not significant by IVUS with a mLA of 13.8 mm^2. The mid LAD had a 30% stenosis. The LCx and RCA had mild luminal irregularities History of carotid endarterectomy right History of cataract surgery LEFT. . 2mg versed no issues. 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 Beliefs That Will Affect Care: None marital status: Current Living Situation: Personal Care Facility Current Living Situation Comment: came from [facility] after recent discharge after hip surgery Feels Safe at Home: Yes Assistive Devices: Glasses and Walker Review of Systems Review of Systems: all noted and negative except for above Physical Exam Physical Exam: General- oriented x 2, not in distress, speaks in sentences with no effort or accessory muscle use Head- atraumatic Eyes- PERRL, EOMI, anicteric ENT- oropharynx clear Neck- supple, no JVD, no adenopathy, no thyromegaly; carotids +2/2, no bruits appreciated Lungs- clear to auscultation bilaterally, no rales/wheezes Heart- normal rate, regular rhythm; no murmur, no gallop, no rub appreciated Abdomen- normal bowel sounds, nondistended, soft, nontender, no masses or hepatosplenomegaly (+) barber cath with light red urine Extremities- no pretibial edema, no calf tenderness; peripheral pulses intact Neuro- alert, oriented x2; CN 2-12 grossly intact; motor 5/5 bilaterally;sensation 100% on all extremities; no other gross focal neurologic deficits Skin- warm & dry Results & Data Results & Data ([facility]) Vital Signs (Past 12 Hours) Vital Signs Temp Pulse Pulse Resp BP BP Pulse Ox 03/04/22 11:42 37.3 C 73 130/66 96 03/04/22 11:41 37.3 C 73 19 130/66 96 03/04/22 11:35 77 03/04/22 10:42 71 24 168/73 H 99 03/04/22 09:30 76 23 03/04/22 09:23 73 20 176/88 H 03/04/22 09:00 76 22 03/04/22 08:30 86 21 03/04/22 08:02 36.8 C 84 20 187/77 H 98 03/04/22 08:01 82 20 03/04/22 07:30 89 18 98 03/04/22 07:00 80 20 100 03/04/22 06:58 87 20 97 all noted and reviewed including below (1) Hematuria Hematuria type: gross Qualified Code(s): R31.0 - Gross hematuria
[2022-03-04] MEDS ORDERED: PHARMACY GLYCEMIC MGMT CONSULT PRN (13:46)
[2022-03-04] MEDS ORDERED: GLUCAGON FOR INJ 1 MG VIAL SQ PRN (13:46)
[2022-03-04] MEDS ORDERED: GLUCOSE 40% GEL 15 GM TUBE PO PRN (13:46)
[2022-03-04] MEDS ORDERED: CARBOHYDRATES FOR HYPOGLYCEMIA PO PRN (13:46)
[2022-03-04] MEDS ORDERED: GLUCOSE 10 TABS/TUBE PO PRN (13:46)
[2022-03-04] MEDS ORDERED: DEXTROSE 50% 50 ML SYRINGE IV PRN (13:46)
--- NOTE | 2022-03-04 15:04 | Pharmacy Report ---
Pharmacy Glycemic Short Note 2 - Date of Service March 04, 2022 - Glycemic Short BSG Results (Last 24 hours): 03/04/22 03/04/22 06:58 11:37 Glucose 231 H 234 H OUTPATIENT ANTIDIABETIC REGIMEN: * Lantus 20 units Qam, Novolin 70/30 - 8 units with breakfast, 10 units with lunch, 18 units with dinner, Januvia 50 mg daily * Clarified insulin regimen with Susy Luevano - listed incorrectly on med list, updated now ASSESSMENT: * 86 year old admitted with hematuria. Pharmacy consulted for glycemic management this afternoon * BSG 230s at lunch time, per RN patient sleeping and did not eat lunch - diet ordered for dinner, will start insulin then * Verified home DM regimen with Susy Luevano and they reported patient did not receive any insulin this morning CONTACT LENS TECHNICIAN. She reports patient's BSGs very labile, sometimes lower/hypoglycemic in the morning, higher throughout the day * Will trial Lantus 15 units daily (0.2 unit/kg) - patient to be NPO at midnight PLAN FOR INPATIENT GLYCEMIC CONTROL: * Hold outpatient oral diabetes medications * Basal insulin * Lantus 15 units daily * Bolus insulin * NovoLog per scale ACHS or Q6hrs while NPO * Goal Range: Low 120 mg/dL - High 160 mg/dL * Correction Factor: 20 mg/dL/unit * Nutritional / Prandial insulin per carb ratio of 1 unit per 8 grams CHO consumed
[2022-03-04] MEDS ORDERED: INSULIN GLARGINE SOLOSTAR 100 UNITS/ML 3 ML PEN SC ONE (17:00)
[2022-03-04] MEDS: INSULIN ASPART PER UNIT SC SCH ×2 (17:30→20:24)
[2022-03-04 19:05] LABS: Hematocrit (blood only) 24.7 % (42-52); Hemoglobin 7.9 g/dL (14.0-18.0)
[2022-03-04] MEDS: MIRTAZAPINE TAB 15 MG TAB PO SCH (20:16)
[2022-03-04] MEDS: FERROUS SULFATE 325 MG TAB PO SCH (20:16)
[2022-03-04] MEDS: ATORVASTATIN 10 MG TAB PO SCH (20:17)
[2022-03-04] MEDS ORDERED: INSULIN GLARGINE SOLOSTAR 100 UNITS/ML 3 ML PEN SC SCH (21:00)
[2022-03-05] MEDS ORDERED: INSULIN ASPART PER UNIT SC SCH
[2022-03-05 01:15] LABS: Hematocrit (blood only) 24.3 % (42-52); Hemoglobin 7.8 g/dL (14.0-18.0)
[2022-03-05] MEDS: SODIUM CHLORIDE 0.9% 1000ML 1,000 ML IV SCH ×2 (01:40→14:03)
[2022-03-05 07:07] LABS: Basophils # (auto) 0.02 K/uL (0-0.2); Basophils % (auto) 0.3 %; Eosinophils # (auto) 0.21 K/uL (0-0.5); Eosinophils % (auto) 2.7 %; Hematocrit (blood only) 24.1 % (42-52); Hemoglobin 7.7 g/dL (14.0-18.0); Immature Granulocytes # (auto) 0.02 K/uL (0.00-0.02); Immature Granulocytes % (auto) 0.3 %; Lymphocytes % (auto) 15.2 %; Mean Corpuscular Hemoglobin 30.3 pg (25-34); Mean Corpuscular Volume 94.9 fL (80-100); Mean Platelet Volume 10.6 fL (7.4-10.4); Monocytes # (auto) 0.52 K/uL (0.11-0.59); Monocytes % (auto) 6.6 %; Neutrophils # (auto) 5.93 K/uL (1.4-6.5); Neutrophils % (auto) 74.9 %; Platelet Count 112 K/uL (130-400); RDW Coefficient of Variation 13.3 % (11.5-14.5); RDW Standard Deviation 46.3 fL (36.4-46.3); Red Blood Count 2.54 M/uL (4.7-6.1)
[2022-03-05 07:27] LABS: BUN Creatinine Ratio 18.1 (10-20); Calcium 7.7 mg/dl (8.5-10.1); Creatinine Clr Calc Pharmacy 38.2 ml/min; Est GFR (African American) 41.7 ml/min; Potassium 3.7 mmol/L (3.5-5.1)
[2022-03-05 07:36] LABS: RBC Morphology Unremarkable
[2022-03-05] MEDS: INSULIN ASPART PER UNIT SC SCH ×4 (07:53→20:35)
[2022-03-05] MEDS ORDERED: SODIUM CHLORIDE 0.9% 250 ML IV PRN (08:30)
--- NOTE | 2022-03-05 08:31 | Urology Progress Note ---
Date of Service March 05, 2022 Assessment & Plan (1) Acute urinary retention: (2) Hematuria: Plan: - Follow-up gross hematuria, clot retention. - Pt afebrile, nontoxic. - Lab work reviewed - creatinine 1.71, WBC 7.90, Hgb 7.7 - per chart, ordered for 1 unit PRBCs today. - UC&S pending - currently on IV Ceftriaxone, follow cultures. - Manual irrigation x 1 overnight per nursing notes. - Díaz intact patent and draining clear urine with CBI on slow. - CBI clamped at time of exam @0810 - will reassess later this AM. - Will continue to wean CBI as appropriate presuming urine remains clear. - Okay to gently hand irrigate as needed for suprapubic discomfort or clot retention. - Keep NPO for now. - Maintain Díaz catheter. - Continue supportive care, antibiotics, and management per primary service. - Patient will need outpatient follow-up with our service for hematuria work-up. - will continue to follow. - Pt reassessed at 0930 - Díaz patent and draining grewal red urine with CBI clamped, no clots noted in the tubing. CBI restarted on slow. Will continue with CBI for time being with plan to titrate as appropriate. Continue hand irrigation as needed. Okay to resume diet today. Make NPO again at midnight to reassess. Admission and Anticipated Discharge Date Admission Date: March 04, 2022 Subjective Patient seen and examined at bedside this AM. Pt asleep on arrival, arouses easily to his name. Per nursing notes, manual irrigation x 1 overnight. Díaz catheter intact, patent and draining clear urine with CBI on slow. No abdominal or suprapubic pain at present. CBI clamped at time of exam @0810, RN aware. No nausea or vomiting. No fever or chills. He is NPO. Review of Systems Constitutional: as per Subjective / HPI Gastrointestinal: as per Subjective / HPI Genitourinary: + as per Subjective / HPI Physical Exam Constitutional: well developed and well nourished; no acute distress and not ill appearing Respiratory: normal respiratory effort and able to speak in complete sentences; no respiratory distress and no labored breathing Cardiovascular: Extremities: no pedal edema Gastrointestinal (Abdomen): Inspection/Auscultation: abdomen normal to inspection; abdomen not distended Percussion/Palpation: abdomen soft; abdomen nontender and no guarding Musculoskeletal: Head/Neck/Chest: normocephalic Neurologic: moves all extremities and awake Psychiatric: Orientation: alert and oriented to person Eye Contact: good eye contact Genitourinary: Díaz intact, patent and draining clear urine with CBI on slow CBI clamped during exam @0810, RN made aware Results & Data ([facility]) Vital Signs (Past 12 Hours) Vital Signs Temp Pulse Pulse Resp BP Pulse Ox 03/05/22 08:22 36.8 C 67 20 127/52 L 94 03/05/22 07:22 69 03/05/22 02:48 36.9 C 69 20 125/55 L 90 03/04/22 23:25 37.3 C 58 L 18 144/63 H 95 03/04/22 22:20 66 PG Care Time/CCT Total # of Minutes Spent Total Time Spent with Patient: Total time spent is greater than 50% in coordination of care (as documented) at patient's floor/unit and/or counseling patient: Coding Level of Care Code 21348 Subseq Hosp Care Lvl 2 Diagnoses Acute urinary retention R33.8 Hematuria R31.0 Hematuria type: gross (1) Hematuria Hematuria type: gross Qualified Code(s): R31.0 - Gross hematuria
[2022-03-05] MEDS: FERROUS SULFATE 325 MG TAB PO SCH ×2 (09:07→20:34)
[2022-03-05] MEDS: METOPROLOL SUCC 25MG EXT REL TAB PO SCH ×2 (09:07→20:34)
[2022-03-05] MEDS: PANTOprazole 40 MG TAB PO SCH (09:07)
[2022-03-05] MEDS: amLODIPine BESYLATE 5 MG TAB PO SCH (09:08)
--- NOTE | 2022-03-05 11:16 | Hospitalist Progress Note ---
Date of Service March 05, 2022 Assessment & Plan (1) Hematuria: Plan: 86/M wheelchair bound, CAD s/p TAVR, DM, HTN, Anemia, Thrombocytopenia, BPH, GERD, presenting with hematuria. HEMATURIA CT abd/pelvis: 1. Prostamegaly with mild urinary bladder distention and Díaz catheter in place. There is a 9.4 cm probable hematoma within the urinary bladder lumen. Additionally, there are a few subcentimeter calcifications along the dependent urinary bladder at the midline which may represent urinary bladder calculi or alternatively a partially calcified bladder neoplasm. Findings could be correlated with cystoscopy. 2. No renal or ureteral calculi or hydronephrosis. 3. Moderate rectal fecal retention. 4. No bowel obstruction or bowel wall thickening. 5. Fixated chronic subcapital left femoral fracture with incomplete bony healing. 6. 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 Urine culture: pending Ceftriaxone IV Díaz catheter output becoming less red Continue CBI discussed with Urology Aspirin held ACUTE BLOOD LOSS ANEMIA secondary to Hematuria baseline 11, gradually decreased to 7.7 1 unit packed RBCs ordered anemia panel CKD 3 baseline 1.7-1.8 crea 1.7 monitor CAD S/P TAVR trop 52 to 47 EKG no ischemia ASA on hold HTN continue Amlodipine, HTN DVT prophylaxis SCDs only in light of hematuria Disposition Lives at home with his Will order PT and OT evaluation plan of care discussed with patient in detail and at length all questions answered he is understanding, agreeable, comfortable with the plan of care Admission and Anticipated Discharge Date Admission Date: March 04, 2022 Subjective Follow-up for hematuria, etc. Seen resting in bed, sitting up, comfortable, in good spirits States he feels fine overall Denies abdominal pain, nausea or vomiting, fevers or chills no chest pain, dyspnea, palpitations, dizziness No other symptom Review of Systems Review of Systems: all noted and negative except for above Physical Exam Physical Exam: General- oriented x 2, not in distress, speaks in sentences with no effort or accessory muscle use Eyes- anicteric Neck- no JVD Lungs- clear breath sounds bilaterally, no rales/wheezes Heart- normal rate, regular rhythm; no murmurs Abdomen- normal bowel sounds, nondistended, soft, no tenderness Díaz catheter in place: Draining light red/pink output Extremities- no pretibial edema, no calf tenderness Neuro- alert, oriented x 2; no new gross focal neurologic deficits Skin- warm & dry Results & Data Results & Data ([facility]) Vital Signs (Past 12 Hours) Vital Signs Temp Pulse Pulse Resp BP BP Pulse Ox 03/05/22 11:01 36.7 C 64 16 124/57 L 96 03/05/22 08:22 36.8 C 67 20 127/52 L 94 03/05/22 07:22 69 03/05/22 02:48 36.9 C 69 20 125/55 L 90 03/04/22 23:25 37.3 C 58 L 18 144/63 H 95 all noted and reviewed including below (1) Hematuria Hematuria type: gross Qualified Code(s): R31.0 - Gross hematuria
[2022-03-05] MEDS: cefTRIAXone SODIUM 2,000 MG in DEXTROSE 5% 50 ML IV SCH (14:02)
--- NOTE | 2022-03-05 15:10 | Pharmacy Report ---
Pharmacy Glycemic Short Note 2 - Date of Service March 05, 2022 - Glycemic Short BSG Results (Last 24 hours): 03/04/22 03/04/22 03/05/22 16:50 20:13 00:21 Glucose POC Glucose 195 H 175 H 100 H 03/05/22 03/05/22 03/05/22 06:30 06:37 11:43 Glucose 100 H POC Glucose 109 H 96 OUTPATIENT ANTIDIABETIC REGIMEN: * Lantus 20 units Qam, Novolin 70/30 - 8 units with breakfast, 10 units with lunch, 18 units with dinner, Januvia 50 mg daily * Clarified insulin regimen with Susy Luevano - listed incorrectly on med list, updated now (03/04/22) ASSESSMENT: 03/05/22: * BSGs trended down nicely yesterday, 231, 234, 195, 175, and 100 mg/dL * Received 22 units of insulin while inpatient (15 units of Lantus and 7 units of Novolog) * NPO today, but will be ordered diet for dinner per hospitalist -> NPO after midnight per urology * Will give reduced basal dose today 03/04/22: * 86 year old admitted with hematuria. Pharmacy consulted for glycemic management this afternoon * BSG 230s at lunch time, per RN patient sleeping and did not eat lunch - diet ordered for dinner, will start insulin then * Verified home DM regimen with Susy Luevano and they reported patient did not receive any insulin this morning LINE THERAPIST. She reports patient's BSGs very labile, sometimes lower/hypoglycemic in the morning, higher throughout the day * Will trial Lantus 15 units daily (0.2 unit/kg) - patient to be NPO at midnight PLAN FOR INPATIENT GLYCEMIC CONTROL: * Hold outpatient oral diabetes medications * Basal insulin * Lantus 0-10 units this evening with dinner pending PO intake (will leave with second-shift [facility] to assess) * Bolus insulin * NovoLog per scale ACHS or Q6hrs while NPO * Goal Range: Low 120 mg/dL - High 160 mg/dL * Correction Factor: 20 mg/dL/unit * Nutritional / Prandial insulin per carb ratio of 1 unit per 8 grams CHO consumed
[2022-03-05] MEDS ORDERED: INSULIN GLARGINE SOLOSTAR 100 UNITS/ML 3 ML PEN SC ONE (17:15)
[2022-03-05] MEDS: HYDROmorphone INJ 0.5 MG/0.5 ML SYR IV PRN (17:36)
[2022-03-05] MEDS: MIRTAZAPINE TAB 15 MG TAB PO SCH (20:33)
[2022-03-05] MEDS: ATORVASTATIN 10 MG TAB PO SCH (20:34)
[2022-03-06] MEDS: HYDROmorphone INJ 0.5 MG/0.5 ML SYR IV PRN ×4 (00:49→22:19)
[2022-03-06] MEDS: SODIUM CHLORIDE 0.9% 1000ML 1,000 ML IV SCH ×2 (03:43→16:00)
[2022-03-06 06:07] LABS: Basophils # (auto) 0.02 K/uL (0-0.2); Basophils % (auto) 0.3 %; Eosinophils # (auto) 0.25 K/uL (0-0.5); Eosinophils % (auto) 3.5 %; Hematocrit (blood only) 26.1 % (42-52); Hemoglobin 8.5 g/dL (14.0-18.0); Immature Granulocytes # (auto) 0.01 K/uL (0.00-0.02); Immature Granulocytes % (auto) 0.1 %; Lymphocytes % (auto) 16.6 %; Mean Corpuscular Hemoglobin 30.6 pg (25-34); Mean Corpuscular Hgb Conc 32.6 g/dL (32-36); Mean Corpuscular Volume 93.9 fL (80-100); Monocytes # (auto) 0.58 K/uL (0.11-0.59); Neutrophils # (auto) 5.16 K/uL (1.4-6.5); Neutrophils % (auto) 71.5 %; Platelet Count 121 K/uL (130-400); RDW Coefficient of Variation 13.1 % (11.5-14.5); RDW Standard Deviation 44.9 fL (36.4-46.3); Red Blood Count 2.78 M/uL (4.7-6.1); White Blood Count 7.22 K/uL (4.8-10.8)
[2022-03-06 06:58] LABS: Ferritin 342.9 ng/ml (8-388)
[2022-03-06 07:04] LABS: Folate (Folic Acid) > 22.30 ng/ml (>5.38)
[2022-03-06 07:05] LABS: Vitamin B12 294 pg/ml (180-914)
[2022-03-06 07:12] LABS: BUN Creatinine Ratio 17.6 (10-20); Calcium 7.6 mg/dl (8.5-10.1); Creatinine Clr Calc Pharmacy 43.1 ml/min; Est GFR (African American) 47.7 ml/min; Est GFR (Non-African American) 41.1 ml/min; Potassium 3.9 mmol/L (3.5-5.1)
[2022-03-06] MEDS: FERROUS SULFATE 325 MG TAB PO SCH ×2 (07:32→20:18)
[2022-03-06] MEDS: METOPROLOL SUCC 25MG EXT REL TAB PO SCH ×2 (07:32→20:18)
[2022-03-06] MEDS: PANTOprazole 40 MG TAB PO SCH (07:32)
[2022-03-06] MEDS: amLODIPine BESYLATE 5 MG TAB PO SCH (07:32)
--- NOTE | 2022-03-06 07:59 | Urology Progress Note ---
Date of Service March 06, 2022 Assessment & Plan (1) Acute urinary retention: (2) Hematuria: Plan: - Follow-up gross hematuria, clot retention. - Pt afebrile, nontoxic. - Lab work reviewed - creatinine 1.53, WBC 7.22, Hgb 8.5 (received 1 unit PRBCs yesterday). - UC&S prelim pin point growth re-incubating - currently on IV Ceftriaxone, follow cultures. - Díaz intact, patent and draining clear w/ blood tinged sediment causing minimal pink in tubing with CBI on slow, no clots. - CBI clamped at time of exam @0800 - will reassess later this AM. - Plan to wean CBI as appropriate presuming urine remains clear. - Okay to gently hand irrigate as needed for suprapubic discomfort or clot retention. - Keep NPO for now. - Maintain Díaz catheter. - Continue supportive care, antibiotics, and management per primary service. - Patient will need outpatient follow-up with our service for hematuria work-up. - will continue to follow. - Pt reassessed this afternoon. Díaz intact, patent, and draining pink urine with bloody sediment in tubing with CBI clamped. Will continue to monitor with CBI clamped. Okay to gently hand irrigate as needed for suprapubic discomfort or clot retention. No intervention planned today. Okay for patient to resume diet today. Will continue to follow closely with primary team. Admission and Anticipated Discharge Date Admission Date: March 04, 2022 Subjective Pt seen and examined at bedside this AM. He is awake and resting in bed, appears comfortable. No acute issues overnight. No manual irrigation required overnight per chart review. Díaz intact, patent and draining clear w/ blood tinged sediment causing minimal pink in tubing with CBI on slow. CBI clamped at 0800. No abdominal or suprapubic discomfort. No nausea or vomiting. No fever or chills. Review of Systems Constitutional: as per Subjective / HPI Gastrointestinal: as per Subjective / HPI Genitourinary: + as per Subjective / HPI Physical Exam Constitutional: well developed and well nourished; no acute distress and not ill appearing Respiratory: normal respiratory effort and able to speak in complete sentences; no respiratory distress and no labored breathing Cardiovascular: Extremities: no pedal edema Gastrointestinal (Abdomen): Inspection/Auscultation: abdomen normal to inspection; abdomen not distended Percussion/Palpation: abdomen soft; abdomen nontender and no guarding Musculoskeletal: Head/Neck/Chest: normocephalic Neurologic: moves all extremities and awake Psychiatric: Orientation: alert and oriented to person Genitourinary: Díaz intact, patent and draining clear to minimal pink urine, blood-tinged sediment in tubing, no clots, with CBI on slow. CBI clamped during exam @0800. Results & Data ([facility]) Vital Signs (Past 12 Hours) Vital Signs Temp Pulse Pulse Resp BP Pulse Ox 03/06/22 07:24 68 03/06/22 07:10 37.0 C 70 16 153/66 H 92 03/06/22 02:50 36.9 C 68 18 155/46 H 93 03/05/22 23:25 36.9 C 65 18 148/64 H 96 03/05/22 22:20 63 PG Care Time/CCT Total # of Minutes Spent Total Time Spent with Patient: Total time spent is greater than 50% in coordination of care (as documented) at patient's floor/unit and/or counseling patient: Coding Level of Care Code 65527 Subseq Hosp Care Lvl 2 Diagnoses Acute urinary retention R33.8 Hematuria R31.0 Hematuria type: gross (1) Hematuria Hematuria type: gross Qualified Code(s): R31.0 - Gross hematuria
[2022-03-06] MEDS: INSULIN ASPART PER UNIT SC SCH ×4 (08:23→20:18)
[2022-03-06] MEDS ORDERED: METOPROLOL TARTRATE 1 MG/ML VIAL IV ONE ×2 (10:56→11:13)
[2022-03-06] MEDS: cefTRIAXone SODIUM 2,000 MG in DEXTROSE 5% 50 ML IV SCH (11:35)
--- NOTE | 2022-03-06 13:05 | Pharmacy Report ---
Pharmacy Glycemic Short Note 2 - Date of Service March 06, 2022 - Glycemic Short BSG Results (Last 24 hours): 03/05/22 03/05/22 03/06/22 17:11 20:23 00:58 Glucose POC Glucose 94 191 H 116 H 03/06/22 03/06/22 03/06/22 05:48 06:02 12:15 Glucose 105 H POC Glucose 114 H 109 H OUTPATIENT ANTIDIABETIC REGIMEN: * Lantus 20 units Qam, Novolin 70/30 - 8 units with breakfast, 10 units with lunch, 18 units with dinner, Januvia 50 mg daily * Clarified insulin regimen with Susy Luevano - listed incorrectly on med list, updated now (03/04/22) ASSESSMENT: 03/06/22: * Dante received 7 units of SQ insulin yesterday (5 units basal + 2 units bolus) - NPO during this time * Will continue Lantus scale dosed at dinner - expect patient to resume diet later today * Will loosen correction factor since patient has required very little insulin the past 24 hours 03/05/22: * BSGs trended down nicely yesterday, 231, 234, 195, 175, and 100 mg/dL * Received 22 units of insulin while inpatient (15 units of Lantus and 7 units of Novolog) * NPO today, but will be ordered diet for dinner per hospitalist -> NPO after midnight per urology * Will give reduced basal dose today 03/04/22: * 86 year old admitted with hematuria. Pharmacy consulted for glycemic management this afternoon * BSG 230s at lunch time, per RN patient sleeping and did not eat lunch - diet ordered for dinner, will start insulin then * Verified home DM regimen with Susy Luevano and they reported patient did not receive any insulin this morning TRANSFORMATION CONSULTANT. She reports patient's BSGs very labile, sometimes lower/hypoglycemic in the morning, higher throughout the day * Will trial Lantus 15 units daily (0.2 unit/kg) - patient to be NPO at midnight PLAN FOR INPATIENT GLYCEMIC CONTROL: * Hold outpatient oral diabetes medications * Basal insulin * Lantus 5-10 units this evening with dinner (10 units if BSG is > 120 mg/dL) * Bolus insulin * NovoLog per scale ACHS or Q6hrs while NPO * Goal Range: Low 120 mg/dL - High 160 mg/dL * Correction Factor: 25 mg/dL/unit * Nutritional / Prandial insulin per carb ratio of 1 unit per 8 grams CHO consumed
[2022-03-06] MEDS ORDERED: hydrALAZINE HCL 20 MG/ML VIAL IV PRN (17:14)
[2022-03-06] MEDS: INSULIN GLARGINE SOLOSTAR 100 UNITS/ML 3 ML PEN SC SCH (17:16)
--- NOTE | 2022-03-06 17:18 | Hospitalist Progress Note ---
Date of Service March 06, 2022 Assessment & Plan (1) Hematuria: Plan: 86/M wheelchair bound, CAD s/p TAVR, DM, HTN, Anemia, Thrombocytopenia, BPH, GERD, presenting with hematuria. HEMATURIA, probable hematoma in the bladder, UTI CT abd/pelvis: 1. Prostamegaly with mild urinary bladder distention and Díaz catheter in place. There is a 9.4 cm probable hematoma within the urinary bladder lumen. Additionally, there are a few subcentimeter calcifications along the dependent urinary bladder at the midline which may represent urinary bladder calculi or alternatively a partially calcified bladder neoplasm. Findings could be correlated with cystoscopy. 2. No renal or ureteral calculi or hydronephrosis. 3. Moderate rectal fecal retention. 4. No bowel obstruction or bowel wall thickening. 5. Fixated chronic subcapital left femoral fracture with incomplete bony healing. 6. 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 Urine culture: Gram-negative bacilli Continue ceftriaxone IV Díaz catheter output becoming less red Placed on CBI since admission, hematuria seems to be improving, CBI clamped this afternoon discussed with Urology Will eventually need cystoscopy for definitive evaluation Aspirin held for now ACUTE BLOOD LOSS ANEMIA, iron deficiency secondary to Hematuria baseline 11, gradually decreased to 7.7 1 unit packed RBCs ordered Hemoglobin improved, now 8.5 anemia panel: Iron less than 20, IV iron given, ferrous sulfate twice daily started Monitor CKD 3 baseline 1.7-1.8 crea 1.7 monitor CAD S/P TAVR trop 52 to 47 EKG no ischemia ASA on hold HTN continue Amlodipine, HTN DVT prophylaxis SCDs only in light of hematuria Disposition Lives at home with his Will order PT and OT evaluation plan of care discussed with patient in detail and at length all questions answered he is understanding, agreeable, comfortable with the plan of care Admission and Anticipated Discharge Date Admission Date: March 04, 2022 Subjective Follow-up for hematuria, anemia, UTI, etc. Seen sitting up in bed, sleeping but easily awakened States he feels fine overall Denies abdominal pain, nausea vomiting, fevers or chills, shortness of breath, chest pain, dizziness, palpitations No other symptoms Review of Systems Review of Systems: all noted and negative except for above Physical Exam Physical Exam: General- oriented x 2, not in distress, speaks in sentences with no effort or accessory muscle use Eyes- anicteric Neck- no JVD Lungs- clear breath sounds bilaterally, no rales/wheezes Heart- normal rate, regular rhythm; no murmurs Abdomen- normal bowel sounds, nondistended, soft, nontender Extremities- no pretibial edema, no calf tenderness Díaz catheter in [id number] urine Neuro- alert, oriented x 3; no gross focal neurologic deficits Skin- warm & dry Results & Data Results & Data ([facility]) Vital Signs (Past 12 Hours) Vital Signs Temp Pulse Pulse Resp BP Pulse Ox 03/06/22 15:21 65 03/06/22 15:09 37.0 C 70 20 167/74 H 93 03/06/22 11:19 37.0 C 66 20 141/65 H 91 03/06/22 07:24 68 03/06/22 07:10 37.0 C 70 16 153/66 H 92 all noted and reviewed including below (1) Hematuria Hematuria type: gross Qualified Code(s): R31.0 - Gross hematuria
[2022-03-06] MEDS: ATORVASTATIN 10 MG TAB PO SCH (20:18)
[2022-03-06] MEDS: MIRTAZAPINE TAB 15 MG TAB PO SCH (20:18)
[2022-03-07] MEDS: PANTOprazole 40 MG TAB PO SCH (07:31)
[2022-03-07] MEDS: METOPROLOL SUCC 25MG EXT REL TAB PO SCH ×2 (07:31→21:55)
[2022-03-07] MEDS: amLODIPine BESYLATE 5 MG TAB PO SCH (07:31)
[2022-03-07] MEDS: FERROUS SULFATE 325 MG TAB PO SCH ×4 (07:31→21:55)
[2022-03-07 07:50] LABS: Basophils # (auto) 0.03 K/uL (0-0.2); Basophils % (auto) 0.5 %; Eosinophils # (auto) 0.22 K/uL (0-0.5); Eosinophils % (auto) 3.4 %; Hematocrit (blood only) 26.3 % (42-52); Hemoglobin 8.9 g/dL (14.0-18.0); Immature Granulocytes # (auto) 0.01 K/uL (0.00-0.02); Immature Granulocytes % (auto) 0.2 %; Lymphocytes # (auto) 0.93 K/uL (1.2-3.4); Lymphocytes % (auto) 14.6 %; Mean Corpuscular Hemoglobin 30.8 pg (25-34); Mean Corpuscular Hgb Conc 33.8 g/dL (32-36); Mean Platelet Volume 10.2 fL (7.4-10.4); Monocytes % (auto) 9.4 %; Neutrophils % (auto) 71.9 %; Platelet Count 138 K/uL (130-400); RDW Coefficient of Variation 12.8 % (11.5-14.5); RDW Standard Deviation 42.5 fL (36.4-46.3); Red Blood Count 2.89 M/uL (4.7-6.1); White Blood Count 6.39 K/uL (4.8-10.8)
[2022-03-07] MEDS: INSULIN ASPART PER UNIT SC SCH ×4 (08:18→21:55)
[2022-03-07 08:26] LABS: BUN Creatinine Ratio 14.2 (10-20); Calcium 7.9 mg/dl (8.5-10.1); Creatinine Clr Calc Pharmacy 44.5 ml/min; Est GFR (African American) 49.6 ml/min; Est GFR (Non-African American) 42.8 ml/min; Potassium 3.7 mmol/L (3.5-5.1)
--- NOTE | 2022-03-07 08:41 | Urology Progress Note ---
Date of Service March 07, 2022 Assessment & Plan (1) Hematuria: (2) Acute urinary retention: Plan: - Follow-up gross hematuria, clot retention. - Pt afebrile, nontoxic. - Lab work reviewed - creatinine 1.48, WBC 6.39, Hgb 8.9 (received 1 unit PRBCs on 03/05). - Urine culture grew out 9k cfu of gram negative bacilli - currently on IV Ceftriaxone per primary team. - Díaz required manual irrigation x 2 overnight, CBI was then restarted. - CBI clamped again early this AM at [address] Mcintyre. - Díaz intact and draining yellow w/ light pink/blood tinged sediment in tubing CBI clamped, no clots. - Continue CBI clamped at present and continue to monitor. - Okay to gently hand irrigate as needed for suprapubic discomfort or clot retention. - Maintain Díaz catheter. - Continue supportive care, antibiotics, and management per primary service. - Will make NPO at midnight for reassessment in AM. - Patient will need outpatient follow-up with our service for hematuria work-up. - will continue to follow. Admission and Anticipated Discharge Date Admission Date: March 04, 2022 Supervising Physician Co-Signing Physician Notes I have discussed Mr. Infante's case with ZORAIDA Hardwick and agree with the above documentation. Urine is overall clearing. For the most part he is doing well with CBI clamped. We will continue to hold off going to the OR today. His catheter can be gently hand irrigated if it becomes clogged. Agree with n.p.o. at midnight for reassessment tomorrow. Subjective Pt seen and examined at bedside. CBI was clamped yesterday. Per nursing notes, required manual irrigation x 2 overnight and CBI was restarted. CBI clamped again by urology early this AM @0650. Pt awake and resting in bed, appears comfortable. Denies abdominal or suprapubic discomfort. Díaz intact, patent and draining pink tinged urine with CBI on clamp. No nausea or vomiting. No fever or chills. Review of Systems Constitutional: as per Subjective / HPI Gastrointestinal: as per Subjective / HPI Genitourinary: + as per Subjective / HPI Physical Exam Constitutional: well developed and well nourished; no acute distress and not ill appearing Respiratory: normal respiratory effort and able to speak in complete s entences; no respiratory distress and no labored breathing Cardiovascular: Extremities: no pedal edema Gastrointestinal (Abdomen): Inspection/Auscultation: abdomen normal to inspection; abdomen not distended Percussion/Palpation: abdomen soft; abdomen nontender and no guarding Musculoskeletal: Head/Neck/Chest: normocephalic Neurologic: moves all extremities and awake Psychiatric: Orientation: alert and oriented to person Genitourinary: Díaz intact, patent and draining yellow with mild pink/ blood- tinged sediment in tubing, no clots, with CBI clamped. Results & Data ([facility]) Vital Signs (Past 12 Hours) Vital Signs Temp Pulse Pulse Resp BP Pulse Ox 03/07/22 02:40 37 C 66 18 177/72 H 91 03/06/22 22:45 37.1 C 71 21 153/60 H 94 03/06/22 22:20 70 PG Care Time/CCT Total # of Minutes Spent Total Time Spent with Patient: Total time spent is greater than 50% in coordination of care (as documented) at patient's floor/unit and/or counseling patient: Coding Level of Care Code 46139 Subseq Hosp Care Lvl 2 Diagnoses Hematuria R31.0 Hematuria type: gross Acute urinary retention R33.8 (1) Hematuria Hematuria type: gross Qualified Code(s): R31.0 - Gross hematuria
[2022-03-07] MEDS: cefTRIAXone SODIUM 2,000 MG in DEXTROSE 5% 50 ML IV SCH (11:31)
--- NOTE | 2022-03-07 11:32 | Pharmacy Report ---
Pharmacy Glycemic Short Note 2 - Date of Service March 07, 2022 - Glycemic Short BSG Results (Last 24 hours): 03/06/22 03/06/22 03/06/22 12:15 16:36 20:06 Glucose POC Glucose 109 H 116 H 151 H 03/07/22 03/07/22 03/07/22 07:21 07:31 11:19 Glucose 115 H POC Glucose 121 H 204 H OUTPATIENT ANTIDIABETIC REGIMEN: * Lantus 20 units Qam, Novolin 70/30 - 8 units with breakfast, 10 units with lunch, 18 units with dinner, Januvia 50 mg daily * Clarified insulin regimen with Susy Luevano - listed incorrectly on med list, updated now (03/04/22) ASSESSMENT: 03/07/22: * Dante received 10 units of SQ insulin yesterday (5 units basal + 5 units bolus) with excellent BSG control * Fasting BSG at goal. Rapid rise in BSG from 121 to 204 mg/dL from breakfast to lunch. Will tighten carb coverage. 03/06/22: * Dante received 7 units of SQ insulin yesterday (5 units basal + 2 units bolus) - NPO during this time * Will continue Lantus scale dosed at dinner - expect patient to resume diet later today * Will loosen correction factor since patient has required very little insulin the past 24 hours 03/05/22: * BSGs trended down nicely yesterday, 231, 234, 195, 175, and 100 mg/dL * Received 22 units of insulin while inpatient (15 units of Lantus and 7 units of Novolog) * NPO today, but will be ordered diet for dinner per hospitalist -> NPO after midnight per urology * Will give reduced basal dose today 03/04/22: * 86 year old admitted with hematuria. 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 She reports patient's BSGs very labile, sometimes lower/hypoglycemic in the morning, higher throughout the day * Will trial Lantus 15 units daily (0.2 unit/kg) - patient to be NPO at midnight PLAN FOR INPATIENT GLYCEMIC CONTROL: * Hold outpatient oral diabetes medications * Basal insulin * Lantus 5-8 units this evening with dinner (8 units if BSG is > 120 mg/dL) * Bolus insulin - tighten carb coverage * NovoLog per scale ACHS or Q6hrs while NPO * Goal Range: Low 120 mg/dL - High 150 mg/dL * Correction Factor: 25 mg/dL/unit * Nutritional / Prandial insulin per carb ratio of 1 unit per 6 grams CHO consumed
--- NOTE | 2022-03-07 16:46 | Hospitalist Progress Note ---
Date of Service March 07, 2022 Assessment & Plan (1) Hematuria: Plan: 86/M w/ h/o wheelchair bound, CAD s/p TAVR, DM, HTN, Anemia, Thrombocytopenia, BPH, GERD, presenting with hematuria. He is being managed for the following: #. HEMATURIA #. Acute UTI #. Acute urinary retention Admitting CTAP: Prostamegaly with mild urinary bladder distention and Díaz catheter in place. 9.4 cm probable hematoma within the urinary bladder lumen. Few subcentimeter calcifications along the dependent urinary bladder at the midline which may represent bladder calculi versus calcified bladder neoplasm. Follow-up cystoscopy needed. Admitting urine culture: Gram-negative bacilli, follow-up final results. Continue with Rocephin 03/04 Díaz catheter output clearing up. Hematuria improving. Aspirin held for now, CBI clamped again this morning. Okay to gently hand irrigate as per urology for suprapubic discomfort or clot retention. Maintain Díaz, will need cystoscopy as an outpatient for further evaluation. N.p.o. midnight for reassessment in a.m. per urology. Follow-up with urology as an outpatient. Resume aspirin with urology clearance. #. Acute blood loss anemia Baseline hemoglobin 11, gradually decreased to 7.7 Secondary to hematuria Hemoglobin stable lately around 8-9, iron panel with low iron, IV iron given, oral iron twice daily started Vit B12 supplementation started 03/07 Continue with iron, monitor hemoglobin daily and as needed. #. Other chronic medical conditions: CKD stage III [baseline creatinine 1.7- 1.8], CAD, status post TAVR, HTN Continue with/resume home medications resume when appropriate. Aspirin on hold. #. DVT prophylaxis: SCDs Re: hematuria #. Disposition: PT/OT recommending SNF, CM to assist with DC planning. Admission and Anticipated Discharge Date Admission Date: March 04, 2022 Subjective Patient seen and examined at bedside as a follow-up of hematuria and acute blood loss anemia. Patient was sitting up in bed, on room air, was starting to work with physical therapy, NAD, no new acute events overnight. Patient reports eating okay and moving bowels okay. Patient denies any fever/headache/chills/dizziness/sore throat/cough/chest pain/palpitation/back pain/other review of symptoms. Physical Exam Physical Exam: GENERAL: Alert and oriented x3. NAD, on RA. HEENT: No pallor, no icterus. Pupils equal, round and reactive to light. Oral mucosa moist. NECK: No JVD, no neck masses. HEART: S1 and S2 heard. Regular rate and rhythm. Systolic Murmur @ A & P, no gallop. RESPIRATORY SYSTEM: Normal AP diameter. No accessory muscle use. No wheezing, b/b decreased breath sounds w/ occasional crackles. ABDOMEN: Soft, bowel sounds present, nontender, no distention. CENTRAL NERVOUS SYSTEM: No facial droop. Speech is clear. Obeys simple commands. Moves extremities. EXTREMITIES: No edema, no erythema seen. Results & Data Results & Data ([facility]) Vital Signs (Past 12 Hours) Vital Signs Temp Pulse Pulse Resp BP Pulse Ox 03/07/22 15:04 64 03/07/22 14:52 36.8 C 65 20 151/69 H 97 03/07/22 14:46 36.7 C 64 16 147/64 H 98 (1) Hematuria Hematuria type: gross Qualified Code(s): R31.0 - Gross hematuria
[2022-03-07] MEDS: INSULIN GLARGINE SOLOSTAR 100 UNITS/ML 3 ML PEN SC SCH (17:12)
[2022-03-07] MEDS: CYANOCOBALAMIN (B-12) 100 MCG TABLET PO SCH (18:24)
[2022-03-07] MEDS: MIRTAZAPINE TAB 15 MG TAB PO SCH (21:55)
[2022-03-07] MEDS: ATORVASTATIN 10 MG TAB PO SCH (21:55)
[2022-03-07] MEDS ORDERED: HYDROmorphone INJ 0.5 MG/0.5 ML SYR IV PRN (22:15)
[2022-03-07] MEDS ORDERED: ACETAMINOPHEN 325 MG TAB PO PRN (22:15)
[2022-03-08] MEDS ORDERED: INSULIN ASPART PER UNIT SC SCH (06:00)
[2022-03-08 07:47] LABS: Basophils # (auto) 0.01 K/uL (0-0.2); Basophils % (auto) 0.2 %; Eosinophils # (auto) 0.25 K/uL (0-0.5); Eosinophils % (auto) 3.8 %; Hematocrit (blood only) 28.4 % (42-52); Hemoglobin 9.2 g/dL (14.0-18.0); Immature Granulocytes # (auto) 0.02 K/uL (0.00-0.02); Immature Granulocytes % (auto) 0.3 %; Lymphocytes # (auto) 1.03 K/uL (1.2-3.4); Lymphocytes % (auto) 15.5 %; Mean Corpuscular Hgb Conc 32.4 g/dL (32-36); Mean Corpuscular Volume 92.5 fL (80-100); Mean Platelet Volume 10.3 fL (7.4-10.4); Monocytes # (auto) 0.61 K/uL (0.11-0.59); Monocytes % (auto) 9.2 %; Neutrophils # (auto) 4.73 K/uL (1.4-6.5); Platelet Count 172 K/uL (130-400); RDW Coefficient of Variation 12.9 % (11.5-14.5); RDW Standard Deviation 43.6 fL (36.4-46.3); Red Blood Count 3.07 M/uL (4.7-6.1); White Blood Count 6.65 K/uL (4.8-10.8)
[2022-03-08 08:18] LABS: BUN Creatinine Ratio 13.2 (10-20); Calcium 8.3 mg/dl (8.5-10.1); Creatinine Clr Calc Pharmacy 41.1 ml/min; Est GFR (African American) 45.5 ml/min; Est GFR (Non-African American) 39.3 ml/min; Potassium 3.6 mmol/L (3.5-5.1)
--- NOTE | 2022-03-08 08:36 | Urology Progress Note ---
Date of Service March 08, 2022 Assessment & Plan (1) Acute urinary retention: (2) Hematuria: Plan: - Follow-up gross hematuria, clot retention. - Plan of care reviewed with Dr. Sommer, urologist employee relations manager. - Pt afebrile, nontoxic. - Lab work reviewed - creatinine 1.59, WBC 6.65, Hgb 9.2 (received 1 unit PRBCs on 03/05). - Urine culture grew out 9k cfu of gram negative bacilli - currently on IV Ceftriaxone per primary team. - Díaz intact and draining clear yellow urine with some bloody sediment in tubing, no clots, CBI clamped. - CBI clamped since yesterday, urine clearing - no manual irrigation or issues overnight. - Will discontinue CBI set up today. - Maintain Díaz catheter at present - likely continue until outpatient follow- up. - Okay to gently hand irrigate as needed for suprapubic discomfort or clot retention. - No intervention planned at this time, okay to resume diet. - Continue supportive care, antibiotics, and management per primary service. - Okay to resume aspirin from perspective. - Patient will need outpatient follow-up with our service for cystoscopy to finalize hematuria work-up. - will sign off, please contact us with any additional questions or concerns. Admission and Anticipated Discharge Date Admission Date: March 04, 2022 Supervising Physician Co-Signing Physician Notes Discussed patient with TED. Agree with plan. Subjective Pt seen and examined at bedside. CBI clamped since yesterday morning. No manual irrigation required overnight. Díaz intact, patent and draining clear yellow urine, some bloody sediment in tubing, no clots, CBI clamped. Denies abdominal or suprapubic pain. No nausea or vomiting. No fever or chills. Offers no additional complaints. Review of Systems Constitutional: as per Subjective / HPI Gastrointestinal: as per Subjective / HPI Genitourinary: + as per Subjective / HPI Physical Exam Constitutional: well developed and well nourished; no acute distress and not ill appearing Respiratory: normal respiratory effort and able to speak in complete sentences; no respiratory distress and no labored breathing Cardiovascular: Extremities: no pedal edema Gastrointestinal (Abdomen): Inspection/Auscultation: abdomen normal to inspection; abdomen not distended Percussion/Palpation: abdomen soft; abdomen nontender and no guarding Musculoskeletal: Head/Neck/Chest: normocephalic Neurologic: moves all extremities and awake Psychiatric: Orientation: alert and oriented to person Genitourinary: Díaz intact, patent and draining clear yellow urine with some bloody sediment noted in tubing, CBI clamped. Results & Data ([facility]) Vital Signs (Past 12 Hours) Vital Signs Temp Pulse Pulse Resp BP Pulse Ox 03/08/22 07:43 37 C 68 18 162/71 H 93 03/08/22 04:00 37.0 C 66 17 161/66 H 92 03/08/22 01:00 72 03/07/22 23:00 37.2 C 73 18 152/62 H 92 PG Care Time/CCT Total # of Minutes Spent Total Time Spent with Patient: Total time spent is greater than 50% in coordination of care (as documented) at patient's floor/unit and/or counseling patient: Coding Level of Care Code 21451 Subseq Hosp Care Lvl 2 Diagnoses Acute urinary retention R33.8 Hematuria R31.0 Hematuria type: gross (1) Hematuria Hematuria type: gross Qualified Code(s): R31.0 - Gross hematuria
[2022-03-08] MEDS: FERROUS SULFATE 325 MG TAB PO SCH ×2 (09:11→17:36)
[2022-03-08] MEDS: PANTOprazole 40 MG TAB PO SCH (09:11)
[2022-03-08] MEDS: CYANOCOBALAMIN (B-12) 100 MCG TABLET PO SCH (09:12)
[2022-03-08] MEDS: amLODIPine BESYLATE 5 MG TAB PO SCH (09:12)
[2022-03-08] MEDS: METOPROLOL SUCC 25MG EXT REL TAB PO SCH ×2 (09:12→22:01)
[2022-03-08] MEDS: traMADol HCL 50 MG TABLET PO PRN ×2 (10:42→23:22)
[2022-03-08] MEDS: cefTRIAXone SODIUM 2,000 MG in DEXTROSE 5% 50 ML IV SCH (11:26)
[2022-03-08] MEDS ORDERED: Nursing to Pharmacy Communication SCH (11:45)
[2022-03-08] MEDS ORDERED: INSULIN GLARGINE SOLOSTAR 100 UNITS/ML 3 ML PEN SC ONE (11:45)
[2022-03-08] MEDS: INSULIN ASPART PER UNIT SC SCH ×3 (12:02→22:02)
--- NOTE | 2022-03-08 13:15 | Pharmacy Report ---
Pharmacy Glycemic Short Note 2 - Date of Service March 08, 2022 - Glycemic Short BSG Results (Last 24 hours): 03/07/22 03/07/22 03/08/22 16:18 20:44 05:21 Glucose POC Glucose 101 H 115 H 122 H 03/08/22 03/08/22 06:23 11:32 Glucose 115 H POC Glucose 284 H OUTPATIENT ANTIDIABETIC REGIMEN: * Lantus 20 units Qam, Novolin 70/30 - 8 units with breakfast, 10 units with lunch, 18 units with dinner, Januvia 50 mg daily * Clarified insulin regimen with Susy Luevano - listed incorrectly on med list, updated now (03/04/22) ASSESSMENT: 03/08/22: * BSGs reasonably well-controlled yesterday, 121, 204, 101, and 115 mg/dL * Received 26 units of insulin (5 units of Lantus and 21 units of Novolog) * Fasting BSG of 122 mg/dL this morning * Patient originally NPO after midnight pending reassessment by urology, ordered diet this morning and late uncovered breakfast consumed * Will loosen CF with lunch today given falsely elevated lunch BSG of 284 mg/dL * Will give increased dose of Lantus today with lunch and plan to give with breakfast tomorrow to correlate with outpatient regimen 03/07/22: * Dante received 10 units of SQ insulin yesterday (5 units basal + 5 units bolus) with excellent BSG control * Fasting BSG at goal. Rapid rise in BSG from 121 to 204 mg/dL from breakfast to lunch. Will tighten carb coverage. Background: * 86 year old admitted with hematuria. 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 She reports patient's BSGs very labile, sometimes lower/hypoglycemic in the morning, higher throughout the day * Will trial Lantus 15 units daily (0.2 unit/kg) - patient to be NPO at midnight PLAN FOR INPATIENT GLYCEMIC CONTROL: * Hold outpatient oral diabetes medications * Basal insulin * Lantus 8 units SC with lunch * Reassess in AM * Bolus insulin - tighten carb coverage * NovoLog per scale ACHS or Q6hrs while NPO * Goal Range: Low 120 mg/dL - High 150 mg/dL * Correction Factor: 25 mg/dL/unit * Nutritional / Prandial insulin per carb ratio of 1 unit per 6 grams CHO consumed
--- NOTE | 2022-03-08 17:36 | Hospitalist Progress Note ---
Date of Service March 08, 2022 Assessment & Plan (1) Hematuria: Plan: 86/M w/ h/o wheelchair bound, CAD s/p TAVR, DM, HTN, Anemia, Thrombocytopenia, BPH, GERD, presenting with hematuria. He is being managed for the following: #. HEMATURIA #. Acute UTI #. Acute urinary retention Admitting CTAP: Prostamegaly with mild urinary bladder distention and Barber catheter in place. 9.4 cm probable hematoma within the urinary bladder lumen. Few subcentimeter calcifications along the dependent urinary bladder at the midline which may represent bladder calculi versus calcified bladder neoplasm. Follow-up cystoscopy needed. Admitting urine culture: Gram-negative bacilli Continue with Rocephin 03/04 Barber catheter output clearing up. Hematuria improving. Aspirin held for now, CBI DC'd today. Maintain barber cath until OP follow up.. No Ix currently. Will need cystoscopy as an outpatient for further evaluation. Follow-up with urology as an outpatient. Resume aspirin. 81 mg daily per OP record. #. Acute blood loss anemia Baseline hemoglobin 11, gradually decreased to 7.7 Secondary to hematuria Hemoglobin stable lately around 8-9, iron panel with low iron, IV iron given, oral iron twice daily started Vit B12 supplementation started 03/07 Continue with iron, monitor hemoglobin daily and as needed. #. Other chronic medical conditions: CKD stage III [baseline creatinine 1.7- 1.8], CAD, status post TAVR, HTN Continue with/resume home medications resume when appropriate. Aspirin on hold. #. DVT prophylaxis: SCDs Re: hematuria #. Disposition: PT/OT recommending SNF, CM to assist with DC planning. Pt stable medically. Admission and Anticipated Discharge Date Admission Date: March 04, 2022 Subjective Patient seen and examined at bedside as a follow-up of hematuria and acute blood loss anemia. Patient was sitting up in chair, on room air, NAD, no new acute events overnight. Patient reports eating okay and moving bowels okay. Patient denies any fever/headache/chills/dizziness/sore throat/cough/chest pain/palpitation/back pain/other review of symptoms. Physical Exam Physical Exam: GENERAL: Alert and oriented x3. NAD, on RA. HEENT: No pallor, no icterus. Pupils equal, round and reactive to light. Oral mucosa moist. NECK: No JVD, no neck masses. HEART: S1 and S2 heard. Regular rate and rhythm. Systolic Murmur @ A & P, no gallop. RESPIRATORY SYSTEM: Normal AP diameter. No accessory muscle use. No wheezing, b/b decreased breath sounds w/ occasional crackles. ABDOMEN: Soft, bowel sounds present, nontender, no distention. CENTRAL NERVOUS SYSTEM: No facial droop. Speech is clear. Obeys simple commands. Moves extremities. EXTREMITIES: No edema, no erythema seen. Urinary cath with no visible hematuria Results & Data Results & Data ([facility]) Vital Signs (Past 12 Hours) Vital Signs Temp Pulse Pulse Resp BP BP Pulse Ox 03/08/22 16:29 03/08/22 16:16 65 03/08/22 15:07 36.9 C 65 20 146/71 H 96 03/08/22 10:51 36.4 C L 72 19 126/62 97 03/08/22 09:00 64 03/08/22 07:43 37 C 68 18 162/71 H 93 Pulse Ox 03/08/22 16:29 92 03/08/22 16:16 03/08/22 15:07 03/08/22 10:51 03/08/22 09:00 03/08/22 07:43 (1) Hematuria Hematuria type: gross Qualified Code(s): R31.0 - Gross hematuria
[2022-03-08] MEDS: ATORVASTATIN 10 MG TAB PO SCH (22:01)
[2022-03-09] MEDS: INSULIN ASPART PER UNIT SC SCH ×2 (08:41→12:13)
[2022-03-09 08:44] LABS: Basophils # (auto) 0.03 K/uL (0-0.2); Basophils % (auto) 0.4 %; Eosinophils # (auto) 0.21 K/uL (0-0.5); Hematocrit (blood only) 30.6 % (42-52); Hemoglobin 9.8 g/dL (14.0-18.0); Immature Granulocytes # (auto) 0.02 K/uL (0.00-0.02); Immature Granulocytes % (auto) 0.3 %; Lymphocytes # (auto) 1.05 K/uL (1.2-3.4); Mean Corpuscular Hemoglobin 29.9 pg (25-34); Mean Corpuscular Volume 93.3 fL (80-100); Mean Platelet Volume 10.2 fL (7.4-10.4); Monocytes # (auto) 0.47 K/uL (0.11-0.59); Monocytes % (auto) 6.7 %; Neutrophils # (auto) 5.23 K/uL (1.4-6.5); Neutrophils % (auto) 74.6 %; Platelet Count 198 K/uL (130-400); RDW Coefficient of Variation 13.1 % (11.5-14.5); RDW Standard Deviation 44.1 fL (36.4-46.3); Red Blood Count 3.28 M/uL (4.7-6.1); White Blood Count 7.01 K/uL (4.8-10.8)
[2022-03-09] MEDS: amLODIPine BESYLATE 5 MG TAB PO SCH (08:48)
[2022-03-09] MEDS: FERROUS SULFATE 325 MG TAB PO SCH (08:48)
[2022-03-09] MEDS: METOPROLOL SUCC 25MG EXT REL TAB PO SCH (08:48)
[2022-03-09] MEDS: PANTOprazole 40 MG TAB PO SCH (08:48)
[2022-03-09] MEDS: CYANOCOBALAMIN (B-12) 100 MCG TABLET PO SCH (08:48)
[2022-03-09] MEDS ORDERED: ASPIRIN 81 MG ECTAB PO SCH (09:00)
[2022-03-09] MEDS ORDERED: INSULIN GLARGINE SOLOSTAR 100 UNITS/ML 3 ML PEN SC SCH (09:00)
[2022-03-09 09:23] LABS: BUN Creatinine Ratio 15.7 (10-20); Calcium 8.5 mg/dl (8.5-10.1); Creatinine Clr Calc Pharmacy 36.7 ml/min; Est GFR (African American) 39.7 ml/min; Est GFR (Non-African American) 34.3 ml/min
[2022-03-09] MEDS: traMADol HCL 50 MG TABLET PO PRN (11:05)
[2022-03-09] MEDS: cefTRIAXone SODIUM 2,000 MG in DEXTROSE 5% 50 ML IV SCH (11:12)
--- NOTE | 2022-03-09 11:16 | Discharge Summary ---
Date of Service March 09, 2022 Admission HPI Per Admitting Provider 86/M wheelchair bound, CAD s/p TAVR, DM, HTN, Anemia, Thrombocytopenia, BPH, GERD, presenting with hematuria. Patient was seen at the ER 03/02 for urinary retention and barber catheter was placed. Today, patient was brought in again for hematuria. Hg down from baseline of 11-9. CT abd: Prostamegaly with mild urinary bladder distention and Barber catheter in place. There is a 9.4 cm probable hematoma within the urinary bladder lumen. Additionally, there are a few subcentimeter calcifications along the dependent urinary bladder at the midline which may represent urinary bladder calculi or alternatively a partially calcified bladder neoplasm. Findings could be correlated with cystoscopy. Bladder irrigation performed at the ER. On exam, patient resting in bed, comfortable. no chest pain, dyspnea, palpitations, dizziness no abdominal pain, nausea/vomiting, fever/chills no other symptoms Admission Exam Per Admitting Provider General- oriented x 2, not in distress, speaks in sentences with no effort or accessory muscle use Head- atraumatic Eyes- PERRL, EOMI, anicteric ENT- oropharynx clear Neck- supple, no JVD, no adenopathy, no thyromegaly; carotids +2/2, no bruits appreciated Lungs- clear to auscultation bilaterally, no rales/wheezes Heart- normal rate, regular rhythm; no murmur, no gallop, no rub appreciated Abdomen- normal bowel sounds, nondistended, soft, nontender, no masses or hepatosplenomegaly (+) barber cath with light red urine Extremities- no pretibial edema, no calf tenderness; peripheral pulses intact Neuro- alert, oriented x2; CN 2-12 grossly intact; motor 5/5 bilaterally;sensation 100% on all extremities; no other gross focal neurologic deficits Skin- warm & dry Principal Diagnosis Hematuria Acute UTI Acute urinary retention Acute blood loss anemia Discharge Exam GENERAL: Alert and oriented x3. NAD, on RA. HEENT: No pallor, no icterus. Pupils equal, round and reactive to light. Oral mucosa moist. NECK: No JVD, no neck masses. HEART: S1 and S2 heard. Regular rate and rhythm. Systolic Murmur @ A & P, no gallop. RESPIRATORY SYSTEM: Normal AP diameter. No accessory muscle use. No wheezing, b/b decreased breath sounds w/ occasional crackles. ABDOMEN: Soft, bowel sounds present, nontender, no distention. CENTRAL NERVOUS SYSTEM: No facial droop. Speech is clear. Obeys simple commands. Moves extremities. EXTREMITIES: No edema, no erythema seen. Urinary cath with light yellow urine collection. Discharge Data Allergies Allergy/AdvReac Type Severity Reaction Status Date / Time No Known Allergies Allergy Unknown Verified 04/25/21 09:16 Consultations 03/04/22 08:58 ED Decision to Admit Stat 03/04/22 11:22 Consult Urology Routine Ordered Studies 03/04/22 07:07 CT abd pelvis wo con Stat Hospital Course (1) Hematuria: 86/M w/ h/o wheelchair bound, CAD s/p TAVR, DM, HTN, Anemia, Thrombocytopenia, BPH, GERD, presenting with hematuria. He was managed for the following: #. HEMATURIA #. Acute UTI #. Acute urinary retention Admitting CTAP: Prostamegaly with mild urinary bladder distention and Barber catheter in place. 9.4 cm probable hematoma within the urinary bladder lumen. Few subcentimeter calcifications along the dependent urinary bladder at the midline which may represent bladder calculi versus calcified bladder neoplasm. Follow-up cystoscopy needed. Admitting urine culture: Gram-negative bacilli s/p rocephin treatment Barber catheter output is light yellow urine. Resumed aspirin. Maintain barber cath until OP follow up.. No Ix currently. Will need cystoscopy as an outpatient for further evaluation. Follow-up with urology as an outpatient. #. Acute blood loss anemia Baseline hemoglobin 11, gradually decreased to 7.7 Secondary to hematuria Hemoglobin stable lately around 8-9, iron panel with low iron, IV iron given c/w iron and vit b12 supplement. Continue with iron, get CBC in a week time. #. Other chronic medical conditions: CKD stage III [baseline creatinine 1.7- 1.8], CAD, status post TAVR, HTN Continue with/resume home medications resume when appropriate. Patient is being discharged to SNF with following instruction at the point of discharge: Follow-up with your primary care physician within a week time. Follow-up with your urology in a week time upon discharge, you will likely need outpatient cystoscopy. Also you will need repeat urinalysis as an outpatient. You will need to be on Barber catheter until you are seen by your urology as an outpatient. Get your blood work CBC and CMP done in a week time and have the results forwarded to your primary care physician. Continue with your iron and vit B12 supplement. Take your medications as prescribed. Total Time Total Time Spent Total Time Spent (In Minutes): 40 Discharge Plan Discharge Items Patient Disposition: Transfer Residential Fac Reason For Visit: HEMATURIA Discharge Diagnosis: Hematuria Acute UTI Acute urinary retention Acute blood loss anemia Activity: Resume your previous activity Non-emergency contact: Primary Care Provider Call non-emergency contact if: you have any medication questions, your symptoms worsen and your temperature is above 101 Follow-up/Referrals: Neha Johnson [Primary Care Provider] - Diet: Carb Consistent or DM2 and Heart Healthy Addtl Attending Provider Instructions: Follow-up with your primary care physician within a week time. Follow-up with your urology in a week time upon discharge, you will likely need outpatient cystoscopy. Also you will need repeat urinalysis as an outpatient. You will need to be on Barber catheter until you are seen by your urology as an outpatient. Get your blood work CBC and CMP done in a week time and have the results forwarded to your primary care physician. Continue with your iron and vit B12 supplement. Take your medications as prescribed. Pending Studies at Discharge: No Stand-Alone Forms: My [facility] Skilled Items Patient informed of condition?: Yes DNR: No Discharge Level of Care: Skilled Communicable Disease: No Discharge Prognosis: Stable Lines: None Urinary Catheter: Yes Medications and DC Order Prescriptions: New cyanocobalamin (vitamin B-12) [Vitamin B-12] 100 mcg Tablet 100 mcg PO QAM Qty: 30 RF: 0 Continued Lantus U-100 Insulin 100 unit/mL solution 20 unit subcut QAM RF: 0 metoprolol succinate 25 mg tablet extended release 24 hr 25 mg PO BID RF: 0 atorvastatin 10 mg Tablet 10 mg PO PM RF: 0 amlodipine [Norvasc] 5 mg tablet 5 mg PO QAM RF: 0 tramadol 50 mg Tablet 50 mg PO Q8H PRN (Reason: moderate to severe pain) Qty: 10 RF: 0 Januvia 50 mg tablet 50 mg PO QAM RF: 0 calcium citrate 250 mg calcium Tablet 500 mg PO QAM RF: 0 mirtazapine 15 mg tablet 15 mg PO HS RF: 0 acetaminophen 325 mg tablet 650 mg PO Q4 PRN (Reason: Fever Or Pain) RF: 0 docusate sodium [Colace] 100 mg Capsule 100 mg PO .EVERY 24 HOURS IN A PRN (Reason: on day 2 no bm) RF: 0 polyethylene glycol 3350 [Miralax] 17 gram/dose Powder 17 g PO .EVERY 24 HOURS PRN (Reason: on day 2 of no bm) RF: 0 Vitamin D3 1 tab PO QAM RF: 0 Novolin 70-30 FlexPen U-100 100 unit/mL (70-30) insulin pen SUBCUT TIDM RF: 0 ferrous sulfate 325 mg (65 mg iron) Tablet 325 mg PO BID Qty: 60 RF: 0 Changed aspirin 81 mg tablet,delayed release (DR/EC) 81 mg PO DAILY Qty: 0 RF: 0 pantoprazole 40 mg Tablet,Delayed Release (Dr/Ec) 40 mg PO DAILY Qty: 60 RF: 1 Discontinued lorazepam 0.5 mg tablet 0.5 mg PO Q8 PRN (Reason: Anxiety) RF: 0 Discharge Orders: Discharge Order (Routine); Ordered 03/09/22 Ordered By: Blake Garcia Admission Data Admit Date/Time: 03/04/22 09:27 Attending Provider: Blake Garcia Admit Provider: Franco Alejandro Primary Care Provider: Neha Johnson Other Providers: Franco Alejandro ; Bran Mcintyre ; [facility]
[2022-03-09] MEDS ORDERED: INSULIN GLARGINE SOLOSTAR 100 UNITS/ML 3 ML PEN SC ONE (12:00)
== END 2022-03-09 14:42 | DRG 690 ==
LOC: ED 06:46 → 2N 09:27 → SUATTDRO 09:27 → 2N 10:42
DX: T83.091A Other mechanical complication of indwelling urethral catheter, initial encounter; N32.89 Other specified disorders of bladder; Y84.6 Urinary catheterization as the cause of abnormal reaction of the patient, or of later complication, without mention of misadventure at the time of the procedure; E11.22 Type 2 diabetes mellitus with diabetic chronic kidney disease; Z79.899 Other long term (current) drug therapy; D62 Acute posthemorrhagic anemia; N40.1 Benign prostatic hyperplasia with lower urinary tract symptoms; B96.89 Other specified bacterial agents as the cause of diseases classified elsewhere; R79.89 Other specified abnormal findings of blood chemistry; Z79.82 Long term (current) use of aspirin; I12.9 Hypertensive chronic kidney disease with stage 1 through stage 4 chronic kidney disease, or unspecified chronic kidney disease; Z99.3 Dependence on wheelchair; R33.8 Other retention of urine; K21.9 Gastro-esophageal reflux disease without esophagitis; M79.81 Nontraumatic hematoma of soft tissue; I25.10 Atherosclerotic heart disease of native coronary artery without angina pectoris; Z87.891 Personal history of nicotine dependence; R31.0 Gross hematuria; N18.30 Chronic kidney disease, stage 3 unspecified; E78.5 Hyperlipidemia, unspecified; Z79.4 Long term (current) use of insulin; N39.0 Urinary tract infection, site not specified; Z95.2 Presence of prosthetic heart valve

== ENCOUNTER 2022-03-18 12:55 | Inpatient (IN) ==
[2022-03-18] MEDS ORDERED: AMPICILLIN/SULBACTAM SOD 3,000 MG in 0.9 % SODIUM CHLORIDE 100 ML IV STA (13:07)
[2022-03-18] MEDS ORDERED: SODIUM CHLORIDE 0.9% 1000ML 1,000 ML IV ONE (13:07)
--- NOTE | 2022-03-18 13:28 | Emergency Department Note ---
Impression & Plan Bacteremia, Hematuria, Urinary tract infection, Anemia ED Provider Note NAME: ROMARIO BONILLA AGE: 86 SEX: M : 1935 ARRIVES VIA: Ambulance INFORMANT: Patient, the patient's family member ED PROVIDER(S): Dante Red DO CHIEF COMPLAINT: Bacteremia HPI: The patient is an 86-year-old male who has a history of an indwelling Díaz over the last month who presented to the emergency department for an evaluation of fever. The patient was in our facility last evening for a febrile illness. At that time he was noted to have urinary tract infection and was sent home on penicillin. The patient had to blood cultures which grew positive for gram- positive cocci in chains. We called the patient and told him to come back to [facility] emergency department. He has had urine in the past that grew out Enterococcus. This is likely the source. The patient's family member presented to the emergency department with him as he was visiting from [facility]. The patient continues to have low-grade fever. The patient himself states that he has body aches and abdominal pain. He has had blood in his Díaz catheter bag but this is not new this is been ongoing for a few days. There is been no reported trauma. The patient's had no back pain. The patient denies having any vomiting. ROS: See above HPI for pertinent positives & negatives. A total of 10 systems reviewed and were otherwise negative. PAST MEDICAL HISTORY: See Below PAST SURGICAL HISTORY: See Below FAMILY HISTORY: See Below SOCIAL HISTORY: See Below HOME MEDICATIONS: See Below ALLERGIES: See Below VITALS: See Below PHYSICAL EXAMINATION: GENERAL: The patient is awake and alert. The patient is somewhat anxious appearing. EYES: The conjunctivae are clear. The pupils are round and reactive. EARS, NOSE, MOUTH AND THROAT: The nose is without any evidence of any deformity. Mucous membranes are dry. NECK: The neck is nontender and supple. RESPIRATORY: Normal respiratory effort is noted there is no evidence of wheezing rhonchi or rales CARDIOVASCULAR: Regular rate and rhythm noted there no murmurs rubs or gallops normal S1 normal S2. GASTROINTESTINAL: The abdomen is soft and mildly distended. There is tenderness to palpation. There is no guarding rigidity. MUSCULOSKELETAL/EXTREMITIES: There is no evidence of gross deformity full range of motion is noted in the hips and shoulders. SKIN: The skin is warm and dry. Trace pedal edema was noted bilaterally. NEUROLOGIC: Patient is awake alert and oriented to person place and situation. He recognizes family member. Strength is symmetric. MEDICAL DECISION MAKING: The patient is an 86-year-old male who presented to the emergency department for an evaluation of febrile illness. He was seen last evening for similar co mplaints. He was started on penicillin and was treated for urinary tract infection. The patient returns today because his blood cultures appeared to be positive in 2 bottles with gram-positive cocci in chains. This is very worrisome for bacteremia. I discussed the patient's laboratory and radiographic studies with the patient and his family member. I discussed his condition with the on-call [facility]ist. They have agreed to evaluate the patient in the emergency department for further management and disposition. Triage Nursing notes reviewed. Prior medical records reviewed Vital Signs: reviewed and remarkable for elevated blood pressure. Differential diagnosis: Viral syndrome, otitis, pharyngitis, pneumonia, influenza, meningitis, urinary tract infection, sepsis, bacteremia, as well as other pathologies. ER treatment provided: See below Diagnostics interpreted by me: ECG: EKG was obtained in the emergency department. My interpretation is normal sinus rhythm at 90 bpm. There were no PVCs noted. Right bundle branch block pattern was noted. This was compared to a tracing from March 17, 2022. No changes were noted. Cardiac Monitoring: An order was placed for continuous cardiac monitoring. The monitor shows a rate of 84 bpm with sinus rhythm. Laboratory studies: As stated above and show below. Imaging studies: See below Consultation(s): I discussed this case with Dr. Leonard who is on-call for the [facility]ist group. Past Med/Surg History Medical History CKD (chronic kidney disease) stage 4, GFR 15-29 ml/min Closed head injury Closed hip fracture Closed left hip fracture Fall Fall GI bleed Gross hematuria Hematoma of bladder wall Hyperlipidemia RBBB Symptomatic anemia Surgical History History of cardiac cath CAD by cardiac catheterization 11/2019. Distal LMCA has a 40% stenosis which is not significant by IVUS with a mLA of 13.8 mm^2. The mid LAD had a 30% stenosis. The LCx and RCA had mild luminal irregularities History of carotid endarterectomy right History of cataract surgery LEFT. . 2mg versed no issues. History of colonoscopy History of total left knee replacement Family History Father Heart disorder Social History Smoking Status: Unknown if ever smoked Tobacco Type: Cigarettes packs per day: 1; Years Smoked: 5; Second Hand Exposure: No; Hx Alcohol Use: No Hx Substance Use: No Preferred Language: Bhutanese Communication Ability: Impaired Woodwork Teacher Required: No Beliefs That Will Affect Care: None marital status: Current Living Situation: Personal Care Facility Current Living Situation Comment: came from [facility] after recent discharge after hip surgery Feels Safe at Home: Declines to Answer Assistive Devices: Walker and Wheelchair Allergies Allergies Allergy/AdvReac Type Severity Reaction Status Date / Time No Known Allergies Allergy Unknown Verified 03/18/22 15:46 Home Meds Home Medications Medication Instructions Recorded Confirmed atorvastatin 10 mg tablet 10 mg PO HS 03/03/19 03/18/22 amlodipine 5 mg tablet (Norvasc) 5 mg PO QAM 01/10/21 03/18/22 acetaminophen 325 mg tablet 650 mg PO Q4 PRN MDD 3g 02/07/21 03/18/22 calcium citrate 500 mg PO QAM 02/07/21 03/18/22 mirtazapine 15 mg tablet 15 mg PO HS 02/07/21 03/18/22 polyethylene glycol 3350 17 17 g PO DAILY 02/07/21 03/18/22 gram/dose oral powder (Miralax) sitagliptin 50 mg tablet (Januvia) 50 mg PO QAM 02/07/21 03/18/22 insulin glargine 100 unit/mL 20 unit SUBCUT QA 03/28/21 03/18/22 subcutaneous solution (Lantus U-100 Insulin) metoprolol succinate 25 mg 25 mg PO [facility] 04/11/21 03/18/22 tablet,extended release 24 hr aspirin 81 mg tablet,delayed 81 mg PO QAM 03/14/22 03/18/22 release cholecalciferol (vitamin D3) 50 50 mcg PO QAM 03/14/22 03/18/22 mcg (2,000 unit) tablet (Vitamin D3) ferrous sulfate 325 mg (65 mg 325 mg PO AMHS 03/14/22 03/18/22 iron) tablet hydrocodone 5 mg-acetaminophen 325 1 tab PO Q6H PRN MDD 3g of apap 03/14/22 03/18/22 mg tablet ipratropium 0.5 mg-albuterol 3 mg 3 ml INHALATION Q4H PRN 03/14/22 03/18/22 (2.5 mg base)/3 mL nebulization soln pantoprazole 40 mg tablet,delayed 40 mg PO QAM 03/14/22 03/18/22 release sennosides 8.6 mg-docusate sodium 1 tab-cap PO BID 03/14/22 03/18/22 50 mg tablet (Senna Plus) Theracalazinc 1 applic TOPICAL QS 03/17/22 03/18/22 bacitracin 500 unit/gram topical 1 applic TOPICAL QS 03/17/22 03/18/22 ointment finasteride 5 mg tablet 5 mg PO DAILY 03/17/22 03/18/22 insulin NPH-regular 70-30 U-100 12 unit SUBCUT .WITH LUNCH 03/17/22 03/18/22 insulin 100 unit/mL subcutaneous pen (Novolin 70-30 FlexPen U-100 Insulin) insulin aspar prot-insulin aspart 12 unit SUBCUT .WITH BREAKFAST 03/17/22 03/18/22 100 unit/mL (70-30) subcutaneous pen (Novolog Mix 70-30FlexPen U-100) insulin aspar prot-insulin aspart 18 unit SUBCUT . BEFORE SUPPER 03/17/22 03/18/22 100 unit/mL (70-30) subcutaneous pen (Novolog Mix 70-30FlexPen U-100) tamsulosin 0.4 mg capsule 0.4 mg PO DAILY 03/17/22 03/18/22 Previous Rx's Medication Instructions Recorded cyanocobalamin (vitamin B-12) 100 100 mcg PO QAM #30 tab 03/09/22 mcg tablet (Vitamin B-12) penicillin V potassium 500 mg 500 mg PO BID 10 Days #20 tab 03/18/22 tablet Results & Data (ED) Vital Signs Vital Signs - 24 hr 03/18/22 13:30 03/18/22 15:54 03/18/22 16:00 Temperature 37.2 C Temperature Source Oral Pulse Rate 101 H 78 74 Pulse Rate from SpO2 Sensor 97 H 76 Respiratory Rate 22 18 30 H Blood Pressure 186/74 H 138/74 152/69 H Blood Pressure Mean 111 95 96 Pulse Oximetry 96 94 97 Oxygen Delivery Method Room Air Sepsis New/Unexplained Change in Mental Status Yes Sepsis Action Taken by Nursing No Action Required Home Medications Current Medication List: was personally reviewed by me Laboratory Data Attestation: I reviewed the patient's lab results. Result diagrams: 03/18/22 14:08 03/18/22 14:08 Lab Results 03/18/22 03/18/22 03/18/22 Range/Units 14:08 14:08 14:08 WBC 6.43 (4.8-10.8) K/uL RBC 2.99 L (4.7-6.1) M/uL Hgb 8.8 L (14.0-18.0) g/dL Hct 27.2 L (42-52) % MCV 91.0 (80-100) fL MCH 29.4 (25-34) pg MCHC 32.4 (32-36) g/dL RDW Std Deviation 44.3 (36.4-46.3) fL RDW Coeff of Chilo 13.4 (11.5-14.5) % Plt Count 195 (130-400) K/uL MPV 9.7 (7.4-10.4) fL Immature Gran % (Auto) 0.5 % Neut % (Auto) 86.6 % Lymph % (Auto) 6.8 % Shannon % (Auto) 5.9 % Eos % (Auto) 0.0 % Baso % (Auto) 0.2 % Neut # (Auto) 5.57 (1.4-6.5) K/uL Lymph # (Auto) 0.44 L (1.2-3.4) K/uL Shannon # (Auto) 0.38 (0.11-0.59) K/uL Eos # (Auto) 0.00 (0-0.5) K/uL Baso # (Auto) 0.01 (0-0.2) K/uL Immature Gran # (Auto) 0.03 H (0.00-0.02) K/uL PT (9.0-12.0) Seconds INR (0.9-1.1) APTT (21.0-31.0) Seconds PTT Ratio Sodium (136-145) mmol/L Potassium (3.5-5.1) mmol/L Chloride (98-107) mmol/L Carbon Dioxide (21-32) mmol/L Anion Gap (3-11) BUN (6-23) mg/dl Creatinine (0.6-1.4) mg/dl Est Cr Clr Drug Dosing Est GFR ( Amer) ml/min Est GFR (Non-Af Amer) ml/min BUN/Creatinine Ratio (10-20) Glucose (70-99(Fasting)) mg/dl Lactate (0.4-2.0) mmol/L Calcium (8.5-10.1) mg/dl Phosphorus (2.5-4.9) mg/dl Magnesium (1.7-2.4) mg/dl Total Bilirubin (0.2-1.0) mg/dl AST (13-39) U/L ALT (7-52) U/L Alkaline Phosphatase (34-104) U/L Troponin I High Sens 41.1 H (0-20) pg/ml Total Protein (6.0-8.3) gm/dl Albumin (3.4-5.0) gm/dl Globulin (2.5-4.0) gm/dl Albumin/Globulin Ratio (0.9-2) Procalcitonin 0.72 H (0-0.5) ng/ml Urine Color Urine Appearance (Clear) Urine pH (4.5-7.5) Ur Specific [place] (1.000-1.030) Urine Protein (Negative) Urine Glucose (UA) (Negative) Urine Ketones (Negative) Urine Blood (Negative) Urine Nitrite (Negative) Urine Bilirubin (Negative) Urine Urobilinogen (Negative) Ur Leukocyte Esterase (Negative) Urine RBC (0-4) /hpf Urine WBC (0-5) /hpf Ur Epithelial Cells (0-5) /lpf Urine Bacteria (Negative) SARS-CoV-2, RNA, NAAT (NEGATIVE) 03/18/22 03/18/22 03/18/22 Range/Units 14:08 14:08 14:08 WBC (4.8-10.8) K/uL RBC (4.7-6.1) M/uL Hgb (14.0-18.0) g/dL Hct (42-52) % MCV (80-100) fL MCH (25-34) pg MCHC (32-36) g/dL RDW Std Deviation (36.4-46.3) fL RDW Coeff of Chilo (11.5-14.5) % Plt Count (130-400) K/uL MPV (7.4-10.4) fL Immature Gran % (Auto) % Neut % (Auto) % Lymph % (Auto) % Shannon % (Auto) % Eos % (Auto) % Baso % (Auto) % Neut # (Auto) (1.4-6.5) K/uL Lymph # (Auto) (1.2-3.4) K/uL Shannon # (Auto) (0.11-0.59) K/uL Eos # (Auto) (0-0.5) K/uL Baso # (Auto) (0-0.2) K/uL Immature Gran # (Auto) (0.00-0.02) K/uL PT 11.4 (9.0-12.0) Seconds INR 1.1 (0.9-1.1) APTT 24.6 (21.0-31.0) Seconds PTT Ratio 0.9 Sodium 136 (136-145) mmol/L Potassium 3.9 (3.5-5.1) mmol/L Chloride 103 (98-107) mmol/L Carbon Dioxide 23 (21-32) mmol/L Anion Gap 10 (3-11) BUN 37 H (6-23) mg/dl Creatinine 1.91 H (0.6-1.4) mg/dl Est Cr Clr Drug Dosing Not Reportable Est GFR ( Amer) 36.5 ml/min Est GFR (Non-Af Amer) 31.5 ml/min BUN/Creatinine Ratio 19.4 (10-20) Glucose 204 H (70-99(Fasting)) mg/dl Lactate 1.3 (0.4-2.0) mmol/L Calcium 8.4 L (8.5-10.1) mg/dl Phosphorus (2.5-4.9) mg/dl Magnesium 1.8 (1.7-2.4) mg/dl Total Bilirubin 0.5 (0.2-1.0) mg/dl AST 24 (13-39) U/L ALT 19 (7-52) U/L Alkaline Phosphatase 49 (34-104) U/L Troponin I High Sens (0-20) pg/ml Total Protein 6.0 (6.0-8.3) gm/dl Albumin 3.1 L (3.4-5.0) gm/dl Globulin 2.9 (2.5-4.0) gm/dl Albumin/Globulin Ratio 1.1 (0.9-2) Procalcitonin (0-0.5) ng/ml Urine Color Urine Appearance (Clear) Urine pH (4.5-7.5) Ur Specific [place] (1.000-1.030) Urine Protein (Negative) Urine Glucose (UA) (Negative) Urine Ketones (Negative) Urine Blood (Negative) Urine Nitrite (Negative) Urine Bilirubin (Negative) Urine Urobilinogen (Negative) Ur Leukocyte Esterase (Negative) Urine RBC (0-4) /hpf Urine WBC (0-5) /hpf Ur Epithelial Cells (0-5) /lpf Urine Bacteria (Negative) SARS-CoV-2, RNA, NAAT (NEGATIVE) 03/18/22 03/18/22 03/18/22 Range/Units 14:08 15:47 15:47 WBC (4.8-10.8) K/uL RBC (4.7-6.1) M/uL Hgb (14.0-18.0) g/dL Hct (42-52) % MCV (80-100) fL MCH (25-34) pg MCHC (32-36) g/dL RDW Std Deviation (36.4-46.3) fL RDW Coeff of Chilo (11.5-14.5) % Plt Count (130-400) K/uL MPV (7.4-10.4) fL Immature Gran % (Auto) % Neut % (Auto) % Lymph % (Auto) % Shannon % (Auto) % Eos % (Auto) % Baso % (Auto) % Neut # (Auto) (1.4-6.5) K/uL Lymph # (Auto) (1.2-3.4) K/uL Shannon # (Auto) (0.11-0.59) K/uL Eos # (Auto) (0-0.5) K/uL Baso # (Auto) (0-0.2) K/uL Immature Gran # (Auto) (0.00-0.02) K/uL PT (9.0-12.0) Seconds INR (0.9-1.1) APTT (21.0-31.0) Seconds PTT Ratio Sodium (136-145) mmol/L Potassium (3.5-5.1) mmol/L Chloride (98-107) mmol/L Carbon Dioxide (21-32) mmol/L Anion Gap (3-11) BUN (6-23) mg/dl Creatinine (0.6-1.4) mg/dl Est Cr Clr Drug Dosing Est GFR ( Amer) ml/min Est GFR (Non-Af Amer) ml/min BUN/Creatinine Ratio (10-20) Glucose (70-99(Fasting)) mg/dl Lactate (0.4-2.0) mmol/L Calcium (8.5-10.1) mg/dl Phosphorus 2.9 (2.5-4.9) mg/dl Magnesium (1.7-2.4) mg/dl Total Bilirubin (0.2-1.0) mg/dl AST (13-39) U/L ALT (7-52) U/L Alkaline Phosphatase (34-104) U/L Troponin I High Sens (0-20) pg/ml Total Protein (6.0-8.3) gm/dl Albumin (3.4-5.0) gm/dl Globulin (2.5-4.0) gm/dl Albumin/Globulin Ratio (0.9-2) Procalcitonin (0-0.5) ng/ml Urine Color Red Urine Appearance Cloudy A (Clear) Urine pH (4.5-7.5) Ur Specific [place] 1.014 (1.000-1.030) Urine Protein (Negative) Urine Glucose (UA) (Negative) Urine Ketones (Negative) Urine Blood (Negative) Urine Nitrite (Negative) Urine Bilirubin (Negative) Urine Urobilinogen (Negative) Ur Leukocyte Esterase (Negative) Urine RBC >30 H (0-4) /hpf Urine WBC 0-5 (0-5) /hpf Ur Epithelial Cells 0-5 (0-5) /lpf Urine Bacteria Negative (Negative) SARS-CoV-2, RNA, NAAT NEGATIVE (NEGATIVE) Administered Medications Discontinued Medications Sodium Chloride (Nss 1000ml) 1,000 mls @ 999 mls/hr IV .[id number] ONE Stop: 03/18/22 14:07 Last Infusion: 03/18/22 16:24 Dose: 0 mls/hr Documented by: [id number] Admin: 03/18/22 14:15 Dose: 999 mls/hr Documented by: [id number] Ampicillin Sodium/Sulbactam Sodium 3,000 mg/ Sodium Chloride 108 mls @ 200 mls/hr IV NOW STA; Protocol Stop: 03/18/22 13:39 Last Infusion: 03/18/22 15:04 Dose: 0 mls/hr Documented by: [id number] Admin: 03/18/22 14:15 Dose: 200 mls/hr Documented by: [id number] Imaging Data Radiologist's Impression: Chest X-Ray 03/18/22 13:08 SINGLE VIEW CHEST CLINICAL HISTORY: Sepsis. FINDINGS: An AP, portable, upright chest radiograph is compared to study dated 03/17/2022. Correlation is made with chest CT dated 01/28/2007. The heart is enlarged noting atherosclerotic calcification of the thoracic aorta. There is evidence of previous cardiac valve surgery. The pulmonary vasculature is non congested. Chronic interstitial thickening is similar to previous. Scarring/atelectasis is seen at the lung bases. Small calcified pleural plaques are similar to previous. The lungs and pleural spaces are otherwise clear. No pneumothorax is seen. The skeletal structures are osteopenic. The bony thorax is grossly intact. IMPRESSION: Cardiomegaly with no active disease in the chest. ACT 112: Negative or not required by law. Electronically signed by: Aryan Giron M.D. 03/18/2022 6:00 PM Discharge Plan Visit Data Chief Complaint: Illness Stated Complaint: ILLNESS, POSSIBLE SEPSIS ED Provider: Dante Red Discharge Problem: Bacteremia, Hematuria, Urinary tract infection, Anemia Patient Disposition: Being Evaluated by Hospitalist Forms Stand Alone Forms: [employer] Prescriptions Prescriptions: No Action Lantus U-100 Insulin 100 unit/mL solution 20 unit subcut QAM RF: 0 metoprolol succinate 25 mg tablet extended release 24 hr 25 mg PO AMHS RF: 0 atorvastatin 10 mg Tablet 10 mg PO HS RF: 0 amlodipine [Norvasc] 5 mg tablet 5 mg PO QAM RF: 0 Januvia 50 mg tablet 50 mg PO QAM RF: 0 calcium citrate 250 mg calcium Tablet 500 mg PO QAM RF: 0 mirtazapine 15 mg tablet 15 mg PO HS RF: 0 acetaminophen 325 mg tablet 650 mg PO Q4 MDD 3g PRN (Reason: Fever Or Pain) RF: 0 polyethylene glycol 3350 [Miralax] 17 gram/dose Powder 17 g PO DAILY RF: 0 cyanocobalamin (vitamin B-12) [Vitamin B-12] 100 mcg Tablet 100 mcg PO QAM Qty: 30 RF: 0 aspirin 81 mg tablet,delayed release (DR/EC) 81 mg PO QAM RF: 0 ferrous sulfate 325 mg (65 mg iron) tablet 325 mg PO AMHS RF: 0 pantoprazole 40 mg tablet,delayed release (DR/EC) 40 mg PO QAM RF: 0 ipratropium-albuterol 0.5 mg-3 mg(2.5 mg base)/3 mL Solution For Nebulization 3 ml INHALATION Q4H PRN (Reason: Shortness Of Breath Or Wheezing) RF: 0 hydrocodone-acetaminophen 5-325 mg Tablet 1 tab PO Q6H MDD 3g of apap PRN (Reason: mod-severe pain) RF: 0 sennosides-docusate sodium [Senna Plus] 8.6-50 mg Tablet 1 tab-cap PO BID RF: 0 cholecalciferol (vitamin D3) [Vitamin D3] 50 mcg (2,000 unit) Tablet 50 mcg PO QAM RF: 0 finasteride 5 mg tablet 5 mg PO DAILY RF: 0 insulin asp prt-insulin aspart [Novolog Mix 70-30FlexPen U-100] 100 unit/mL ( 70-30) insulin pen 12 unit SUBCUT .WITH BREAKFAST RF: 0 insulin asp prt-insulin aspart [Novolog Mix 70-30FlexPen U-100] 100 unit/mL (70-30) insulin pen 18 unit SUBCUT . BEFORE SUPPER RF: 0 Novolin 70-30 FlexPen U-100 100 unit/mL (70-30) insulin pen 12 unit SUBCUT .WITH LUNCH RF: 0 tamsulosin 0.4 mg capsule 0.4 mg PO DAILY RF: 0 bacitracin 500 unit/gram Ointment 1 applic TOPICAL QS RF: 0 Theracalazinc 1 applic topical QS RF: 0 penicillin V potassium 500 mg tablet 500 mg PO BID 10 Days Qty: 20 RF: 0 Referrals Referrals: [place] [Primary Care Provider] -
[2022-03-18 14:19] LABS: Basophils # (auto) 0.01 K/uL (0-0.2); Basophils % (auto) 0.2 %; Hematocrit (blood only) 27.2 % (42-52); Hemoglobin 8.8 g/dL (14.0-18.0); Immature Granulocytes # (auto) 0.03 K/uL (0.00-0.02); Immature Granulocytes % (auto) 0.5 %; Lymphocytes # (auto) 0.44 K/uL (1.2-3.4); Lymphocytes % (auto) 6.8 %; Mean Corpuscular Hemoglobin 29.4 pg (25-34); Mean Corpuscular Hgb Conc 32.4 g/dL (32-36); Mean Platelet Volume 9.7 fL (7.4-10.4); Monocytes # (auto) 0.38 K/uL (0.11-0.59); Monocytes % (auto) 5.9 %; Neutrophils # (auto) 5.57 K/uL (1.4-6.5); Neutrophils % (auto) 86.6 %; Platelet Count 195 K/uL (130-400); RDW Coefficient of Variation 13.4 % (11.5-14.5); RDW Standard Deviation 44.3 fL (36.4-46.3); Red Blood Count 2.99 M/uL (4.7-6.1); White Blood Count 6.43 K/uL (4.8-10.8)
[2022-03-18 14:31] LABS: INR 1.1 (0.9-1.1); Partial Thromboplastin Ratio 0.9; Partial Thromboplastin Time 24.6 Seconds (21.0-31.0); Prothrombin Time 11.4 Seconds (9.0-12.0)
[2022-03-18 14:47] LABS: Alanine Aminotransferase 19 U/L (7-52); Albumin Globulin Ratio 1.1 (0.9-2); Albumin Level 3.1 gm/dl (3.4-5.0); Alkaline Phosphatase 49 U/L (34-104); Anion Gap 10 (3-11); Aspartate Aminotransferase 24 U/L (13-39); BUN Creatinine Ratio 19.4 (10-20); Bilirubin,Total 0.5 mg/dl (0.2-1.0); Blood Urea Nitrogen 37 mg/dl (6-23); Calcium 8.4 mg/dl (8.5-10.1); Carbon Dioxide 23 mmol/L (21-32); Chloride 103 mmol/L (98-107); Est GFR (African American) 36.5 ml/min; Est GFR (Non-African American) 31.5 ml/min; Globulin 2.9 gm/dl (2.5-4.0); Glucose 204 mg/dl (70-99(Fasting)); Magnesium 1.8 mg/dl (1.7-2.4); Potassium 3.9 mmol/L (3.5-5.1); Sodium 136 mmol/L (136-145)
[2022-03-18 16:29] LABS: Appearance Urine Cloudy (Clear); Color Urine Red; Specific Gravity Urine 1.014 (1.000-1.030)
[2022-03-18] MEDS ORDERED: POLYETHYLENE (MIRALAX) 17 GM PACK PO PRN (16:32)
[2022-03-18 16:33] LABS: Bacteria Urine Negative (Negative); Epithelial Cell Urine 0-5 /lpf (0-5); RBC Urine >30 /hpf (0-4); WBC Urine 0-5 /hpf (0-5)
--- NOTE | 2022-03-18 16:39 | History & Physical Report ---
Date of Service March 18, 2022 Assessment & Plan (1) Gram-positive bacteremia: (2) UTI (urinary tract infection): Plan: Patient presented in the ED due to fever, and was diagnosed with UTI Urine culture from March 14 positive for Enterococcus faecalis Patient was discharged from ED with penicillin however blood cultures came positive for gram-positive cocci Now given Unasyn in the ED Patient is being admitted for bacteremia, likely secondary to UTI Pt is confused, likely early sepsis Repeat blood cultures obtained Continue with antibiotic treatment w/ ampicilin/sulbactam Plan to further discuss with ID once culture results available Anemia - blood loss anemia 2/2 hematuria -Recently hospitalized due to hematuria, seen by urology -Hemoglobin mildly improved since last hospitalization earlier this month -current Hgb 8.8 -Continue iron supplement -Continue to monitor H&H Hematuria -Patient was hospitalized due to hematuria earlier this month -He was followed by urology as well, and is supposed to have further hematuria work-up done as outpatient -May consult w/ them again during this hospitalization CKD stage 3 -Baseline creatinine 1.8-1.9 - pt is at his baseline - cont. to monitor DM type 2 -hold home PO agent, c/w insulin -SSI CAD, HTN, s/TAVR, hx of CEA - asa, plavix, metoprolol, statin, amlodipine Elevated troponin but decreased from previous (earlier this month) , and in the setting of CKD Denies any chest pain ECG w/ RBBB w/o any sign. changes from previous monitor pt on tele DVT ppx: SCDs History of Present Illness Chief Complaint: Bacteremia, UTI, hematuria Primary Care Provider: [facility] 86-year-old male with CAD, hx of aortic stenosis s/p TAVR 12/2019, T2DM, HTN, HLD, CKD stage III baseline creatinine 1.8, chronic RBBB, carotid artery stenosis s/p right endarterectomy, recent history of urinary retention and hematuria, who presented with fever, confusion and cloudy urine in the ED yesterday and was found to have UTI. He was discharged from ED, however blood cultures came positive today. Urine culture from March 14 is positive for Enterococcus faecalis. Blood culture is positive for gram-positive cocci in chains. Patient was recently hospitalized here due to hematuria, and was seen by urology as well. During his hospital stay he was treated with Rocephin. Patient continues to have indwelling Díaz catheter, and hematuria. On my exam, patient is awake, however he seems confused. Per nursing staff, son briefly visited him as well and felt that patient was more confused. Patient is asking when he can leave. He does not seem to know where he is, he also does not seem to be oriented to time. He denies however any discomfort, specifically denies any chest pain shortness of breath, abdominal pain, nausea vomiting. Denies any cough, fevers chills. Díaz catheter is placed, and drains red/ bloody urine. Allergies Allergy/AdvReac Type Severity Reaction Status Date / Time No Known Allergies Allergy Unknown Verified 03/18/22 15:46 Home Medications Medication Instructions Recorded Confirmed Type atorvastatin 10 mg tablet 10 mg PO HS 03/03/19 03/18/22 History amlodipine 5 mg tablet (Norvasc) 5 mg PO QAM 01/10/21 03/18/22 History acetaminophen 325 mg tablet 650 mg PO Q4 PRN MDD 3g 02/07/21 03/18/22 History calcium citrate 500 mg PO QAM 02/07/21 03/18/22 History mirtazapine 15 mg tablet 15 mg PO HS 02/07/21 03/18/22 History polyethylene glycol 3350 17 17 g PO DAILY 02/07/21 03/18/22 History gram/dose oral powder (Miralax) sitagliptin 50 mg tablet (Januvia) 50 mg PO QAM 02/07/21 03/18/22 History insulin glargine 100 unit/mL 20 unit SUBCUT QA 03/28/21 03/18/22 History subcutaneous solution (Lantus U-100 Insulin) metoprolol succinate 25 mg 25 mg PO [facility] 04/11/21 03/18/22 History tablet,extended release 24 hr cyanocobalamin (vitamin B-12) 100 100 mcg PO QAM #30 tab 03/09/22 03/18/22 Rx mcg tablet (Vitamin B-12) aspirin 81 mg tablet,delayed 81 mg PO QAM 03/14/22 03/18/22 History release cholecalciferol (vitamin D3) 50 50 mcg PO QAM 03/14/22 03/18/22 History mcg (2,000 unit) tablet (Vitamin D3) ferrous sulfate 325 mg (65 mg 325 mg PO [facility] 03/14/22 03/18/22 History iron) tablet hydrocodone 5 mg-acetaminophen 325 1 tab PO Q6H PRN MDD 3g of apap 03/14/22 03/18/22 History mg tablet ipratropium 0.5 mg-albuterol 3 mg 3 ml INHALATION Q4H PRN 03/14/22 03/18/22 History (2.5 mg base)/3 mL nebulization soln pantoprazole 40 mg tablet,delayed 40 mg PO QAM 03/14/22 03/18/22 History release sennosides 8.6 mg-docusate sodium 1 tab-cap PO BID 03/14/22 03/18/22 History 50 mg tablet (Senna Plus) Theracalazinc 1 applic TOPICAL QS 03/17/22 03/18/22 History bacitracin 500 unit/gram topical 1 applic TOPICAL QS 03/17/22 03/18/22 History ointment finasteride 5 mg tablet 5 mg PO DAILY 03/17/22 03/18/22 History insulin NPH-regular 70-30 U-100 12 unit SUBCUT .WITH LUNCH 03/17/22 03/18/22 History insulin 100 unit/mL subcutaneous pen (Novolin 70-30 FlexPen U-100 Insulin) insulin aspar prot-insulin aspart 12 unit SUBCUT .WITH BREAKFAST 03/17/22 03/18/22 History 100 unit/mL (70-30) subcutaneous pen (Novolog Mix 70-30FlexPen U-100) insulin aspar prot-insulin aspart 18 unit SUBCUT . BEFORE SUPPER 03/17/22 03/18/22 History 100 unit/mL (70-30) subcutaneous pen (Novolog Mix 70-30FlexPen U-100) tamsulosin 0.4 mg capsule 0.4 mg PO DAILY 03/17/22 03/18/22 History penicillin V potassium 500 mg 500 mg PO BID 10 Days #20 tab 03/18/22 03/18/22 Rx tablet Past Med/Surg History Medical History CKD (chronic kidney disease) stage 4, GFR 15-29 ml/min Closed head injury Closed hip fracture Closed left hip fracture Fall Fall GI bleed Gross hematuria Hematoma of bladder wall Hyperlipidemia RBBB Symptomatic anemia Surgical History History of cardiac cath CAD by cardiac catheterization 11/2019. Distal LMCA has a 40% stenosis which is not significant by IVUS with a mLA of 13.8 mm^2. The mid LAD had a 30% stenosis. The LCx and RCA had mild luminal irregularities History of carotid endarterectomy right History of cataract surgery LEFT. . 2mg versed no issues. History of colonoscopy History of total left knee replacement Family History Father Heart disorder Social History Smoking Status: Unknown if ever smoked Tobacco Type: Cigarettes packs per day: 1; Years Smoked: 5; Second Hand Exposure: No; Hx Alcohol Use: No Hx Substance Use: No Preferred Language: Montserratian Communication Ability: Impaired Under Cutter Required: No Beliefs That Will Affect Care: None marital status: Current Living Situation: Personal Care Facility Current Living Situation Comment: came from [facility] after recent discharge after hip surgery Feels Safe at Home: Declines to Answer Assistive Devices: Walker and Wheelchair Review of Systems Review of Systems: All systems reviewed & are unremarkable except as noted in Subjective Physical Exam Constitutional: WD/WN, vitals as above Eyes: PERRL, conjunctivae normal, anicteric sclerae ENMT: external ear and nose normal, oropharynx normal Neck: trachea midline, no thyromegaly Respiratory: normal respiratory effort, lungs clear to auscultation Cardiovascular: RRR, no murmur, no edema Chest (Breasts): Chest: normal inspection of chest Gastrointestinal (Abdomen): normal bowel sounds, soft, nontender, no hepatosplenomegaly Musculoskeletal: no cyanosis or clubbing, extremities motor strength 5/5 Skin: no rashes, warm and dry Neurologic: PERRL, EOMI, accommodation nl, no face palsy, no dysarthria Psychiatric: Orientation: oriented to person Genitourinary: Díaz placed, drains red/bloody urine Lymphatic: no lymphedema Results & Data Results & Data ([facility]) Vital Signs (Past 12 Hours) Vital Signs Temp Pulse Resp BP Pulse Ox 03/18/22 16:00 74 30 H 152/69 H 97 03/18/22 15:54 37.2 C 78 18 138/74 94 03/18/22 13:30 101 H 22 186/74 H 96 Laboratory Results 03/18/22 03/18/22 03/18/22 Range/Units 15:47 15:47 14:08 WBC (4.8-10.8) K/uL RBC (4.7-6.1) M/uL Hgb (14.0-18.0) g/dL Hct (42-52) % MCV (80-100) fL MCH (25-34) pg MCHC (32-36) g/dL RDW Std Deviation (36.4-46.3) fL RDW Coeff of Chilo (11.5-14.5) % Plt Count (130-400) K/uL MPV (7.4-10.4) fL Immature Gran % (Auto) % Neut % (Auto) % Lymph % (Auto) % Delta % (Auto) % Eos % (Auto) % Baso % (Auto) % Neut # (Auto) (1.4-6.5) K/uL Lymph # (Auto) (1.2-3.4) K/uL Delta # (Auto) (0.11-0.59) K/uL Eos # (Auto) (0-0.5) K/uL Baso # (Auto) (0-0.2) K/uL Immature Gran # (Auto) (0.00-0.02) K/uL PT (9.0-12.0) Seconds INR (0.9-1.1) APTT (21.0-31.0) Seconds PTT Ratio Sodium (136-145) mmol/L Potassium (3.5-5.1) mmol/L Chloride (98-107) mmol/L Carbon Dioxide (21-32) mmol/L Anion Gap (3-11) BUN (6-23) mg/dl Creatinine (0.6-1.4) mg/dl Est Cr Clr Drug Dosing Est GFR ( Amer) ml/min Est GFR (Non-Af Amer) ml/min BUN/Creatinine Ratio (10-20) Glucose (70-99(Fasting)) mg/dl Lactate 1.3 (0.4-2.0) mmol/L Calcium (8.5-10.1) mg/dl Magnesium (1.7-2.4) mg/dl Total Bilirubin (0.2-1.0) mg/dl AST (13-39) U/L ALT (7-52) U/L Alkaline Phosphatase (34-104) U/L Troponin I High Sens (0-20) pg/ml Total Protein (6.0-8.3) gm/dl Albumin (3.4-5.0) gm/dl Globulin (2.5-4.0) gm/dl Albumin/Globulin Ratio (0.9-2) Procalcitonin (0-0.5) ng/ml Urine Color Red Urine Appearance Cloudy A (Clear) Urine pH (4.5-7.5) Ur Specific Early 1.014 (1.000-1.030) Urine Protein (Negative) Urine Glucose (UA) (Negative) Urine Ketones (Negative) Urine Blood (Negative) Urine Nitrite (Negative) Urine Bilirubin (Negative) Urine Urobilinogen (Negative) Ur Leukocyte Esterase (Negative) Urine RBC >30 H (0-4) /hpf Urine WBC 0-5 (0-5) /hpf Ur Epithelial Cells 0-5 (0-5) /lpf Urine Bacteria Negative (Negative) SARS-CoV-2, RNA, NAAT NEGATIVE (NEGATIVE) 03/18/22 03/18/22 03/18/22 Range/Units 14:08 14:08 14:08 WBC 6.43 (4.8-10.8) K/uL RBC 2.99 L (4.7-6.1) M/uL Hgb 8.8 L (14.0-18.0) g/dL Hct 27.2 L (42-52) % MCV 91.0 (80-100) fL MCH 29.4 (25-34) pg MCHC 32.4 (32-36) g/dL RDW Std Deviation 44.3 (36.4-46.3) fL RDW Coeff of Chilo 13.4 (11.5-14.5) % Plt Count 195 (130-400) K/uL MPV 9.7 (7.4-10.4) fL Immature Gran % (Auto) 0.5 % Neut % (Auto) 86.6 % Lymph % (Auto) 6.8 % Delta % (Auto) 5.9 % Eos % (Auto) 0.0 % Baso % (Auto) 0.2 % Neut # (Auto) 5.57 (1.4-6.5) K/uL Lymph # (Auto) 0.44 L (1.2-3.4) K/uL Delta # (Auto) 0.38 (0.11-0.59) K/uL Eos # (Auto) 0.00 (0-0.5) K/uL Baso # (Auto) 0.01 (0-0.2) K/uL Immature Gran # (Auto) 0.03 H (0.00-0.02) K/uL PT 11.4 (9.0-12.0) Seconds INR 1.1 (0.9-1.1) APTT 24.6 (21.0-31.0) Seconds PTT Ratio 0.9 Sodium 136 (136-145) mmol/L Potassium 3.9 (3.5-5.1) mmol/L Chloride 103 (98-107) mmol/L Carbon Dioxide 23 (21-32) mmol/L Anion Gap 10 (3-11) BUN 37 H (6-23) mg/dl Creatinine 1.91 H (0.6-1.4) mg/dl Est Cr Clr Drug Dosing Not Reportable Est GFR ( Amer) 36.5 ml/min Est GFR (Non-Af Amer) 31.5 ml/min BUN/Creatinine Ratio 19.4 (10-20) Glucose 204 H (70-99(Fasting)) mg/dl Lactate (0.4-2.0) mmol/L Calcium 8.4 L (8.5-10.1) mg/dl Magnesium 1.8 (1.7-2.4) mg/dl Total Bilirubin 0.5 (0.2-1.0) mg/dl AST 24 (13-39) U/L ALT 19 (7-52) U/L Alkaline Phosphatase 49 (34-104) U/L Troponin I High Sens (0-20) pg/ml Total Protein 6.0 (6.0-8.3) gm/dl Albumin 3.1 L (3.4-5.0) gm/dl Globulin 2.9 (2.5-4.0) gm/dl Albumin/Globulin Ratio 1.1 (0.9-2) Procalcitonin (0-0.5) ng/ml Urine Color Urine Appearance (Clear) Urine pH (4.5-7.5) Ur Specific Early (1.000-1.030) Urine Protein (Negative) Urine Glucose (UA) (Negative) Urine Ketones (Negative) Urine Blood (Negative) Urine Nitrite (Negative) Urine Bilirubin (Negative) Urine Urobilinogen (Negative) Ur Leukocyte Esterase (Negative) Urine RBC (0-4) /hpf Urine WBC (0-5) /hpf Ur Epithelial Cells (0-5) /lpf Urine Bacteria (Negative) SARS-CoV-2, RNA, NAAT (NEGATIVE) 03/18/22 03/18/22 Range/Units 14:08 14:08 WBC (4.8-10.8) K/uL RBC (4.7-6.1) M/uL Hgb (14.0-18.0) g/dL Hct (42-52) % MCV (80-100) fL MCH (25-34) pg MCHC (32-36) g/dL RDW Std Deviation (36.4-46.3) fL RDW Coeff of Chilo (11.5-14.5) % Plt Count (130-400) K/uL MPV (7.4-10.4) fL Immature Gran % (Auto) % Neut % (Auto) % Lymph % (Auto) % Delta % (Auto) % Eos % (Auto) % Baso % (Auto) % Neut # (Auto) (1.4-6.5) K/uL Lymph # (Auto) (1.2-3.4) K/uL Delta # (Auto) (0.11-0.59) K/uL Eos # (Auto) (0-0.5) K/uL Baso # (Auto) (0-0.2) K/uL Immature Gran # (Auto) (0.00-0.02) K/uL PT (9.0-12.0) Seconds INR (0.9-1.1) APTT (21.0-31.0) Seconds PTT Ratio Sodium (136-145) mmol/L Potassium (3.5-5.1) mmol/L Chloride (98-107) mmol/L Carbon Dioxide (21-32) mmol/L Anion Gap (3-11) BUN (6-23) mg/dl Creatinine (0.6-1.4) mg/dl Est Cr Clr Drug Dosing Est GFR ( Amer) ml/min Est GFR (Non-Af Amer) ml/min BUN/Creatinine Ratio (10-20) Glucose (70-99(Fasting)) mg/dl Lactate (0.4-2.0) mmol/L Calcium (8.5-10.1) mg/dl Magnesium (1.7-2.4) mg/dl Total Bilirubin (0.2-1.0) mg/dl AST (13-39) U/L ALT (7-52) U/L Alkaline Phosphatase (34-104) U/L Troponin I High Sens 41.1 H (0-20) pg/ml Total Protein (6.0-8.3) gm/dl Albumin (3.4-5.0) gm/dl Globulin (2.5-4.0) gm/dl Albumin/Globulin Ratio (0.9-2) Procalcitonin 0.72 H (0-0.5) ng/ml Urine Color Urine Appearance (Clear) Urine pH (4.5-7.5) Ur Specific Early (1.000-1.030) Urine Protein (Negative) Urine Glucose (UA) (Negative) Urine Ketones (Negative) Urine Blood (Negative) Urine Nitrite (Negative) Urine Bilirubin (Negative) Urine Urobilinogen (Negative) Ur Leukocyte Esterase (Negative) Urine RBC (0-4) /hpf Urine WBC (0-5) /hpf Ur Epithelial Cells (0-5) /lpf Urine Bacteria (Negative) SARS-CoV-2, RNA, NAAT (NEGATIVE)
[2022-03-18] MEDS ORDERED: ALBUT/IPRATROP 3MG/0.5MG NEB 3 ML VIAL INH PRN (16:58)
--- NOTE | 2022-03-18 18:01 | XRay Report ---
SINGLE VIEW CHEST CLINICAL HISTORY: Sepsis. FINDINGS: An AP, portable, upright chest radiograph is compared to study dated 03/17/2022. Correlation is made with chest CT dated 01/28/2007. The heart is enlarged noting atherosclerotic calcification of the thoracic aorta. There is evidence of previous cardiac valve surgery. The pulmonary vasculature i s noncongested. Chronic interstitial thickening is similar to previous. Scarring/atelectasis is seen at the lung bases. Small calcified pleural plaques are similar to previous. The lungs and pleural spa swati are otherwise clear. No pneumothorax is seen. The skeletal structures are osteopenic. The bony th orax is grossly intact. IMPRESSION: Cardiomegaly with no active disease in the chest. ACT 112: Negative or not required by law. Electronically signed by: Aryan Giron M.D. 03/18/2022 6:00 PM
[2022-03-18] MEDS ORDERED: CARBOHYDRATES FOR HYPOGLYCEMIA PO PRN (21:00)
[2022-03-18] MEDS ORDERED: DEXTROSE 50% 50 ML SYRINGE IV PRN (21:00)
[2022-03-18] MEDS ORDERED: GLUCOSE 40% GEL 15 GM TUBE PO PRN (21:00)
[2022-03-18] MEDS ORDERED: GLUCAGON FOR INJ 1 MG VIAL IM PRN (21:00)
[2022-03-18] MEDS ORDERED: GLUCOSE 10 TABS/TUBE PO PRN (21:00)
[2022-03-18] MEDS: METOPROLOL SUCC 25MG EXT REL TAB PO SCH (21:40)
[2022-03-18] MEDS: FERROUS SULFATE 325 MG TAB PO SCH (21:41)
[2022-03-18] MEDS: DOCUSATE SODIUM/SENNA 50/8.6MG TAB PO SCH (21:41)
[2022-03-18] MEDS: ATORVASTATIN 10 MG TAB PO SCH (21:41)
[2022-03-18] MEDS: INSULIN ASPART PER UNIT SC SCH (21:41)
[2022-03-18] MEDS: AMPICILLIN/SULBACTAM SOD 3,000 MG in 0.9 % SODIUM CHLORIDE 100 ML IV SCH (21:45)
[2022-03-18] MEDS: BACITRACIN OINT 15 GM TUBE TOP SCH (23:23)
[2022-03-19] MEDS: AMPICILLIN/SULBACTAM SOD 3,000 MG in 0.9 % SODIUM CHLORIDE 100 ML IV SCH ×4 (03:47→22:10)
[2022-03-19] MEDS: ACETAMINOPHEN 325 MG TAB PO PRN (03:52)
[2022-03-19 06:57] LABS: Hematocrit (blood only) 23.6 % (42-52); Hemoglobin 7.6 g/dL (14.0-18.0); Mean Corpuscular Hemoglobin 29.3 pg (25-34); Mean Corpuscular Hgb Conc 32.2 g/dL (32-36); Mean Corpuscular Volume 91.1 fL (80-100); Mean Platelet Volume 9.7 fL (7.4-10.4); Platelet Count 155 K/uL (130-400); RDW Coefficient of Variation 13.5 % (11.5-14.5); RDW Standard Deviation 44.8 fL (36.4-46.3); Red Blood Count 2.59 M/uL (4.7-6.1); White Blood Count 5.57 K/uL (4.8-10.8)
[2022-03-19 07:19] LABS: BUN Creatinine Ratio 19.8 (10-20); Creatinine Clr Calc Pharmacy 32.3 ml/min; Est GFR (African American) 37.4 ml/min; Est GFR (Non-African American) 32.3 ml/min; Magnesium 1.8 mg/dl (1.7-2.4); Phosphorus 3.5 mg/dl (2.5-4.9); Potassium 3.5 mmol/L (3.5-5.1)
[2022-03-19] MEDS ORDERED: POTASSIUM CHLORIDE CRTAB 20 MEQ TABCR PO STA (07:43)
--- NOTE | 2022-03-19 07:48 | Hospitalist Progress Note ---
Date of Service March 19, 2022 Assessment & Plan (1) Gram-positive bacteremia: (2) UTI (urinary tract infection): Plan: Patient presented in the ED due to fever, and was diagnosed with UTI Urine culture from March 14 positive for Enterococcus faecalis Patient was discharged from ED with penicillin however blood cultures came positive for gram-positive cocci Given Unasyn in the ED Patient is being admitted for bacteremia, likely secondary to UTI Pt is confused, likely early sepsis Repeat blood cultures obtained Continue with antibiotic treatment w/ ampicilin/sulbactam Plan to further discuss with ID once culture results available Anemia - blood loss anemia 2/2 hematuria -Recently hospitalized due to hematuria, seen by urology -Hemoglobin mildly improved since last hospitalization earlier this month, Hgb 8.8 on this admission -Continue iron supplement -Continue to monitor H&H, now (03/19) 7.6 Hematuria -Patient was hospitalized due to hematuria earlier this month -He was followed by urology as well, and is supposed to have further hematuria work-up done as outpatient -May consult w/ them again during this hospitalization CKD stage 3 -Baseline creatinine 1.8-1.9 - pt is at his baseline - cont. to monitor DM type 2 -hold home PO agent, c/w insulin -SSI CAD, HTN, s/TAVR, hx of CEA - asa, plavix, metoprolol, statin, amlodipine Elevated troponin but decreased from previous (earlier this month) , and in the setting of CKD Denies any chest pain ECG w/ RBBB w/o any sign. changes from previous monitor pt on tele DVT ppx: SCDs Admission and Anticipated Discharge Date Admission Date: March 18, 2022 Subjective Patient seen in follow-up of bacteremia, Enterococcus UTI Patient is much less confused than yesterday he is now awake alert able to answer questions appropriately Says he is feeling better Denies any fevers, chills, chest pain, shortness of breath, abdominal pain nausea or vomiting Review of Systems Review of Systems: All systems reviewed & are unremarkable except as noted in Subjective Physical Exam Physical Exam: Constitutional:I WD/WN, vitals as a usha Eyes: PERRL, EOMI, conju nctivae normal, an icteric sclerae ENMT: external ear and n ose normal, oropha rynx normal Neck: supple Respiratory: normal respiratory effort, lungs cely ar to auscultation Cardiovascular:I RRR, no murmur, no edema Chest (Breasts): Chest: normal insp ection of chest Gastrointestinal ( Abdomen): normal bowel sound s, soft, nontender , nondistended Musculoskeletal: extremities motor strength 5/5 Skin: no rashes, warm an d dry Neurologic: PERRL, EOMI, no fa ce palsy, no dysar thria Psychiatric: Alert oriented x3, able to answer qu estions appropriat myrna Genitourinary: Díaz placed, drai ns red/bloody urin e Lymphatic: no lymphedema Results & Data Results & Data ([facility]) Vital Signs (Past 12 Hours) Vital Signs Temp Pulse Pulse Resp BP Pulse Ox 03/19/22 07:09 62 03/19/22 04:54 37.4 C 03/19/22 03:40 38.3 C H 77 18 122/64 98 03/19/22 00:00 67 03/18/22 23:59 37.4 C 69 18 121/52 L 94 03/18/22 21:19 36.9 C 74 128/56 L 97 03/18/22 21:14 71 Laboratory Results 03/19/22 03/19/22 03/19/22 Range/Units 07:07 06:24 06:24 WBC 5.57 (4.8-10.8) K/uL RBC 2.59 L (4.7-6.1) M/uL Hgb 7.6 L (14.0-18.0) g/dL Hct 23.6 L (42-52) % MCV 91.1 (80-100) fL MCH 29.3 (25-34) pg MCHC 32.2 (32-36) g/dL RDW Std Deviation 44.8 (36.4-46.3) fL RDW Coeff of Chilo 13.5 (11.5-14.5) % Plt Count 155 (130-400) K/uL MPV 9.7 (7.4-10.4) fL Immature Gran % (Auto) % Neut % (Auto) % Lymph % (Auto) % [place] % (Auto) % Eos % (Auto) % Baso % (Auto) % Neut # (Auto) (1.4-6.5) K/uL Lymph # (Auto) (1.2-3.4) K/uL [place] # (Auto) (0.11-0.59) K/uL Eos # (Auto) (0-0.5) K/uL Baso # (Auto) (0-0.2) K/uL Immature Gran # (Auto) (0.00-0.02) K/uL PT (9.0-12.0) Seconds INR (0.9-1.1) APTT (21.0-31.0) Seconds PTT Ratio Sodium 137 (136-145) mmol/L Potassium 3.5 (3.5-5.1) mmol/L Chloride 105 (98-107) mmol/L Carbon Dioxide 25 (21-32) mmol/L Anion Gap 7 (3-11) BUN 37 H (6-23) mg/dl Creatinine 1.87 H (0.6-1.4) mg/dl Est Cr Clr Drug Dosing 32.3 Est GFR ( Amer) 37.4 ml/min Est GFR (Non-Af Amer) 32.3 ml/min BUN/Creatinine Ratio 19.8 (10-20) Glucose 92 (70-99(Fasting)) mg/dl POC Glucose 105 H (70-99) mg/dl Lactate (0.4-2.0) mmol/L Calcium 8.0 L (8.5-10.1) mg/dl Phosphorus 3.5 (2.5-4.9) mg/dl Magnesium 1.8 (1.7-2.4) mg/dl Total Bilirubin (0.2-1.0) mg/dl AST (13-39) U/L ALT (7-52) U/L Alkaline Phosphatase (34-104) U/L Troponin I High Sens (0-20) pg/ml Total Protein (6.0-8.3) gm/dl Albumin (3.4-5.0) gm/dl Globulin (2.5-4.0) gm/dl Albumin/Globulin Ratio (0.9-2) Procalcitonin (0-0.5) ng/ml Urine Color Urine Appearance (Clear) Urine pH (4.5-7.5) Ur Specific [place] (1.000-1.030) Urine Protein (Negative) Urine Glucose (UA) (Negative) Urine Ketones (Negative) Urine Blood (Negative) Urine Nitrite (Negative) Urine Bilirubin (Negative) Urine Urobilinogen (Negative) Ur Leukocyte Esterase (Negative) Urine RBC (0-4) /hpf Urine WBC (0-5) /hpf Ur Epithelial Cells (0-5) /lpf Urine Bacteria (Negative) Nasal Screen MRSA (PCR) (Negative) SARS-CoV-2, RNA, NAAT (NEGATIVE) 03/18/22 03/18/22 03/18/22 Range/Units 23:28 21:40 15:47 WBC (4.8-10.8) K/uL RBC (4.7-6.1) M/uL Hgb (14.0-18.0) g/dL Hct (42-52) % MCV (80-100) fL MCH (25-34) pg MCHC (32-36) g/dL RDW Std Deviation (36.4-46.3) fL RDW Coeff of Chilo (11.5-14.5) % Plt Count (130-400) K/uL MPV (7.4-10.4) fL Immature Gran % (Auto) % Neut % (Auto) % Lymph % (Auto) % [place] % (Auto) % Eos % (Auto) % Baso % (Auto) % Neut # (Auto) (1.4-6.5) K/uL Lymph # (Auto) (1.2-3.4) K/uL [place] # (Auto) (0.11-0.59) K/uL Eos # (Auto) (0-0.5) K/uL Baso # (Auto) (0-0.2) K/uL Immature Gran # (Auto) (0.00-0.02) K/uL PT (9.0-12.0) Seconds INR (0.9-1.1) APTT (21.0-31.0) Seconds PTT Ratio Sodium (136-145) mmol/L Potassium (3.5-5.1) mmol/L Chloride (98-107) mmol/L Carbon Dioxide (21-32) mmol/L Anion Gap (3-11) BUN (6-23) mg/dl Creatinine (0.6-1.4) mg/dl Est Cr Clr Drug Dosing Est GFR ( Amer) ml/min Est GFR (Non-Af Amer) ml/min BUN/Creatinine Ratio (10-20) Glucose (70-99(Fasting)) mg/dl POC Glucose 138 H (70-99) mg/dl Lactate (0.4-2.0) mmol/L Calcium (8.5-10.1) mg/dl Phosphorus (2.5-4.9) mg/dl Magnesium (1.7-2.4) mg/dl Total Bilirubin (0.2-1.0) mg/dl AST (13-39) U/L ALT (7-52) U/L Alkaline Phosphatase (34-104) U/L Troponin I High Sens (0-20) pg/ml Total Protein (6.0-8.3) gm/dl Albumin (3.4-5.0) gm/dl Globulin (2.5-4.0) gm/dl Albumin/Globulin Ratio (0.9-2) Procalcitonin (0-0.5) ng/ml Urine Color Urine Appearance (Clear) Urine pH (4.5-7.5) Ur Specific [place] (1.000-1.030) Urine Protein (Negative) Urine Glucose (UA) (Negative) Urine Ketones (Negative) Urine Blood (Negative) Urine Nitrite (Negative) Urine Bilirubin (Negative) Urine Urobilinogen (Negative) Ur Leukocyte Esterase (Negative) Urine RBC (0-4) /hpf Urine WBC (0-5) /hpf Ur Epithelial Cells (0-5) /lpf Urine Bacteria (Negative) Nasal Screen MRSA (PCR) Negative (Negative) SARS-CoV-2, RNA, NAAT NEGATIVE (NEGATIVE) 03/18/22 03/18/22 03/18/22 Range/Units 15:47 14:08 14:08 WBC (4.8-10.8) K/uL RBC (4.7-6.1) M/uL Hgb (14.0-18.0) g/dL Hct (42-52) % MCV (80-100) fL MCH (25-34) pg MCHC (32-36) g/dL RDW Std Deviation (36.4-46.3) fL RDW Coeff of Chilo (11.5-14.5) % Plt Count (130-400) K/uL MPV (7.4-10.4) fL Immature Gran % (Auto) % Neut % (Auto) % Lymph % (Auto) % [place] % (Auto) % Eos % (Auto) % Baso % (Auto) % Neut # (Auto) (1.4-6.5) K/uL Lymph # (Auto) (1.2-3.4) K/uL [place] # (Auto) (0.11-0.59) K/uL Eos # (Auto) (0-0.5) K/uL Baso # (Auto) (0-0.2) K/uL Immature Gran # (Auto) (0.00-0.02) K/uL PT (9.0-12.0) Seconds INR (0.9-1.1) APTT (21.0-31.0) Seconds PTT Ratio Sodium (136-145) mmol/L Potassium (3.5-5.1) mmol/L Chloride (98-107) mmol/L Carbon Dioxide (21-32) mmol/L Anion Gap (3-11) BUN (6-23) mg/dl Creatinine (0.6-1.4) mg/dl Est Cr Clr Drug Dosing Est GFR ( Amer) ml/min Est GFR (Non-Af Amer) ml/min BUN/Creatinine Ratio (10-20) Glucose (70-99(Fasting)) mg/dl POC Glucose (70-99) mg/dl Lactate 1.3 (0.4-2.0) mmol/L Calcium (8.5-10.1) mg/dl Phosphorus 2.9 (2.5-4.9) mg/dl Magnesium (1.7-2.4) mg/dl Total Bilirubin (0.2-1.0) mg/dl AST (13-39) U/L ALT (7-52) U/L Alkaline Phosphatase (34-104) U/L Troponin I High Sens (0-20) pg/ml Total Protein (6.0-8.3) gm/dl Albumin (3.4-5.0) gm/dl Globulin (2.5-4.0) gm/dl Albumin/Globulin Ratio (0.9-2) Procalcitonin (0-0.5) ng/ml Urine Color Red Urine Appearance Cloudy A (Clear) Urine pH (4.5-7.5) Ur Specific [place] 1.014 (1.000-1.030) Urine Protein (Negative) Urine Glucose (UA) (Negative) Urine Ketones (Negative) Urine Blood (Negative) Urine Nitrite (Negative) Urine Bilirubin (Negative) Urine Urobilinogen (Negative) Ur Leukocyte Esterase (Negative) Urine RBC >30 H (0-4) /hpf Urine WBC 0-5 (0-5) /hpf Ur Epithelial Cells 0-5 (0-5) /lpf Urine Bacteria Negative (Negative) Nasal Screen MRSA (PCR) (Negative) SARS-CoV-2, RNA, NAAT (NEGATIVE) 03/18/22 03/18/22 03/18/22 Range/Units 14:08 14:08 14:08 WBC 6.43 (4.8-10.8) K/uL RBC 2.99 L (4.7-6.1) M/uL Hgb 8.8 L (14.0-18.0) g/dL Hct 27.2 L (42-52) % MCV 91.0 (80-100) fL MCH 29.4 (25-34) pg MCHC 32.4 (32-36) g/dL RDW Std Deviation 44.3 (36.4-46.3) fL RDW Coeff of Chilo 13.4 (11.5-14.5) % Plt Count 195 (130-400) K/uL MPV 9.7 (7.4-10.4) fL Immature Gran % (Auto) 0.5 % Neut % (Auto) 86.6 % Lymph % (Auto) 6.8 % [place] % (Auto) 5.9 % Eos % (Auto) 0.0 % Baso % (Auto) 0.2 % Neut # (Auto) 5.57 (1.4-6.5) K/uL Lymph # (Auto) 0.44 L (1.2-3.4) K/uL [place] # (Auto) 0.38 (0.11-0.59) K/uL Eos # (Auto) 0.00 (0-0.5) K/uL Baso # (Auto) 0.01 (0-0.2) K/uL Immature Gran # (Auto) 0.03 H (0.00-0.02) K/uL PT 11.4 (9.0-12.0) Seconds INR 1.1 (0.9-1.1) APTT 24.6 (21.0-31.0) Seconds PTT Ratio 0.9 Sodium 136 (136-145) mmol/L Potassium 3.9 (3.5-5.1) mmol/L Chloride 103 (98-107) mmol/L Carbon Dioxide 23 (21-32) mmol/L Anion Gap 10 (3-11) BUN 37 H (6-23) mg/dl Creatinine 1.91 H (0.6-1.4) mg/dl Est Cr Clr Drug Dosing Not Reportable Est GFR ( Amer) 36.5 ml/min Est GFR (Non-Af Amer) 31.5 ml/min BUN/Creatinine Ratio 19.4 (10-20) Glucose 204 H (70-99(Fasting)) mg/dl POC Glucose (70-99) mg/dl Lactate (0.4-2.0) mmol/L Calcium 8.4 L (8.5-10.1) mg/dl Phosphorus (2.5-4.9) mg/dl Magnesium 1.8 (1.7-2.4) mg/dl Total Bilirubin 0.5 (0.2-1.0) mg/dl AST 24 (13-39) U/L ALT 19 (7-52) U/L Alkaline Phosphatase 49 (34-104) U/L Troponin I High Sens (0-20) pg/ml Total Protein 6.0 (6.0-8.3) gm/dl Albumin 3.1 L (3.4-5.0) gm/dl Globulin 2.9 (2.5-4.0) gm/dl Albumin/Globulin Ratio 1.1 (0.9-2) Procalcitonin (0-0.5) ng/ml Urine Color Urine Appearance (Clear) Urine pH (4.5-7.5) Ur Specific [place] (1.000-1.030) Urine Protein (Negative) Urine Glucose (UA) (Negative) Urine Ketones (Negative) Urine Blood (Negative) Urine Nitrite (Negative) Urine Bilirubin (Negative) Urine Urobilinogen (Negative) Ur Leukocyte Esterase (Negative) Urine RBC (0-4) /hpf Urine WBC (0-5) /hpf Ur Epithelial Cells (0-5) /lpf Urine Bacteria (Negative) Nasal Screen MRSA (PCR) (Negative) SARS-CoV-2, RNA, NAAT (NEGATIVE) 03/18/22 03/18/22 Range/Units 14:08 14:08 WBC (4.8-10.8) K/uL RBC (4.7-6.1) M/uL Hgb (14.0-18.0) g/dL Hct (42-52) % MCV (80-100) fL MCH (25-34) pg MCHC (32-36) g/dL RDW Std Deviation (36.4-46.3) fL RDW Coeff of Chilo (11.5-14.5) % Plt Count (130-400) K/uL MPV (7.4-10.4) fL Immature Gran % (Auto) % Neut % (Auto) % Lymph % (Auto) % [place] % (Auto) % Eos % (Auto) % Baso % (Auto) % Neut # (Auto) (1.4-6.5) K/uL Lymph # (Auto) (1.2-3.4) K/uL [place] # (Auto) (0.11-0.59) K/uL Eos # (Auto) (0-0.5) K/uL Baso # (Auto) (0-0.2) K/uL Immature Gran # (Auto) (0.00-0.02) K/uL PT (9.0-12.0) Seconds INR (0.9-1.1) APTT (21.0-31.0) Seconds PTT Ratio Sodium (136-145) mmol/L Potassium (3.5-5.1) mmol/L Chloride (98-107) mmol/L Carbon Dioxide (21-32) mmol/L Anion Gap (3-11) BUN (6-23) mg/dl Creatinine (0.6-1.4) mg/dl Est Cr Clr Drug Dosing Est GFR ( Amer) ml/min Est GFR (Non-Af Amer) ml/min BUN/Creatinine Ratio (10-20) Glucose (70-99(Fasting)) mg/dl POC Glucose (70-99) mg/dl Lactate (0.4-2.0) mmol/L Calcium (8.5-10.1) mg/dl Phosphorus (2.5-4.9) mg/dl Magnesium (1.7-2.4) mg/dl Total Bilirubin (0.2-1.0) mg/dl AST (13-39) U/L ALT (7-52) U/L Alkaline Phosphatase (34-104) U/L Troponin I High Sens 41.1 H (0-20) pg/ml Total Protein (6.0-8.3) gm/dl Albumin (3.4-5.0) gm/dl Globulin (2.5-4.0) gm/dl Albumin/Globulin Ratio (0.9-2) Procalcitonin 0.72 H (0-0.5) ng/ml Urine Color Urine Appearance (Clear) Urine pH (4.5-7.5) Ur Specific [place] (1.000-1.030) Urine Protein (Negative) Urine Glucose (UA) (Negative) Urine Ketones (Negative) Urine Blood (Negative) Urine Nitrite (Negative) Urine Bilirubin (Negative) Urine Urobilinogen (Negative) Ur Leukocyte Esterase (Negative) Urine RBC (0-4) /hpf Urine WBC (0-5) /hpf Ur Epithelial Cells (0-5) /lpf Urine Bacteria (Negative) Nasal Screen MRSA (PCR) (Negative) SARS-CoV-2, RNA, NAAT (NEGATIVE) Medications Administered Current Inpatient Medications Acetaminophen (Acetaminophen 325 Mg Tab) 650 mg PO Q4H PRN PRN Reason: Pain or Fever Stop: 04/17/22 16:31 Last Admin: 03/19/22 03:52 Dose: 650 mg Documented by: Hydrocodone Bitart/Acetaminophen (Hydrocodone/Acetamophen 5/325mg Tab) 1 tab PO Q6H PRN PRN Reason: mod-severe pain Stop: 04/01/22 16:57 Albuterol (Albut/Ipratrop 3mg/0.5mg Neb 3 Ml Vial) 3 ml INH Q4H PRN; Protocol PRN Reason: Shortness Of Breath Or Wheezing Stop: 04/17/22 16:57 Amlodipine Besylate (Amlodipine Besylate 5 Mg Tab) 5 mg PO QAM [facility] Stop: 04/18/22 08:59 Aspirin (Aspirin 81 Mg Ectab) [facility] Stop: 04/18/22 08:59 Atorvastatin Calcium (Atorvastatin 10 Mg Tab) 10 mg PO [facility] Stop: 04/17/22 20:59 Last Admin: 03/18/22 21:41 Dose: 10 mg Documented by: Bacitracin (Bacitracin Oint 15 Gm Tube) 1 appln TOP QS [facility] Stop: 04/18/22 00:00 Last Admin: 03/18/22 23:23 Dose: 1 appln Documented by: Calcium Citrate (Calcium Citrate 950 Mg Tab) 950 mg PO QAM [facility] Stop: 04/18/22 08:59 Dextrose (Dextrose 50% 50 Ml Syringe) 25 - 50 ml IV UD PRN; Protocol PRN Reason: Hypoglycemia Protocol Stop: 04/17/22 20:59 Ferrous Sulfate (Ferrous Sulfate 325 Mg Tab) 325 mg PO AMHS [facility] Stop: 04/17/22 20:59 Last Admin: 03/18/22 21:41 Dose: 325 mg Documented by: Finasteride (Finasteride 5 Mg Tab) 5 mg PO DAILY [facility] Stop: 04/18/22 08:59 Glucagon (Glucagon For Inj 1 Mg Vial) 1 mg IM UD PRN; Protocol PRN Reason: Hypoglycemia Protocol Stop: 04/17/22 20:59 Glucose (Glucose 40% Gel 15 Gm Tube) 15 - 30 gm PO UD PRN; Protocol PRN Reason: Hypoglycemia Protocol Stop: 04/17/22 20:59 Glucose (Glucose 10 Tabs/Tube) 4 - 8 tabs PO UD PRN; Protocol PRN Reason: Hypoglycemia Protocol Stop: 04/17/22 20:59 Ampicillin Sodium/Sulbactam Sodium 3,000 mg/ Sodium Chloride 108 mls @ 200 mls/hr IV Q6H [facility]; Protocol Stop: 04/01/22 21:59 Last Infusion: 03/19/22 04:50 Dose: Infused Documented by: Insulin Aspart (Insulin Aspart Per Unit) 0 units SC [facility] Stop: 04/17/22 20:59 Last Admin: 03/18/22 21:41 Dose: Not Given Documented by: Insulin Glargine (Insulin Glargine Solostar 100 Units/Ml 3 Ml Pen) 20 [facility] Stop: 04/18/22 08:59 Metoprolol Succinate (Metoprolol Succ 25mg Ext Rel Tab) 25 mg PO AMHS [facility] Stop: 04/17/22 20:59 Last Admin: 03/18/22 21:40 Dose: 25 mg Documented by: Miscellaneous (Carbohydrates For Hypoglycemia ) 15 - 30 gm PO UD PRN PRN Reason: Hypoglycemia Treatment Stop: 04/17/22 20:59 Pantoprazole Sodium (Pantoprazole 40 Mg Tab) 40 mg PO QAM [facility] Stop: 04/18/22 08:59 Polyethylene Glycol (Polyethylene (Miralax) 17 Gm Pack) 17 gm PO DAILY PRN PRN Reason: Constipation Stop: 04/17/22 16:31 Senna/Docusate Sodium (Docusate Sodium/Senna 50/8.6mg Tab) 1 tab PO BID [facility] Stop: 04/17/22 20:59 Last Admin: 03/18/22 21:41 Dose: 1 tab Documented by: Tamsulosin HCl (Tamsulosin Hcl 0.4 Mg Cap) 0.4 mg PO DAILY [facility] Stop: 04/18/22 08:59
[2022-03-19] MEDS: BACITRACIN OINT 15 GM TUBE TOP SCH ×3 (08:15→23:26)
[2022-03-19] MEDS: METOPROLOL SUCC 25MG EXT REL TAB PO SCH ×2 (08:15→20:19)
[2022-03-19] MEDS: FERROUS SULFATE 325 MG TAB PO SCH ×2 (08:15→20:19)
[2022-03-19] MEDS: DOCUSATE SODIUM/SENNA 50/8.6MG TAB PO SCH ×2 (08:15→20:19)
[2022-03-19] MEDS: ASPIRIN 81 MG ECTAB PO SCH (08:16)
[2022-03-19] MEDS: TAMSULOSIN HCL 0.4 MG CAP PO SCH (08:16)
[2022-03-19] MEDS: CALCIUM CITRATE 950 MG TAB PO SCH (08:16)
[2022-03-19] MEDS: amLODIPine BESYLATE 5 MG TAB PO SCH (08:16)
[2022-03-19] MEDS: PANTOprazole 40 MG TAB PO SCH (08:16)
[2022-03-19] MEDS: FINASTERIDE 5 MG TAB PO SCH (08:16)
[2022-03-19] MEDS: INSULIN ASPART PER UNIT SC SCH ×4 (08:17→20:53)
[2022-03-19] MEDS: INSULIN GLARGINE SOLOSTAR 100 UNITS/ML 3 ML PEN SQ SCH (08:17)
[2022-03-19] MEDS: HYDROCODONE/ACETAMOPHEN 5/325MG TAB PO PRN (15:34)
[2022-03-19] MEDS: ATORVASTATIN 10 MG TAB PO SCH (20:19)
[2022-03-20] MEDS: AMPICILLIN/SULBACTAM SOD 3,000 MG in 0.9 % SODIUM CHLORIDE 100 ML IV SCH ×4 (04:24→21:29)
[2022-03-20 07:09] LABS: Hemoglobin 7.7 g/dL (14.0-18.0); Mean Corpuscular Hemoglobin 29.2 pg (25-34); Mean Corpuscular Hgb Conc 32.1 g/dL (32-36); Mean Corpuscular Volume 90.9 fL (80-100); Mean Platelet Volume 9.9 fL (7.4-10.4); Platelet Count 166 K/uL (130-400); RDW Coefficient of Variation 13.3 % (11.5-14.5); RDW Standard Deviation 44.1 fL (36.4-46.3); Red Blood Count 2.64 M/uL (4.7-6.1); White Blood Count 5.09 K/uL (4.8-10.8)
[2022-03-20] MEDS: INSULIN ASPART PER UNIT SC SCH ×4 (08:07→20:53)
[2022-03-20] MEDS: BACITRACIN OINT 15 GM TUBE TOP SCH ×3 (08:08→23:42)
[2022-03-20] MEDS: ASPIRIN 81 MG ECTAB PO SCH (08:10)
[2022-03-20] MEDS: amLODIPine BESYLATE 5 MG TAB PO SCH (08:10)
[2022-03-20] MEDS: CALCIUM CITRATE 950 MG TAB PO SCH (08:10)
[2022-03-20] MEDS: METOPROLOL SUCC 25MG EXT REL TAB PO SCH ×2 (08:10→20:42)
[2022-03-20] MEDS: FERROUS SULFATE 325 MG TAB PO SCH ×2 (08:11→20:41)
[2022-03-20] MEDS: FINASTERIDE 5 MG TAB PO SCH (08:11)
[2022-03-20] MEDS: INSULIN GLARGINE SOLOSTAR 100 UNITS/ML 3 ML PEN SQ SCH (08:11)
[2022-03-20] MEDS: DOCUSATE SODIUM/SENNA 50/8.6MG TAB PO SCH ×2 (08:11→20:42)
[2022-03-20] MEDS: PANTOprazole 40 MG TAB PO SCH (08:13)
[2022-03-20] MEDS: TAMSULOSIN HCL 0.4 MG CAP PO SCH (08:13)
[2022-03-20 08:39] LABS: BUN Creatinine Ratio 21.2 (10-20); Creatinine Clr Calc Pharmacy 33.7 ml/min; Est GFR (African American) 39.5 ml/min; Potassium 3.8 mmol/L (3.5-5.1)
[2022-03-20 08:40] LABS: Calcium 7.8 mg/dl (8.5-10.1)
[2022-03-20] MEDS: ACETAMINOPHEN 325 MG TAB PO PRN (10:37)
--- NOTE | 2022-03-20 16:03 | Hospitalist Progress Note ---
Date of Service March 20, 2022 Assessment & Plan (1) Enterococcus UTI: (2) Bacteremia due to Enterococcus: (3) Hematuria: Plan: Enterococcus Bacteremia Enterococcus UTI -Currently on Unasyn -Will consult ID -repeat blood cultures to document clearance Hematuria BPH -CT A/P from 03/04/2022 shows large mass in bladder, likely hematoma and enlarged prostate -Will ask for Urology evaluation while here -start NSS at 80 cc/hr -continue finasteride, flomax Likely Acute metabolic encephalopathy -Unclear what his baseline mental status is. No documentation of dementia -MRI brain from 2019 does show encephalomalacia -will call later to discuss CKD stage 3 -Baseline creatinine 1.8-1.9 - pt is at his baseline - cont. to monitor DM type 2 -hold home PO agent, c/w insulin -SSI CAD, HTN, s/TAVR, hx of CEA - asa, plavix, metoprolol, statin, amlodipine DVT ppx: SCDs Admission and Anticipated Discharge Date Admission Date: March 18, 2022 Subjective Patient is a poor historian, he does not know for how long he has had hematuria He denies complaints, reports he isn't eating well Physical Exam Physical Exam: Appears confused, poor historian, non toxic ENMT: mucous membrane dry Respiratory: breathing comfortably on room air, no wheezing/rhonchi/rales Cardiovascular: regular rate and rhythm, no murmurs/rubs/gallops Gastrointestinal (Abdomen): soft, non tender Musculoskeletal: no edema Skin: poor skin turgor Neurologic: confused, oriented to self only. Thinks it is 1980. Does not know he is in the hospital Genitourinary: barber is draining dark red urine Results & Data Results & Data ([facility]) Vital Signs (Past 12 Hours) Vital Signs Temp Pulse Resp BP BP Pulse Ox 03/20/22 13:20 72 136/63 03/20/22 11:24 36.4 C L 67 18 90/46 L 98 03/20/22 08:12 36.4 C L 65 16 143/63 H 95 Laboratory Results Short CBC 03/20/22 Range/Units 06:25 WBC 5.09 (4.8-10.8) K/uL Hgb 7.7 L (14.0-18.0) g/dL Hct 24.0 L (42-52) % Plt Count 166 (130-400) K/uL BMP 03/20/22 06:25 Sodium 138 Potassium 3.8 Chloride 107 Carbon Dioxide 26 BUN 38 H Creatinine 1.79 H Glucose 103 H Calcium 7.8 L Medications Administered Current Inpatient Medications Acetaminophen (Acetaminophen 325 Mg Tab) 650 mg PO Q4H PRN PRN Reason: Pain or Fever Stop: 04/17/22 16:31 Last Admin: 03/20/22 10:37 Dose: 650 mg Documented by: Hydrocodone Bitart/Acetaminophen (Hydrocodone/Acetamophen 5/325mg Tab) 1 tab PO Q6H PRN PRN Reason: mod-severe pain Stop: 04/01/22 16:57 Last Admin: 03/19/22 15:34 Dose: 1 tab Documented by: Albuterol (Albut/Ipratrop 3mg/0.5mg Neb 3 Ml Vial) 3 ml INH Q4H PRN; Protocol PRN Reason: Shortness Of Breath Or Wheezing Stop: 04/17/22 16:57 Amlodipine Besylate (Amlodipine Besylate 5 Mg Tab) 5 mg PO QAM [facility] Stop: 04/18/22 08:59 Last Admin: 03/20/22 08:10 Dose: 5 mg Documented by: Aspirin (Aspirin 81 Mg Ectab) 81 mg PO QAM [facility] Stop: 04/18/22 08:59 Last Admin: 03/20/22 08:10 Dose: 81 mg Documented by: Atorvastatin Calcium (Atorvastatin 10 Mg Tab) 10 mg PO HS [facility] Stop: 04/17/22 20:59 Last Admin: 03/19/22 20:19 Dose: 10 mg Documented by: Bacitracin (Bacitracin Oint 15 Gm Tube) 1 appln TOP QS [facility] Stop: 04/18/22 00:00 Last Admin: 03/20/22 08:08 Dose: 1 appln Documented by: Calcium Citrate (Calcium Citrate 950 Mg Tab) 950 mg PO QAM [facility] Stop: 04/18/22 08:59 Last Admin: 03/20/22 08:10 Dose: 950 mg Documented by: Dextrose (Dextrose 50% 50 Ml Syringe) 25 - 50 ml IV UD PRN; Protocol PRN Reason: Hypoglycemia Protocol Stop: 04/17/22 20:59 Ferrous Sulfate (Ferrous Sulfate 325 Mg Tab) 325 mg PO AMHS [facility] Stop: 04/17/22 20:59 Last Admin: 03/20/22 08:11 Dose: 325 mg Documented by: Finasteride (Finasteride 5 Mg Tab) 5 mg PO DAILY [facility] Stop: 04/18/22 08:59 Last Admin: 03/20/22 08:11 Dose: 5 mg Documented by: Glucagon (Glucagon For Inj 1 Mg Vial) 1 mg IM UD PRN; Protocol PRN Reason: Hypoglycemia Protocol Stop: 04/17/22 20:59 Glucose (Glucose 40% Gel 15 Gm Tube) 15 - 30 gm PO UD PRN; Protocol PRN Reason: Hypoglycemia Protocol Stop: 04/17/22 20:59 Glucose (Glucose 10 Tabs/Tube) 4 - 8 tabs PO UD PRN; Protocol PRN Reason: Hypoglycemia Protocol Stop: 04/17/22 20:59 Ampicillin Sodium/Sulbactam Sodium 3,000 mg/ Sodium Chloride 108 mls @ 200 mls/hr IV Q6H [facility]; Protocol Stop: 04/01/22 21:59 Last Infusion: 03/20/22 10:47 Dose: Infused Documented by: Insulin Aspart (Insulin Aspart Per Unit) 0 units SC ACHS [facility] Stop: 04/17/22 20:59 Last Admin: 03/20/22 11:57 Dose: 8 units Documented by: Insulin Glargine (Insulin Glargine Solostar 100 Units/Ml 3 Ml Pen) 20 units SQ QAM [facility] Stop: 04/18/22 08:59 Last Admin: 03/20/22 08:11 Dose: 20 units Documented by: Metoprolol Succinate (Metoprolol Succ 25mg Ext Rel Tab) 25 mg PO AMHS [facility] Stop: 04/17/22 20:59 Last Admin: 03/20/22 08:10 Dose: 25 mg Documented by: Miscellaneous (Carbohydrates For Hypoglycemia ) 15 - 30 gm PO UD PRN PRN Reason: Hypoglycemia Treatment Stop: 04/17/22 20:59 Pantoprazole Sodium (Pantoprazole 40 Mg Tab) 40 mg PO QAM [facility] Stop: 04/18/22 08:59 Last Admin: 03/20/22 08:13 Dose: 40 mg Documented by: Polyethylene Glycol (Polyethylene (Miralax) 17 Gm Pack) 17 gm PO DAILY PRN PRN Reason: Constipation Stop: 04/17/22 16:31 Saccharomyces Boulardii (Saccharomyces Boulardii 250 Mg Cap) 250 mg PO BID [facility] Stop: 04/19/22 20:59 Senna/Docusate Sodium (Docusate Sodium/Senna 50/8.6mg Tab) 1 tab PO BID [facility] Stop: 04/17/22 20:59 Last Admin: 03/20/22 08:11 Dose: 1 tab Documented by: Tamsulosin HCl (Tamsulosin Hcl 0.4 Mg Cap) 0.4 mg PO DAILY [facility] Stop: 04/18/22 08:59 Last Admin: 03/20/22 08:13 Dose: 0.4 mg Documented by:
[2022-03-20] MEDS: SODIUM CHLORIDE 0.9% 1000ML 1,000 ML IV SCH (17:29)
--- NOTE | 2022-03-20 19:25 | Urology Consultation ---
Date of Consultation March 20, 2022 Assessment & Plan (1) Hematuria: Due to the patient's bacteremia and urinary tract infection he has been admitted to the hospital. We recommend proceeding as follows: Continue antibiotics in form of Unasyn as the patient's Enterococcus isolated on his cultures are sensitive to this medication Maintain Díaz catheter. If the Díaz catheter becomes clogged with clots it can be manually irrigated The patient will likely require cystoscopy with timing to be determined History of Present Illness Reason for Consultation: Hematuria with possible bladder clot Attending Physician: Deborah Morris MD History of Present Illness This is an 86-year-old male who is known to the [facility] physician group urology service. Patient was recently hospitalized at [facility] from 03/04/2022 through 03/09/2022. During this admission patient was seen by urology secondary to urinary retention as well as hematuria. Patient had a Díaz catheter placed which has been in place since this admission. Patient did require continuous bladder irrigation secondary to his hematuria and this was discontinued in the appropriate fashion during the aforementioned admission and the patient was ultimately discharged from the hospital with a Díaz catheter in place. It is nowhere the mention that the patient did have a urine culture during that admission that showed gram-negative rods. This culture was reviewed and no specific organisms were noted and the patient was treated with Rocephin for this problem. During this admission the patient did have a CT scan of his abdomen and pelvis that showed prostamegaly with mild urinary bladder distention despite having a Díaz catheter in place. There is a density in the bladder measuring approximate 9.4 cm that was felt to represent a likely hematoma. Patient was also noted to have several bladder calcifications. There is no evidence of hydronephrosis or nephrolithiasis. Patient was ultimately discharged and plans were tentatively for patient to undergo an outpatient cystoscopy. Patient has been readmitted to [facility] secondary to bacteremia. The patient was seen in the emergency department on 03/18/2022 secondary to fever, confusion, and probable urinary tract infection. Patient was seen in the emergency department but felt stable for discharge home however he was called and admission was recommended as blood cultures that were sent were positive for bacteremia. Since admission the patient has been treated with antibiotics in form of Unasyn. The patient's culture data was reviewed and he did have a urine culture on 03/14/2022 that was positive for Enterococcus. He also had blood cultures that were positive on 03/18/2022 for Enterococcus. Previous cultures were also reviewed and patient did have blood and urine cultures on 03/17/2022 that were positive for Enterococcus. Patient did have repeat blood cultures today which are pending. Patient's labs today show white blood cell count of 5.0. He did not have any leukocytosis this admission. His hemoglobin was 7.7 and was noted to be 8.8 at time of admission. His platelet count is noted to be within normal range. Patient's chemistry profile showed sodium and potassium are normal. His BUN and creatinine today are 38 and 1.7. Review of records show that his baseline creatinine runs anywhere from 1.5-1.9. At the time of visit with the patient he did not note any discomfort from his Díaz and did not exhibit any suprapubic discomfort. He also denied any back or flank pain. Was in no distress at the time of my interview Allergies Allergy/AdvReac Type Severity Reaction Status Date / Time No Known Allergies Allergy Unknown Verified 03/18/22 15:46 Home Medications Medication Instructions Recorded Confirmed Type atorvastatin 10 mg tablet 10 mg PO HS 03/03/19 03/18/22 History amlodipine 5 mg tablet (Norvasc) 5 mg PO QAM 01/10/21 03/18/22 History acetaminophen 325 mg tablet 650 mg PO Q4 PRN MDD 3g 02/07/21 03/18/22 History calcium citrate 500 mg PO QAM 02/07/21 03/18/22 History mirtazapine 15 mg tablet 15 mg PO HS 02/07/21 03/18/22 History polyethylene glycol 3350 17 17 g PO DAILY 02/07/21 03/18/22 History gram/dose oral powder (Miralax) sitagliptin 50 mg tablet (Januvia) 50 mg PO QAM 02/07/21 03/18/22 History insulin glargine 100 unit/mL 20 unit SUBCUT QAM 03/28/21 03/18/22 History subcutaneous solution (Lantus U-100 Insulin) metoprolol succinate 25 mg 25 mg PO AMHS 04/11/21 03/18/22 History tablet,extended release 24 hr cyanocobalamin (vitamin B-12) 100 100 mcg PO QAM #30 tab 03/09/22 03/18/22 Rx mcg tablet (Vitamin B-12) aspirin 81 mg tablet,delayed 81 mg PO QAM 03/14/22 03/18/22 History release cholecalciferol (vitamin D3) 50 50 mcg PO QAM 03/14/22 03/18/22 History mcg (2,000 unit) tablet (Vitamin D3) ferrous sulfate 325 mg (65 mg 325 mg PO AMHS 03/14/22 03/18/22 History iron) tablet hydrocodone 5 mg-acetaminophen 325 1 tab PO Q6H PRN MDD 3g of apap 03/14/22 03/18/22 History mg tablet ipratropium 0.5 mg-albuterol 3 mg 3 ml INHALATION Q4H PRN 03/14/22 03/18/22 History (2.5 mg base)/3 mL nebulization soln pantoprazole 40 mg tablet,delayed 40 mg PO QAM 03/14/22 03/18/22 History release sennosides 8.6 mg-docusate sodium 1 tab-cap PO BID 03/14/22 03/18/22 History 50 mg tablet (Senna Plus) Theracalazinc 1 applic TOPICAL QS 03/17/22 03/18/22 History bacitracin 500 unit/gram topical 1 applic TOPICAL QS 03/17/22 03/18/22 History ointment finasteride 5 mg tablet 5 mg PO DAILY 03/17/22 03/18/22 History insulin NPH-regular 70-30 U-100 12 unit SUBCUT .WITH LUNCH 03/17/22 03/18/22 History insulin 100 unit/mL subcutaneous pen (Novolin 70-30 FlexPen U-100 Insulin) insulin aspar prot-insulin aspart 12 unit SUBCUT .WITH BREAKFAST 03/17/22 03/18/22 History 100 unit/mL (70-30) subcutaneous pen (Novolog Mix 70-30FlexPen U-100) insulin aspar prot-insulin aspart 18 unit SUBCUT . BEFORE SUPPER 03/17/22 03/18/22 History 100 unit/mL (70-30) subcutaneous pen (Novolog Mix 70-30FlexPen U-100) tamsulosin 0.4 mg capsule 0.4 mg PO DAILY 03/17/22 03/18/22 History penicillin V potassium 500 mg 500 mg PO BID 10 Days #20 tab 03/18/22 03/18/22 Rx tablet Patient History Medical History CKD (chronic kidney disease) stage 4, GFR 15-29 ml/min Closed head injury Closed hip fracture Closed left hip fracture Fall Fall GI bleed Gross hematuria Hematoma of bladder wall Hyperlipidemia RBBB Symptomatic anemia Surgical History History of cardiac cath CAD by cardiac catheterization 11/2019. Distal LMCA has a 40% stenosis which is not significant by IVUS with a mLA of 13.8 mm^2. The mid LAD had a 30% stenosis. The LCx and RCA had mild luminal irregularities History of carotid endarterectomy right History of cataract surgery LEFT. . 2mg versed no issues. History of colonoscopy History of total left knee replacement Family History Father Heart disorder Social History Smoking Status: Never smoker Tobacco Type: Cigarettes packs per day: 1; Years Smoked: 5; Second Hand Exposure: No; Hx Alcohol Use: No Hx Substance Use: No Preferred Language: Citizen Of [place] Communication Ability: Impaired Rubber Mixer Required: No Beliefs That Will Affect Care: None marital status: Current Living Situation: Alf Current Living Situation Comment: came from [facility] after recent discharge after hip surgery How many Children do You have: 2 Feels Safe at Home: Yes Assistive Devices: Walker and Wheelchair Review of Systems Constitutional: + fever; no chills Eyes: no eye pain Ear, Nose, Mouth, Throat: no ear pain Respiratory: no cough and no dyspnea Cardiovascular: no chest pain Gastrointestinal: no abdominal pain, no nausea and no vomiting Genitourinary: + as per Subjective / HPI and + hematuria Musculoskeletal: no back pain Integumentary: no rash Neurologic: no localized weakness Physical Exam Constitutional: well developed and well nourished; no acute distress Eyes: no conjunctival abnormality ENMT: Ears: no hearing impairment and no external ear abnormality Mouth: no oropharynx abnormality Neck: trachea midline Respiratory: normal respiratory effort; no respiratory distress and no labored breathing Cardiovascular: Rate/Rhythm: regular rate and regular rhythm Gastrointestinal (Abdomen): Soft, nondistended. Abdomen is nontender to palpation. Musculoskeletal: No calf tenderness Skin: no rashes Neurologic: moves all extremities Genitourinary: no CVA tenderness Patient has a Díaz catheter in place. It is draining maroon-colored urine with some sediment in it. It appeared to be patent and draining well. Results & Data ([facility]) Vital Signs (Past 12 Hours) Vital Signs Temp Pulse Resp BP BP Pulse Ox 03/20/22 15:11 36.7 C 59 L 16 133/65 98 03/20/22 13:20 72 136/63 03/20/22 11:24 36.4 C L 67 18 90/46 L 98 03/20/22 08:12 36.4 C L 65 16 143/63 H 95 PG Care Time/CCT Total # of Minutes Spent Total Time Spent with Patient: Total time spent is greater than 50% in coordination of care (as documented) at patient's floor/unit and/or counseling patient: Coding Level of Care Code 58906 Inpt Consult Level 5 Diagnoses Hematuria R31.9
[2022-03-20] MEDS: SACCHAROMYCES BOULARDII 250 MG CAP PO SCH (20:41)
[2022-03-20] MEDS: ATORVASTATIN 10 MG TAB PO SCH (20:42)
[2022-03-21] MEDS: HYDROCODONE/ACETAMOPHEN 5/325MG TAB PO PRN (01:36)
[2022-03-21] MEDS: AMPICILLIN/SULBACTAM SOD 3,000 MG in 0.9 % SODIUM CHLORIDE 100 ML IV SCH ×4 (04:06→22:22)
[2022-03-21 06:17] LABS: Hematocrit (blood only) 22.6 % (42-52); Hemoglobin 7.3 g/dL (14.0-18.0); Mean Corpuscular Hemoglobin 29.2 pg (25-34); Mean Corpuscular Hgb Conc 32.3 g/dL (32-36); Mean Corpuscular Volume 90.4 fL (80-100); Platelet Count 159 K/uL (130-400); RDW Standard Deviation 43.1 fL (36.4-46.3); White Blood Count 5.09 K/uL (4.8-10.8)
[2022-03-21 06:35] LABS: BUN Creatinine Ratio 18.8 (10-20); Calcium 7.7 mg/dl (8.5-10.1); Creatinine Clr Calc Pharmacy 37.7 ml/min; Est GFR (African American) 45.2 ml/min; Potassium 3.6 mmol/L (3.5-5.1)
[2022-03-21] MEDS: SODIUM CHLORIDE 0.9% 1000ML 1,000 ML IV SCH (08:27)
[2022-03-21] MEDS: PANTOprazole 40 MG TAB PO SCH (08:29)
[2022-03-21] MEDS: BACITRACIN OINT 15 GM TUBE TOP SCH ×2 (08:29→17:08)
[2022-03-21] MEDS: SACCHAROMYCES BOULARDII 250 MG CAP PO SCH ×2 (08:29→21:04)
[2022-03-21] MEDS: CALCIUM CITRATE 950 MG TAB PO SCH (08:29)
[2022-03-21] MEDS: FERROUS SULFATE 325 MG TAB PO SCH ×2 (08:29→21:04)
[2022-03-21] MEDS: FINASTERIDE 5 MG TAB PO SCH (08:29)
[2022-03-21] MEDS: DOCUSATE SODIUM/SENNA 50/8.6MG TAB PO SCH ×2 (08:29→21:05)
[2022-03-21] MEDS: TAMSULOSIN HCL 0.4 MG CAP PO SCH (08:29)
[2022-03-21] MEDS: ASPIRIN 81 MG ECTAB PO SCH (08:29)
[2022-03-21] MEDS: METOPROLOL SUCC 25MG EXT REL TAB PO SCH ×2 (08:29→21:04)
[2022-03-21] MEDS: amLODIPine BESYLATE 5 MG TAB PO SCH (08:29)
[2022-03-21] MEDS: INSULIN ASPART PER UNIT SC SCH ×4 (08:30→21:03)
[2022-03-21] MEDS: INSULIN GLARGINE SOLOSTAR 100 UNITS/ML 3 ML PEN SQ SCH (08:30)
--- NOTE | 2022-03-21 11:09 | Urology Progress Note ---
Date of Service March 21, 2022 Assessment & Plan (1) Hematuria: (2) Acute UTI: Plan: 86yo M admitted with bacteremia, UTI, gross hematuria. - Afebrile, labs reviewed - Wbc normal, Hemoglobin 7.3, Creatinine down from 1.79-1.60 today - Continue to trend. - Urine culture 03/14, 03/17 both with enterococcus; Blood cultures 03/17, 03/18 both with enterococcus, Repeat BCx pending. - Continues on IV Unasyn. ID consulted. - Díaz catheter intact, draining dark red urine with a few small clots noted in tubing/bag. Plan- - Plan of care reviewed with Dr. Mcintyre, on-call urologist. - No intervention planned for today. - Maintain Díaz catheter, Ok to gently hand irrigate as needed for clots, retention, suprapubic pain. - If he were to become obstructed, can upsize catheter to a 24Fr 3-way catheter for irrigation. - Continue supportive care and antibiotic therapy. - Will plan to make NPO at midnight and will reassess in the AM need for possible clot evac in the OR. - Will continue to follow. Admission and Anticipated Discharge Date Admission Date: March 18, 2022 Supervising Physician Co-Signing Physician Notes I have discussed Mr. Infante's case with ZORAIDA Koch and agree with the above documentation. His bladder is currently emptying well with the Díaz catheter in place. Hematuria has been intermittent for the last couple weeks and at this point it may be reasonable to bring him to the OR for cystoscopy, fulguration and further management of underlying cause of bleeding, whether this is a bladder tumor or his enlarged prostate. Unfortunately, he has already had breakfast this morning. Since his catheter is draining well, it does not require any changing at this point. If the catheter becomes clogged I would recommend upsizing it to a larger bore (i.e. 24 Samoan) and performing hand irrigation to remove any clot remaining within the bladder. Based on the color of the urine, I have low suspicion that he is actively bleeding now, but there is likely still some clot that is breaking down and turning the urine red. Please make patient NPO at midnight for possible intervention tomorrow. Subjective Pt examined at bedside this AM with Dr. Mcintyre Awake, resting in bed on arrival. No acute distress. No fevers. Díaz catheter intact, draining dark red urine with a few small clots noted in tubing/bag. Denies abdominal, suprapubic, and flank pain this morning. Tolerating diet, denies nausea or vomiting. Offered no additional complaints at time of exam Review of Systems Constitutional: as per Subjective / HPI Gastrointestinal: as per Subjective / HPI Genitourinary: + as per Subjective / HPI Physical Exam Constitutional: no acute distress Poor historian Respiratory: no respiratory distress and no labored breathing Gastrointestinal (Abdomen): Inspection/Auscultation: abdomen normal to inspection Percussion/Palpation: abdomen soft; abdomen nontender and no guarding Musculoskeletal: Head/Neck/Chest: normocephalic Neurologic: awake Psychiatric: Orientation: alert, oriented to person and cooperative Genitourinary: Díaz catheter intact, draining dark red urine with a few small clots noted in tubing/bag Results & Data ([facility]) Vital Signs (Past 12 Hours) Vital Signs Temp Pulse Pulse Resp BP Pulse Ox 03/21/22 07:35 36.5 C 69 20 133/76 96 03/21/22 04:00 36.4 C L 62 18 144/66 H 96 03/21/22 00:00 84 03/20/22 23:41 36.5 C 64 22 141/64 H 97 PG Care Time/CCT Total # of Minutes Spent Total Time Spent with Patient: Total time spent is greater than 50% in coordination of care (as documented) at patient's floor/unit and/or counseling patient: Coding Level of Care Code 08847 Subseq Hosp Care Lvl 2 Diagnoses Hematuria R31.9 Acute UTI N39.0
--- NOTE | 2022-03-21 14:02 | Hospitalist Progress Note ---
Date of Service March 21, 2022 Assessment & Plan (1) Enterococcus UTI: (2) Bacteremia due to Enterococcus: (3) Hematuria: Plan: Enterococcus Bacteremia Enterococcus UTI -Currently on Unasyn, Ceftriaxone added 03/21 -ID consulted, appreciate input: recommend REG due to persistent bacteremia -TTE ordered. Cardiology consulted -repeat blood cultures to document clearance Hematuria BPH Questionable bladder hematoma -CT A/P from 03/04/2022 shows large mass in bladder, likely hematoma and enlarged prostate -continue NSS at 80 cc/hr -continue finasteride, flomax -Appreciate Urology input Likely Acute metabolic encephalopathy -MRI brain from 2019 does show encephalomalacia -His denies patient has a diagnosis of dementia, but reports he is "forgetful". She feels his mental status is improved CKD stage 3 -Baseline creatinine 1.8-1.9 - pt is at his baseline - cont. to monitor DM type 2 -hold home PO agent, c/w insulin -SSI CAD, HTN, s/TAVR, hx of CEA - asa, metoprolol, statin, amlodipine. will hold plavix for now DVT ppx: SCDs Admission and Anticipated Discharge Date Admission Date: March 18, 2022 Subjective Feels better today. feels he is less confused Remains afebrile Physical Exam Physical Exam: Less confused, no acute distress, non toxic Respiratory: breathing comfortably on room air, no wheezing/rhonchi/rales Cardiovascular: regular rate and rhythm, no murmurs/rubs/gallops Gastrointestinal (Abdomen): soft, non tender, non distended Musculoskeletal: no edema Neurologic: spontaneously moving extremities, awake, alert Genitourinary: Díaz draining maroon colored urine with sediment Results & Data Results & Data ([facility]) Vital Signs (Past 12 Hours) Vital Signs Temp Pulse Resp BP Pulse Ox 03/21/22 11:29 36.5 C 63 22 163/77 H 97 03/21/22 07:35 36.5 C 69 20 133/76 96 03/21/22 04:00 36.4 C L 62 18 144/66 H 96 Laboratory Results Short CBC 03/21/22 Range/Units 05:37 WBC 5.09 (4.8-10.8) K/uL Hgb 7.3 L (14.0-18.0) g/dL Hct 22.6 L (42-52) % Plt Count 159 (130-400) K/uL BMP 03/21/22 05:37 Sodium 139 Potassium 3.6 Chloride 107 Carbon Dioxide 27 BUN 30 H Creatinine 1.60 H Glucose 94 Calcium 7.7 L Medications Administered Current Inpatient Medications Acetaminophen (Acetaminophen 325 Mg Tab) 650 mg PO Q4H PRN PRN Reason: Pain or Fever Stop: 04/17/22 16:31 Last Admin: 03/20/22 10:37 Dose: 650 mg Documented by: Hydrocodone Bitart/Acetaminophen (Hydrocodone/Acetamophen 5/325mg Tab) 1 tab PO Q6H PRN PRN Reason: mod-severe pain Stop: 04/01/22 16:57 Last Admin: 03/21/22 01:36 Dose: 1 tab Documented by: Albuterol (Albut/Ipratrop 3mg/0.5mg Neb 3 Ml Vial) 3 ml INH Q4H PRN; Protocol PRN Reason: Shortness Of Breath Or Wheezing Stop: 04/17/22 16:57 Amlodipine Besylate (Amlodipine Besylate 5 Mg Tab) 5 mg PO QAM COUNTS INCLUDE 234 BEDS AT THE [facility] Stop: 04/18/22 08:59 Last Admin: 03/21/22 08:29 Dose: 5 mg Documented by: Aspirin (Aspirin 81 Mg Ectab) 81 mg PO QAM COUNTS INCLUDE 234 BEDS AT THE [facility] Stop: 04/18/22 08:59 Last Admin: 03/21/22 08:29 Dose: 81 mg Documented by: Atorvastatin Calcium (Atorvastatin 10 Mg Tab) 10 mg PO HS COUNTS INCLUDE 234 BEDS AT THE [facility] Stop: 04/17/22 20:59 Last Admin: 03/20/22 20:42 Dose: 10 mg Documented by: Bacitracin (Bacitracin Oint 15 Gm Tube) 1 appln TOP QS NIDIA Stop: 04/18/22 00:00 Last Admin: 03/21/22 08:29 Dose: 1 appln Documented by: Calcium Citrate (Calcium Citrate 950 Mg Tab) 950 mg PO QAM COUNTS INCLUDE 234 BEDS AT THE [facility] Stop: 04/18/22 08:59 Last Admin: 03/21/22 08:29 Dose: 950 mg Documented by: Dextrose (Dextrose 50% 50 Ml Syringe) 25 - 50 ml IV UD PRN; Protocol PRN Reason: Hypoglycemia Protocol Stop: 04/17/22 20:59 Ferrous Sulfate (Ferrous Sulfate 325 Mg Tab) 325 mg PO AMHS NIDIA Stop: 04/17/22 20:59 Last Admin: 03/21/22 08:29 Dose: 325 mg Documented by: Finasteride (Finasteride 5 Mg Tab) 5 mg PO DAILY COUNTS INCLUDE 234 BEDS AT THE [facility] Stop: 04/18/22 08:59 Last Admin: 03/21/22 08:29 Dose: 5 mg Documented by: Glucagon (Glucagon For Inj 1 Mg Vial) 1 mg IM UD PRN; Protocol PRN Reason: Hypoglycemia Protocol Stop: 04/17/22 20:59 Glucose (Glucose 40% Gel 15 Gm Tube) 15 - 30 gm PO UD PRN; Protocol PRN Reason: Hypoglycemia Protocol Stop: 04/17/22 20:59 Glucose (Glucose 10 Tabs/Tube) 4 - 8 tabs PO UD PRN; Protocol PRN Reason: Hypoglycemia Protocol Stop: 04/17/22 20:59 Ampicillin Sodium/Sulbactam Sodium 3,000 mg/ Sodium Chloride 108 mls @ 200 mls/hr IV Q6H COUNTS INCLUDE 234 BEDS AT THE [facility]; Protocol Stop: 04/01/22 21:59 Last Infusion: 03/21/22 12:20 Dose: Infused Documented by: Sodium Chloride (Nss 1000ml) 1,000 mls @ 80 mls/hr IV .[id number] COUNTS INCLUDE 234 BEDS AT THE [facility] Stop: 04/19/22 16:29 Last Admin: 03/21/22 08:27 Dose: 80 mls/hr Documented by: Ceftriaxone Sodium 2,000 mg/ (Dextrose) 70 mls @ 100 mls/hr IV DAILY COUNTS INCLUDE 234 BEDS AT THE [facility]; Protocol Stop: 04/04/22 13:59 Insulin Aspart (Insulin Aspart Per Unit) 0 units SC ACHS COUNTS INCLUDE 234 BEDS AT THE [facility] Stop: 04/17/22 20:59 Last Admin: 03/21/22 11:48 Dose: 13 units Documented by: Insulin Glargine (Insulin Glargine Solostar 100 Units/Ml 3 Ml Pen) 20 units SQ QAM COUNTS INCLUDE 234 BEDS AT THE [facility] Stop: 04/18/22 08:59 Last Admin: 03/21/22 08:30 Dose: 20 units Documented by: Metoprolol Succinate (Metoprolol Succ 25mg Ext Rel Tab) 25 mg PO AMHS COUNTS INCLUDE 234 BEDS AT THE [facility] Stop: 04/17/22 20:59 Last Admin: 03/21/22 08:29 Dose: 25 mg Documented by: Miscellaneous (Carbohydrates For Hypoglycemia ) 15 - 30 gm PO UD PRN PRN Reason: Hypoglycemia Treatment Stop: 04/17/22 20:59 Pantoprazole Sodium (Pantoprazole 40 Mg Tab) 40 mg PO QAM COUNTS INCLUDE 234 BEDS AT THE [facility] Stop: 04/18/22 08:59 Last Admin: 03/21/22 08:29 Dose: 40 mg Documented by: Polyethylene Glycol (Polyethylene (Miralax) 17 Gm Pack) 17 gm PO DAILY PRN PRN Reason: Constipation Stop: 04/17/22 16:31 Saccharomyces Boulardii (Saccharomyces Boulardii 250 Mg Cap) 250 mg PO BID COUNTS INCLUDE 234 BEDS AT THE [facility] Stop: 04/19/22 20:59 Last Admin: 03/21/22 08:29 Dose: 250 mg Documented by: Senna/Docusate Sodium (Docusate Sodium/Senna 50/8.6mg Tab) 1 tab PO BID COUNTS INCLUDE 234 BEDS AT THE [facility] Stop: 04/17/22 20:59 Last Admin: 03/21/22 08:29 Dose: 1 tab Documented by: Tamsulosin HCl (Tamsulosin Hcl 0.4 Mg Cap) 0.4 mg PO DAILY COUNTS INCLUDE 234 BEDS AT THE [facility] Stop: 04/18/22 08:59 Last Admin: 03/21/22 08:29 Dose: 0.4 mg Documented by:
[2022-03-21] MEDS ORDERED: cefTRIAXone SODIUM 2,000 MG in DEXTROSE 5% 50 ML IV ONE (14:15)
--- NOTE | 2022-03-21 15:26 | Anesthesiology Consultation ---
Date of Service March 21, 2022 Assessment & Plan Chart Review Chart Review: Acceptable Risk for Surgery and Patient NOT seen in Pre Admission Testing Consults Requested none ASA ASA4 Proposed Anesthesia Anesthesia Type: MAC History Height/Weight Height: 6 ft Weight: 90.9 kg Allergies Allergy/AdvReac Type Severity Reaction Status Date / Time No Known Allergies Allergy Unknown Verified 03/18/22 15:46 Medications Home Medications Medication Instructions Recorded Confirmed Last Taken atorvastatin 10 mg tablet 10 mg PO HS 03/03/19 03/18/22 03/16/22 21:00 amlodipine 5 mg tablet (Norvasc) 5 mg PO QAM 01/10/21 03/18/22 03/17/22 09:00 acetaminophen 325 mg tablet 650 mg PO Q4 PRN MDD 3g 02/07/21 03/18/22 03/17/22 15:00 calcium citrate 500 mg PO QAM 02/07/21 03/18/22 03/17/22 09:00 mirtazapine 15 mg tablet 15 mg PO 02/07/21 03/18/22 03/16/22 21:00 polyethylene glycol 3350 17 17 g PO DAILY 02/07/21 03/18/22 03/17/22 09:00 gram/dose oral powder (Miralax) sitagliptin 50 mg tablet (Januvia) 50 mg PO QA 02/07/21 03/18/22 03/17/22 09:00 insulin glargine 100 unit/mL 20 unit SUBCUT QA 03/28/21 03/18/22 03/17/22 09:00 subcutaneous solution (Lantus U-100 Insulin) metoprolol succinate 25 mg 25 mg PO AMHS 04/11/21 03/18/22 03/17/22 09:00 tablet,extended release 24 hr cyanocobalamin (vitamin B-12) 100 100 mcg PO QAM #30 tab 03/09/22 03/18/22 03/17/22 09:00 mcg tablet (Vitamin B-12) aspirin 81 mg tablet,delayed 81 mg PO QAM 03/14/22 03/18/22 03/17/22 09:00 release cholecalciferol (vitamin D3) 50 50 mcg PO QAM 03/14/22 03/18/22 03/17/22 09:00 mcg (2,000 unit) tablet (Vitamin D3) ferrous sulfate 325 mg (65 mg 325 mg PO AMHS 03/14/22 03/18/22 03/17/22 09:00 iron) tablet hydrocodone 5 mg-acetaminophen 325 1 tab PO Q6H PRN MDD 3g of apap 03/14/22 03/18/22 03/16/22 mg tablet ipratropium 0.5 mg-albuterol 3 mg 3 ml INHALATION Q4H PRN 03/14/22 03/18/22 Unknown (2.5 mg base)/3 mL nebulization soln pantoprazole 40 mg tablet,delayed 40 mg PO QAM 03/14/22 03/18/22 03/17/22 09:00 release sennosides 8.6 mg-docusate sodium 1 tab-cap PO BID 03/14/22 03/18/22 03/17/22 09:00 50 mg tablet (Senna Plus) Theracalazinc 1 applic TOPICAL QS 03/17/22 03/18/22 03/17/22 bacitracin 500 unit/gram topical 1 applic TOPICAL QS 03/17/22 03/18/22 03/17/22 ointment finasteride 5 mg tablet 5 mg PO DAILY 03/17/22 03/18/22 03/17/22 09:00 insulin NPH-regular 70-30 U-100 12 unit SUBCUT .WITH LUNCH 03/17/22 03/18/22 03/17/22 12:00 insulin 100 unit/mL subcutaneous pen (Novolin 70-30 FlexPen U-100 Insulin) insulin aspar prot-insulin aspart 12 unit SUBCUT .WITH BREAKFAST 03/17/22 03/18/22 03/17/22 08:00 100 unit/mL (70-30) subcutaneous pen (Novolog Mix 70-30FlexPen U-100) insulin aspar prot-insulin aspart 18 unit SUBCUT . BEFORE SUPPER 03/17/22 03/18/22 03/17/22 17:00 100 unit/mL (70-30) subcutaneous pen (Novolog Mix 70-30FlexPen U-100) tamsulosin 0.4 mg capsule 0.4 mg PO DAILY 03/17/22 03/18/22 03/17/22 09:00 penicillin V potassium 500 mg 500 mg PO BID 10 Days #20 tab 03/18/22 03/18/22 Unknown tablet Active Medications Generic Name Dose Route Start Last Admin Trade Name Freq PRN Reason Stop Dose Admin Acetaminophen 650 mg 03/18/22 16:32 03/20/22 10:37 Acetaminophen 325 Mg Tab PO 04/17/22 16:31 650 mg Q4H PRN Administration Pain or Fever Hydrocodone Bitart/Acetaminophen 1 tab 03/18/22 16:58 03/21/22 01:36 Hydrocodone/Acetamophen 5/325mg Tab PO 04/01/22 16:57 1 tab Q6H PRN Administration mod-severe pain Amlodipine Besylate 5 mg 03/19/22 09:00 03/21/22 08:29 Amlodipine Besylate 5 Mg Tab PO 04/18/22 08:59 5 mg QAM NIDIA Administration Aspirin 81 mg 03/19/22 09:00 03/21/22 08:29 Aspirin 81 Mg Ectab PO 04/18/22 08:59 81 mg QAM NIDIA Administration Atorvastatin Calcium 10 mg 03/18/22 21:00 03/20/22 20:42 Atorvastatin 10 Mg Tab PO 04/17/22 20:59 10 mg HS NIDIA Administration Bacitracin 1 appln 03/19/22 00:00 03/21/22 08:29 Bacitracin Oint 15 Gm Tube TOP 04/18/22 00:00 1 appln QS NIDIA Administration Calcium Citrate 950 mg 03/19/22 09:00 03/21/22 08:29 Calcium Citrate 950 Mg Tab PO 04/18/22 08:59 950 mg QAM NIDIA Administration Ferrous Sulfate 325 mg 03/18/22 21:00 03/21/22 08:29 Ferrous Sulfate 325 Mg Tab PO 04/17/22 20:59 325 mg AMHS NIDIA Administration Finasteride 5 mg 03/19/22 09:00 03/21/22 08:29 Finasteride 5 Mg Tab PO 04/18/22 08:59 5 mg DAILY NIDIA Administration Ampicillin Sodium/Sulbactam 108 mls @ 200 mls/hr 03/18/22 22:00 03/21/22 12:20 Sodium 3,000 mg/ Sodium IV 04/01/22 21:59 Infused Chloride Q6H NIDIA Infusion Protocol Sodium Chloride 1,000 mls @ 80 mls/hr 03/20/22 16:30 03/21/22 08:27 Nss 1000ml IV 04/19/22 16:29 80 mls/hr .[id number] NIDIA Administration Insulin Aspart 0 units 03/18/22 21:00 03/21/22 11:48 Insulin Aspart Per Unit SC 04/17/22 20:59 13 units ACHS NIDIA Administration Insulin Glargine 20 units 03/19/22 09:00 03/21/22 08:30 Insulin Glargine Solostar 100 Units/Ml 3 Ml Pen SQ 04/18/22 08:59 20 units QAM NIDIA Administration Metoprolol Succinate 25 mg 03/18/22 21:00 03/21/22 08:29 Metoprolol Succ 25mg Ext Rel Tab PO 04/17/22 20:59 25 mg AMHS NIDIA Administration Pantoprazole Sodium 40 mg 03/19/22 09:00 03/21/22 08:29 Pantoprazole 40 Mg Tab PO 04/18/22 08:59 40 mg QAM NIDIA Administration Saccharomyces Boulardii 250 mg 03/20/22 21:00 03/21/22 08:29 Saccharomyces Boulardii 250 Mg Cap PO 04/19/22 20:59 250 mg BID NIDIA Administration Senna/Docusate Sodium 1 tab 03/18/22 21:00 03/21/22 08:29 Docusate Sodium/Senna 50/8.6mg Tab PO 04/17/22 20:59 1 tab BID NIDIA Administration Tamsulosin HCl 0.4 mg 03/19/22 09:00 03/21/22 08:29 Tamsulosin Hcl 0.4 Mg Cap PO 04/18/22 08:59 0.4 mg DAILY NIDIA Administration Past Medical History Medical History CKD (chronic kidney disease) stage 4, GFR 15-29 ml/min Closed head injury Closed hip fracture Closed left hip fracture Fall Fall GI bleed Gross hematuria Hematoma of bladder wall Hyperlipidemia RBBB Symptomatic anemia Exercise / Class Metabolic Activity III < 4 Walking/Shop/Light housework Past Family History Family History Father Heart disorder Past Surgical History Surgical History History of cardiac cath CAD by cardiac catheterization 11/2019. Distal LMCA has a 40% stenosis which is not significant by IVUS with a mLA of 13.8 mm^2. The mid LAD had a 30% stenosis. The LCx and RCA had mild luminal irregularities History of carotid endarterectomy right History of cataract surgery LEFT. . 2mg versed no issues. History of colonoscopy History of total left knee replacement Past Anesthesia History No Hx of Anesthesia Complications and No Family Hx of Anesthesia Complications History of PONV No Hx of PONV and No Hx of Motion Sickness Social History Smoking Status: Never smoker tobacco type: cigarettes Do You Dip or Chew Tobacco: No Hx Alcohol Use: No Alcohol type: beer, wine and hard liquor alcohol intake frequency: holidays/special occasions only Hx Substance Use: No substance use type: does not use Physical Exam Vital Signs Last Vital Signs Temp 36.5 C 03/21/22 11:29 Pulse 63 03/21/22 11:29 Resp 22 03/21/22 11:29 BP 163/77 H 03/21/22 11:29 Pulse Ox 97 03/21/22 11:29 Testing Laboratory Results 03/21/22 05:37 03/21/22 05:37 PT 11.4 Seconds (9.0-12.0) 03/18/22 14:08 INR 1.1 (0.9-1.1) 03/18/22 14:08 APTT 24.6 Seconds (21.0-31.0) 03/18/22 14:08 Urine Color Red 03/18/22 15:47 Urine Appearance Cloudy (Clear) A 03/18/22 15:47 Urine pH (4.5-7.5) 03/18/22 15:47 Ur Specific [place] 1.014 (1.000-1.030) 03/18/22 15:47 Urine Protein (Negative) 03/18/22 15:47 Urine Glucose (UA) (Negative) 03/18/22 15:47 Urine Ketones (Negative) 03/18/22 15:47 Urine Nitrite (Negative) 03/18/22 15:47 Ur Leukocyte Esterase (Negative) 03/18/22 15:47 Urine RBC >30 /hpf (0-4) H 03/18/22 15:47 Urine WBC 0-5 /hpf (0-5) 03/18/22 15:47 Ur Epithelial Cells 0-5 /lpf (0-5) 03/18/22 15:47 03/20/22 09:40 Aerobic Blood Culture - Preliminary Blood No growth in Aerobic bottle after 24 hours. Anaerobic Blood Culture - Preliminary No growth in Anaerobic bottle after 24 hours. 03/20/22 09:33 Aerobic Blood Culture - Preliminary Blood No growth in Aerobic bottle after 24 hours. Anaerobic Blood Culture - Preliminary No growth in Anaerobic bottle after 24 hours. 03/18/22 14:08 Aerobic Blood Culture - Final Blood Enterococcus faecalis Anaerobic Blood Culture - Final 03/18/22 13:25 Aerobic Blood Culture - Final Blood Enterococcus faecalis Anaerobic Blood Culture - Final 03/21/22 03/21/22 11:14 07:31 POC Glucose 236 H 112 H Electrocardiogram Date: 03/18/22 Findings: + NSR @ (@ 90) and + RBBB Chest X-Ray Date: 03/18/22 Findings: + NAD, + atherosclerosis of thoracic aorta and + other (previous valve surgery) Echocardiogram Date: 01/11/21 EF: 50% LV Function: normal RWMA: + none Other Findings: + LVH (moderate) prosthetic AVR seated well;NL gradients;trace perivalvular leaks
--- NOTE | 2022-03-21 15:51 | Cardiology Consultation ---
Date of Consultation March 21, 2022 Assessment & Plan (1) Bacteremia due to Enterococcus: (2) S/P TAVR (transcatheter aortic valve replacement): (3) CAD (coronary artery disease): (4) Anemia: (5) Hematuria: I had a long discussion with the patient and his son regarding persistent bacteremia. Transesophageal echocardiogram recommended for further evaluation. He has a history of TAVR implantation 2019. Preliminary review of bedside 2D transthoracic echocardiogram without evidence of vegetation. Urology is following to consider cystoscopy tomorrow in the setting of persistent hematuria and anemia. Patient and son are agreeable to transesophageal echocardiogram. Consent obtained from both the patient and his son today. All questions answered to their satisfaction. History of Present Illness Reason for Consultation: Bacteremia, consider transesophageal Requesting Physician: Dr. Morris Attending Physician: Deborah Morris MD History of Present Illness 86-year-old patient presented to the emergency department with persistent bacteremia. Blood culture growing Enterococcus. History of coronary disease, aortic stenosis status post TAVR 12/2019. Initial blood culture positive for Enterococcus faecalis February 2017 treated with ampicillin. Repeat blood cultures performed 03/18/2022 also demonstrate Enterococcus faecalis despite treatment with ampicillin. Infectious disease consultation obtained. Transesophageal echocardiogram requested for further evaluation. Allergies Allergy/AdvReac Type Severity Reaction Status Date / Time No Known Allergies Allergy Unknown Verified 03/18/22 15:46 Home Medications Medication Instructions Recorded Confirmed Type atorvastatin 10 mg tablet 10 mg PO HS 03/03/19 03/18/22 History amlodipine 5 mg tablet (Norvasc) 5 mg PO QAM 01/10/21 03/18/22 History acetaminophen 325 mg tablet 650 mg PO Q4 PRN MDD 3g 02/07/21 03/18/22 History calcium citrate 500 mg PO QAM 02/07/21 03/18/22 History mirtazapine 15 mg tablet 15 mg PO HS 02/07/21 03/18/22 History polyethylene glycol 3350 17 17 g PO DAILY 02/07/21 03/18/22 History gram/dose oral powder (Miralax) sitagliptin 50 mg tablet (Januvia) 50 mg PO QAM 02/07/21 03/18/22 History insulin glargine 100 unit/mL 20 unit SUBCUT QAM 03/28/21 03/18/22 History subcutaneous solution (Lantus U-100 Insulin) metoprolol succinate 25 mg 25 mg PO AMHS 04/11/21 03/18/22 History tablet,extended release 24 hr cyanocobalamin (vitamin B-12) 100 100 mcg PO QAM #30 tab 03/09/22 03/18/22 Rx mcg tablet (Vitamin B-12) aspirin 81 mg tablet,delayed 81 mg PO QAM 03/14/22 03/18/22 History release cholecalciferol (vitamin D3) 50 50 mcg PO QAM 03/14/22 03/18/22 History mcg (2,000 unit) tablet (Vitamin D3) ferrous sulfate 325 mg (65 mg 325 mg PO AMHS 03/14/22 03/18/22 History iron) tablet hydrocodone 5 mg-acetaminophen 325 1 tab PO Q6H PRN MDD 3g of apap 03/14/22 03/18/22 History mg tablet ipratropium 0.5 mg-albuterol 3 mg 3 ml INHALATION Q4H PRN 03/14/22 03/18/22 History (2.5 mg base)/3 mL nebulization soln pantoprazole 40 mg tablet,delayed 40 mg PO QAM 03/14/22 03/18/22 History release sennosides 8.6 mg-docusate sodium 1 tab-cap PO BID 03/14/22 03/18/22 History 50 mg tablet (Senna Plus) Theracalazinc 1 applic TOPICAL QS 03/17/22 03/18/22 History bacitracin 500 unit/gram topical 1 applic TOPICAL QS 03/17/22 03/18/22 History ointment finasteride 5 mg tablet 5 mg PO DAILY 03/17/22 03/18/22 History insulin NPH-regular 70-30 U-100 12 unit SUBCUT .WITH LUNCH 03/17/22 03/18/22 History insulin 100 unit/mL subcutaneous pen (Novolin 70-30 FlexPen U-100 Insulin) insulin aspar prot-insulin aspart 12 unit SUBCUT .WITH BREAKFAST 03/17/22 03/18/22 History 100 unit/mL (70-30) subcutaneous pen (Novolog Mix 70-30FlexPen U-100) insulin aspar prot-insulin aspart 18 unit SUBCUT . BEFORE SUPPER 03/17/22/12/09 History 100 unit/mL (70-30) subcutaneous pen (Novolog Mix 70-30FlexPen U-100) tamsulosin 0.4 mg capsule 0.4 mg PO DAILY 03/17/22 03/18/22 History penicillin V potassium 500 mg 500 mg PO BID 10 Days #20 tab 03/18/22 03/18/22 Rx tablet Patient History Medical History CKD (chronic kidney disease) stage 4, GFR 15-29 ml/min Closed head injury Closed hip fracture Closed left hip fracture Fall Fall GI bleed Gross hematuria Hematoma of bladder wall Hyperlipidemia RBBB Symptomatic anemia Surgical History History of cardiac cath CAD by cardiac catheterization 11/2019. Distal LMCA has a 40% stenosis which is not significant by IVUS with a mLA of 13.8 mm^2. The mid LAD had a 30% stenosis. The LCx and RCA had mild luminal irregularities History of carotid endarterectomy right History of cataract surgery LEFT. . 2mg versed no issues. History of colonoscopy History of total left knee replacement Family History Father Heart disorder Social History Smoking Status: Never smoker Tobacco Type: Cigarettes packs per day: 1; Years Smoked: 5; Second Hand Exposure: No; Hx Alcohol Use: No Hx Substance Use: No Preferred Language: Urdu Communication Ability: Impaired Unhairing Inspector Required: No Beliefs That Will Affect Care: None marital status: Current Living Situation: Shelter Current Living Situation Comment: came from [facility] after recent discharge after hip surgery How many Children do You have: 2 Feels Safe at Home: Yes Assistive Devices: Walker and Wheelchair Review of Systems Review of Systems: Unobtainable due to cognitive status Physical Exam Constitutional: well developed and well nourished; no acute distress Respiratory: no respiratory distress, no labored breathing and no retractions Auscultation: lungs clear to auscultation bilaterally; no crackles, no rales, no rhonchi and no wheezes Cardiovascular: Rate/Rhythm: regular rate and regular rhythm Heart Sounds: normal S1, normal S2 and + murmur (2/6 low pitched systolic murmur) Vessels: radial pulses present; no JVD and no carotid bruit Extremities: no edema Gastrointestinal (Abdomen): Inspection/Auscultation: abdomen normal to inspection; abdomen not distended and no abdominal edema Percussion/Palpation: abdomen soft; abdomen nontender, no guarding and abdomen not rigid Neurologic: CN's II-XI intact bilaterally and moves all extremities; no focal motor deficits Results & Data ([facility]) Vital Signs (Past 12 Hours) Vital Signs Temp Pulse Resp BP Pulse Ox 03/21/22 15:26 36.9 C 18 155/57 H 96 03/21/22 11:29 36.5 C 63 22 163/77 H 97 03/21/22 07:35 36.5 C 69 20 133/76 96 03/21/22 04:00 36.4 C L 62 18 144/66 H 96 (1) Hematuria Hematuria type: gross Qualified Code(s): R31.0 - Gross hematuria
[2022-03-21] MEDS: ATORVASTATIN 10 MG TAB PO SCH (21:04)
[2022-03-22] MEDS: BACITRACIN OINT 15 GM TUBE TOP SCH ×3 (00:30→17:08)
[2022-03-22] MEDS: SODIUM CHLORIDE 0.9% 1000ML 1,000 ML IV SCH ×2 (00:42→16:27)
[2022-03-22] MEDS: cefTRIAXone SODIUM 2,000 MG in DEXTROSE 5% 50 ML IV SCH ×2 (02:34→13:44)
[2022-03-22] MEDS: AMPICILLIN/SULBACTAM SOD 3,000 MG in 0.9 % SODIUM CHLORIDE 100 ML IV SCH (04:51)
--- NOTE | 2022-03-22 06:58 | Electrocardiogram Report ---
Test Reason : Blood Pressure : / mmHG Vent. Rate : 090 BPM Atrial Rate : 090 BPM P-R Int : 140 ms QRS Dur : 138 ms QT Int : 370 ms P-R-T Axes : 080 082 053 degrees QTc Int : 452 ms Poor data quality, interpretation may be adversely affected Normal sinus rhythm Right bundle branch block Abnormal ECG When compared with ECG of 17-MAR-2022 21:10, (unconfirmed) No significant change was found Confirmed by Spencer Campuzano ([id number]) on 03/21/2022 8:58:22 AM Referred By: REFERRED SELF Confirmed By:Spencer Campuzano
[2022-03-22] MEDS ORDERED: BENZOCAINE/TETRACAIN/BUTAM 50 APPLN/5 GM CAN EXT ONE (07:23)
[2022-03-22] MEDS ORDERED: PROPOFOL IV EMULSION 10 MG/ML 20 ML VIAL IV ONE (07:25)
[2022-03-22] MEDS ORDERED: Nursing to Pharmacy Communication SCH ×2 (07:45→13:45)
--- NOTE | 2022-03-22 08:25 | Anesthesiology Progress Note ---
Date of Service March 22, 2022 Anesthesia Post Procedure Vital Signs Vital Signs: Temp Pulse Pulse Pulse Resp BP Pulse Ox 03/22/22 08:18 65 16 139/63 98 03/22/22 08:03 67 16 134/55 L 97 03/22/22 07:30 64 16 141/64 H 97 03/22/22 02:45 36.7 C 60 16 155/68 H 97 03/21/22 23:11 36.8 C 67 16 164/75 H 97 03/21/22 22:53 62 03/21/22 19:44 36.7 C 66 16 157/69 H 95 03/21/22 15:26 36.9 C 18 155/57 H 96 03/21/22 11:29 36.5 C 63 22 163/77 H 97 Pain Intensity Penis: Pain Intensity: 9 Transfer of Care Handoff Completed per policy Notes Mental Status: alert / awake / arousable and participated in evaluation Patient Amnestic to Procedure: Yes Nausea / Vomiting: adequately controlled Pain: adequately controlled Airway Patency, RR, SpO2: stable & adequate BP & HR: stable & adequate Hydration State: stable & adequate Anesthetic Complications: no major complications apparent and Pt Satisfied with anesthetic care
[2022-03-22] MEDS ORDERED: ePHEDrine sulfate 50 MG/ML AMP ONE (08:33)
[2022-03-22 08:57] LABS: Hematocrit (blood only) 23.7 % (42-52); Hemoglobin 7.5 g/dL (14.0-18.0); Mean Corpuscular Hemoglobin 28.8 pg (25-34); Mean Corpuscular Hgb Conc 31.6 g/dL (32-36); Mean Corpuscular Volume 91.2 fL (80-100); Platelet Count 186 K/uL (130-400); RDW Coefficient of Variation 13.1 % (11.5-14.5); RDW Standard Deviation 43.6 fL (36.4-46.3); White Blood Count 5.87 K/uL (4.8-10.8)
[2022-03-22] MEDS: METOPROLOL SUCC 25MG EXT REL TAB PO SCH ×2 (08:57→21:18)
[2022-03-22] MEDS: ASPIRIN 81 MG ECTAB PO SCH (08:58)
[2022-03-22] MEDS: PANTOprazole 40 MG TAB PO SCH (08:58)
[2022-03-22] MEDS: FINASTERIDE 5 MG TAB PO SCH (08:58)
[2022-03-22] MEDS: amLODIPine BESYLATE 5 MG TAB PO SCH (08:58)
[2022-03-22] MEDS: TAMSULOSIN HCL 0.4 MG CAP PO SCH (08:59)
[2022-03-22] MEDS: FERROUS SULFATE 325 MG TAB PO SCH ×2 (08:59→21:16)
[2022-03-22] MEDS: DOCUSATE SODIUM/SENNA 50/8.6MG TAB PO SCH ×2 (08:59→21:15)
[2022-03-22] MEDS: CALCIUM CITRATE 950 MG TAB PO SCH (08:59)
[2022-03-22] MEDS: SACCHAROMYCES BOULARDII 250 MG CAP PO SCH ×2 (09:00→21:18)
[2022-03-22] MEDS: INSULIN GLARGINE SOLOSTAR 100 UNITS/ML 3 ML PEN SQ SCH (09:09)
[2022-03-22 09:26] LABS: BUN Creatinine Ratio 15.7 (10-20); Calcium 7.7 mg/dl (8.5-10.1); Creatinine Clr Calc Pharmacy 39.4 ml/min; Est GFR (African American) 47.7 ml/min; Est GFR (Non-African American) 41.1 ml/min; Potassium 3.8 mmol/L (3.5-5.1)
[2022-03-22 10:00] LABS: INR 1.1 (0.9-1.1); Prothrombin Time 11.2 Seconds (9.0-12.0)
[2022-03-22] MEDS: INSULIN ASPART PER UNIT SC SCH ×3 (10:18→21:25)
[2022-03-22] MEDS: AMPICILLIN 2,000 MG in SODIUM CHLOR 0.9% AD-VAN 100 ML IV SCH ×3 (10:50→21:20)
--- NOTE | 2022-03-22 11:15 | Urology Progress Note ---
Date of Service March 22, 2022 Assessment & Plan (1) Hematuria: (2) Urinary tract infection: Plan: 86yo M admitted with bacteremia, UTI, gross hematuria. - Afebrile, labs reviewed - Wbc normal, Hemoglobin 7.5, Creatinine 1.53 - Continue to trend. - Urine culture 03/14, 03/17 both with enterococcus; Blood cultures 03/17, 03/18 both with enterococcus, Repeat BCx pending. - On IV Ceftriaxone and Ampicillin. - Barber catheter intact, draining dark red urine with clot noted in tubing. Plan- - Plan of care reviewed with Dr. Sommer, on-call urologist. - Will get CT Pelvis wo con this morning to evaluate for clot in bladder. - Keep NPO for now and will determine need for OR today pending review of imaging. - Continue supportive care and antibiotic therapy. - Will continue to follow. - Imaging and plan of care reviewed with Dr. Sommer. - Pelvis CT reviewed - Bladder clot shown on CT of March 04, 2022 no longer identified. At most, minimal hemorrhage within the bladder. Small bladder calculi. Bladder collapsed, containing a Barber catheter. - No intervention indicated at this time as there is not enough clot burden to warrant procedure. - Ok to have diet back from standpoint. - Maintain Barber catheter, Ok to gently hand irrigate as needed for clots, retention, suprapubic pain. - If he were to become obstructed, can upsize catheter to a 24Fr 3-way catheter to perform hand irrigation. - Continue supportive care and antibiotic therapy. - Will continue to follow. Admission and Anticipated Discharge Date Admission Date: March 18, 2022 Supervising Physician Co-Signing Physician Notes Discussed patient with TED. Agree with plan. Hematuria improving. CT of pelvis shows no appreciable clot so I think risk of procedure outweighs benefit at this point. Continue barber catheter drainage and as needed irrigation. Subjective Pt examined at bedside this AM. Awake, resting in bed on arrival. No acute distress. No fevers. Has been NPO. Barber catheter intact, draining dark red urine with clot/sediment noted in tubing. Urine output overnight -1450ml. Denies any pain or discomfort at present. Pt had REG this morning. Review of Systems Constitutional: as per Subjective / HPI Genitourinary: + as per Subjective / HPI Physical Exam Constitutional: no acute distress Poor historian Respiratory: no respiratory distress and no labored breathing Gastrointestinal (Abdomen): Inspection/Auscultation: abdomen normal to inspection Percussion/Palpation: abdomen soft; abdomen nontender and no guarding Musculoskeletal: Head/Neck/Chest: normocephalic Neurologic: awake Psychiatric: Orientation: alert, oriented to person and cooperative Genitourinary: Barber catheter intact, draining dark red urine with clot /sediment noted in tubing. Results & Data ([facility]) Vital Signs (Past 12 Hours) Vital Signs Temp Pulse Pulse Resp BP Pulse Ox 03/22/22 08:56 36.4 C L 69 20 153/70 H 96 03/22/22 08:18 65 16 139/63 98 03/22/22 08:03 67 16 134/55 L 97 03/22/22 07:30 64 16 141/64 H 97 03/22/22 02:45 36.7 C 60 16 155/68 H 97 03/21/22 23:11 36.8 C 67 16 164/75 H 97 PG Care Time/CCT Total # of Minutes Spent Total Time Spent with Patient: Total time spent is greater than 50% in coordination of care (as documented) at patient's floor/unit and/or counseling patient: Coding Level of Care Code 02564 Subseq Hosp Care Lvl 2 Diagnoses Hematuria R31.0 Hematuria type: gross Urinary tract infection N39.0; R31.9 Hematuria presence: with hematuria Urinary tract infection type: site unspecified (1) Urinary tract infection Hematuria presence: with hematuria Urinary tract infection type: site unspecified Qualified Code(s): N39.0 - Urinary tract infection, site not specified; R31.9 - Hematuria, unspecified (2) Hematuria Hematuria type: gross Qualified Code(s): R31.0 - Gross hematuria
[2022-03-22] MEDS ORDERED: INSULIN ASPART PER UNIT SC SCH (12:00)
--- NOTE | 2022-03-22 12:23 | CT Scan Report ---
CT OF THE PELVIS WITHOUT CONTRAST CLINICAL HISTORY: Gross hematuria, Eval for clot in bladder COMPARISON STUDY: CT of the abdomen and pelvis March 04, 2022. TECHNIQUE: Axial images of the pelvis were obtained without IV contrast. Sagittal and coronal reconst ructions were viewed. Automated exposure control was utilized for the study. A dose lowering techniq ue was utilized adhering to the principles of ALARA. FINDINGS: The clot within the urinary bladder on CT of March 04, 2022 is no longer identified. Minima l hyperdensity within the bladder could reflect a small amount of hemorrhage. A Díaz balloon within the bladder is present. Bladder is collapsed. Multiple small bladder calculi are present. Prostate is enlarged, measuring 5.1 cm in transverse dimension. Large amount stool within the rectum is again no simona as well as moderate stool within visualized portions of the colon. There is mild presacral/perire ctal stranding and fluid. No pelvic lymphadenopathy is present. There is no mass within the pelvis. F ixated subcapital left femoral neck is noted. Incomplete healing is again noted. This is unchanged si nce CT of March 04, 2022. Infrarenal abdominal aorta is ectatic, measuring 2.9 cm. Small fat-containi ng right inguinal hernia is present. IMPRESSION: 1. Bladder clot shown on CT of March 04, 2022 no longer identified. At most, minimal hemorrhage withi n the bladder. Small bladder calculi. Bladder collapsed, containing a Díaz catheter. 2. Large amount of stool within the rectum. Mild presacral/perirectal stranding and fluid. ACT 112: Negative or not required by law. Electronically signed by: Arjun Rivera M.D. 03/22/2022 12:22 PM
--- NOTE | 2022-03-22 14:07 | Hospitalist Progress Note ---
Date of Service March 22, 2022 Assessment & Plan (1) Enterococcus UTI: (2) Bacteremia due to Enterococcus: (3) Hematuria: Plan: Enterococcus Bacteremia Enterococcus UTI -Currently on unasyn--> ampicillin 03/21, Ceftriaxone added 03/21. -ID consulted, appreciate input: recommend REG due to persistent bacteremia -TTE and REG negative for endocarditis. -repeat blood cultures 03/20 no growth x 48 hours -Secure message to ID provider to obtain final antibiotic recommendations for discharge Hematuria BPH Questionable bladder hematoma -CT A/P from 03/04/2022 shows large mass in bladder, likely hematoma and enlarged prostate -continue NSS at 80 cc/hr -continue finasteride, flomax -Appreciate Urology input, repeat CT pelvis negative for clot Likely Acute metabolic encephalopathy -MRI brain from 2019 does show encephalomalacia -His denies patient has a diagnosis of dementia, but reports he is "forgetful". She feels his mental status is improved CKD stage 3 -Baseline creatinine 1.8-1.9 - pt is at his baseline - cont. to monitor DM type 2 -hold home PO agent, c/w insulin -SSI CAD, HTN, s/TAVR, hx of CEA - asa, metoprolol, statin, amlodipine. will hold plavix for now DVT ppx: SCDs Disposition-- Expect he can be discharged to [facility] tomorrow Admission and Anticipated Discharge Date Admission Date: March 18, 2022 Subjective Patient feels well. Went for his REG today Physical Exam Physical Exam: Pleasant, comfortable, no acute distress Respiratory: breathing comfortably on room air, no wheezing/rhonchi/rales Cardiovascular: regular rate and rhythm, no murmurs/rubs/gallops Gastrointestinal (Abdomen): soft, non tender, non distended Musculoskeletal: No edema Neurologic: awake, answers simple questions, appears to have cognitive impairment Genitourinary: draining dark/maroon urine Results & Data Results & Data ([facility]) Vital Signs (Past 12 Hours) Vital Signs Temp Pulse Pulse Resp BP Pulse Ox 03/22/22 12:00 36.5 C 69 18 164/69 H 96 03/22/22 08:56 36.4 C L 69 20 153/70 H 96 03/22/22 08:18 65 16 139/63 98 03/22/22 08:03 67 16 134/55 L 97 03/22/22 07:30 64 16 141/64 H 97 03/22/22 02:45 36.7 C 60 16 155/68 H 97 Laboratory Results Short CBC 03/22/22 Range/Units 08:44 WBC 5.87 (4.8-10.8) K/uL Hgb 7.5 L (14.0-18.0) g/dL Hct 23.7 L (42-52) % Plt Count 186 (130-400) K/uL BMP 03/22/22 08:44 Sodium 139 Potassium 3.8 Chloride 108 H Carbon Dioxide 25 BUN 24 H Creatinine 1.53 H Glucose 123 H Calcium 7.7 L
[2022-03-22] MEDS ORDERED: bisacodyL 10 MG SUPP PR STA ×2 (14:08→17:15)
[2022-03-22] MEDS ORDERED: bisacodyL 10 MG SUPP PR ONE (17:10)
[2022-03-22] MEDS: ACETAMINOPHEN 325 MG TAB PO PRN (17:14)
[2022-03-22] MEDS ORDERED: risperiDONE 0.5 MG TABLET PO ONE (18:00)
[2022-03-22] MEDS: ATORVASTATIN 10 MG TAB PO SCH (21:15)
[2022-03-23] MEDS: BACITRACIN OINT 15 GM TUBE TOP SCH ×2 (00:54→08:45)
[2022-03-23] MEDS: cefTRIAXone SODIUM 2,000 MG in DEXTROSE 5% 50 ML IV SCH (02:52)
[2022-03-23] MEDS: SODIUM CHLORIDE 0.9% 1000ML 1,000 ML IV SCH (03:51)
[2022-03-23] MEDS: AMPICILLIN 2,000 MG in SODIUM CHLOR 0.9% AD-VAN 100 ML IV SCH ×2 (03:52→09:07)
[2022-03-23 06:24] LABS: Hematocrit (blood only) 24.5 % (42-52); Mean Corpuscular Hemoglobin 29.3 pg (25-34); Mean Corpuscular Hgb Conc 32.7 g/dL (32-36); Mean Corpuscular Volume 89.7 fL (80-100); Mean Platelet Volume 9.3 fL (7.4-10.4); Platelet Count 211 K/uL (130-400); RDW Coefficient of Variation 13.1 % (11.5-14.5); RDW Standard Deviation 42.5 fL (36.4-46.3); Red Blood Count 2.73 M/uL (4.7-6.1)
[2022-03-23 06:47] LABS: BUN Creatinine Ratio 11.3 (10-20); Calcium 8.1 mg/dl (8.5-10.1); Est GFR (African American) 48.5 ml/min; Est GFR (Non-African American) 41.8 ml/min; Potassium 3.6 mmol/L (3.5-5.1)
--- NOTE | 2022-03-23 08:30 | Urology Progress Note ---
Date of Service March 23, 2022 Assessment & Plan (1) Hematuria: (2) Urinary tract infection: Plan: 86yo M admitted with bacteremia, UTI, gross hematuria. - CT of pelvis yesterday with no appreciable clot. - Urine has cleared. - Pt afebrile, labs reviewed - Wbc normal, Hemoglobin 8.0, Creatinine 1.51 - Continue to trend. - Urine culture 03/14, 03/17 both with enterococcus; Blood cultures 03/17, 03/18 both with enterococcus, Repeat BCx prelim NGTD - On IV Ceftriaxone and Ampicillin. - Maintain Díaz catheter - likely continue until outpatient follow-up. - Okay to gently hand irrigate as needed for suprapubic discomfort or clot retention. - Continue supportive care, antibiotics, and management per primary service. - Patient will need outpatient follow-up with our service for cystoscopy to finalize hematuria work-up. - will sign off, please contact us with any additional questions, concerns, or changes in patient status. Admission and Anticipated Discharge Date Admission Date: March 18, 2022 Subjective Pt examined at bedside this AM. Awake, resting in bed on arrival. No acute distress. No fevers. Subjectively feeling well overall. Díaz catheter intact, draining clear yellow urine with small amount of sediment noted in tubing. Denies any pain or discomfort at present. Denies nausea/vomiting. Review of Systems Constitutional: as per Subjective / HPI Gastrointestinal: as per Subjective / HPI Genitourinary: + as per Subjective / HPI Physical Exam Constitutional: no acute distress Respiratory: no respiratory distress and no labored breathing Gastrointestinal (Abdomen): Inspection/Auscultation: abdomen normal to inspection Percussion/Palpation: abdomen soft; abdomen nontender and no guarding Neurologic: awake Psychiatric: Orientation: alert, oriented to person and cooperative Genitourinary: Díaz catheter intact, draining clear yellow urine with small amount of sediment noted in tubing. Results & Data ([facility]) Vital Signs (Past 12 Hours) Vital Signs Temp Pulse Pulse Pulse Resp BP BP 03/23/22 07:47 36.7 C 65 68 16 126/66 03/23/22 04:00 36.6 C 60 20 149/67 H 03/22/22 23:21 36.8 C 72 19 157/82 H 03/22/22 22:17 61 03/22/22 21:12 64 143/63 H Pulse Ox 03/23/22 07:47 97 03/23/22 04:00 96 03/22/22 23:21 98 03/22/22 22:17 03/22/22 21:12 PG Care Time/CCT Total # of Minutes Spent Total Time Spent with Patient: Total time spent is greater than 50% in coordination of care (as documented) at patient's floor/unit and/or counseling patient: Coding Level of Care Code 69982 Subseq Hosp Care Lvl 2 Diagnoses Hematuria R31.0 Hematuria type: gross Urinary tract infection N39.0; R31.9 Hematuria presence: with hematuria Urinary tract infection type: site unspecified (1) Urinary tract infection Hematuria presence: with hematuria Urinary tract infection type: site unspecified Qualified Code(s): N39.0 - Urinary tract infection, site not specified; R31.9 - Hematuria, unspecified (2) Hematuria Hematuria type: gross Qualified Code(s): R31.0 - Gross hematuria
[2022-03-23] MEDS: FERROUS SULFATE 325 MG TAB PO SCH (08:45)
[2022-03-23] MEDS: TAMSULOSIN HCL 0.4 MG CAP PO SCH (08:45)
[2022-03-23] MEDS: amLODIPine BESYLATE 5 MG TAB PO SCH (08:45)
[2022-03-23] MEDS: FINASTERIDE 5 MG TAB PO SCH (08:45)
[2022-03-23] MEDS: DOCUSATE SODIUM/SENNA 50/8.6MG TAB PO SCH (08:45)
[2022-03-23] MEDS: METOPROLOL SUCC 25MG EXT REL TAB PO SCH (08:45)
[2022-03-23] MEDS: PANTOprazole 40 MG TAB PO SCH (08:45)
[2022-03-23] MEDS: SACCHAROMYCES BOULARDII 250 MG CAP PO SCH (08:45)
[2022-03-23] MEDS: CALCIUM CITRATE 950 MG TAB PO SCH (08:45)
[2022-03-23] MEDS: ASPIRIN 81 MG ECTAB PO SCH (08:45)
[2022-03-23] MEDS: INSULIN GLARGINE SOLOSTAR 100 UNITS/ML 3 ML PEN SQ SCH (08:46)
[2022-03-23] MEDS: INSULIN ASPART PER UNIT SC SCH ×2 (08:46→12:41)
--- NOTE | 2022-03-23 18:16 | Discharge Summary ---
Date of Service March 23, 2022 Admission HPI Per Admitting Provider 86-year-old male with CAD, hx of aortic stenosis s/p TAVR 12/2019, T2DM, HTN, HLD, CKD stage III baseline creatinine 1.8, chronic RBBB, carotid artery stenosis s/p right endarterectomy, recent history of urinary retention and hematuria, who presented with fever, confusion and cloudy urine in the ED yesterday and was found to have UTI. He was discharged from ED, however blood cultures came positive today. Urine culture from March 14 is positive for Enterococcus faecalis. Blood culture is positive for gram-positive cocci in chains. Patient was recently hospitalized here due to hematuria, and was seen by urology as well. During his hospital stay he was treated with Rocephin. Patient continues to have indwelling Barber catheter, and hematuria. On my exam, patient is awake, however he seems confused. Per nursing staff, son briefly visited him as well and felt that patient was more confused. Patient is asking when he can leave. He does not seem to know where he is, he also does not seem to be oriented to time. He denies however any discomfort, specifically denies any chest pain shortness of breath, abdominal pain, nausea vomiting. Denies any cough, fevers chills. Barber catheter is placed, and drains red/ bloody urine. Principal Diagnosis Enterococcus UTI, barber catheter associated, present on admission Enterococcus Bacteremia Acute metabolic encephalopathy Delirium Likely underlying cognitive impairment Acute blood loss anemia due to gross hematuria Bladder hematoma, resolved Discharge Exam No acute distress, non toxic, anxious Respiratory breathing comfortably on room air, no wheezing/rhonchi/rales Cardiovascular regular, rate and rhythm, no murmurs/rubs Gastrointestinal (Abdomen) soft, non tender Musculoskeletal no edema Neurologic baseline with cognitive impairment, awake, requires frequent redirecting, spontaneously moving extremities Genitourinary anxious, requires reassurance, no agitation Discharge Data Allergies Allergy/AdvReac Type Severity Reaction Status Date / Time No Known Allergies Allergy Unknown Verified 03/18/22 15:46 Consultations 03/18/22 16:32 ED Decision to Admit Stat 03/20/22 09:18 Consult Infectious Diseases Routine 03/20/22 16:27 Consult Urology Routine 03/21/22 13:58 Consult Cardiology Routine 03/21/22 15:18 Consult Anesthesiology Routine Procedures Performed Operation Date: 03/22/22 07:15 Actual Procedures p Echo Transesophageal - Juan Dubose DO s Echo Color Flow - Juan Dubose DO s Echo Doppler Complete - Juan Dubose DO Ordered Studies 03/22/22 10:56 CT pelvis wo con Urgent Hospital Course (1) Enterococcus UTI: (2) Bacteremia due to Enterococcus: (3) Hematuria: (4) Acute metabolic encephalopathy: (5) Delirium: (6) Cognitive impairment: Mr Dante Infante is a 86 year old man with history of cognitive impairment (no formal diagnosis of dementia), TAVR, IDDM, HTN and remaining pMHx per H&P here with infected barber catheter. Patient has had an indwelling barber catheter for at least 1 month due to urinary retention. He initially presented to the ER 03/17 for fever and diagnosed with a UTI and discharged home on penicillin. His blood cultures came back positive and he was recalled back to the ED for admission 03/18. He was ultimately found to have enterococcus bacteremia and enterococcus UTI (barber catheter associated, present on admission). He was placed on Unasyn and eventually switched to ampicillin and ceftriaxone. He had a TTE and REG which were both negative for endocarditis. Repeat blood cultures from 03/20 showed clearance of bacteremia. He was seen by ID and recommended 4 week antibiotic course. Last day of antibiotic will be 04/17/2022. He had an ultrasound guided IV which he will have for duration of his course and can be removed at SNF when antibiotic is completed. Upon arrival, he was noted to have gross hematuria. Review of recent imaging include CT A/P from 03/04/2022 which showed a large mass in his bladder likely hematoma. Urology was consulted and initial plan for OR for clot evacuation but subsequent CT pelvis revealed clot resolution. He will have barber catheter at discharge and follow up with Dr Mcintyre for cystoscopy. Upon arrival, he was noted to be confused which later resolved after treatment of his infection. Upon further discussion with family, he does appear to have baseline cognitive impairment. Review of MRI brain from 2019 shows encephalopathy. While here, one evening he had an episode of delirium and received 1 dose oral risperdal. He would benefit from neurocognitive evaluation after discharge for diagnosis of dementia. He was discharged to [facility] for continuation of his antibiotics and for PT. Total Time Total Time Spent Total Time Spent (In Minutes): 40 Discharge Plan Discharge Items Patient Disposition: Transfer Halfway Fac Reason For Visit: BACTEREMIA Discharge Diagnosis: Enterococcus UTI, barber catheter associated, present on admission Enterococcus Bacteremia Acute metabolic encephalopathy Delirium Likely underlying dementia (cognitive impairment) Acute blood loss anemia due to gross hematuria Bladder hematoma, resolved Condition on Discharge: Fair Health Concerns: Delirium prevention protocol Activity: Resume your previous activity Non-emergency contact: Primary Care Provider and Urologist Call non-emergency contact if: you have any medication questions and you have a fever Follow-up/Referrals: Bran Mcintyre MD [Physician] - Neha Johnson [Primary Care Provider] - Diet: Carb Consistent or DM2 and Heart Healthy Addtl Attending Provider Instructions: Last day of antibiotic 04/17/2022. Can remove his ultrasound guided IV once IV antibiotics are complete Ampicillin 2gm IV Q 6 Ceftriaxone 2gm IV Q 12 Maintain barber catheter until outpatient follow up with Urology. Follow up with Dr Mcintyre in 2 weeks While in the hospital, he had episode of delirium 5/ evening and received Risperdal 0.5mg oral once. Would recommend ongoing delirium prevention measures, frequent visits with family. Pending Studies at Discharge: No Stand-Alone Forms: My [facility] Skilled Items Patient informed of condition?: Yes DNR: No Discharge Level of Care: Skilled Communicable Disease: No Discharge Prognosis: Stable Lines: US Guided Peripheral IV Urinary Catheter: Yes Medications and DC Order Prescriptions: New Saccharomyces boulardii [Florastor] 250 mg Capsule 250 mg PO BID 60 Days Qty: 120 RF: 0 ceftriaxone 2 gram recon soln 2 g IV Q12H 25 Days Qty: 25 RF: 1 ampicillin sodium 2 gram recon soln 2 g IV Q6H 25 Days Qty: 50 RF: 1 insulin aspart U-100 100 unit/mL (3 mL) insulin pen 5 unit subcut AC 30 Days Qty: 4.5 RF: 0 Continued Lantus U-100 Insulin 100 unit/mL solution 20 unit subcut QAM RF: 0 metoprolol succinate 25 mg tablet extended release 24 hr 25 mg PO AMHS RF: 0 atorvastatin 10 mg Tablet 10 mg PO HS RF: 0 amlodipine [Norvasc] 5 mg tablet 5 mg PO QAM RF: 0 Januvia 50 mg tablet 50 mg PO QAM RF: 0 calcium citrate 250 mg calcium Tablet 500 mg PO QAM RF: 0 mirtazapine 15 mg tablet 15 mg PO HS RF: 0 acetaminophen 325 mg tablet 650 mg PO Q4 MDD 3g PRN (Reason: Fever Or Pain) RF: 0 polyethylene glycol 3350 [Miralax] 17 gram/dose Powder 17 g PO DAILY RF: 0 cyanocobalamin (vitamin B-12) [Vitamin B-12] 100 mcg Tablet 100 mcg PO QAM Qty: 30 RF: 0 aspirin 81 mg tablet,delayed release (DR/EC) 81 mg PO QAM RF: 0 ferrous sulfate 325 mg (65 mg iron) tablet 325 mg PO AMHS RF: 0 pantoprazole 40 mg tablet,delayed release (DR/EC) 40 mg PO QAM RF: 0 ipratropium-albuterol 0.5 mg-3 mg(2.5 mg base)/3 mL Solution For Nebulization 3 ml INHALATION Q4H PRN (Reason: Shortness Of Breath Or Wheezing) RF: 0 hydrocodone-acetaminophen 5-325 mg Tablet 1 tab PO Q6H MDD 3g of apap PRN (Reason: mod-severe pain) RF: 0 sennosides-docusate sodium [Senna Plus] 8.6-50 mg Tablet 1 tab-cap PO BID RF: 0 cholecalciferol (vitamin D3) [Vitamin D3] 50 mcg (2,000 unit) Tablet 50 mcg PO QAM RF: 0 finasteride 5 mg tablet 5 mg PO DAILY RF: 0 tamsulosin 0.4 mg capsule 0.4 mg PO DAILY RF: 0 bacitracin 500 unit/gram Ointment 1 applic TOPICAL QS RF: 0 Theracalazinc 1 applic topical QS RF: 0 Discontinued insulin asp prt-insulin aspart [Novolog Mix 70-30FlexPen U-100] 100 unit/mL (70-30) insulin pen 12 unit SUBCUT .WITH BREAKFAST RF: 0 insulin asp prt-insulin aspart [Novolog Mix 70-30FlexPen U-100] 100 unit/mL (70-30) insulin pen 18 unit SUBCUT . BEFORE SUPPER RF: 0 Novolin 70-30 FlexPen U-100 100 unit/mL (70-30) insulin pen 12 unit SUBCUT .WITH LUNCH RF: 0 penicillin V potassium 500 mg tablet 500 mg PO BID 10 Days Qty: 20 RF: 0 Discharge Orders: Discharge Order (Routine); Ordered 03/23/22 Ordered By: Deborah Morris Admission Data Admit Date/Time: 03/18/22 16:32 Attending Provider: Deborah Morris Admit Provider: Anup Leonard [facility] Other Providers: Anup Leonard ; [facility] ; Sam Camacho ; Deandre Gonzales ; Eliud Stanley I. ; Dieter Huthcins II ; Shelley Marinelli ; Paulie Mcmullen ; Conner Schneider ; Anthony Garcia ; Juan Dubose ; Farzaneh Bailon ; Yani Kenney ; Melissa Dan ; Jyoti Monzon ; Alton White ; Rupesh Cotton ; Catalino Gage ; Armond Gallego ; Ramona Gallego ; Gustavo Ford ; Ebony Thompson ; Rudolph Serrano ; Dylan Mark ; Parker Correa ; Mehdi Mi ; Jayne Bhatt ; Paulie Arana ; Ailyn Rivera ; Rosemarie Arana ; Nehemiah Cao ; Naima Ellis ; Charles Newman ; Paula Thompson ; Amanda Castorena ; Naima Prabhakar ; Sara Martinez ; Hieu Kelley ; Karo Macedo ; Arielle Melendez ; Roz Ray ; Nadira Rodriges ; Willis Rodriges V ; Mickey Lazo ; Yani Flores ; Jerry Agudelo ; Mary David ; Radha Xiong ; Willis Marquez ; Desmond Bhatt ; Jovan Velasco ; Sara Gunter ; Jeniffer Briscoe ; Willis Perales ; Roz Parham ; Adarsh Tapia ; Ashkan Mi ; Dariela Neil ; Tank Mosqueda ; John Taveras ; Pedro Walker ; Endy Gallego ; Tank Cruz ; Alton Pride Jr ; Jessica Pichardo ; Taina Brooks ; Lizet Florez ; Hiue Mcintyre Other Interventions: Discharge Summary Assessment (RN) Last Done: 03/23/22 13:10
== END 2022-03-23 14:04 | DRG 698 ==
LOC: ED 12:55 → 2S 16:32 → SUATTDRO 16:32 → 2S 20:32